=== PATIENT | male | born 1955 | race Caucasian/White ===

== ENCOUNTER 2016-07-26 05:06 | Emergency (ER) | payer BC ==
[2016-07-26] MEDS ORDERED: NITROGLYCERIN SL TABS 0.4 MG TAB SUBLINGUAL STA (05:27)
[2016-07-26] MEDS ORDERED: MORPHINE SULFATE 4 MG/ML SYRINGE IV STA ×2 (05:27→07:15)
[2016-07-26] MEDS ORDERED: RX INFO: IV CONTRAST WAS GIVEN 1 EACH MISC MISCELLANE PRN (05:31)
--- NOTE | 2016-07-26 05:32 | ED ---
Chest Pain HPI - General Chief Complaint: Chest Pain Stated Complaint: chest pains Time Seen by Provider: 07/26/16 05:08 Source: patient, family Mode of arrival: wheelchair Limitations: no limitations - History of Present Illness Initial Comments: This patient is a 61-year-old man with history of diabetes who presents to be evaluate for chest pain. The patient states that symptoms started probably about 45 minutes ago. He states that he was getting ready for work when he noticed substernal chest pain. He then also noted that his right arm was feeling somewhat weak and somewhat tingly. Patient notified his after few minutes and they then came here. Patient denies history of similar type of pains. He describes the pain as constant, severe, he is not able to characterize the type of pain well. He has not noticed any worsening or relieving factors. The patient has had some diaphoresis and a little bit of nausea. MD Complaint: chest pain Onset/Timin -: minutes(s) Onset: other (While showering) Pain Location: substernal Pain Radiation: none Severity: severe Quality: aching Consistency: constant Improves With: nothing Worsens With: nothing Anginal Symptoms: nausea, diaphoresis, other (Weakness of the right arm) Treatments Prior to Arrival: none - Related Data Home Medications Medication Instructions Recorded Confirmed Lisinopril 40 mg PO DAILY 11/03/13 07/26/16 Tadalafil [Cialis] 20 mg PO ONCE PRN 11/03/13 07/26/16 Aspirin [Adult Low Dose Aspirin EC] 81 mg PO DAILY 06/07/16 07/26/16 Fenofibrate 120 mg PO DAILY 06/07/16 07/26/16 sitaGLIPtin PHOS/metFORMIN HCL 1 each PO BID 06/07/16 07/26/16 [Janumet 50-1,000 mg Tablet] predniSONE 10 mg PO DAILY 06/08/16 07/26/16 Allergies Allergy/AdvReac Type Severity Reaction Status Date / Time No Known Allergies Allergy Verified 07/26/16 05:21 Review of Systems ROS Statement: Those systems with pertinent positive or pertinent negative responses have been documented in the HPI. ROS Other: All systems not noted in ROS Statement are negative. Constitutional: Reports: weakness (Right arm). Denies: fever, chills Respiratory: Reports: dyspnea. Denies: cough, wheezes Cardiovascular: Reports: chest pain. Denies: palpitations, edema, syncope Gastrointestinal: Reports: nausea. Denies: abdominal pain, vomiting, diarrhea Genitourinary: Denies: dysuria, hematuria Musculoskeletal: Denies: back pain Skin: Denies: rash Neurological: Reports: weakness (Right arm), numbness. Denies: headache Hematological/Lymphatic: Denies: easy bleeding EKG Findings - EKG Results: EKG: interpreted by ERMD, sinus rhythm, normal axis, normal QRS, normal ST/T EKG shows: bradycardia (8 approximately 58 bpm) Past Medical History Past Medical History: Diabetes Mellitus, Hypertension Additional Past Medical History / Comment(s): non healing wound R big Toe History of Any Multi-Drug Resistant Organisms: None Reported Past Surgical History: Orthopedic Surgery Additional Past Surgical History / Comment(s): femur Past Anesthesia/Blood Transfusion Reactions: No Reported Reaction Past Psychological History: No Psychological Hx Reported Smoking Status: Former smoker Past Alcohol Use History: None Reported Past Drug Use History: None Reported - Past Family History Mother Family Medical History: No Reported History General Exam Limitations: no limitations General appearance: alert, in distress, other (There is mild diaphoresis) Head exam: Present: atraumatic, normocephalic Eye exam: Present: normal appearance. Absent: scleral icterus, conjunctival injection ENT exam: Present: normal oropharynx Neck exam: Present: normal inspection, full ROM Respiratory exam: Present: normal lung sounds bilaterally. Absent: respiratory distress, wheezes, rales, rhonchi, stridor Cardiovascular Exam: Present: regular rate, normal rhythm, normal heart sounds. Absent: systolic murmur, diastolic murmur, rubs, gallop GI/Abdominal exam: Present: soft. Absent: distended, tenderness, guarding, rebound, mass Extremities exam: Present: full ROM, other (The patient's right upper extremity does appear pale and comparison with the contralateral and the pulse is diminished at the right radial artery.). Absent: normal inspection, normal capillary refill, pedal edema, calf tenderness Back exam: Present: normal inspection. Absent: CVA tenderness (R), CVA tenderness (L), vertebral tenderness Neurological exam: Present: alert. Absent: motor sensory deficit Skin exam: Present: warm, dry, intact, diaphoretic, pallor (Right upper extremity). Absent: rash, cyanosis, erythema Course Vital Signs 07/26/16 07/26/16 07/26/16 05:17 05:36 06:11 Temperature 97.0 F L Pulse Rate 62 57 L 54 L Respiratory 18 16 16 Rate Blood Pressure 145/65 115/59 122/59 O2 Sat by Pulse 98 98 98 Oximetry 07/26/16 07/26/16 07/26/16 06:21 06:27 06:43 Temperature Pulse Rate 52 L 56 L 53 L Respiratory 16 16 18 Rate Blood Pressure 101/51 97/55 100/54 O2 Sat by Pulse 99 98 98 Oximetry 07/26/16 07/26/16 07/26/16 06:57 06:58 07:19 Temperature 97.3 F L Pulse Rate 52 L 54 L 54 L Respiratory 16 16 16 Rate Blood Pressure 114/60 116/59 118/63 O2 Sat by Pulse 98 95 Oximetry Chest Pain [facility] Patient is 61-year-old man with acute onset of chest pain this morning. On the physical exam his right upper extremity does appear pale and there also is a decreased pulse at the right radial artery. Patient was sent for stat CT to rule out an aortic dissection. On return of the patient from the computed tomography scan I reviewed the computed tomography scan and it does show a DeBakey type I aortic dissection. I discussed the findings with the patient and his who requested transfer to [facility]. I then spoke with the human resources coordinator and I was connected with the surgical AOD, Dr. Phillips, who accepted transfer. I did give the patient dose of beta blockade. Critical Care Time Critical Care Time: Yes (40 minutes) Critical Care Time: Total of 40 minutes critical care time spent on this patient performing history and physical exam, placing orders, interpreting the studies as well as a computed tomography scan, discussing the case with the radiologist, with the patient and his family, with the [facility] transfer team, with the [facility] surgical AOD, with the [facility] vascular surgery team, and documenting. Disposition Clinical Impression: Dissection of thoracic aorta Disposition: OTHER INSTITUTION NOT DEFINED Condition: Critical Referrals: Kwan Toney MD [Primary Care Provider] - 1-2 days - Out of Hospital Transfer - Req. Specs Out of Hospital Transfer - Requested Specifics: Other Emergency Center
[2016-07-26 05:52] LABS: Basophils # (A) 0.1 k/uL (0-0.2); Basophils % (A) 1 %; CH 28.1; CHCM 33.6; Eosinophils # (A) 0.2 k/uL (0-0.7); Eosinophils % (A) 2 %; HCT 39.6 % (39.0-53.0); HDW 2.86; HGB 13.1 gm/dL (13.0-17.5); Luc # (Auto) 0.29; Luc % (Auto) 2; Lymphocytes # (A) 3.6 k/uL (1.0-4.8); Lymphocytes % (A) 30 %; MCH 27.8 pg (25.0-35.0); MCHC 33.1 g/dL (31.0-37.0); MCV 84.1 fL (80.0-100.0); Mean Platelet Volume 8.2; Monocytes # (A) 0.6 k/uL (0-1.0); Monocytes % (A) 5 %; Neutrophils # (A) 7.1 k/uL (1.3-7.7); Neutrophils % (A) 60 %; RBC 4.71 m/uL (4.30-5.90); RDW 14.7 % (11.5-15.5); WBC 11.9 k/uL (3.8-10.6); WBC (Perox) 12.44
[2016-07-26 05:56] LABS: ALT 36 U/L (21-72); AST 23 U/L (17-59); Alkaline Phosphatase 33 U/L (38-126); Amylase 72 U/L (30-110); Anion Gap 12 mmol/L; Blood Urea Nitrogen 18 mg/dL (9-20); Calcium 9.8 mg/dL (8.4-10.2); Carbon Dioxide 25 mmol/L (22-30); Chloride 106 mmol/L (98-107); Glucose 122 mg/dL (74-99); Magnesium 1.5 mg/dL (1.6-2.3); Non-African American GFR(MDRD) >60 (>60 ml/min/1.73 sqM); Potassium 3.8 mmol/L (3.5-5.1); Sodium 143 mmol/L (137-145); Total Bilirubin 0.5 mg/dL (0.2-1.3); Total Protein 6.3 g/dL (6.3-8.2)
[2016-07-26 06:05] LABS: Creatine Kinase 203 U/L (55-170); Prothrombin Time 10.3 sec (9.0-12.0)
[2016-07-26 06:14] LABS: Partial Thromboplastin Time 20.8 sec (22.0-30.0)
[2016-07-26 06:18] LABS: Troponin I <0.012 ng/mL (0.000-0.034)
--- NOTE | 2016-07-26 06:24 | XR ---
EXAM: XR Chest, 1 View. CLINICAL HISTORY: Reason: chest pain TECHNIQUE: Frontal view of the chest. COMPARISON: Chest x-ray 02/18/16 FINDINGS: Lungs: Unremarkable. No consolidation. Pleural space: Unremarkable. No pneumothorax. Heart: Unremarkable. No cardiomegaly. Mediastinum: Unremarkable. Bones/joints: Unremarkable. IMPRESSION: Normal chest x-ray.
[2016-07-26 06:27] LABS: Creatine Kinase MB 2.7 ng/mL (0.0-2.4)
[2016-07-26] MEDS ORDERED: LABETALOL SYRINGE 5 MG/ML IVP STA (06:28)
[2016-07-26 06:58] VITALS: RESP 16
[2016-07-26 06:59] VITALS: PULSE 54
--- NOTE | 2016-07-26 07:05 | CT ---
ADDENDUM - Added by Binu Mayes M.D. on 08/30/2016 12:10 PM (-07:00) Note is made that the true lumen is mostly collapsed and the false lumen is larger than the true lumen. Dissection flap involves all the great branches of the aortic arch. The left common carotid artery involves mostly the false lumen. The right renal artery arises from the true lumen. The left renal artery arises from the false lumen. Dissection flap extends to involve the celiac access and SMA. The MELLISA arises from the false lumen. EXAM: CT Angiography Chest and abdomen Without and With Intravenous Contrast. CLINICAL HISTORY: Reason: Pain, r/o dissection TECHNIQUE: Axial computed tomographic angiography images of the chest and abdomen without and with intravenous contrast using aortic dissection protocol. MIP reconstructed images were created and reviewed. Coronal and sagittal reformatted images were created and reviewed. CTDI is 20.10 mGy and DLP is 1039.20 mGy-cm COMPARISON: No relevant prior studies available. FINDINGS: Aorta: Aortic dissection starting from the ascending aorta extending to bilateral common iliac arteries in the abdomen and pelvis. Type A dissection. There is contrast flow into the false lumen. No evidence of leak or rupture. 4.4 cm aneurysmal dilatation of ascending aorta. Great vessels of aortic arch: Dissection flap extends to the proximal right subclavian artery origin, left common carotid artery origin, and the left subclavian artery origin. Superior mesenteric artery: Dissection flap extends to the proximal celiac axis and SMA. The right renal artery arises from the false lumen. Left renal artery arises from the true lumen. MELLISA arises from the true lumen. Dissection flap extends into bilateral external iliac arteries with bilateral internal iliac arteries arising from the false lumen. Lungs: Mild bibasilar lung atelectasis. The lungs otherwise clear. Pleural space: No pleural effusion or pneumothorax. Heart: Coronary artery disease. Heart size normal. Small 9 mm pericardial effusion. Bones/joints: No acute fracture. No dislocation. Soft tissues: Unremarkable. Lymph nodes: Calcified right mediastinal lymph nodes consistent with old granulomatous disease. Liver: Fatty prominent liver. Distended gallbladder. Kidneys and ureters: There is slight decreased perfusion intensity to the right kidney compared to the left without focal infarct. Mild bilateral perinephric stranding. Stomach and bowel: The visualized portions of bowel are unremarkable. No evidence of bowel ischemia. Appendix: Normal appendix. IMPRESSION: 1. Type A aortic dissection starting from the proximal ascending aorta extending to the bilateral common iliac arteries and involving the external and internal iliac arteries. There is contrast flow into the false lumen. Dissection flap involves the great vessels arising from the aortic arch. 2. 4.4 cm aneurysmal dilatation of the ascending aorta. No evidence of leak or rupture. 3. Aortic dissection extends into the abdomen and pelvis and involves the celiac access and SMA. The right renal artery arises from the false lumen and has slight decreased overall perfusion compared to the left without focal infarct. [employer] 07/26/16 06:56 Call Doctor Regarding Aortic Dissection, called DR Ledezma on 07/26 06:56 (-04:00) 08/30/16 21:31 Verify Receipt Verified receipt with
[2016-07-26 07:19] VITALS: BP 118/63; TEMP 97.3
== END 2016-07-26 07:23 | disposition other institution (70) ==
LOC: EC 05:06
DX: I71.01 Dissection of thoracic aorta (principal); E11.9 Type 2 diabetes mellitus without complications; I10 Essential (primary) hypertension; Z79.84 Long term (current) use of oral hypoglycemic drugs; Z79.82 Long term (current) use of aspirin; Z79.899 Other long term (current) drug therapy; Z87.891 Personal history of nicotine dependence; Z79.52 Long term (current) use of systemic steroids
CPT/HCPCS: 96374; 96375 ×2; 99291 ×2; 36415; 93005; 85379; 80053; 82150; 82550; 82553; 83690; 83735; 84484; 85025; 85610; 85730; 71010; 75635; 71275; J2270; Q9967

== ENCOUNTER 2016-12-17 16:54 | Inpatient (IN) | payer BC ==
[2016-12-17 16:59] LABS: Glucose,Whole Blood 80 mg/dL (75-99)
[2016-12-17] MEDS ORDERED: SODIUM CHLORIDE 0.9% 1,000 ML IV STA (16:59)
[2016-12-17] MEDS ORDERED: LORazepam 2 MG/ML SYRINGE IV STA (17:06)
--- NOTE | 2016-12-17 17:06 | ED ---
Seizure HPI - General Stated Complaint: Seizure Time Seen by Provider: 12/17/16 16:54 Source: EMS, RN notes reviewed, old records reviewed Mode of arrival: EMS - History of Present Illness Initial Comments: This is a 61-year-old male with a history of CVA with left-sided deficits who had a seizure lasting about 2 minutes at senior living where he resides today. He was brought here for evaluation. Upon arrival he was also noted have a seizure lasting about 2 minutes the was a senior living episode about 2 minutes. Patient had tonic-clonic activity with left lateral gaze at this time. No reports of trauma fevers chills nausea vomiting sweats patient is on Coumadin. MD Complaint: seizure - Related Data Home Medications Medication Instructions Recorded Confirmed Acetaminophen Tab [Tylenol Tab] 650 mg PO Q6H PRN 12/17/16 12/17/16 Amino Acids/Protein Hydrolys 30 ml PO BID 12/17/16 12/17/16 [Pro-Stat Supplement] Amiodarone [Cordarone] 200 mg PO DAILY 12/17/16 12/17/16 Ammonium Lactate Cream [Lac-Hydrin 1 applic TOPICAL BID 12/17/16 12/17/16 12% Cream] Atorvastatin [Lipitor] 20 mg PO DAILY@2100 12/17/16 12/17/16 Bisacodyl [Dulcolax] 10 mg RECTAL DAILY PRN 12/17/16 12/17/16 DULoxetine HCL [Cymbalta] 30 mg PO DAILY 12/17/16 12/17/16 Famotidine [Pepcid] 20 mg PO BID 12/17/16 12/17/16 Ferrous Sulfate [Feosol] 325 mg PO BID 12/17/16 12/17/16 Folic Acid 1 mg PO DAILY@1700 12/17/16 12/17/16 Furosemide [Lasix] 40 mg PO DAILY 12/17/16 12/17/16 HYDROcodone/APAP 10-325MG [[place] 1 tab PO Q4HR PRN 12/17/16 12/17/16 10-325] INSULIN LISPRO (humaLOG) [HumaLOG] See Protocol SQ ACHS 12/17/16 12/17/16 Insulin Detemir [Levemir] 36 unit SQ DAILY 12/17/16 12/17/16 Insulin Lispro [humaLOG] 16 units SQ AC-TID 12/17/16 12/17/16 Lactulose 20 gm PO BID 12/17/16 12/17/16 Lidocaine [Lidoderm 5% Patch] 1 patch TRANSDERM DAILY 12/17/16 12/17/16 Lisinopril [Zestril] 10 mg PO BID 12/17/16 12/17/16 Loratadine [Claritin] 10 mg PO DAILY 12/17/16 12/17/16 Magnesium Hydroxide [Milk of 2,400 mg PO DAILY PRN 12/17/16 12/17/16 Magnesia] Metoclopramide [Reglan] 10 mg PO ACHS 12/17/16 12/17/16 Metoprolol Tartrate [Lopressor] 50 mg PO BID 12/17/16 12/17/16 Multivitamins, Thera [Multivitamin 1 tab PO DAILY@1700 12/17/16 12/17/16 (formulary)] Na Phos,M-B/Na Phos,Di-Ba [Fleet 133 ml RECTAL DAILY PRN 12/17/16 12/17/16 Adult] Momence Nasal [place] 1 spray EA NOSTRIL BID 12/17/16 12/17/16 Ondansetron [Zofran] 4 mg PO Q6H PRN 12/17/16 12/17/16 Polyethylene Glycol 3350 [Miralax] 17 gm PO DAILY 12/17/16 12/17/16 Potassium Chloride Oral Liquid 20 meq PO DAILY@1700 12/17/16 12/17/16 Warfarin [Coumadin] 2.5 mg PO FR@1700 12/17/16 12/17/16 Warfarin [Coumadin] 5 mg PO SUMOTUWETHSA@1700 12/17/16 12/17/16 buPROPion [Wellbutrin] 100 mg PO BID 12/17/16 12/17/16 predniSONE 5 mg PO DAILY 12/17/16 12/17/16 Allergies Allergy/AdvReac Type Severity Reaction Status Date / Time No Known Allergies Allergy Verified 12/17/16 17:13 Review of Systems ROS Statement: Those systems with pertinent positive or pertinent negative responses have been documented in the HPI. ROS Other: All systems not noted in ROS Statement are negative. Limitations: ROS unobtainable due to patients medical condition Past Medical History Past Medical History: Diabetes Mellitus, Hypertension Additional Past Medical History / Comment(s): non healing wound R big Toe History of Any Multi-Drug Resistant Organisms: None Reported Past Surgical History: Orthopedic Surgery Additional Past Surgical History / Comment(s): femur Past Anesthesia/Blood Transfusion Reactions: No Reported Reaction Past Psychological History: No Psychological Hx Reported Smoking Status: Former smoker Past Alcohol Use History: None Reported Past Drug Use History: None Reported - Past Family History Mother Family Medical History: No Reported History General Exam - General Exam Comments Initial Comments: Is a well-developed well-nourished male he was noted to be actively seizing lasting about 2 minutes upon arrival Limitations: altered mental status, physical limitation General appearance: other (Actively seizing) Head exam: Present: atraumatic, normocephalic, normal inspection Eye exam: Present: other (Left lateral gaze) ENT exam: Present: normal exam, TM's normal bilaterally Neck exam: Present: normal inspection. Absent: tenderness, meningismus, lymphadenopathy Respiratory exam: Present: normal lung sounds bilaterally. Absent: respiratory distress, wheezes, rales, rhonchi, stridor Cardiovascular Exam: Present: tachycardia GI/Abdominal exam: Present: soft, normal bowel sounds. Absent: distended, tenderness, guarding, rebound, rigid Extremities exam: Present: normal capillary refill Back exam: Present: normal inspection Neurological exam: Present: other (Patient was noted be actively seizing upon my initial evaluation) Psychiatric exam: Present: other (Unable to evaluate) Skin exam: Present: warm, dry, intact, normal color. Absent: rash Course Vital Signs 12/17/16 12/17/16 12/17/16 17:09 18:03 19:01 Pulse Rate 71 67 69 Respiratory 18 14 16 Rate Blood Pressure 175/83 133/81 117/69 O2 Sat by Pulse 98 95 95 Oximetry - Reevaluation(s) Reevaluation #1: 12/17/16 17:07 Patient seizure activity lasting approximately 2 minutes. Patient was given IV Ativan over prior to this he had awoken enough to follow some simple commands. Medical Decision Making - Medical Decision Making I did a long discussion with patient and family regarding the findings. Patient was reevaluated no further seizure activity was noted. Patient will be admitted with neurology consultation the patient has seen Dr. Vero Duron in the past. Patient will be started on Keppra EEG will be performed. - Lab Data Result diagrams: 12/17/16 17:15 12/17/16 17:15 Lab Results 12/17/16 12/17/16 12/17/16 Range/Units 16:58 17:15 17:15 WBC 10.7 H (3.8-10.6) k/uL RBC 4.77 (4.30-5.90) m/uL Hgb 12.7 L (13.0-17.5) gm/dL Hct 38.2 L (39.0-53.0) % MCV 80.0 (80.0-100.0) fL MCH 26.6 (25.0-35.0) pg MCHC 33.3 (31.0-37.0) g/dL RDW 17.2 H (11.5-15.5) % Plt Count 156 (150-450) k/uL Neutrophils % 75 % Lymphocytes % 13 % Monocytes % 8 % Eosinophils % 1 % Basophils % 1 % Neutrophils # 8.1 H (1.3-7.7) k/uL Lymphocytes # 1.4 (1.0-4.8) k/uL Monocytes # 0.8 (0-1.0) k/uL Eosinophils # 0.1 (0-0.7) k/uL Basophils # 0.1 (0-0.2) k/uL Anisocytosis Slight Microcytosis Slight PT 20.1 H (9.0-12.0) sec INR 2.1 H (<1.2) APTT 30.2 H (22.0-30.0) sec Sodium (137-145) mmol/L Potassium (3.5-5.1) mmol/L Chloride (98-107) mmol/L Carbon Dioxide (22-30) mmol/L Anion Gap mmol/L BUN (9-20) mg/dL Creatinine (0.66-1.25) mg/dL Est GFR (MDRD) Af Amer (>60 ml/min/1.73 sqM) Est GFR (MDRD) Non-Af (>60 ml/min/1.73 sqM) Glucose (74-99) mg/dL POC Glucose (mg/dL) 80 (75-99) mg/dL POC Glu [employer] Prasanna Lopez Calcium (8.4-10.2) mg/dL Magnesium (1.6-2.3) mg/dL Total Bilirubin (0.2-1.3) mg/dL AST (17-59) U/L ALT (21-72) U/L Alkaline Phosphatase (38-126) U/L Total Creatine Kinase (55-170) U/L CK-MB (CK-2) (0.0-2.4) ng/mL CK-MB (CK-2) Rel Index Troponin I (0.000-0.034) ng/mL Total Protein (6.3-8.2) g/dL Albumin (3.5-5.0) g/dL TSH (0.465-4.680) mIU/L 12/17/16 12/17/16 12/17/16 Range/Units 17:15 17:15 18:02 WBC (3.8-10.6) k/uL RBC (4.30-5.90) m/uL Hgb (13.0-17.5) gm/dL Hct (39.0-53.0) % MCV (80.0-100.0) fL MCH (25.0-35.0) pg MCHC (31.0-37.0) g/dL RDW (11.5-15.5) % Plt Count (150-450) k/uL Neutrophils % % Lymphocytes % % Monocytes % % Eosinophils % % Basophils % % Neutrophils # (1.3-7.7) k/uL Lymphocytes # (1.0-4.8) k/uL Monocytes # (0-1.0) k/uL Eosinophils # (0-0.7) k/uL Basophils # (0-0.2) k/uL Anisocytosis Microcytosis PT (9.0-12.0) sec INR (<1.2) APTT (22.0-30.0) sec Sodium 130 L (137-145) mmol/L Potassium 4.6 (3.5-5.1) mmol/L Chloride 97 L (98-107) mmol/L Carbon Dioxide 22 (22-30) mmol/L Anion Gap 11 mmol/L BUN 14 (9-20) mg/dL Creatinine 0.91 (0.66-1.25) mg/dL Est GFR (MDRD) Af Amer >60 (>60 ml/min/1.73 sqM) Est GFR (MDRD) Non-Af >60 (>60 ml/min/1.73 sqM) Glucose 74 (74-99) mg/dL POC Glucose (mg/dL) 98 (75-99) mg/dL POC Glu [employer] ID Boo Muller Calcium 8.9 (8.4-10.2) mg/dL Magnesium 1.3 L (1.6-2.3) mg/dL Total Bilirubin 0.4 (0.2-1.3) mg/dL AST 29 (17-59) U/L ALT 41 (21-72) U/L Alkaline Phosphatase 31 L (38-126) U/L Total Creatine Kinase 35 L (55-170) U/L CK-MB (CK-2) 2.2 (0.0-2.4) ng/mL CK-MB (CK-2) Rel Index 6.3 Troponin I <0.012 (0.000-0.034) ng/mL Total Protein 6.5 (6.3-8.2) g/dL Albumin 3.3 L (3.5-5.0) g/dL TSH 3.460 (0.465-4.680) mIU/L - EKG Data -: EKG Interpreted by Tn EKG shows normal: sinus rhythm (Sinus rhythm rate of 68. Interval 184 QRS 96 QT since QTC of 446/[address] configuration.) - Radiology Data Radiology results: report reviewed (Review the imaging shows no definite acute findings.), image reviewed Critical Care Time Critical Care Time: Yes Critical Care Time: 34 minutes of critical care time which includes initial monitoring the EMS run and discussed with paramedics history physical labs x-rays reevaluation patient several occasions. Review of old charting. Discussion with patient family. Discussion with the admitting physician and admission orders and documentation of the above Disposition Clinical Impression: New onset seizure, Hyponatremia, Hypomagnesemia syndrome, History of CVA in adulthood Disposition: ADMITTED IP TO THIS HOSP Condition: Stable Referrals: Kwan Toney MD [Primary Care Provider] - 1-2 days
[2016-12-17 17:37] LABS: INR 2.1 (<1.2); Partial Thromboplastin Time 30.2 sec (22.0-30.0); Prothrombin Time 20.1 sec (9.0-12.0)
--- NOTE | 2016-12-17 18:09 | CT ---
EXAMINATION TYPE: CT brain wo con DATE OF EXAM: 12/17/2016 COMPARISON: NONE HISTORY: 61-year-old male with new onset seizure today. History of stroke. TECHNIQUE: Examination was done in axial plane without intravenous contrast. Coronal and sagittal r econstructions performed. CT DLP: 1033.40 mGycm Automated exposure control for dose reduction was used. FINDINGS: There is no evidence of acute intracranial hemorrhage, acute ischemic changes, mass, mass-effect, or extra-axial fluid collection. There is no effacement of cerebral sulci or basal subarachnoid cister ns. There is no hydrocephalus. There is no midline shift. Tam-white matter distinction is preserv ed. There is extensive encephalomalacia relating to a large old right MCA territorial infarct. Paranasal sinuses and mastoid air cells are well pneumatized. Orbits and globes are intact. IMPRESSION: Large right MCA territory infarct is chronic with extensive encephalomalacia. No acute intracranial a bnormality seen.
[2016-12-17 18:10] LABS: Glucose,Whole Blood 98 mg/dL (75-99)
[2016-12-17 19:09] LABS: Anisocytosis Slight; Basophils # (A) 0.1 k/uL (0-0.2); Basophils % (A) 1 %; CH 27.5; CHCM 34.4; Eosinophils # (A) 0.1 k/uL (0-0.7); Eosinophils % (A) 1 %; HCT 38.2 % (39.0-53.0); HDW 3.08; HGB 12.7 gm/dL (13.0-17.5); Luc # (Auto) 0.27; Luc % (Auto) 3; Lymphocytes # (A) 1.4 k/uL (1.0-4.8); Lymphocytes % (A) 13 %; MCH 26.6 pg (25.0-35.0); MCHC 33.3 g/dL (31.0-37.0); Mean Platelet Volume 7.9; Microcytosis Slight; Monocytes # (A) 0.8 k/uL (0-1.0); Monocytes % (A) 8 %; Neutrophils # (A) 8.1 k/uL (1.3-7.7); Neutrophils % (A) 75 %; RBC 4.77 m/uL (4.30-5.90); RDW 17.2 % (11.5-15.5); WBC 10.7 k/uL (3.8-10.6); WBC (Perox) 10.61
[2016-12-17 19:15] LABS: ALT 41 U/L (21-72); AST 29 U/L (17-59); Alkaline Phosphatase 31 U/L (38-126); Anion Gap 11 mmol/L; Blood Urea Nitrogen 14 mg/dL (9-20); Calcium 8.9 mg/dL (8.4-10.2); Carbon Dioxide 22 mmol/L (22-30); Chloride 97 mmol/L (98-107); Creatine Kinase 35 U/L (55-170); Glucose 74 mg/dL (74-99); Magnesium 1.3 mg/dL (1.6-2.3); Non-African American GFR(MDRD) >60 (>60 ml/min/1.73 sqM); Potassium 4.6 mmol/L (3.5-5.1); Sodium 130 mmol/L (137-145); Total Bilirubin 0.4 mg/dL (0.2-1.3); Total Protein 6.5 g/dL (6.3-8.2)
[2016-12-17 19:26] LABS: Creatine Kinase MB 2.2 ng/mL (0.0-2.4); Troponin I <0.012 ng/mL (0.000-0.034)
[2016-12-17] MEDS ORDERED: levETIRAcetam IV 1,500 MG in SALINE 1 100ML.BAG IVPB STA (20:17)
[2016-12-17] MEDS ORDERED: MAGNESIUM HYDROXIDE 2,400 MG/10 ML CUP PO PRN (20:18)
[2016-12-17] MEDS ORDERED: ONDANSETRON 4 MG TAB PO PRN (20:18)
[2016-12-17] MEDS ORDERED: BISACODYL 10 MG SUPP RECTAL PRN (20:18)
[2016-12-17] MEDS ORDERED: NA PHOS,M-B/NA PHOS,DI-BA 133 ML ENEMA RECTAL PRN (20:18)
[2016-12-17] MEDS ORDERED: MAGNESIUM SULFATE-D5W PMX 1 GM in DEXTROSE/WATER 1 100ML.BAG IVPB ONE (20:23)
[2016-12-17] MEDS ORDERED: NON-FORMULARY DRUG (Amino Acids/Protein Hydrolys [Pro-Stat Supplement] 30 ML) PO SCH (21:00)
[2016-12-17 21:01] LABS: Appearance,Urine Clear (Clear); Bilirubin,Urine Negative (Negative); Glucose,Urine (UA) Negative (Negative); Ketones,Urine Negative (Negative); Leukocyte Esterase,Urine Negative (Negative); Nitrite,Urine Negative (Negative); PH, Urine 5.5 (5.0-8.0); Protein,Urine Negative (Negative); Specific Gravity,Urine 1.007 (1.001-1.035); UA Billing (MACRO vs. MICRO) CHEM; Urobilinogen,Urine <2.0 mg/dL (<2.0)
[2016-12-17] MEDS: AMMONIUM LACTATE 12% CREAM 140 GM TUBE TOPICAL SCH (22:25)
[2016-12-17] MEDS: FERROUS SULFATE 325 MG TAB PO SCH (22:26)
[2016-12-17] MEDS: ATORVASTATIN 20 MG TAB PO SCH (22:26)
[2016-12-17] MEDS: buPROPion 100 MG TAB PO SCH (22:26)
[2016-12-17] MEDS: FAMOTIDINE 20 MG TAB PO SCH (22:26)
[2016-12-17] MEDS: LACTULOSE 20 GM/30 ML CUP PO SCH (22:26)
[2016-12-17] MEDS: METOPROLOL TARTRATE 50 MG TAB PO SCH (22:27)
[2016-12-17] MEDS: LISINOPRIL 10 MG TAB PO SCH (22:27)
[2016-12-17] MEDS: INSULIN LISPRO (humaLOG) 300 UNIT/3 ML VIAL SQ SCH (22:27)
[2016-12-17] MEDS: METOCLOPRAMIDE 10 MG TAB PO SCH (22:27)
[2016-12-18] MEDS ORDERED: Magnesium Replacement Protocol 1 EACH MISC MISCELLANE PRN (00:18)
[2016-12-18] MEDS: SODIUM CHLORIDE 0.65% NASAL SPRAY 44 ML BTL INTRANASAL SCH ×2 (00:22→13:22)
[2016-12-18] MEDS: MAGNESIUM SULFATE-D5W PMX 1 GM in DEXTROSE/WATER 1 100ML.BAG IVPB SCH ×2 (01:08→02:19)
[2016-12-18 02:43] LABS: Cholesterol 116 mg/dL (<200); HDL Cholesterol 27 mg/dL (40-60)
[2016-12-18] MEDS: HYDROcodone/APAP 10-325MG 1 EACH TAB PO PRN (05:09)
[2016-12-18 06:06] LABS: Glucose,Whole Blood 84 mg/dL (75-99)
[2016-12-18] MEDS: INSULIN LISPRO (humaLOG) 300 UNIT/3 ML VIAL SQ SCH ×7 (06:35→21:48)
[2016-12-18 06:41] LABS: Anisocytosis Slight; Basophils # (A) 0.1 k/uL (0-0.2); Basophils % (A) 1 %; CHCM 34.4; Eosinophils # (A) 0.1 k/uL (0-0.7); Eosinophils % (A) 1 %; HCT 35.5 % (39.0-53.0); HDW 3.04; HGB 12.1 gm/dL (13.0-17.5); Luc # (Auto) 0.21; Luc % (Auto) 2; Lymphocytes # (A) 1.5 k/uL (1.0-4.8); Lymphocytes % (A) 16 %; MCH 26.9 pg (25.0-35.0); MCHC 34.1 g/dL (31.0-37.0); MCV 78.6 fL (80.0-100.0); Mean Platelet Volume 6.8; Microcytosis Slight; Monocytes # (A) 0.7 k/uL (0-1.0); Monocytes % (A) 8 %; Neutrophils # (A) 6.5 k/uL (1.3-7.7); Neutrophils % (A) 72 %; RBC 4.51 m/uL (4.30-5.90); RDW 16.6 % (11.5-15.5); WBC 8.9 k/uL (3.8-10.6); WBC (Perox) 9.17
[2016-12-18 06:56] LABS: INR 1.8 (<1.2); Prothrombin Time 17.4 sec (9.0-12.0)
[2016-12-18 07:04] LABS: ALT 33 U/L (21-72); AST 21 U/L (17-59); Alkaline Phosphatase 30 U/L (38-126); Anion Gap 8 mmol/L; Blood Urea Nitrogen 10 mg/dL (9-20); Calcium 8.7 mg/dL (8.4-10.2); Carbon Dioxide 24 mmol/L (22-30); Chloride 100 mmol/L (98-107); Glucose 80 mg/dL (74-99); Non-African American GFR(MDRD) >60 (>60 ml/min/1.73 sqM); Potassium 3.8 mmol/L (3.5-5.1); Sodium 132 mmol/L (137-145); Total Bilirubin 0.3 mg/dL (0.2-1.3); Total Protein 5.7 g/dL (6.3-8.2)
[2016-12-18] MEDS: LIDOCAINE 5% PATCH TOPICAL SCH ×2 (07:43→09:07)
[2016-12-18] MEDS: SODIUM CHLORIDE 0.9% 1,000 ML IV SCH ×3 (07:43→17:34)
--- NOTE | 2016-12-18 08:36 | US ---
EXAMINATION TYPE: US carotid duplex BILAT DATE OF EXAM: 12/18/2016 COMPARISON: NONE CLINICAL HISTORY: 61-year-old male Stenosis. TECHNIQUE: Carotid duplex ultrasound examination. Indirect Doppler criteria was utilized. FINDINGS: Minimal atherosclerotic changes are seen at the bifurcations. EXAM MEASUREMENTS: RIGHT: Peak Systolic Velocity (PSV) cm/sec ----- Right CCA: 51.7 ----- Right ICA: 73.8 ----- Right ECA: 48.8 ICA/CCA ratio: 1.4 RIGHT: End Diastole cm/sec ----- Right CCA: 0.0 ----- Right ICA: 18.8 ----- Right ECA: 4.3 LEFT: Peak Systolic Velocity (PSV) cm/sec ----- Left CCA: 60.3 ----- Left ICA: 62.7 ----- Left ECA: 48.3 ICA/CCA ratio: 1.0 LEFT: End Diastole cm/sec ----- Left CCA: 9.8 ----- Left ICA: 18.2 ----- Left ECA: 0.0 VERTEBRALS (direction of flow): Right Vertebral: antegrade Left Vertebral: antegrade IMPRESSION: No hemodynamically significant stenosis appreciated in either internal carotid artery. Criteria for Assigning % of Stenosis / Diameter reduction (Estimation based on the indirect measurements of the internal carotid artery velocities (ICA PSV). 1. Normal (no stenosis)=ICA PSV < 125 cm/s: ratio < 2.0: ICA EDV<40 cm/s. 2. Less than 50% stenosis=ICA PSV < 125 cm/s: ratio < 2.0: ICA EDV<40 cm/s. 3. 50 to 69% stenosis=ICA PSV of 125 to 230 cm/s: ration 2.0 ? 4.0: ICA EDV 40-100 cm/s. 4. Greater than 70% stenosis to near occlusion= ICA PSV > 230 cm/s: ratio > 4.0: ICA EDV > 100 cm/s. 5. Near occlusion= ICA PSV velocities may be low or undetectable: variable ratio and ICA EDV. 6. Total occlusion=unable to detect flow.
[2016-12-18] MEDS ORDERED: LIDOCAINE 5% PATCH TOPICAL SCH (09:00)
[2016-12-18] MEDS: POLYETHYLENE GLYCOL 3350 17 GM POWD.PACK PO SCH (09:05)
[2016-12-18] MEDS: levETIRAcetam IV 750 MG in SODIUM CHLORIDE 0.9% 100 ML IVPB SCH ×2 (09:06→21:51)
[2016-12-18] MEDS: METOPROLOL TARTRATE 50 MG TAB PO SCH ×2 (09:06→21:49)
[2016-12-18] MEDS: predniSONE 5 MG TAB PO SCH (09:06)
[2016-12-18] MEDS: LACTULOSE 20 GM/30 ML CUP PO SCH ×2 (09:06→21:49)
[2016-12-18] MEDS: buPROPion 100 MG TAB PO SCH (09:06)
[2016-12-18] MEDS: LISINOPRIL 10 MG TAB PO SCH ×2 (09:06→21:49)
[2016-12-18] MEDS: FUROSEMIDE 40 MG TAB PO SCH (09:07)
[2016-12-18] MEDS: AMMONIUM LACTATE 12% CREAM 140 GM TUBE TOPICAL SCH ×2 (09:07→21:47)
[2016-12-18] MEDS: AMIODARONE 200 MG TAB PO SCH (09:07)
[2016-12-18] MEDS: LORATADINE 10 MG TAB PO SCH (09:07)
[2016-12-18] MEDS: FAMOTIDINE 20 MG TAB PO SCH ×2 (09:07→21:48)
[2016-12-18] MEDS: FERROUS SULFATE 325 MG TAB PO SCH ×2 (09:07→21:48)
[2016-12-18] MEDS: METOCLOPRAMIDE 10 MG TAB PO SCH ×4 (09:07→21:49)
[2016-12-18 11:55] LABS: Glucose,Whole Blood 154 mg/dL (75-99)
[2016-12-18] MEDS: DULoxetine HCL 30 MG CAPSULE.DR PO SCH (12:24)
[2016-12-18] MEDS: INSULIN DETEMIR 100 UNIT/ML 10 ML VIAL SQ SCH (12:30)
--- NOTE | 2016-12-18 16:28 | P.HPIM ---
History of Present Illness H&P Date: 12/18/16 Chief Complaint: Seizures This is a 61-year-old gentleman with a left hemiplegia secondary to extensive right MCA thrombolytic bleed which was initially started in 07/26/2016. He is A complicated history that time, had a type a aortic root dissection, was subsequently transferred to [facility] and stayed there for 2-1 days including vent dependent respiratory failure, they performed a lengthy aortic sleeve graft down from the innominate to the mesenteric vessels, he was subsequently was transferred to [facility] specialty, for 32 days, still requiring event at that time. He was subsequently transferred to [facility] for additional 6 weeks inpatient rehabilitation then transferred to [facility] now for the fifth week SUBACUTE rehabilitation. He has underlying history of diabetes mellitus type 2, atrial fibrillation, hypertension, chronic anticoagulation sacral decubitus ulcer, PEG tube feedings , and recent removal of tracheostomy. He was at the [place] [facility] under service of Dr. Toney, and was noted to have new onset tonic-clonic contractions and was subsequently transferred to the hospital for further treatment. Another witnessed seizure happened in the emergency room, he was loaded with Keppra and consultation with Dr. Candelaria with EEG to be performed, he normally sees Dr. Ny the entire neurologic events from his initial neurologic insult from the extensive CVA patient has had improvement especially with the dysarthria and discharge, patient is independent with feedings, regular diet without any evidence off recent aspiration, PEG tube is in place on the with PEG flushes no medications on the PEG tube site, tracheostomy incision is healed In the emergency room CAT scan of the brain was performed showing a large right MCA territory infarct with chronic extensive encephalomalacia no midline shift ischemic changes no mass effect no hydrocephalus. He was seen in consultation by neurology, Wellbutrin and Cymbalta was discontinued, patient has been depressed for several weeks now. Patient currently is on Keppra 750 mg every 12 hours Review of Systems Constitutional: Denies as per HPI, Denies anorexia, Denies chills, Denies chronic headaches, Denies chronic pain, Denies daytime sleepiness, Denies fatigue, Denies fever, Denies lethargy, Denies malaise, Denies night sweats, Denies poor appetite, Denies sweats, Denies weakness, Denies weight gain, Denies weight loss Ears, nose, mouth and throat: Reports as per HPI, Denies ant. neck pain, Denies bleeding gums, Denies dental pain, Denies dysphagia, Denies epistaxis, Denies headache, Denies hoarseness, Denies mouth pain, Denies nasal congestion, Denies nasal discharge, Denies neck fullness/pressure, Denies neck lump, Denies nose pain, Denies odynophagia, Denies post-nasal drip, Denies sinus pain, Denies sinus pressure, Denies swelling in mouth, Denies swelling in throat, Denies sore throat, Denies vertigo, Denies voice changes Cardiovascular: Reports as per HPI, Denies chest pain, Denies claudication, Denies decreased exercise tolerance, Denies dyspnea on exertion, Denies edema, Denies high blood pressure, Denies irregular heart beat, Denies leg edema, Denies lightheadedness, Denies orthopnea, Denies palpitations, Denies paroxysmal nocturnal dyspnea, Denies phlebitis, Denies rapid heart beat, Denies shortness of breath, Denies syncope Respiratory: Reports as per HPI, Denies congestion, Denies cough, Denies cough with sputum, Denies dyspnea, Denies excessive sputum, Denies hemoptysis, Denies home oxygen, Denies pain, Denies pain on inspiration, Denies pleurisy, Denies respiratory infections, Denies sleep apnea, Denies snoring, Denies wheezing Gastrointestinal: Reports as per HPI, Denies abdominal pain, Denies belching, Denies bloating, Denies BRBPR, Denies change in bowel habits, Denies coffee ground emesis, Denies constipation, Denies diarrhea, Denies dyspepsia, Denies early satiety, Denies excessive gas, Denies heartburn, Denies hematemesis, Denies hematochezia, Denies indigestion, Denies jaundice, Denies lactose intolerance, Denies loss of appetite, Denies melena, Denies nausea, Denies vomiting Genitourinary: Reports as per HPI Musculoskeletal: Reports as per HPI Integumentary: Reports as per HPI, Denies acne, Denies boils, Denies brittle nails, Denies change in hair/nails, Denies color changes, Denies darkening of skin, Denies depigmentation, Denies dryness, Denies foot/leg ulcers, Denies growths, Denies hirsutism, Denies lesions, Denies onychomycosis, Denies pruritus , Denies rash, Denies sores, Denies striae, Denies unusual bruising, Denies wounds Neurological: Reports as per HPI Psychiatric: Reports as per HPI, Denies anhedonia, Denies anxiety, Denies anxiety attacks, Denies change in appetite, Denies change in libido, Denies change in sleep habits, Denies confusion, Denies depression, Denies difficulty concentrating, Denies disorientation, Denies hallucinations, Denies hopelessness , Denies hypersomnia, Denies insomnia, Denies irritability, Denies memory loss, Denies mood swings, Denies paranoia, Denies sadness/tearfulness, Denies sleep disturbances, Denies suicidal ideation Endocrine: Reports as per HPI Hematologic/Lymphatic: Reports as per HPI Allergic/Immunologic: Reports as per HPI Past Medical History Past Medical History: Atrial Fibrillation, Coronary Artery Disease (CAD) ( Aortic dissection requiring aortic graft), CVA/TIA, Diabetes Mellitus, Hypertension, Osteoarthritis (OA), Respiratory Disorder Additional Past Medical History / Comment(s): non healing wound R big Toe. 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 PEG tube in place. History of Any Multi-Drug Resistant Organisms: None Reported Past Surgical History: Orthopedic Surgery Additional Past Surgical History / Comment(s): femur Past Anesthesia/Blood Transfusion Reactions: No Reported Reaction Past Psychological History: Depression Smoking Status: Former smoker Past Alcohol Use History: None Reported Past Drug Use History: None Reported - Past Family History Mother Family Medical History: No Reported History Medications and Allergies Home Medications Medication Instructions Recorded Confirmed Type Acetaminophen Tab [Tylenol Tab] 650 mg PO Q6H PRN 12/17/16 12/17/16 History Amino Acids/Protein Hydrolys 30 ml PO BID 12/17/16 12/17/16 History [Pro-Stat Supplement] Amiodarone [Cordarone] 200 mg PO DAILY 12/17/16 12/17/16 History Ammonium Lactate Cream [Lac-Hydrin 1 applic TOPICAL BID 12/17/16 12/17/16 History 12% Cream] Atorvastatin [Lipitor] 20 mg PO DAILY@2100 12/17/16 12/17/16 History Bisacodyl [Dulcolax] 10 mg RECTAL DAILY PRN 12/17/16 12/17/16 History DULoxetine HCL [Cymbalta] 30 mg PO DAILY 12/17/16 12/17/16 History Famotidine [Pepcid] 20 mg PO BID 12/17/16 12/17/16 History Ferrous Sulfate [Feosol] 325 mg PO BID 12/17/16 12/17/16 History Folic Acid 1 mg PO DAILY@1700 12/17/16 12/17/16 History Furosemide [Lasix] 40 mg PO DAILY 12/17/16 12/17/16 History HYDROcodone/APAP 10-325MG [[place] 1 tab PO Q4HR PRN 12/17/16 12/17/16 History 10-325] INSULIN LISPRO (humaLOG) [HumaLOG] See Protocol SQ ACHS 12/17/16 12/17/16 History Insulin Detemir [Levemir] 36 unit SQ DAILY 12/17/16 12/17/16 History Insulin Lispro [humaLOG] 16 units SQ AC-TID 12/17/16 12/17/16 History Lactulose 20 gm PO BID 12/17/16 12/17/16 History Lidocaine [Lidoderm 5% Patch] 1 patch TRANSDERM DAILY 12/17/16 12/17/16 History Lisinopril [Zestril] 10 mg PO BID 12/17/16 12/17/16 History Loratadine [Claritin] 10 mg PO DAILY 12/17/16 12/17/16 History Magnesium Hydroxide [Milk of 2,400 mg PO DAILY PRN 12/17/16 12/17/16 History Magnesia] Metoclopramide [Reglan] 10 mg PO ACHS 12/17/16 12/17/16 History Metoprolol Tartrate [Lopressor] 50 mg PO BID 12/17/16 12/17/16 History Multivitamins, Thera [Multivitamin 1 tab PO DAILY@1700 12/17/16 12/17/16 History (formulary)] Na Phos,M-B/Na Phos,Di-Ba [Fleet 133 ml RECTAL DAILY PRN 12/17/16 12/17/16 History Adult] [place] Nasal [place]inckel 1 spray EA NOSTRIL BID 12/17/16 12/17/16 History Ondansetron [Zofran] 4 mg PO Q6H PRN 12/17/16 12/17/16 History Polyethylene Glycol 3350 [Miralax] 17 gm PO DAILY 12/17/16 12/17/16 History Potassium Chloride Oral Liquid 20 meq PO DAILY@1700 12/17/16 12/17/16 History Warfarin [Coumadin] 2.5 mg PO FR@1700 12/17/16 12/17/16 History Warfarin [Coumadin] 5 mg PO SUMOTUWETHSA@1700 12/17/16 12/17/16 History buPROPion [Wellbutrin] 100 mg PO BID 12/17/16 12/17/16 History predniSONE 5 mg PO DAILY 12/17/16 12/17/16 History Allergies Allergy/AdvReac Type Severity Reaction Status Date / Time No Known Allergies Allergy Verified 12/17/16 17:13 Physical Exam Vitals: Vital Signs Temp Pulse Pulse Resp BP BP Pulse Ox 12/18/16 12:00 97.6 F 59 L 18 116/72 96 12/18/16 08:00 97.8 F 58 L 18 100/58 97 12/18/16 04:00 98.2 F 61 18 118/71 94 L 12/18/16 00:16 66 18 95 12/17/16 23:16 98.0 F 64 18 114/71 95 12/17/16 23:15 64 18 12/17/16 22:16 68 18 118/75 96 12/17/16 21:16 98.8 F 65 18 129/69 95 12/17/16 21:14 98.8 F 68 16 129/70 95 12/17/16 20:48 98.8 F 68 16 129/70 95 12/17/16 19:01 69 16 117/69 95 12/17/16 18:03 67 14 133/81 95 12/17/16 17:09 71 18 175/83 98 Intake and Output 12/18/16 12/18/16 12/18/16 06:59 14:59 22:59 Intake Total 1100 1340 Output Total 750 Balance 1100 590 Intake: Intake, IV Titration 1100 700 Amount Magnesium Sulfate-D5w Pmx 600 1 gm In Dextrose/Water 1 100ml.bag @ 100 mls/hr IVPB ONCE ONE Rx#: [id number] Magnesium Sulfate-D5w Pmx 300 1 gm In Dextrose/Water 1 100ml.bag @ 100 mls/hr IVPB Q1H DIANA Rx#: [id number] Sodium Chloride 0.9% 1, 800 000 ml @ 100 mls/hr IV . Q10H STA Rx#:[id number] levETIRAcetam IV 750 mg 100 In Sodium Chloride 0.9% 100 ml @ 400 mls/hr IVPB Q12HR DIANA Rx#:[id number] Oral 640 Output: Urine 750 Other: Voiding Method Indwelling Catheter Indwelling Catheter # Bowel Movements 0 Weight 96.5 kg - Constitutional General appearance: average body habitus, cooperative, no acute distress - EENT Eyes: anicteric sclerae, EOMI, PERRLA, dentition normal ENT: hard of hearing, NA/AT, normal oropharynx - Neck Neck: no lymphadenopathy, normal ROM, no other, no rigidity, no stridor, no thyromegaly Thyroid: bilateral: normal size - Respiratory Respiratory: bilateral: CTA, diminished, negative: dullness, rales, rhonchi - Cardiovascular Rhythm: regular Heart sounds: normal: S1, S2 - Gastrointestinal General gastrointestinal: normal bowel sounds, soft - Integumentary Integumentary: decreased turgor, normal - Neurologic Neurologic: CNII-XII intact - Musculoskeletal Musculoskeletal: left sided weakness (Left hemiplegia) - Psychiatric Psychiatric: A&O x's 3, appropriate affect, intact judgment & insight Results CBC & Chem 7: 12/18/16 06:10 12/18/16 06:10 Labs: Abnormal Lab Results - Last 24 Hours (Table) 12/17/16 12/17/16 12/17/16 Range/Units 17:15 17:15 17:15 WBC 10.7 H (3.8-10.6) k/uL Hgb 12.7 L (13.0-17.5) gm/dL Hct 38.2 L (39.0-53.0) % MCV (80.0-100.0) fL RDW 17.2 H (11.5-15.5) % Neutrophils # 8.1 H (1.3-7.7) k/uL PT 20.1 H (9.0-12.0) sec INR 2.1 H (<1.2) APTT 30.2 H (22.0-30.0) sec Sodium 130 L (137-145) mmol/L Chloride 97 L (98-107) mmol/L POC Glucose (mg/dL) (75-99) mg/dL Magnesium 1.3 L (1.6-2.3) mg/dL Alkaline Phosphatase 31 L (38-126) U/L Total Creatine Kinase (55-170) U/L Total Protein (6.3-8.2) g/dL Albumin 3.3 L (3.5-5.0) g/dL Triglycerides (<150) mg/dL HDL Cholesterol (40-60) mg/dL 12/17/16 12/17/16 12/18/16 Range/Units 17:15 17:15 06:10 WBC (3.8-10.6) k/uL Hgb 12.1 L (13.0-17.5) gm/dL Hct 35.5 L (39.0-53.0) % MCV 78.6 L (80.0-100.0) fL RDW 16.6 H (11.5-15.5) % Neutrophils # (1.3-7.7) k/uL PT (9.0-12.0) sec INR (<1.2) APTT (22.0-30.0) sec Sodium (137-145) mmol/L Chloride (98-107) mmol/L POC Glucose (mg/dL) (75-99) mg/dL Magnesium (1.6-2.3) mg/dL Alkaline Phosphatase (38-126) U/L Total Creatine Kinase 35 L (55-170) U/L Total Protein (6.3-8.2) g/dL Albumin (3.5-5.0) g/dL Triglycerides 215 H (<150) mg/dL HDL Cholesterol 27 L (40-60) mg/dL 12/18/16 12/18/16 12/18/16 Range/Units 06:10 06:10 11:55 WBC (3.8-10.6) k/uL Hgb (13.0-17.5) gm/dL Hct (39.0-53.0) % MCV (80.0-100.0) fL RDW (11.5-15.5) % Neutrophils # (1.3-7.7) k/uL PT 17.4 H (9.0-12.0) sec INR 1.8 H (<1.2) APTT (22.0-30.0) sec Sodium 132 L (137-145) mmol/L Chloride (98-107) mmol/L POC Glucose (mg/dL) 154 H (75-99) mg/dL Magnesium (1.6-2.3) mg/dL Alkaline Phosphatase 30 L (38-126) U/L Total Creatine Kinase (55-170) U/L Total Protein 5.7 L (6.3-8.2) g/dL Albumin 2.9 L (3.5-5.0) g/dL Triglycerides (<150) mg/dL HDL Cholesterol (40-60) mg/dL Laboratory Results WBC 8.9 k/uL (3.8-10.6) 12/18/16 06:10 RBC 4.51 m/uL (4.30-5.90) 12/18/16 06:10 Hgb 12.1 gm/dL (13.0-17.5) L 12/18/16 06:10 Hct 35.5 % (39.0-53.0) L 12/18/16 06:10 MCV 78.6 fL (80.0-100.0) L 12/18/16 06:10 MCH 26.9 pg (25.0-35.0) 12/18/16 06:10 MCHC 34.1 g/dL (31.0-37.0) 12/18/16 06:10 RDW 16.6 % (11.5-15.5) H 12/18/16 06:10 Plt Count 151 k/uL (150-450) 12/18/16 06:10 Neutrophils % 72 % 12/18/16 06:10 Lymphocytes % 16 % 12/18/16 06:10 Monocytes % 8 % 12/18/16 06:10 Eosinophils % 1 % 12/18/16 06:10 Basophils % 1 % 12/18/16 06:10 Neutrophils # 6.5 k/uL (1.3-7.7) 12/18/16 06:10 Lymphocytes # 1.5 k/uL (1.0-4.8) 12/18/16 06:10 Monocytes # 0.7 k/uL (0-1.0) 12/18/16 06:10 Eosinophils # 0.1 k/uL (0-0.7) 12/18/16 06:10 Basophils # 0.1 k/uL (0-0.2) 12/18/16 06:10 Anisocytosis Slight 12/18/16 06:10 Microcytosis Slight 12/18/16 06:10 PT 17.4 sec (9.0-12.0) H 12/18/16 06:10 INR 1.8 (<1.2) H 12/18/16 06:10 APTT 30.2 sec (22.0-30.0) H 12/17/16 17:15 Sodium 132 mmol/L (137-145) L 12/18/16 06:10 Potassium 3.8 mmol/L (3.5-5.1) 12/18/16 06:10 Chloride 100 mmol/L (98-107) 12/18/16 06:10 Carbon Dioxide 24 mmol/L (22-30) 12/18/16 06:10 Anion Gap 8 mmol/L 12/18/16 06:10 BUN 10 mg/dL (9-20) 12/18/16 06:10 Creatinine 0.78 mg/dL (0.66-1.25) 12/18/16 06:10 Est GFR (MDRD) Af Amer >60 (>60 ml/min/1.73 sqM) 12/18/16 06:10 Est GFR (MDRD) Non-Af >60 (>60 ml/min/1.73 sqM) 12/18/16 06:10 Glucose 80 mg/dL (74-99) 12/18/16 06:10 POC Glucose (mg/dL) 154 mg/dL (75-99) H 12/18/16 11:55 POC Glu Medical Pathology Teacher ID Lisset Marie 12/18/16 11:55 Calcium 8.7 mg/dL (8.4-10.2) 12/18/16 06:10 Magnesium 2.1 mg/dL (1.6-2.3) 12/18/16 06:10 Total Bilirubin 0.3 mg/dL (0.2-1.3) 12/18/16 06:10 AST 21 U/L (17-59) 12/18/16 06:10 ALT 33 U/L (21-72) 12/18/16 06:10 Alkaline Phosphatase 30 U/L (38-126) L 12/18/16 06:10 Total Creatine Kinase 35 U/L (55-170) L 12/17/16 17:15 CK-MB (CK-2) 2.2 ng/mL (0.0-2.4) 12/17/16 17:15 CK-MB (CK-2) Rel Index 6.3 12/17/16 17:15 Troponin I <0.012 ng/mL (0.000-0.034) 12/17/16 17:15 Total Protein 5.7 g/dL (6.3-8.2) L 12/18/16 06:10 Albumin 2.9 g/dL (3.5-5.0) L 12/18/16 06:10 Triglycerides 215 mg/dL (<150) H 12/17/16 17:15 Cholesterol 116 mg/dL (<200) 12/17/16 17:15 LDL Cholesterol, Calc 46 mg/dL (0-99) 12/17/16 17:15 HDL Cholesterol 27 mg/dL (40-60) L 12/17/16 17:15 TSH 3.460 mIU/L (0.465-4.680) 12/17/16 17:15 Urine Color Light Yellow 12/17/16 20:34 Urine Appearance Clear (Clear) 12/17/16 20:34 Urine pH 5.5 (5.0-8.0) 12/17/16 20:34 Ur Specific [place] 1.007 (1.001-1.035) 12/17/16 20:34 Urine Protein Negative (Negative) 12/17/16 20:34 Urine Glucose (UA) Negative (Negative) 12/17/16 20:34 Urine Ketones Negative (Negative) 12/17/16 20:34 Urine Blood Negative (Negative) 12/17/16 20:34 Urine Nitrite Negative (Negative) 12/17/16 20:34 Urine Bilirubin Negative (Negative) 12/17/16 20:34 Urine Urobilinogen <2.0 mg/dL (<2.0) 12/17/16 20:34 Ur Leukocyte Esterase Negative (Negative) 12/17/16 20:34 Thrombosis Risk Factor Assmnt - DVT/VTE Prophylaxis DVT/VTE Prophylaxis: Pharmacologic Prophylaxis ordered, Mechanical Prophylaxis ordered - Choose All That Apply Any of the Below Risk Factors Present?: Yes Each Factor Represents 1 point: Age 41-60 years, Medical pt on bed rest Each Risk Factor Represents 2 Points: Patient confined to bed Thrombosis Risk Factor Assessment Total Risk Factor Score: 4 Thrombosis Risk Factor Assessment Level: Moderate Risk Assessment and Plan Plan: 1. New onset seizures with prior history off extensive right MCA CVA with residual left hemiplegia, patient currently is on Keppra 750 mg IV every 12 hours with consults made to Dr. Candelaria, covering for Dr. Ny. Patient's antidepressants well between and Cymbalta has been discontinued as this can affect seizure threshold, EEG of the brain was requested his currently pending. 2. Left-sided hemiplegia with extensive right MCA bleed from a thrombolytic event, July 2016 currently ongoing subacute rehabilitation at [facility] 3. Stage II sacral decubitus ulcer, wound care with decubitus pressure relief with either overlay and air mattress 4. Chronic atrial fibrillation on anticoagulation using Coumadin, INRs will be monitored currently on metoprolol 50 mg twice a day with Coumadin INR will be surveiled daily patient is also maintained on amiodarone 200 mg daily 5. Diabetes mellitus type 2 on NovoLog scale and Levemir 36 units daily and novolog 16 u tid 6. Hyperlipidemia on Lipitor no changes made 7. Chronic prednisone currently at 5 mg daily. Would investigate medical diagnosis to support the oral prednisone 8. Aortic dissection status post aortic sleeve from the norm in to the mesenteric vessel section 9. Hypertensive cardiovascular disease 10Chronic anticoagulation with Coumadin 10. Right foot ulcer chronic 11. dvt prophylaxis gi prophyxis on coumadin reglan pepcid maintenance
--- NOTE | 2016-12-18 16:37 | P.CNNES ---
History of Present Illness Consult date: 12/18/16 Requesting physician: Ashley Locke Reason for Consult: Seizures History of Present Illness: Patient is a pleasant 61-year-old male who is being evaluated by the neurology service on 12/18/2016 per the request of Dr. Locke for seizures. Patient has a history of abdominal aortic aneurysm surgery in July 2016. Patient shortly after surgery suffered a stroke involving the right middle cerebral artery distribution. Patient has been undergoing therapy for left- sided weakness since. Patient also has history of trach and PEG that was done at the time of the stroke. Patient is no longer using PEG but is being flushed weekly. Patient does take oral medication and oral food. Patient follows with Dr. Duron as an outpatient. Patient has recently been tried on different antidepressant medications. Recently he was placed on Cymbalta. Patient also is on Wellbutrin. Patient was noted to have a seizure in the [place] where he [place]. Seizure activity reportedly lasted about 2 minutes. Patient was brought to [facility] for further evaluation. During his ER visit patient was noted to have another seizure lasting about 2 minutes. Patient seizure activity is described as tonic-clonic activity. Patient was loaded with Keppra in the emergency room. On admission patient temp is 98.0, with blood pressure 118/75. Labs on admission include hemoglobin 12.7, WBCs 10.7, RBCs 4.7 with platelets 156. Sodium 1:30, potassium 4.6, chloride 97, carbon dioxide 22. Magnesium was also low at 1.3. Patient's lipid panel showed high triglycerides at 2:15 and low HDL of 27. Patient is on anticoagulation with Coumadin and had an INR of 2.1 on admission. At the time of my evaluation, patient is resting comfortably in bed and appears to be in no acute distress. Family is at the bedside. Review of Systems REVIEW OF SYSTEMS: Otherwise unremarkable and noncontributory. Past Medical History Past Medical History: Atrial Fibrillation, Coronary Artery Disease (CAD) ( Aortic dissection requiring aortic graft), CVA/TIA, Diabetes Mellitus, Hypertension, Osteoarthritis (OA), Respiratory Disorder Additional Past Medical History / Comment(s): non healing wound R big Toe. 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 PEG tube in place. History of Any Multi-Drug Resistant Organisms: None Reported Past Surgical History: Orthopedic Surgery Additional Past Surgical History / Comment(s): femur Past Anesthesia/Blood Transfusion Reactions: No Reported Reaction Past Psychological History: Depression Smoking Status: Former smoker Past Alcohol Use History: None Reported Past Drug Use History: None Reported - Past Family History Mother Family Medical History: No Reported History Medications and Allergies Home Medications Medication Instructions Recorded Confirmed Type Acetaminophen Tab [Tylenol Tab] 650 mg PO Q6H PRN 12/17/16 12/17/16 History Amino Acids/Protein Hydrolys 30 ml PO BID 12/17/16 12/17/16 History [Pro-Stat Supplement] Amiodarone [Cordarone] 200 mg PO DAILY 12/17/16 12/17/16 History Ammonium Lactate Cream [Lac-Hydrin 1 applic TOPICAL BID 12/17/16 12/17/16 History 12% Cream] Atorvastatin [Lipitor] 20 mg PO DAILY@2100 12/17/16 12/17/16 History Bisacodyl [Dulcolax] 10 mg RECTAL DAILY PRN 12/17/16 12/17/16 History DULoxetine HCL [Cymbalta] 30 mg PO DAILY 12/17/16 12/17/16 History Famotidine [Pepcid] 20 mg PO BID 12/17/16 12/17/16 History Ferrous Sulfate [Feosol] 325 mg PO BID 12/17/16 12/17/16 History Folic Acid 1 mg PO DAILY@1700 12/17/16 12/17/16 History Furosemide [Lasix] 40 mg PO DAILY 12/17/16 12/17/16 History HYDROcodone/APAP 10-325MG [Wells 1 tab PO Q4HR PRN 12/17/16 12/17/16 History 10-325] INSULIN LISPRO (humaLOG) [HumaLOG] See Protocol SQ ACHS 12/17/16 12/17/16 History Insulin Detemir [Levemir] 36 unit SQ DAILY 12/17/16 12/17/16 History Insulin Lispro [humaLOG] 16 units SQ AC-TID 12/17/16 12/17/16 History Lactulose 20 gm PO BID 12/17/16 12/17/16 History Lidocaine [Lidoderm 5% Patch] 1 patch TRANSDERM DAILY 12/17/16 12/17/16 History Lisinopril [Zestril] 10 mg PO BID 12/17/16 12/17/16 History Loratadine [Claritin] 10 mg PO DAILY 12/17/16 12/17/16 History Magnesium Hydroxide [Milk of 2,400 mg PO DAILY PRN 12/17/16 12/17/16 History Magnesia] Metoclopramide [Reglan] 10 mg PO ACHS 12/17/16 12/17/16 History Metoprolol Tartrate [Lopressor] 50 mg PO BID 12/17/16 12/17/16 History Multivitamins, Thera [Multivitamin 1 tab PO DAILY@1700 12/17/16 12/17/16 History (formulary)] Na Phos,M-B/Na Phos,Di-Ba [Fleet 133 ml RECTAL DAILY PRN 12/17/16 12/17/16 History Adult] [place] Nasal [place] 1 spray EA NOSTRIL BID 12/17/16 12/17/16 History Ondansetron [Zofran] 4 mg PO Q6H PRN 12/17/16 12/17/16 History Polyethylene Glycol 3350 [Miralax] 17 gm PO DAILY 12/17/16 12/17/16 History Potassium Chloride Oral Liquid 20 meq PO DAILY@1700 12/17/16 12/17/16 History Warfarin [Coumadin] 2.5 mg PO FR@1700 12/17/16 12/17/16 History Warfarin [Coumadin] 5 mg PO SUMOTUWETHSA@1700 12/17/16 12/17/16 History buPROPion [Wellbutrin] 100 mg PO BID 12/17/16 12/17/16 History predniSONE 5 mg PO DAILY 12/17/16 12/17/16 History Allergies Allergy/AdvReac Type Severity Reaction Status Date / Time No Known Allergies Allergy Verified 12/17/16 17:13 Physical Examination - Vital Signs Vital Signs: Vital Signs Temp Pulse Pulse Resp BP BP Pulse Ox 12/18/16 12:00 97.6 F 59 L 18 116/72 96 12/18/16 08:00 97.8 F 58 L 18 100/58 97 12/18/16 04:00 98.2 F 61 18 118/71 94 L 12/18/16 00:16 66 18 95 12/17/16 23:16 98.0 F 64 18 114/71 95 12/17/16 23:15 64 18 12/17/16 22:16 68 18 118/75 96 12/17/16 21:16 98.8 F 65 18 129/69 95 12/17/16 21:14 98.8 F 68 16 129/70 95 12/17/16 20:48 98.8 F 68 16 129/70 95 12/17/16 19:01 69 16 117/69 95 12/17/16 18:03 67 14 133/81 95 12/17/16 17:09 71 18 175/83 98 Intake and Output 12/18/16 12/18/16 12/18/16 06:59 14:59 22:59 Intake Total 1100 1340 Output Total 750 1020 Balance 1100 590 -1020 Intake: Intake, IV Titration 1100 700 Amount Magnesium Sulfate-D5w Pmx 600 1 gm In Dextrose/Water 1 100ml.bag @ 100 mls/hr IVPB ONCE ONE Rx#: [id number] Magnesium Sulfate-D5w Pmx 300 1 gm In Dextrose/Water 1 100ml.bag @ 100 mls/hr IVPB Q1H [facility] Rx#: [id number] Sodium Chloride 0.9% 1, 800 000 ml @ 100 mls/hr IV . Q10H [facility] Rx#:[id number] levETIRAcetam IV 750 mg 100 In Sodium Chloride 0.9% 100 ml @ 400 mls/hr IVPB Q12HR [facility] Rx#:[id number] Oral 640 Output: Urine 750 1020 Other: Voiding Method Indwelling Catheter Indwelling Catheter # Bowel Movements 0 0 Weight 96.5 kg PHYSICAL EXAM: GENERAL APPEARANCE: Patient is a well-developed, male who appears to be in no acute distress. HEENT: Normocephalic, atraumatic, no facial asymmetry is seen. Neck is supple with no masses felt. CARDIOVASCULAR: Regular rate and rhythm. ABDOMEN: Nontender, nondistended. EXTREMITIES: Show no edema or clubbing. NEUROLOGICAL EXAM: Patient is awake, alert, and oriented 3. Speech and language are normal. Strength in the left upper and lower extremity is 1/5. Strength in the right upper and lower extremity is 5-/5. Sensory exam is normal to light touch in all 4 extremities. No facial asymmetry seen on cranial nerve testing. No tremors or seizure-like activity is noted. Results - Laboratory Findings CBC and BMP: 12/18/16 06:10 12/18/16 06:10 Abnormal Lab Findings: Abnormal Labs 12/17/16 12/17/16 12/17/16 17:15 17:15 17:15 WBC 10.7 H Hgb 12.7 L Hct 38.2 L MCV RDW 17.2 H Neutrophils # 8.1 H PT 20.1 H INR 2.1 H APTT 30.2 H Sodium 130 L Chloride 97 L POC Glucose (mg/dL) Magnesium 1.3 L Alkaline Phosphatase 31 L Total Creatine Kinase Total Protein Albumin 3.3 L Triglycerides HDL Cholesterol 12/17/16 12/17/16 12/18/16 17:15 17:15 06:10 WBC Hgb 12.1 L Hct 35.5 L MCV 78.6 L RDW 16.6 H Neutrophils # PT INR APTT Sodium Chloride POC Glucose (mg/dL) Magnesium Alkaline Phosphatase Total Creatine Kinase 35 L Total Protein Albumin Triglycerides 215 H HDL Cholesterol 27 L 12/18/16 12/18/16 12/18/16 06:10 06:10 11:55 WBC Hgb Hct MCV RDW Neutrophils # PT 17.4 H INR 1.8 H APTT Sodium 132 L Chloride POC Glucose (mg/dL) 154 H Magnesium Alkaline Phosphatase 30 L Total Creatine Kinase Total Protein 5.7 L Albumin 2.9 L Triglycerides HDL Cholesterol Assessment and Plan Plan: Impression: 1. New-onset seizure 2. History of CVA, right MCA distribution 3. History of AAA repair 4. Hyponatremia 5. Hypomagnesemia 6. Left hemiparesis 7. Depression Recommendation: It does appear patient had witnessed seizure activity, tonic- clonic type. Patient was loaded with Keppra in the ER and continues to be on Keppra 750 mg twice a day. No further seizure activity since admission. Recently, patient been started on Cymbalta for depression. Patient also takes Wellbutrin. Both of these medications can reduce seizure threshold. I recommend holding Cymbalta and Wellbutrin. CT of the brain did show large right MCA territory infarct which is chronic with extensive encephalomalacia. No acute intracranial abnormality is seen. I will obtain an EEG. I will order a serum homocystine level. Continue seizure precautions. Continue neurological checks. I will continue to follow with you. Further recommendations to follow. Thank for allowing me to participate in the care of your patient. Feel free to call with any questions or concerns. I performed an examination of the patient and discussed the management with the FAMILY SERVICE WORKER. I have reviewed the FAMILY SERVICE WORKER notes and agree with the findings and plan of care.
[2016-12-18 16:47] LABS: Glucose,Whole Blood 113 mg/dL (75-99)
[2016-12-18] MEDS: POTASSIUM CHLORIDE ORAL LIQUID 40 MEQ/30 ML CUP PO SCH (17:33)
[2016-12-18] MEDS: WARFARIN 5 MG TAB PO SCH (17:34)
[2016-12-18] MEDS: MULTIVITAMINS, THERA 1 EACH TAB PO SCH (17:34)
[2016-12-18] MEDS: FOLIC ACID 1 MG TAB PO SCH (17:34)
[2016-12-18 20:44] LABS: Hemoglobin A1C 7.1 % (4.2-6.1)
[2016-12-18 21:18] LABS: Glucose,Whole Blood 171 mg/dL (75-99)
[2016-12-18] MEDS: ATORVASTATIN 20 MG TAB PO SCH (21:48)
[2016-12-19] MEDS: HYDROcodone/APAP 10-325MG 1 EACH TAB PO PRN ×5 (00:18→22:44)
[2016-12-19 01:56] LABS: Glucose,Whole Blood 80 mg/dL (75-99)
[2016-12-19] MEDS: buPROPion 100 MG TAB PO SCH (03:47)
[2016-12-19] MEDS: SODIUM CHLORIDE 0.65% NASAL SPRAY 44 ML BTL INTRANASAL SCH ×3 (03:47→21:04)
[2016-12-19 06:15] LABS: Glucose,Whole Blood 78 mg/dL (75-99)
[2016-12-19] MEDS: INSULIN LISPRO (humaLOG) 300 UNIT/3 ML VIAL SQ SCH ×7 (06:31→21:03)
[2016-12-19] MEDS: METOCLOPRAMIDE 10 MG TAB PO SCH ×4 (06:35→21:04)
[2016-12-19] MEDS: SODIUM CHLORIDE 0.9% 1,000 ML IV SCH ×3 (06:35→22:45)
[2016-12-19] MEDS: LIDOCAINE 5% PATCH TOPICAL SCH (09:04)
[2016-12-19] MEDS: AMMONIUM LACTATE 12% CREAM 140 GM TUBE TOPICAL SCH ×2 (09:05→22:44)
[2016-12-19] MEDS: FUROSEMIDE 40 MG TAB PO SCH (09:05)
[2016-12-19] MEDS: LORATADINE 10 MG TAB PO SCH (09:05)
[2016-12-19] MEDS: DULoxetine HCL 30 MG CAPSULE.DR PO SCH (09:05)
[2016-12-19] MEDS: METOPROLOL TARTRATE 50 MG TAB PO SCH ×2 (09:05→21:04)
[2016-12-19] MEDS: AMIODARONE 200 MG TAB PO SCH (09:05)
[2016-12-19] MEDS: FAMOTIDINE 20 MG TAB PO SCH ×2 (09:05→21:03)
[2016-12-19] MEDS: FERROUS SULFATE 325 MG TAB PO SCH ×2 (09:05→21:03)
[2016-12-19] MEDS: LISINOPRIL 10 MG TAB PO SCH ×2 (09:05→21:04)
[2016-12-19] MEDS: LACTULOSE 20 GM/30 ML CUP PO SCH ×2 (09:05→21:03)
[2016-12-19] MEDS: predniSONE 5 MG TAB PO SCH (09:05)
[2016-12-19] MEDS: levETIRAcetam IV 750 MG in SODIUM CHLORIDE 0.9% 100 ML IVPB SCH ×2 (09:26→21:11)
[2016-12-19] MEDS: INSULIN DETEMIR 100 UNIT/ML 10 ML VIAL SQ SCH (09:26)
[2016-12-19 11:07] LABS: INR 1.7 (<1.2); Prothrombin Time 16.3 sec (9.0-12.0)
--- NOTE | 2016-12-19 11:58 | P.PN ---
Subjective This is a 61-year-old gentleman with a left hemiplegia secondary to extensive right MCA thrombolytic bleed which was initially started in 07/26/2016. He is A complicated history that time, had a type a aortic root dissection, was subsequently transferred to [facility] and stayed there for 2-1 days including vent dependent respiratory failure, they performed a lengthy aortic sleeve graft down from the innominate to the mesenteric vessels, he was subsequently was [facility], for 32 days, still requiring event at that time. He was subsequently transferred to [facility] for additional 6 weeks inpatient rehabilitation then transferred to [facility] now for the fifth week SUBACUTE rehabilitation. He has underlying history of diabetes mellitus type 2, atrial fibrillation, hypertension, chronic anticoagulation sacral decubitus ulcer, PEG tube feedings , and recent removal of tracheostomy. He was at the [facility] under service of Dr. Toney, and was noted to have new onset tonic-clonic contractions and was subsequently transferred to the hospital for further treatment. Another witnessed seizure happened in the emergency room, he was loaded with Keppra and consultation with Dr. Candelaria with EEG to be performed, he normally sees Dr. Ny the entire neurologic events from his initial neurologic insult from the extensive CVA patient has had improvement especially with the dysarthria and discharge, patient is independent with feedings, regular diet without any evidence off recent aspiration, PEG tube is in place on the with PEG flushes no medications on the PEG tube site, tracheostomy incision is healed In the emergency room CAT scan of the brain was performed showing a large right MCA territory infarct with chronic extensive encephalomalacia no midline shift ischemic changes no mass effect no hydrocephalus. He was seen in consultation by neurology, Wellbutrin and Cymbalta was discontinued, patient has been depressed for several weeks now. Patient currently is on Keppra 750 mg every 12 hours 12/19: Carotid duplex showed no significant stenosis bilaterally. Patient has been seen by neurologist. EEG was done this morning and report is pending and homocysteine level pending. He is continued on Keppra 750 mg twice daily. INR is 1.7 and patient will be given 6 mg of Coumadin tonight. Psychiatric consult added to help with depression and medications to replace Cymbalta and Wellbutrin that lowering the seizure threshold. Objective - Vital Signs Vital signs: Vital Signs Temp 98.9 F 12/19/16 03:15 Pulse 64 12/19/16 03:15 Resp 18 12/19/16 03:15 BP 101/54 12/19/16 03:15 Pulse Ox 95 12/19/16 03:15 Intake & Output 12/18/16 12/19/16 12/19/16 18:59 06:59 18:59 Intake Total 1460 1000 Output Total 2270 1100 Balance -810 -100 Weight 99 kg Intake: Intake, IV Titration 700 1000 Amount Magnesium Sulfate-D5w Pmx 600 1 gm In Dextrose/Water 1 100ml.bag @ 100 mls/hr IVPB ONCE ONE Rx#: [id number] Sodium Chloride 0.9% 1, 900 000 ml @ 100 mls/hr IV . Q10H [facility]PLACED [facility] Rx#:[id number] levETIRAcetam IV 750 mg 100 100 In Sodium Chloride 0.9% 100 ml @ 400 mls/hr IVPB Q12HR [facility] Rx#:[id number] Oral 760 Output: Urine 2270 1100 Other: Voiding Method Indwelling Catheter Indwelling Catheter # Bowel Movements 1 - Exam General appearance: average body habitus, cooperative, no acute distress - EENT Eyes: anicteric sclerae, EOMI, PERRLA, dentition normal ENT: hard of hearing, NA/AT, normal oropharynx - Neck Neck: no lymphadenopathy, normal ROM, no other, no rigidity, no stridor, no thyromegaly Thyroid: bilateral: normal size - Respiratory Respiratory: bilateral: CTA, diminished, negative: dullness, rales, rhonchi - Cardiovascular Rhythm: regular Heart sounds: normal: S1, S2 - Gastrointestinal General gastrointestinal: normal bowel sounds, soft - Integumentary Integumentary: decreased turgor, normal - Neurologic Neurologic: CNII-XII intact - Musculoskeletal Musculoskeletal: left sided weakness (Left hemiplegia) - Psychiatric Psychiatric: A&O x's 3, appropriate affect, intact judgment & insight - Labs CBC & Chem 7: 12/18/16 06:10 12/18/16 06:10 Labs: Abnormal Lab Results - Last 24 Hours (Table) 12/17/16 12/18/16 12/18/16 Range/Units 17:15 11:55 16:45 POC Glucose (mg/dL) 154 H 113 H (75-99) mg/dL Hemoglobin A1c 7.1 H (4.2-6.1) % 12/18/16 Range/Units 21:17 POC Glucose (mg/dL) 171 H (75-99) mg/dL Hemoglobin A1c (4.2-6.1) % Assessment and Plan Plan: 1. New onset seizures with prior history off extensive right MCA CVA with residual left hemiplegia, patient currently is on Keppra 750 mg IV every 12 hours with consults made to Dr. Candelaria, covering for Dr. Ny. Patient's antidepressants Wellbutrin and Cymbalta has been discontinued as this can affect seizure threshold, EEG of the brain was requested his currently pending. 2. Left-sided hemiplegia with extensive right MCA bleed from a thrombolytic event, July 2016 currently ongoing subacute rehabilitation at [facility] 3. Stage II sacral decubitus ulcer, wound care with decubitus pressure relief with either overlay and air mattress 4. Chronic atrial fibrillation on anticoagulation using Coumadin, INRs will be monitored, currently on metoprolol 50 mg twice a day and amiodarone 200 mg daily 5. Diabetes mellitus type 2 on NovoLog scale and Levemir 36 units daily and novolog 16 u tid 6. Hyperlipidemia on Lipitor no changes made 7. Chronic prednisone currently at 5 mg daily. Would investigate medical diagnosis to support the oral prednisone 8. Aortic dissection status post aortic sleeve from the norm in to the mesenteric vessel section 9. Hypertensive cardiovascular disease 10Chronic anticoagulation with Coumadin 10. Right foot ulcer chronic 11. dvt prophylaxis gi prophyxis on coumadin reglan pepcid maintenance Discharge plan: Return to [facility] Impression and plan of care have been directed as dictated by the signing physician. Sissy Watts nurse practitioner acting as scribe for signing physician.
[2016-12-19 12:09] LABS: Glucose,Whole Blood 113 mg/dL (75-99)
[2016-12-19] MEDS: POLYETHYLENE GLYCOL 3350 17 GM POWD.PACK PO SCH (12:14)
[2016-12-19 13:56] VITALS: BMI 28.8
--- NOTE | 2016-12-19 16:04 | P.CN ---
Psychiatric Consult - . Consult date: 12/19/16 Consult:: 12/19/16 15:51 Identification and Reason for Consult: Patient is a 61-year-old male who was consulted due to depression, patient was admitted due to a new onset seizure while at a group home. Patient's chart was reviewed patient was seen in his room no family members were present. 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 Patient stated that he was not feeling depressed, stated he was asked this in the group home and told them no but was begun on medication. Patient was started on Cymbalta 30 mg and Wellbutrin 100 mg twice a day which have been discontinued. Patient reports he was never having any symptoms of depression, never felt hopeless or helpless and states he has never had any suicidal thoughts and has never made any suicide attempts.. Patient stated he was doing well at the group home and did not feel that the medications made any difference. Patient reports that he has never had any prior history of any psychiatric illness and and denies any manic symptoms, anxiety symptoms or depressive symptoms. Patient states he was using a wheelchair in the group home. Patient states he had never been treated for any psychiatric illnesses in the past. Patient currently states he is not feeling depressed and does not wish to be restarted on any antidepressant medication. He denied feeling hopeless or helpless and stated that he is not currently having any suicidal thoughts and does not wish to . Past Psychiatric History: Patient denies any prior inpatient or outpatient psychiatric treatment. Past Medical/Surgical History: Patient has a history of atrial fibrillation, coronary artery disease, diabetes mellitus, hypertension and is status post surgery for abdominal aortic aneurysm and is status post infarct of his middle cerebral artery on the right side. Current Medications Hydrocodone Bitart/Acetaminophen ([place] 10) 1 each PO Q4HR PRN PRN Reason: Pain Last Admin: 12/19/16 09:25 Dose: 1 each Amiodarone HCl (Cordarone) 200 mg PO DAILY [facility] Last Admin: 12/19/16 09:05 Dose: 200 mg Atorvastatin Calcium (Lipitor) 20 mg PO DAILY@2100 [facility] Last Admin: 12/18/16 21:48 Dose: 20 mg Bisacodyl (Dulcolax) 10 mg RECTAL DAILY PRN PRN Reason: Constipation Famotidine (Pepcid) 20 mg PO BID [facility] Last Admin: 12/19/16 09:05 Dose: 20 mg Ferrous Sulfate (Feosol) 325 mg PO BID [facility] Last Admin: 12/19/16 09:05 Dose: 325 mg Folic Acid (Folic Acid) 1 mg PO DAILY@1700 [facility] Last Admin: 12/18/16 17:34 Dose: 1 mg Furosemide (Lasix) 40 mg PO DAILY [facility] Last Admin: 12/19/16 09:05 Dose: 40 mg Levetiracetam 750 mg/ Sodium (Chloride) 107.5 mls @ 400 mls/hr IVPB Q12HR [facility] Last Admin: 12/19/16 09:26 Dose: 400 mls/hr Sodium Chloride (Saline 0.9%) 1,000 mls @ 100 mls/hr IV .Q10H [facility] Last Admin: 12/19/16 06:35 Dose: 100 mls/hr Insulin Detemir (Levemir) 36 unit SQ DAILY [facility] Last Admin: 12/19/16 09:26 Dose: 36 unit Insulin Human Lispro (Humalog) 16 unit SQ AC-TID [facility] Last Admin: 12/19/16 12:14 Dose: 16 unit Insulin Human Lispro (Humalog) 0 unit SQ [facility] PRN Reason: Protocol Last Admin: 12/19/16 12:57 Dose: Not Given Lactic Acid (Ammonium Lactate) 1 applic TOPICAL BID [facility] Last Admin: 12/19/16 09:05 Dose: 1 applic Lactulose (Cephulac) 20 gm PO BID [facility] Last Admin: 12/19/16 09:05 Dose: 20 gm Lidocaine (Lidoderm) 1 patch TOPICAL DAILY [facility] Last Admin: 12/19/16 09:04 Dose: 1 patch Lisinopril (Zestril) 10 mg PO BID [facility] Last Admin: 12/19/16 09:05 Dose: 10 mg Loratadine (Claritin) 10 mg PO DAILY [facility] Last Admin: 12/19/16 09:05 Dose: 10 mg Magnesium Hydroxide (Milk Of Magnesia) 2,400 mg PO DAILY PRN PRN Reason: Constipation Metoclopramide HCl (Reglan) 10 mg PO ACHS [facility] Last Admin: 12/19/16 12:14 Dose: 10 mg Metoprolol Tartrate (Lopressor) 50 mg PO BID [facility] Last Admin: 12/19/16 09:05 Dose: 50 mg Miscellaneous Information (Magnesium Per Protocol) 1 each MISCELLANE DAILY PRN ; Protocol PRN Reason: Per Protocol Multivitamins (Theragran) 1 each PO DAILY@1700 [facility] Last Admin: 12/18/16 17:34 Dose: 1 each Ondansetron HCl (Zofran) 4 mg PO Q6H PRN PRN Reason: Nausea Polyethylene Glycol (Miralax) 17 gm PO DAILY [facility] Last Admin: 12/19/16 12:14 Dose: 17 gm Potassium Chloride (Potassium Chloride Oral Liquid) 20 meq PO DAILY@1700 [facility] Last Admin: 12/18/16 17:33 Dose: 20 meq Prednisone () 5 mg PO DAILY [facility] [place] Last Admin: 12/19/16 09:05 Dose: 5 mg Sodium Biphosphate/Sodium Phosphate (Fleet Adult) 133 ml RECTAL DAILY PRN PRN Reason: Constipation Sodium Chloride (Deep Sea) 1 spray INTRANASAL BID [facility] Last Admin: 12/19/16 09:05 Dose: 1 spray Warfarin Sodium (Coumadin) 5 mg PO SUMOTUWETHSA@1700 [facility] Last Admin: 12/18/16 17:34 Dose: 5 mg Warfarin Sodium (Coumadin) 2.5 mg PO FR@1700 [facility] Warfarin Sodium (Coumadin) 6 mg PO ONCE@1800 ONE Stop: 12/19/16 18:01 Family History: Patient denies any family history of any psychiatric illnesses, substance or alcohol use disorders and no completed suicides. Social History: Patient is and has 4 children, ages 38, 3028 and 18 and the 18-year-old is living at home with his . 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 Substance Use History: Patient denies any alcohol or drug use currently or in the past and reports that he has never used tobacco. Legal History: Patient denies any legal history. Mental Status:Appearance/Attitude: Patient is lying in bed and is in no acute distress and made good eye contact, he was cooperative Behavior: Patient did not display any agitation and appeared slightly sleepy. Speech/Language: Patient's speech was spontaneous but he responded in brief sentences, speaking in a soft voice and he was coherent. Thought Process: Patient was goal-directed, no evidence of circumstantial or tangential thought and no flight of ideas or loose associations. Thought Content: Denied any auditory or visual hallucinations and no paranoid or delusional ideation was elicited. Patient denied feeling hopeless or helpless and states that he never felt that way in the group home and stated to them that he was not depressed. He stated to me that he does not wish to be placed on antidepressant medication as he is not feeling depressed. Suicidal/Homicidal Ideation: Denied any current suicidal or homicidal ideation. Sensorium/Cognition: Patient was alert and oriented to person, situation and location further cognitive testing was not performed. Mood/Affect: Patient's mood was subdued and his affect was slightly blunted. Assessment: Patient after abdominal aortic surgery had a large right middle cerebral artery infarct and now has left hemiplegia and was in a group home for rehabilitation and placed on Cymbalta and Wellbutrin. Patient was admitted to the hospital after having a seizure at the group home and again on his arrival in the emergency room. Patient stated to me that he has never felt depressed and has never had any suicidal ideation and did not think that he needed the medication for depression, stating to me that he told them he was not depressed. Patient stated to me that he does not wish to be restarted on any antidepressants. Laboratory Last Values WBC 8.9 k/uL (3.8-10.6) 12/18/16 06:10 RBC 4.51 m/uL (4.30-5.90) 12/18/16 06:10 Hgb 12.1 gm/dL (13.0-17.5) L 12/18/16 06:10 Hct 35.5 % (39.0-53.0) L 12/18/16 06:10 MCV 78.6 fL (80.0-100.0) L 12/18/16 06:10 MCH 26.9 pg (25.0-35.0) 12/18/16 06:10 MCHC 34.1 g/dL (31.0-37.0) 12/18/16 06:10 RDW 16.6 % (11.5-15.5) H 12/18/16 06:10 Plt Count 151 k/uL (150-450) 12/18/16 06:10 Neutrophils % 72 % 12/18/16 06:10 Lymphocytes % 16 % 12/18/16 06:10 Monocytes % 8 % 12/18/16 06:10 Eosinophils % 1 % 12/18/16 06:10 Basophils % 1 % 12/18/16 06:10 Neutrophils # 6.5 k/uL (1.3-7.7) 12/18/16 06:10 Lymphocytes # 1.5 k/uL (1.0-4.8) 12/18/16 06:10 Monocytes # 0.7 k/uL (0-1.0) 12/18/16 06:10 Eosinophils # 0.1 k/uL (0-0.7) 12/18/16 06:10 Basophils # 0.1 k/uL (0-0.2) 12/18/16 06:10 Anisocytosis Slight 12/18/16 06:10 Microcytosis Slight 12/18/16 06:10 PT 16.3 sec (9.0-12.0) H 12/19/16 05:22 INR 1.7 (<1.2) H 12/19/16 05:22 APTT 30.2 sec (22.0-30.0) H 12/17/16 17:15 Sodium 132 mmol/L (137-145) L 12/18/16 06:10 Potassium 3.8 mmol/L (3.5-5.1) 12/18/16 06:10 Chloride 100 mmol/L (98-107) 12/18/16 06:10 Carbon Dioxide 24 mmol/L (22-30) 12/18/16 06:10 Anion Gap 8 mmol/L 12/18/16 06:10 BUN 10 mg/dL (9-20) 12/18/16 06:10 Creatinine 0.78 mg/dL (0.66-1.25) 12/18/16 06:10 Est GFR (MDRD) Af Amer >60 (>60 ml/min/1.73 sqM) 12/18/16 06:10 Est GFR (MDRD) Non-Af >60 (>60 ml/min/1.73 sqM) 12/18/16 06:10 Glucose 80 mg/dL (74-99) 12/18/16 06:10 POC Glucose (mg/dL) 113 mg/dL (75-99) H 12/19/16 12:07 POC Glu [employer] KAYY Lula Woody 12/19/16 12:[address] Glu mg/dL 157 mg/dL 08/12/17 17:15 Hemoglobin A1c 7.1 % (4.2-6.1) H 12/17/16 17:15 Calcium 8.7 mg/dL (8.4-10.2) 12/18/16 06:10 Magnesium 2.1 mg/dL (1.6-2.3) 12/18/16 06:10 Total Bilirubin 0.3 mg/dL (0.2-1.3) 12/18/16 06:10 AST 21 U/L (17-59) 12/18/16 06:10 ALT 33 U/L (21-72) 12/18/16 06:10 Alkaline Phosphatase 30 U/L (38-126) L 12/18/16 06:10 Total Creatine Kinase 35 U/L (55-170) L 12/17/16 17:15 CK-MB (CK-2) 2.2 ng/mL (0.0-2.4) 12/17/16 17:15 CK-MB (CK-2) Rel Index 6.3 12/17/16 17:15 Troponin I <0.012 ng/mL (0.000-0.034) 12/17/16 17:15 Total Protein 5.7 g/dL (6.3-8.2) L 12/18/16 06:10 Albumin 2.9 g/dL (3.5-5.0) L 12/18/16 06:10 Triglycerides 215 mg/dL (<150) H 12/17/16 17:15 Cholesterol 116 mg/dL (<200) 12/17/16 17:15 LDL Cholesterol, Calc 46 mg/dL (0-99) 12/17/16 17:15 HDL Cholesterol 27 mg/dL (40-60) L 12/17/16 17:15 Homocysteine 11.65 umol/L (4.00-14.00) 12/19/16 05:22 TSH 3.460 mIU/L (0.465-4.680) 12/17/16 17:15 Urine Color Light Yellow 12/17/16 20:34 Urine Appearance Clear (Clear) 12/17/16 20:34 Urine pH 5.5 (5.0-8.0) 12/17/16 20:34 Ur Specific [place] 1.007 (1.001-1.035) 12/17/16 20:34 Urine Protein Negative (Negative) 12/17/16 20:34 Urine Glucose (UA) Negative (Negative) 12/17/16 20:34 Urine Ketones Negative (Negative) 12/17/16 20:34 Urine Blood Negative (Negative) 12/17/16 20:34 Urine Nitrite Negative (Negative) 12/17/16 20:34 Urine Bilirubin Negative (Negative) 12/17/16 20:34 Urine Urobilinogen <2.0 mg/dL (<2.0) 12/17/16 20:34 Ur Leukocyte Esterase Negative (Negative) 12/17/16 20:34 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 Patient states that he never felt suicidal and has no wish to and did not understand why he was placed on antidepressant medication at the group home. I have no family to provide history about whether the patient was depressed at the group home and certainly as he has been treated with antidepressants he must have been exhibiting symptoms of depression. Patient is not wishing to be restarted on medications and certainly the antidepressants can lower the seizure threshold, especially Wellbutrin. At this time I would not restart any antidepressants once the patient has been stabilized he can be reevaluated at the group home for the need for antidepressant medication. I will sign off the case and if there are any questions or concerns please and hesitate to contact me.
[2016-12-19] MEDS: MULTIVITAMINS, THERA 1 EACH TAB PO SCH (17:09)
[2016-12-19] MEDS: POTASSIUM CHLORIDE ORAL LIQUID 40 MEQ/30 ML CUP PO SCH (17:09)
[2016-12-19] MEDS: FOLIC ACID 1 MG TAB PO SCH (17:09)
[2016-12-19 17:14] LABS: Glucose,Whole Blood 63 mg/dL (75-99)
[2016-12-19 17:41] LABS: Glucose,Whole Blood 87 mg/dL (75-99)
[2016-12-19 17:57] LABS: Glucose,Whole Blood 112 mg/dL (75-99)
[2016-12-19] MEDS ORDERED: WARFARIN 3 MG TAB PO ONE (18:00)
--- NOTE | 2016-12-19 20:40 | P.CNNES ---
History of Present Illness Consult date: 12/19/16 Reason for Consult: Patient admitted with new onset seizures. History of Present Illness: This patient is a 61-year-old right-handed white male who has a rather complex past medical history dating back to July 2016. Patient had acute findings of dissecting aortic aneurysm and was transferred to [facility]. Patient unfortunately was taken to surgery and suffered a acute right MCA stroke. This was a large infarct and had left the patient paralyzed on his left side. He was seen by neurosurgery and did not require any further neurosurgical intervention. He was transferred to [facility] for subacute rehabilitation. He was therefore over 1 month undergoing aggressive therapy. He was then transferred to [facility] for ongoing treatment and management. During his stay at the rehab unit he was started on Wellbutrin for treatment of depression. He was taking 100 mg twice a day. He was then transferred to [facility] where he apparently continued to show worsening symptoms of depression. According to his who provided the medical history today he was started on Cymbalta 30 mg daily just a few days ago. Apparently he was carrying on his normal routine [facility] on Monday, 04/2017 when he had a witnessed seizure. This seizure lasted about 2 minutes in duration and was described by the nursing staff as a tonic-clonic seizure. According to his by the time she had arrived to the [facility]pc he was very much postictal. EMS was called to the [facility] and he was transferred to [facility] emergency room. While in the ER he had a second seizure that was described by the staff as a tonic-clonic seizure that lasted 1 minute in duration. He was given 2 mg of Ativan and then subsequently was loaded with IV Keppra for further management of seizure disorder. Patient was sent for computed tomography scan of the brain which showed a large right MCA stroke which appeared to be chronic in nature with extensive encephalomalacia. There was no evidence of any hemorrhage. The patient does have a history of atrial fibrillation and is on Coumadin therapy. His INR on admission was 2.1. His serum sodium on admission was 130. The patient has no previous history of seizures. He is now resting comfortably and has had no further seizures since admission to the hospital. Case was discussed today with the patient's who is an ICU nurse here at [facility]. She has requested neurology consultation today for this patient as he has been seen previously for his stroke at [facility] earlier this year. Neurology is now been consulted for further evaluation and recommendations. Review of Systems to take any Constitutional: Denies chills, Denies fever Eyes: denies blurred vision, denies pain Ears, nose, mouth and throat: Denies headache, Denies sore throat Cardiovascular: Denies chest pain, Denies shortness of breath Respiratory: Denies cough Gastrointestinal: Denies abdominal pain, Denies diarrhea, Denies nausea, Denies vomiting Musculoskeletal: Denies myalgias Integumentary: Denies pruritus, Denies rash Neurological: Reports aphasia, Reports change in mentation, Reports convulsions , Reports memory loss, Reports seizures, Denies numbness, Denies weakness Psychiatric: Denies anxiety, Denies depression Endocrine: Denies fatigue, Denies weight change Past Medical History Past Medical History: Atrial Fibrillation, Coronary Artery Disease (CAD) ( Aortic dissection requiring aortic graft), CVA/TIA, Diabetes Mellitus, Hypertension, Osteoarthritis (OA), Respiratory Disorder Additional Past Medical History / Comment(s): non healing wound R big Toe. 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 PEG tube in place. History of Any Multi-Drug Resistant Organisms: None Reported Past Surgical History: Orthopedic Surgery Additional Past Surgical History / Comment(s): femur Past Anesthesia/Blood Transfusion Reactions: No Reported Reaction Past Psychological History: Depression Smoking Status: Former smoker Past Alcohol Use History: None Reported Past Drug Use History: None Reported - Past Family History Mother Family Medical History: No Reported History Medications and Allergies Home Medications Medication Instructions Recorded Confirmed Type Acetaminophen Tab [Tylenol Tab] 650 mg PO Q6H PRN 12/17/16 12/17/16 History Amino Acids/Protein Hydrolys 30 ml PO BID 12/17/16 12/17/16 History [Pro-Stat Supplement] Amiodarone [Cordarone] 200 mg PO DAILY 12/17/16 12/17/16 History Ammonium Lactate Cream [Lac-Hydrin 1 applic TOPICAL BID 12/17/16 12/17/16 History 12% Cream] Atorvastatin [Lipitor] 20 mg PO DAILY@2100 12/17/16 12/17/16 History Bisacodyl [Dulcolax] 10 mg RECTAL DAILY PRN 12/17/16 12/17/16 History DULoxetine HCL [Cymbalta] 30 mg PO DAILY 12/17/16 12/17/16 History Famotidine [Pepcid] 20 mg PO BID 12/17/16 12/17/16 History Ferrous Sulfate [Feosol] 325 mg PO BID 12/17/16 12/17/16 History Folic Acid 1 mg PO DAILY@1700 12/17/16 12/17/16 History Furosemide [Lasix] 40 mg PO DAILY 12/17/16 12/17/16 History HYDROcodone/APAP 10-325MG [[place] 1 tab PO Q4HR PRN 12/17/16 12/17/16 History 10-325] INSULIN LISPRO (humaLOG) [HumaLOG] See Protocol SQ ACHS 12/17/16 12/17/16 History Insulin Detemir [Levemir] 36 unit SQ DAILY 12/17/16 12/17/16 History Insulin Lispro [humaLOG] 16 units SQ AC-TID 12/17/16 12/17/16 History Lactulose 20 gm PO BID 12/17/16 12/17/16 History Lidocaine [Lidoderm 5% Patch] 1 patch TRANSDERM DAILY 12/17/16 12/17/16 History Lisinopril [Zestril] 10 mg PO BID 12/17/16 12/17/16 History Loratadine [Claritin] 10 mg PO DAILY 12/17/16 12/17/16 History Magnesium Hydroxide [Milk of 2,400 mg PO DAILY PRN 12/17/16 12/17/16 History Magnesia] Metoclopramide [Reglan] 10 mg PO ACHS 12/17/16 12/17/16 History Metoprolol Tartrate [Lopressor] 50 mg PO BID 12/17/16 12/17/16 History Multivitamins, Thera [Multivitamin 1 tab PO DAILY@1700 12/17/16 12/17/16 History (formulary)] Na Phos,M-B/Na Phos,Di-Ba [Fleet 133 ml RECTAL DAILY PRN 12/17/16 12/17/16 History Adult] [place] Nasal [place] 1 spray EA NOSTRIL BID 12/17/16 12/17/16 History Ondansetron [Zofran] 4 mg PO Q6H PRN 12/17/16 12/17/16 History Polyethylene Glycol 3350 [Miralax] 17 gm PO DAILY 12/17/16 12/17/16 History Potassium Chloride Oral Liquid 20 meq PO DAILY@1700 12/17/16 12/17/16 History Warfarin [Coumadin] 2.5 mg PO FR@1700 12/17/16 12/17/16 History Warfarin [Coumadin] 5 mg PO SUMOTUWETHSA@1700 12/17/16 12/17/16 History buPROPion [Wellbutrin] 100 mg PO BID 12/17/16 12/17/16 History predniSONE 5 mg PO DAILY 12/17/16 12/17/16 History Allergies Allergy/AdvReac Type Severity Reaction Status Date / Time No Known Allergies Allergy Verified 12/17/16 17:13 Physical Examination - Vital Signs Vital Signs: Vital Signs Temp Pulse Resp BP Pulse Ox 12/19/16 15:35 98.2 F 59 L 20 94/50 98 12/19/16 12:00 97.8 F 56 L 20 106/60 96 12/19/16 08:00 98.5 F 64 20 103/58 95 12/19/16 03:15 98.9 F 64 18 101/54 95 12/19/16 00:00 98.3 F 68 18 123/71 95 12/18/16 20:00 98.8 F 71 18 109/67 97 Intake and Output 12/19/16 12/19/16 12/19/16 06:59 14:59 22:59 Intake Total 1000 300 Output Total 1100 1700 Balance -100 -1400 Intake: Intake, IV Titration 1000 Amount Sodium Chloride 0.9% 1, 900 000 ml @ 100 mls/hr IV . Q10H DIANA Rx#:[id number] levETIRAcetam IV 750 mg 100 In Sodium Chloride 0.9% 100 ml @ 400 mls/hr IVPB Q12HR DIANA Rx#:[id number] Oral 300 Output: Urine 1100 1700 Other: Voiding Method Indwelling Catheter Indwelling Catheter Indwelling Catheter # Voids 0 # Bowel Movements 0 Weight 99 kg 99 kg Patient Weight 12/20/16 06:59 Weight 99 kg - Constitutional General appearance: average body habitus, cooperative - EENT EENT: PERRL, mucous membranes moist - Respiratory Respiratory: lungs clear, normal breath sounds - Cardiovascular Cardiovascular: regular rate, normal S1, normal S2 Extremities: no peripheral edema bilaterally - Gastrointestinal Gastrointestinal: normoactive bowel sounds - Integumentary Integumentary: normal - Neurologic Cranial nerve examination: PERRL, EOMI, VFF, face symmetric, tongue midline, intact gag reflex, intact corneal reflex, normal palatal elevation Speech examination: intact Sensorimotor examination: intact Motor examination - right side: 4/5: biceps, triceps, wrist flexion, wrist extension, support merchandiser, hip flexors, knee extensors, dorsiflexion, toe extension (EHL) , plantarflexion Motor examination - left side: 2/5: biceps, triceps, wrist flexion, wrist extension, support merchandiser, hip flexors, knee extensors, dorsiflexion, toe extension (EHL) , plantarflexion Detailed sensory examination: intact Reflex and gait examination: intact Reflexes: 1+: ankle, bicep, knee, tricep - Musculoskeletal Musculoskeletal: no pain - Psychiatric Psychiatric: mood/affect appropriate, cooperative Results - Laboratory Findings CBC and BMP: 12/18/16 06:10 12/18/16 06:10 Abnormal Lab Findings: Abnormal Labs 12/17/16 12/17/16 12/17/16 17:15 17:15 17:15 WBC 10.7 H Hgb 12.7 L Hct 38.2 L MCV RDW 17.2 H Neutrophils # 8.1 H PT 20.1 H INR 2.1 H APTT 30.2 H Sodium 130 L Chloride 97 L POC Glucose (mg/dL) Hemoglobin A1c Magnesium 1.3 L Alkaline Phosphatase 31 L Total Creatine Kinase Total Protein Albumin 3.3 L Triglycerides HDL Cholesterol 12/17/16 12/17/16 12/17/16 17:15 17:15 17:15 WBC Hgb Hct MCV RDW Neutrophils # PT INR APTT Sodium Chloride POC Glucose (mg/dL) Hemoglobin A1c 7.1 H Magnesium Alkaline Phosphatase Total Creatine Kinase 35 L Total Protein Albumin Triglycerides 215 H HDL Cholesterol 27 L 12/18/16 12/18/16 12/18/16 06:10 06:10 06:10 WBC Hgb 12.1 L Hct 35.5 L MCV 78.6 L RDW 16.6 H Neutrophils # PT 17.4 H INR 1.8 H APTT Sodium 132 L Chloride POC Glucose (mg/dL) Hemoglobin A1c Magnesium Alkaline Phosphatase 30 L Total Creatine Kinase Total Protein 5.7 L Albumin 2.9 L Triglycerides HDL Cholesterol 12/18/16 12/18/16 12/18/16 11:55 16:45 21:17 WBC Hgb Hct MCV RDW Neutrophils # PT INR APTT Sodium Chloride POC Glucose (mg/dL) 154 H 113 H 171 H Hemoglobin A1c Magnesium Alkaline Phosphatase Total Creatine Kinase Total Protein Albumin Triglycerides HDL Cholesterol 12/19/16 12/19/16 12/19/16 05:22 12:07 16:54 WBC Hgb Hct MCV RDW Neutrophils # PT 16.3 H INR 1.7 H APTT Sodium Chloride POC Glucose (mg/dL) 113 H 63 L Hemoglobin A1c Magnesium Alkaline Phosphatase Total Creatine Kinase Total Protein Albumin Triglycerides HDL Cholesterol 12/19/16 17:50 WBC Hgb Hct MCV RDW Neutrophils # PT INR APTT Sodium Chloride POC Glucose (mg/dL) 112 H Hemoglobin A1c Magnesium Alkaline Phosphatase Total Creatine Kinase Total Protein Albumin Triglycerides HDL Cholesterol Assessment and Plan (1) New onset seizure Status: Acute Code(s): R56.9 - UNSPECIFIED CONVULSIONS (2) Chronic right arterial ischemic stroke, MCA (middle cerebral artery) Status: Acute Code(s): I69.30 - UNSPECIFIED SEQUELAE OF CEREBRAL INFARCTION (3) Depression Status: Acute Code(s): F32.9 - MAJOR DEPRESSIVE DISORDER, SINGLE EPISODE, UNSPECIFIED (4) Hyponatremia Status: Acute Code(s): E87.1 - HYPO-OSMOLALITY AND HYPONATREMIA Plan: This patient is a 61-year-old male who was admitted to Hospital with symptoms of new onset seizure. Patient is currently residing at [facility] and had a witnessed seizure at the [facility] on 12/17/2016. The seizure lasted 2 minutes in duration and the patient was postictal following the event. He was transferred to the emergency room at [facility] for further management. In the ER he had a second seizure that was witnessed by the ER physician lasting 1 minute in duration. He was given 2 mg of Ativan and subsequently loaded with IV Keppra. Patient was subsequent admitted to the hospital. He did undergo a computed tomography scan of the brain which revealed evidence of his old right MCA stroke. There is no evidence of new stroke or hemorrhage. He underwent a routine EEG today the report of which is still pending. A Keppra level was not ordered today. We have ordered a Keppra level tomorrow morning and will need to reassess his condition during this admission. 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 She states that he has been feeling very depressed recently. It is possible that his seizure may be related to his use of Wellbutrin. This has subsequently been discontinued. The other possibility would also include seizure secondary to large hemispheric stroke. He is to be maintained on Keppra for at least 6 months with close observation. Case was discussed at length with the patient's and all of her questions were answered. She is aware of his guarded condition. He was seen today by psychiatry on consultation. We have suggested the to talk with the psychiatrist in terms of further treatment options for his rather severe post stroke depression. His overall prognosis at this time remains very guarded. We 're waiting the report of his EEG which was done this morning. His overall prognosis remains guarded. Would recommend seizure precautions for this patient at all times during this admission. We will continue close neurological follow-up the patient during this admission. His overall prognosis at this time remains very guarded. Time with Patient: Greater than 30
[2016-12-19 20:56] LABS: Glucose,Whole Blood 199 mg/dL (75-99)
[2016-12-19] MEDS: ATORVASTATIN 20 MG TAB PO SCH (21:03)
[2016-12-20] MEDS: HYDROcodone/APAP 10-325MG 1 EACH TAB PO PRN ×3 (04:17→21:33)
[2016-12-20 06:11] LABS: Glucose,Whole Blood 78 mg/dL (75-99)
[2016-12-20 06:16] LABS: INR 1.7 (<1.2); Prothrombin Time 16.7 sec (9.0-12.0)
[2016-12-20] MEDS: INSULIN LISPRO (humaLOG) 300 UNIT/3 ML VIAL SQ SCH ×7 (06:46→21:17)
[2016-12-20] MEDS: METOCLOPRAMIDE 10 MG TAB PO SCH ×4 (06:47→21:23)
[2016-12-20] MEDS: AMIODARONE 200 MG TAB PO SCH (08:19)
[2016-12-20] MEDS: POLYETHYLENE GLYCOL 3350 17 GM POWD.PACK PO SCH (08:19)
[2016-12-20] MEDS: FUROSEMIDE 40 MG TAB PO SCH (08:19)
[2016-12-20] MEDS: FERROUS SULFATE 325 MG TAB PO SCH ×2 (08:19→21:23)
[2016-12-20] MEDS: FAMOTIDINE 20 MG TAB PO SCH ×2 (08:19→21:23)
[2016-12-20] MEDS: SODIUM CHLORIDE 0.65% NASAL SPRAY 44 ML BTL INTRANASAL SCH ×2 (08:19→21:25)
[2016-12-20] MEDS: predniSONE 5 MG TAB PO SCH (08:19)
[2016-12-20] MEDS: LORATADINE 10 MG TAB PO SCH (08:19)
[2016-12-20] MEDS: LISINOPRIL 10 MG TAB PO SCH ×2 (08:19→21:22)
[2016-12-20] MEDS: LACTULOSE 20 GM/30 ML CUP PO SCH ×2 (08:19→21:23)
[2016-12-20] MEDS: LIDOCAINE 5% PATCH TOPICAL SCH (08:20)
[2016-12-20] MEDS: INSULIN DETEMIR 100 UNIT/ML 10 ML VIAL SQ SCH (08:34)
[2016-12-20] MEDS: levETIRAcetam IV 750 MG in SODIUM CHLORIDE 0.9% 100 ML IVPB SCH ×2 (08:34→21:34)
[2016-12-20] MEDS: AMMONIUM LACTATE 12% CREAM 140 GM TUBE TOPICAL SCH (09:00)
[2016-12-20 11:41] LABS: Glucose,Whole Blood 205 mg/dL (75-99)
[2016-12-20] MEDS: METOPROLOL TARTRATE 50 MG TAB PO SCH ×2 (12:18→21:22)
--- NOTE | 2016-12-20 13:07 | P.PN ---
Subjective This is a 61-year-old gentleman with a left hemiplegia secondary to extensive right MCA thrombolytic bleed which was initially started in 07/26/2016. He is A complicated history that time, had a type a aortic root dissection, was subsequently transferred to [facility] and stayed there for 2-1 days including vent dependent respiratory failure, they performed a lengthy aortic sleeve graft down from the innominate to the mesenteric vessels, [facility], still requiring event at that time. He was subsequently transferred to [facility] for additional 6 weeks inpatient rehabilitation then transferred to [facility] now for the fifth week SUBACUTE rehabilitation. He has underlying history of diabetes mellitus type 2, atrial fibrillation, hypertension, chronic anticoagulation sacral decubitus ulcer, PEG tube feedings , and recent removal of tracheostomy. He was at the snf [facility] under service of Dr. Toney, and was noted to have new onset tonic-clonic contractions and was subsequently transferred to the hospital for further treatment. Another witnessed seizure happened in the emergency room, he was loaded with Kepp and consultation with Dr. Candelaria with EEG to be performed, he normally sees Dr. Ny the entire neurologic events from his initial neurologic insult from the extensive CVA patient has had improvement especially with the dysarthria and discharge, patient is independent with feedings, regular diet without any evidence off recent aspiration, PEG tube is in place on the with PEG flushes no medications on the PEG tube site, tracheostomy incision is healed In the emergency room CAT scan of the brain was performed showing a large right MCA territory infarct with chronic extensive encephalomalacia no midline shift ischemic changes no mass effect no hydrocephalus. He was seen in consultation by neurology, Wellbutrin and Cymbalta was discontinued, patient has been depressed for several weeks now. Patient currently is on Keppra 750 mg every 12 hours 12/19: Carotid duplex showed no significant stenosis bilaterally. Patient has been seen by neurologist. EEG was done this morning and report is pending and homocysteine level pending. He is continued on Keppra 750 mg twice daily. INR is 1.7 and patient will be given 6 mg of Coumadin tonight. Psychiatric consult added to help with depression and medications to replace Cymbalta and Wellbutrin that lowering the seizure threshold. 12/20: Patient has not been seen by Dr. Ny his own neurologist. He has recommended continuing Keppra for 6 months. Patient has been seen by psychiatry. Patient apparently was not wishing to be restarted on medications and Dr. Morales recommends not starting antidepressant medication. INR is 1.7. Keppra level is pending. No further seizure activity. Patient will be transferred to the [facility] floor. Plan for transfer back to [facility] tomorrow. Objective - Vital Signs Vital signs: Vital Signs Temp 97.9 F 12/20/16 11:57 Pulse 63 12/20/16 11:57 Resp 20 12/20/16 11:57 BP 102/53 12/20/16 11:57 Pulse Ox 97 12/20/16 11:57 Intake & Output 12/19/16 12/20/16 12/20/16 18:59 06:59 18:59 Intake Total 300 720 Output Total 1700 1300 Balance -1400 -1300 720 Weight 99 kg 98 kg Intake: Oral 300 720 Output: Urine 1700 1300 Other: Voiding Method Indwelling Catheter Indwelling Catheter Indwelling Catheter # Voids 0 # Bowel Movements 0 - Exam General appearance: average body habitus, cooperative, no acute distress - EENT Eyes: anicteric sclerae, EOMI, PERRLA, dentition normal ENT: hard of hearing, NA/AT, normal oropharynx - Neck Neck: no lymphadenopathy, normal ROM, no other, no rigidity, no stridor, no thyromegaly Thyroid: bilateral: normal size - Respiratory Respiratory: bilateral: CTA, diminished, negative: dullness, rales, rhonchi - Cardiovascular Rhythm: regular Heart sounds: normal: S1, S2 - Gastrointestinal General gastrointestinal: normal bowel sounds, soft - Integumentary Integumentary: decreased turgor, normal - Neurologic Neurologic: CNII-XII intact - Musculoskeletal Musculoskeletal: left sided weakness (Left hemiplegia) - Psychiatric Psychiatric: A&O x's 3, appropriate affect, intact judgment & insight - Labs CBC & Chem 7: 12/18/16 06:10 12/18/16 06:10 Labs: Abnormal Lab Results - Last 24 Hours (Table) 12/19/16 12/19/16 12/19/16 Range/Units 16:54 17:50 20:54 PT (9.0-12.0) sec INR (<1.2) POC Glucose (mg/dL) 63 L 112 H 199 H (75-99) mg/dL 12/20/16 12/20/16 Range/Units 05:34 11:39 PT 16.7 H (9.0-12.0) sec INR 1.7 H (<1.2) POC Glucose (mg/dL) 205 H (75-99) mg/dL Assessment and Plan Plan: 1. New onset seizures with prior history off extensive right MCA CVA with residual left hemiplegia, patient currently is on Keppra 750 mg IV every 12 hours with consults made to Dr. Candelaria, covering for Dr. Ny. Patient's antidepressants Wellbutrin and Cymbalta has been discontinued as this can affect seizure threshold, EEG of the brain was requested his currently pending. 2. Left-sided hemiplegia with extensive right MCA bleed from a thrombolytic event, July 2016 currently ongoing subacute rehabilitation at [facility] 3. Stage II sacral decubitus ulcer, wound care with decubitus pressure relief with either overlay and air mattress 4. Chronic atrial fibrillation on anticoagulation using Coumadin, INRs will be monitored, currently on metoprolol 50 mg twice a day and amiodarone 200 mg daily 5. Diabetes mellitus type 2 on NovoLog scale and Levemir 36 units daily and novolog 16 u tid 6. Hyperlipidemia on Lipitor no changes made 7. Chronic prednisone currently at 5 mg daily. Would investigate medical diagnosis to support the oral prednisone 8. Aortic dissection status post aortic sleeve from the norm in to the mesenteric vessel section 9. Hypertensive cardiovascular disease 10. Chronic anticoagulation with Coumadin 11. Right foot ulcer chronic 12. dvt prophylaxis gi prophyxis on coumadin reglan pepcid maintenance Discharge plan: Return to [facility] tomorrow Impression and plan of care have been directed as dictated by the signing physician. Sissy Watts nurse practitioner acting as scribe for signing physician.
[2016-12-20] MEDS: SODIUM CHLORIDE 0.9% 1,000 ML IV SCH (15:56)
[2016-12-20 16:54] LABS: Glucose,Whole Blood 152 mg/dL (75-99)
[2016-12-20] MEDS: FOLIC ACID 1 MG TAB PO SCH (17:15)
[2016-12-20] MEDS: POTASSIUM CHLORIDE ORAL LIQUID 40 MEQ/30 ML CUP PO SCH (17:15)
[2016-12-20] MEDS: MULTIVITAMINS, THERA 1 EACH TAB PO SCH (17:15)
[2016-12-20 20:06] LABS: Glucose,Whole Blood 129 mg/dL (75-99)
--- NOTE | 2016-12-20 20:12 | P.PN ---
Subjective This patient is a 61-year-old right-handed white male who was seen in neurology rotation yesterday for evaluation of new onset seizures. Patient has a history of having suffered a large right MCA stroke in July 2016. Patient initially presented with evidence of aortic dissection. He was transferred [facility] for surgical management. He underwent surgical procedure and following this event he suffered a large right MCA stroke. He has been left with a dense left-sided hemiplegia. He was treated at [facility] for 3 weeks and then transferred to the [facility] inpatient rehab unit. He underwent extensive subacute rehab with PT OT and speech therapy there. He was then transferred tomorrow [facility]. On the day of his admission he had a witness seizure and a second seizure in the ER. He has been started started on Keppra for seizure prophylaxis. He underwent a Keppra level this morning which is pending. He underwent a routine EEG and a rare awaiting the final report. Neurologically he remains relatively stable. There is been no significant change in his neurological status. He is on Coumadin for treatment of atrial fibrillation. His INR today is 1.7. He has been taken off of both Wellbutrin and Cymbalta as there is a risk of these medications lowering seizure threshold. He also is at risk of having seizures due to his large right MCA stroke. We are waiting his final EEG report and we'll review this when it is available. At this time he is to continue on his current dose of Keppra 750 mg twice a day. We will continue close neurological follow-up with this patient. He was seen by psychiatry and we're waiting there further recommendations for further management of his history of poststroke depression. 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 All of her questions were answered. We will continue close neurological follow-up this patient during this admission. Objective - Vital Signs Vital signs: Vital Signs Temp 98.5 F 12/20/16 15:47 Pulse 63 12/20/16 15:47 Resp 20 12/20/16 15:47 BP 139/68 12/20/16 15:47 Pulse Ox 97 12/20/16 15:47 Intake & Output 12/20/16 12/20/16 12/21/16 06:59 18:59 06:59 Intake Total 1960 Output Total 1300 1500 Balance -1300 460 Weight 98 kg Intake: Intake, IV Titration 800 Amount Sodium Chloride 0.9% 1, 800 000 ml @ 100 mls/hr IV . Q10H [facility] Rx#:[id number] Oral 1160 Output: Urine 1300 1500 Other: Voiding Method Indwelling Catheter Indwelling Catheter # Voids 1 # Bowel Movements 1 - Exam Physical examination: PHYSICAL EXAMINATION: Patient is resting comfortably in bed. VITAL SIGNS: Blood pressure is [139/68]. Heart rate is [63]. Respiration is [20] . Temperature is [98.5]. HEENT: Head is atraumatic, neck is supple, there were no carotid bruits. CHEST: Lungs are clear to auscultation and percussion. CARDIAC: S1, S2 normal rate and rhythm. There is no murmur. ABDOMEN: Soft and nontender. Bowel sounds are present. EXTREMITIES: There is no pedal edema. Peripheral pulses are present. Neurological examination: Patient's neurological examination is unchanged from yesterday. He has a dense left-sided hemiplegia. - Labs CBC & Chem 7: 12/18/16 06:10 12/18/16 06:10 Labs: Abnormal Lab Results - Last 24 Hours (Table) 12/19/16 12/20/16 12/20/16 Range/Units 20:54 05:34 11:39 PT 16.7 H (9.0-12.0) sec INR 1.7 H (<1.2) POC Glucose (mg/dL) 199 H 205 H (75-99) mg/dL 12/20/16 Range/Units 16:52 PT (9.0-12.0) sec INR (<1.2) POC Glucose (mg/dL) 152 H (75-99) mg/dL Assessment and Plan (1) New onset seizure Status: Acute Code(s): R56.9 - UNSPECIFIED CONVULSIONS (2) Chronic right arterial ischemic stroke, MCA (middle cerebral artery) Status: Acute Code(s): I69.30 - UNSPECIFIED SEQUELAE OF CEREBRAL INFARCTION (3) Depression Status: Acute Code(s): F32.9 - MAJOR DEPRESSIVE DISORDER, SINGLE EPISODE, UNSPECIFIED (4) Hyponatremia Status: Acute Code(s): E87.1 - HYPO-OSMOLALITY AND HYPONATREMIA Plan: This patient is a 61-year-old male who was admitted to Hospital with symptoms of new onset seizure. Patient is currently residing at [facility] and had a witnessed seizure [facility] the prison on 12[facility]17[facility]2016. The seizure lasted 2 minutes in duration and the patient was postictal following the event. He was transferred to the emergency room at [facility] for further management. In the ER he had a second seizure that was witnessed by the ER physician lasting 1 minute in duration. He was given 2 mg of Ativan and subsequently loaded with IV Keppra. Patient was subsequent admitted to the hospital. He did undergo a computed tomography scan of the brain which revealed evidence of his old right MCA stroke. There is no evidence of new stroke or hemorrhage. He underwent a routine EEG today the report of which is still pending. A Keppra level was not ordered today. We have ordered a Keppra level tomorrow morning and will need to reassess his condition during this admission. 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 She states that he has been feeling very depressed recently. It is possible that his seizure may be related to his use of Wellbutrin. This has subsequently been discontinued. The other possibility would also include seizure secondary to large hemispheric stroke. He is to be maintained on Keppra for at least 6 months with close observation. Case was discussed at length with the patient's and all of her questions were answered. She is aware of his guarded condition. He was seen today by psychiatry on consultation. We have suggested the to talk with the psychiatrist in terms of further treatment options for his rather severe post stroke depression. His Keppra level is still pending from this morning. Turnaround time is 3 days. His overall prognosis at this time remains very guarded. We are awaiting the report of his EEG which was done yesterday. Apparently Dr. Candelaria has not yet read this study. We are awaiting the final report. His overall prognosis remains guarded. Would recommend seizure precautions for this patient at all times during this admission. We will continue close neurological follow-up the patient during this admission. His overall prognosis at this time remains very guarded.
[2016-12-20] MEDS: ATORVASTATIN 20 MG TAB PO SCH (21:23)
[2016-12-21] MEDS: AMMONIUM LACTATE 12% CREAM 140 GM TUBE TOPICAL SCH ×3 (02:53→21:48)
--- NOTE | 2016-12-21 05:56 | EEG ---
DATE OF SERVICE: 12/19/2016 REASON FOR TESTING: Seizure. DESCRIPTION OF THE PROCEDURE: This EEG was performed using a 21-channel digital electroencephalograph, following international 10-20 system. CURRENT ANTIEPILEPTIC MEDICATIONS: Keppra. DESCRIPTION OF THE RECORDING: From the beginning of the tracing, and with the patient's eyes closed, the background rhythm was mostly consisting of 8 Hz alpha frequency in the posterior occipital leads. No obvious asymmetry is seen. Frequent muscle artifacts are noticed. Photic stimulation was performed with a minimal driving response seen. No pathological waves were elicited. Hyperventilation was not performed. Rare movement artifacts are seen. The patient remains awake throughout the tracing. No epileptiform discharges were seen. His EKG lead showed a regular rate and rhythm. INTERPRETATION: This awake EEG can be considered within normal limits. There was no asymmetry seen. No epileptiform discharges were noticed. The absence of epileptiform discharges does not rule out the diagnosis of epilepsy, therefore clinical correlation is recommended. MTDD
[2016-12-21 07:07] LABS: Glucose,Whole Blood 74 mg/dL (75-99)
[2016-12-21] MEDS: LISINOPRIL 10 MG TAB PO SCH ×2 (08:26→21:49)
[2016-12-21] MEDS: METOCLOPRAMIDE 10 MG TAB PO SCH ×4 (08:26→21:50)
[2016-12-21] MEDS: FAMOTIDINE 20 MG TAB PO SCH ×2 (08:26→21:48)
[2016-12-21] MEDS: FERROUS SULFATE 325 MG TAB PO SCH ×2 (08:26→21:48)
[2016-12-21] MEDS: LORATADINE 10 MG TAB PO SCH (08:26)
[2016-12-21] MEDS: FUROSEMIDE 40 MG TAB PO SCH (08:26)
[2016-12-21] MEDS: METOPROLOL TARTRATE 50 MG TAB PO SCH ×2 (08:26→21:50)
[2016-12-21] MEDS: AMIODARONE 200 MG TAB PO SCH (08:26)
[2016-12-21] MEDS: INSULIN LISPRO (humaLOG) 300 UNIT/3 ML VIAL SQ SCH ×7 (08:30→21:48)
[2016-12-21 08:31] LABS: INR 1.6 (<1.2); Prothrombin Time 15.3 sec (9.0-12.0)
[2016-12-21] MEDS: SODIUM CHLORIDE 0.65% NASAL SPRAY 44 ML BTL INTRANASAL SCH ×2 (08:32→21:50)
[2016-12-21] MEDS: HYDROcodone/APAP 10-325MG 1 EACH TAB PO PRN ×3 (09:21→23:41)
[2016-12-21] MEDS: INSULIN DETEMIR 100 UNIT/ML 10 ML VIAL SQ SCH (09:22)
[2016-12-21] MEDS: LIDOCAINE 5% PATCH TOPICAL SCH (09:24)
[2016-12-21] MEDS: POLYETHYLENE GLYCOL 3350 17 GM POWD.PACK PO SCH (09:26)
--- NOTE | 2016-12-21 10:12 | P.DS ---
Providers Date of admission: 12/17/16 20:15 Expected date of discharge: 12/21/16 Attending physician: Ashley Locke Consults: 12/18/16 09:26 Consult Physician Routine Consulting Provider: Ayo Candelaria Consult Reason/Comments: new onset siezure Do you want consulting provider notified?: Yes 12/19/16 08:58 Consult Physician Routine Consulting Provider: Yocasta Ny Consult Reason/Comments: none to patient Do you want consulting provider notified?: Yes 12/19/16 11:23 Consult Physician Routine Consulting Provider: Zenia Morales Consult Reason/Comments: depression seizures. off meds Do you want consulting provider notified?: Yes Primary care physician: [facility] Course: This is a 61-year-old gentleman with a left hemiplegia secondary to extensive right MCA thrombolytic bleed which was initially started in 07/26/2016. He is A complicated history that time, had a type a aortic root dissection, was subsequently transferred to [facility] and stayed there for 2-1 days including vent dependent respiratory failure, they performed a lengthy aortic sleeve graft down from the innominate to the mesenteric vessels, he was subsequently was [facility], for [facility] days, still requiring event at that time. He was subsequently transferred to [facility] for additional 6 weeks inpatient rehabilitation then transferred to [facility] for the fifth week SUBACUTE rehabilitation. He has underlying history of diabetes mellitus type 2, atrial fibrillation, hypertension, chronic anticoagulation sacral decubitus ulcer, PEG tube feedings , and recent removal of tracheostomy. He was at the snf [facility] under service of Dr. Toney, and was noted to have new onset tonic-clonic contractions and was subsequently transferred to the hospital for further treatment. Another witnessed seizure happened in the emergency room, he was loaded with Keppra and consultation with Dr. Candelaria with EEG to be performed, he normally sees Dr. Ny the entire neurologic events from his initial neurologic insult from the extensive CVA patient has had improvement especially with the dysarthria and discharge, patient is independent with feedings, regular diet without any evidence off recent aspiration, PEG tube is in place on the with PEG flushes no medications on the PEG tube site, tracheostomy incision is healed In the emergency room CAT scan of the brain was performed showing a large right MCA territory infarct with chronic extensive encephalomalacia no midline shift ischemic changes no mass effect no hydrocephalus. He was seen in consultation by neurology, Wellbutrin and Cymbalta was discontinued, patient has been depressed for several weeks now. Patient currently is on Keppra 750 mg every 12 hours 12/19: Carotid duplex showed no significant stenosis bilaterally. Patient has been seen by neurologist. EEG was done this morning and report is pending and homocysteine level pending. He is continued on Keppra 750 mg twice daily. INR is 1.7 and patient will be given 6 mg of Coumadin tonight. Psychiatric consult added to help with depression and medications to replace Cymbalta and Wellbutrin that lowering the seizure threshold. 12/20: Patient has been seen by Dr. Ny his own neurologist. He has recommended continuing Keppra for 6 months. Patient has been seen by psychiatry. Patient apparently was not wishing to be restarted on medications and Dr. Morales recommends not starting antidepressant medication. INR is 1.7. Keppra level is pending. No further seizure activity. Patient will be transferred to the [facility] floor. Plan for transfer back to [facility] tomorrow. 12/21: EEG is considered within normal limits. INR today is 1.6. He did not receive Coumadin last night for unknown reason. He will be given Coumadin 2 mg prior to discharge and resume his normal home dosing. He will be continued on Keppra 750 mg twice daily. The Cymbalta and Wellbutrin will remain off. Patient will be discharged back to [facility] today in stable condition. Discharge diagnoses: 1. New onset seizures with prior history of extensive right MCA CVA with residual left hemiplegia 2. Left-sided hemiplegia with extensive right MCA bleed from a thrombolytic event, July 2016 currently ongoing subacute rehabilitation at [facility] 3. Stage II sacral decubitus ulcer, wound care with decubitus pressure relief with either overlay and air mattress 4. Chronic atrial fibrillation 5. Diabetes mellitus type 2 6. Hyperlipidemia 7. Chronic prednisone currently at 5 mg daily. 8. Aortic dissection status post aortic sleeve from the norm in to the mesenteric vessel section 9. Hypertensive cardiovascular disease 10.Chronic anticoagulation with Coumadin 11. Right foot ulcer chronic Discharge plan: Return to [facility] Impression and plan of care have been directed as dictated by the signing physician. Sissy Watts nurse practitioner acting as scribe for signing physician. Patient Condition at Discharge: Good Plan - Discharge Summary New Discharge Prescriptions: New levETIRAcetam [Keppra] 750 mg PO Q12HR #60 tab Continue Ondansetron [Zofran] 4 mg PO Q6H PRN PRN Reason: Nausea Magnesium Hydroxide [Milk of Magnesia] 2,400 mg PO DAILY PRN PRN Reason: Constipation HYDROcodone/APAP 10-325MG [[place] 10-325] 1 tab PO Q4HR PRN PRN Reason: Pain Na Phos,M-B/Na Phos,Di-Ba [Fleet Adult] 133 ml RECTAL DAILY PRN PRN Reason: Constipation Bisacodyl [Dulcolax] 10 mg RECTAL DAILY PRN PRN Reason: Constipation Acetaminophen Tab [Tylenol] 650 mg PO Q6H PRN PRN Reason: Pain Or Fever > 100.5 Metoclopramide [Reglan] 10 mg PO ACHS INSULIN LISPRO (humaLOG) [humaLOG (formulary)] See Protocol SQ ACHS Insulin Lispro [humaLOG] 16 units SQ AC-TID Metoprolol Tartrate [Lopressor] 50 mg PO BID Lisinopril [Zestril] 10 mg PO BID Lactulose 20 gm PO BID Ferrous Sulfate [Iron (65 MG Elemental)] 325 mg PO BID Amino Acids/Protein Hydrolys [Pro-Stat Supplement] 30 ml PO BID Famotidine [Pepcid] 20 mg PO BID Ammonium Lactate Cream [Lac-Hydrin 12% Cream] 1 applic TOPICAL BID predniSONE 5 mg PO DAILY Potassium Chloride Oral Liquid 20 meq PO DAILY@1700 Polyethylene Glycol 3350 [Miralax] 17 gm PO DAILY Multivitamins, Thera [Multivitamin (formulary)] 1 tab PO DAILY@1700 Loratadine [Claritin] 10 mg PO DAILY Lidocaine [Lidoderm 5% Patch] 1 patch TRANSDERM DAILY Atorvastatin [Lipitor] 20 mg PO DAILY@2100 Insulin Detemir [Levemir] 36 unit SQ DAILY Furosemide [Lasix] 40 mg PO DAILY Folic Acid 1 mg PO DAILY@1700 Warfarin [Coumadin] 5 mg PO SUMOTUWETHSA@1700 Warfarin [Coumadin] 2.5 mg PO FR@1700 Amiodarone [Cordarone] 200 mg PO DAILY [place] Nasal [place] 1 spray EA NOSTRIL BID Discontinued buPROPion [Wellbutrin] 100 mg PO BID DULoxetine HCL [Cymbalta] 30 mg PO DAILY Discharge Medication List Acetaminophen Tab [Tylenol] 650 mg PO Q6H PRN 12/17/16 [History] Amino Acids/Protein Hydrolys [Pro-Stat Supplement] 30 ml PO BID 12/17/16 [ History] Amiodarone [Cordarone] 200 mg PO DAILY 12/17/16 [History] Ammonium Lactate Cream [Lac-Hydrin 12% Cream] 1 applic TOPICAL BID 12/17/16 [ History] Atorvastatin [Lipitor] 20 mg PO DAILY@2100 12/17/16 [History] Bisacodyl [Dulcolax] 10 mg RECTAL DAILY PRN 12/17/16 [History] Famotidine [Pepcid] 20 mg PO BID 12/17/16 [History] Ferrous Sulfate [Iron (65 MG Elemental)] 325 mg PO BID 12/17/16 [History] Folic Acid 1 mg PO DAILY@1700 12/17/16 [History] Furosemide [Lasix] 40 mg PO DAILY 12/17/16 [History] HYDROcodone/APAP 10-325MG [[place] 10-325] 1 tab PO Q4HR PRN 12/17/16 [History] INSULIN LISPRO (humaLOG) [humaLOG (formulary)] See Protocol SQ ACHS 12/17/16 [ History] Insulin Detemir [Levemir] 36 unit SQ DAILY 12/17/16 [History] Insulin Lispro [humaLOG] 16 units SQ AC-TID 12/17/16 [History] Lactulose 20 gm PO BID 12/17/16 [History] Lidocaine [Lidoderm 5% Patch] 1 patch TRANSDERM DAILY 12/17/16 [History] Lisinopril [Zestril] 10 mg PO BID 12/17/16 [History] Loratadine [Claritin] 10 mg PO DAILY 12/17/16 [History] Magnesium Hydroxide [Milk of Magnesia] 2,400 mg PO DAILY PRN 12/17/16 [History] Metoclopramide [Reglan] 10 mg PO ACHS 12/17/16 [History] Metoprolol Tartrate [Lopressor] 50 mg PO BID 12/17/16 [History] Multivitamins, Thera [Multivitamin (formulary)] 1 tab PO DAILY@169912/17/16 [ History] Na Phos,M-B/Na Phos,Di-Ba [Fleet Adult] 133 ml RECTAL DAILY PRN 12/17/16 [ History] [place] Nasal [place] 1 spray EA NOSTRIL BID 12/17/16 [History] Ondansetron [Zofran] 4 mg PO Q6H PRN 12/17/16 [History] Polyethylene Glycol 3350 [Miralax] 17 gm PO DAILY 12/17/16 [History] Potassium Chloride Oral Liquid 20 meq PO DAILY@169912/17/16 [History] Warfarin [Coumadin] 2.5 mg PO FR@169912/17/16 [History] Warfarin [Coumadin] 5 mg PO SUMOTUWETHSA@169912/17/16 [History] predniSONE 5 mg PO DAILY 12/17/16 [History] levETIRAcetam [Keppra] 750 mg PO Q12HR #60 tab 12/21/16 [Rx] Follow up Appointment(s)/Referral(s): Yocasta Ny MD [STAFF PHYSICIAN] - 2 Weeks Kwan Toney MD [Primary Care Provider] - 1 Week Discharge Disposition: TRANSFER TO SNF/ECF
[2016-12-21] MEDS: levETIRAcetam IV 750 MG in SODIUM CHLORIDE 0.9% 100 ML IVPB SCH ×2 (11:21→21:49)
[2016-12-21] MEDS: LACTULOSE 20 GM/30 ML CUP PO SCH ×2 (11:25→21:49)
[2016-12-21 12:08] LABS: Glucose,Whole Blood 170 mg/dL (75-99)
[2016-12-21] MEDS ORDERED: WARFARIN 2 MG TAB PO ONE (12:30)
[2016-12-21] MEDS: predniSONE 5 MG TAB PO SCH (13:33)
[2016-12-21 17:34] LABS: Glucose,Whole Blood 54 mg/dL (75-99)
[2016-12-21] MEDS: FOLIC ACID 1 MG TAB PO SCH (17:38)
[2016-12-21] MEDS: MULTIVITAMINS, THERA 1 EACH TAB PO SCH (17:38)
[2016-12-21] MEDS: POTASSIUM CHLORIDE ORAL LIQUID 40 MEQ/30 ML CUP PO SCH (17:38)
--- NOTE | 2016-12-21 17:38 | P.PN ---
Subjective This patient is a 61-year-old right-handed white male who was seen in neurology rotation yesterday for evaluation of new onset seizures. Patient has a history of having suffered a large right MCA stroke in July 2016. Patient initially presented with evidence of aortic dissection. He was transferred [facility] for surgical management. He underwent surgical procedure and following this event he suffered a large right MCA stroke. He has been left with a dense left-sided hemiplegia. He was treated at [facility] for 3 weeks and then transferred to the [facility] inpatient rehab unit. He underwent extensive subacute rehab with PT OT and speech therapy there. He was then transferred tomorrow [facility]. On the day of his admission he had a witness seizure and a second seizure in the ER. He has been started started on Keppra for seizure prophylaxis. He underwent a Keppra level this morning which is pending. He underwent a routine EEG and are awaiting the final report. His EEG report was available today for review. His EEG was reported as normal for his age with no epileptiform discharges. Neurologically he remains relatively stable. There is been no significant change in his neurological status. He is on Coumadin for treatment of atrial fibrillation. His INR today is 1.7. He has been taken off of both Wellbutrin and Cymbalta as there is a risk of these medications lowering seizure threshold. He also is at risk of having seizures due to his large right MCA stroke. At this time he is to continue on his current dose of Keppra 750 mg twice a day. We will continue close neurological follow-up with this patient. He was seen by psychiatry and we're waiting there further recommendations for further management of his history of poststroke depression. 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 All of her questions were answered. His Keppra blood level did come back today and is therapeutic at 22.6. He may continue on his current dose of Keppra for further seizure prophylaxis. He is being considered for discharge and transfer to [facility] later today. He is to be transferred back to [facility] for ongoing care and treatment. We will continue close neurological follow-up this patient during this admission. His overall prognosis at this time remains guarded. He may follow-up in the outpatient neurology clinic in 3-4 weeks. Objective - Vital Signs Vital signs: Vital Signs Temp 97.4 F L 12/21/16 15:00 Pulse 60 12/21/16 15:00 Resp 16 12/21/16 15:00 BP 101/56 12/21/16 15:00 Pulse Ox 97 12/21/16 15:00 Intake & Output 12/20/16 12/21/16 12/21/16 18:59 06:59 18:59 Intake Total 1960 100 Output Total 1500 300 Balance 460 -300 100 Weight 98 kg Intake: IV 100 levETIRAcetam IV 750 mg 100 In Sodium Chloride 0.9% 100 ml @ 400 mls/hr IVPB Q12HR [facility] Rx#:[id number] Intake, IV Titration 800 Amount Sodium Chloride 0.9% 1, 800 000 ml @ 100 mls/hr IV . Q10H [facility] Rx#:[id number] Oral 1160 Output: Urine 1500 300 Other: Voiding Method Indwelling Catheter Urinal Diaper # Voids 1 1 # Bowel Movements 1 - Exam Physical examination: PHYSICAL EXAMINATION: Patient is resting comfortably in bed. VITAL SIGNS: Blood pressure is [102/56]. Heart rate is [60]. Respiration is [16] . Temperature is [97.4]. HEENT: Head is atraumatic, neck is supple, there were no carotid bruits. CHEST: Lungs are clear to auscultation and percussion. CARDIAC: S1, S2 normal rate and rhythm. There is no murmur. ABDOMEN: Soft and nontender. Bowel sounds are present. EXTREMITIES: There is no pedal edema. Peripheral pulses are present. Neurological examination: Patient's neurological examination is unchanged from yesterday. He has a dense left-sided hemiplegia. - Labs CBC & Chem 7: 12/18/16 06:10 12/18/16 06:10 Labs: Abnormal Lab Results - Last 24 Hours (Table) 12/20/16 12/21/16 12/21/16 Range/Units 20:03 07:06 07:34 PT 15.3 H (9.0-12.0) sec INR 1.6 H (<1.2) POC Glucose (mg/dL) 129 H 74 L (75-99) mg/dL 12/21/16 Range/Units 12:06 PT (9.0-12.0) sec INR (<1.2) POC Glucose (mg/dL) 170 H (75-99) mg/dL Assessment and Plan (1) New onset seizure Status: Acute Code(s): R56.9 - UNSPECIFIED CONVULSIONS (2) Chronic right arterial ischemic stroke, MCA (middle cerebral artery) Status: Acute Code(s): I69.30 - UNSPECIFIED SEQUELAE OF CEREBRAL INFARCTION (3) Depression Status: Acute Code(s): F32.9 - MAJOR DEPRESSIVE DISORDER, SINGLE EPISODE, UNSPECIFIED (4) Hyponatremia Status: Acute Code(s): E87.1 - HYPO-OSMOLALITY AND HYPONATREMIA Plan: This patient is a 61-year-old male who was admitted to Hospital with symptoms of new onset seizure. Patient is currently residing at [facility] and [facility]. The seizure lasted 2 minutes in duration and the patient was postictal following the event. He was transferred to the emergency room at [facility] for further management. In the ER he had a second seizure that was witnessed by the ER physician lasting 1 minute in duration. He was given 2 mg of Ativan and subsequently loaded with IV Keppra. Patient was subsequent admitted to the hospital. He did undergo a computed tomography scan of the brain which revealed evidence of his old right MCA stroke. There is no evidence of new stroke or hemorrhage. He underwent a routine EEG today the report of which is still pending. A Keppra level was not ordered today. We have ordered a Keppra level tomorrow morning and will need to reassess his condition during this admission. 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 She states that he has been feeling very depressed recently. It is possible that his seizure may be related to his use of Wellbutrin. This has subsequently been discontinued. The other possibility would also include seizure secondary to large hemispheric stroke. He is to be maintained on Keppra for at least 6 months with close observation. Case was discussed at length with the patient's and all of her questions were answered. She is aware of his guarded condition. He was seen today by psychiatry on consultation. We have suggested the to talk with the psychiatrist in terms of further treatment options for his rather severe post stroke depression. His Keppra level did come back today and is therapeutic at 22.6. He is to continue and be maintained on his current dose of Keppra 750 mg twice a day. His overall prognosis at this time remains very guarded. His EEG report was available today and was reviewed. It is reported as being normal for his age with no epileptiform changes noted. Patient is being considered for discharge to [facility] later today for ongoing care and treatment. His overall prognosis remains guarded. We will continue close neurological follow-up the patient during this admission. Patient may follow- up in the outpatient neurology clinic in 3-4 weeks. His overall prognosis at this time remains very guarded.
[2016-12-21 17:59] LABS: Glucose,Whole Blood 95 mg/dL (75-99)
[2016-12-21 17:59] LABS: Glucose,Whole Blood 65 mg/dL (75-99)
[2016-12-21] MEDS: WARFARIN 5 MG TAB PO SCH (18:16)
[2016-12-21 20:11] LABS: Glucose,Whole Blood 156 mg/dL (75-99)
[2016-12-21] MEDS: ATORVASTATIN 20 MG TAB PO SCH (21:48)
[2016-12-21] MEDS ORDERED: buPROPion 100 MG TAB PO SCH (23:59)
[2016-12-22] MEDS: HYDROcodone/APAP 10-325MG 1 EACH TAB PO PRN (04:51)
[2016-12-22 07:19] LABS: Glucose,Whole Blood 88 mg/dL (75-99)
[2016-12-22 07:25] VITALS: BP 98/54; PULSE 59; RESP 18; TEMP 98.2
[2016-12-22] MEDS: INSULIN LISPRO (humaLOG) 300 UNIT/3 ML VIAL SQ SCH ×4 (07:30→13:22)
[2016-12-22] MEDS: levETIRAcetam IV 750 MG in SODIUM CHLORIDE 0.9% 100 ML IVPB SCH (07:56)
[2016-12-22] MEDS: LIDOCAINE 5% PATCH TOPICAL SCH (07:56)
[2016-12-22] MEDS: FUROSEMIDE 40 MG TAB PO SCH (07:58)
[2016-12-22] MEDS: METOCLOPRAMIDE 10 MG TAB PO SCH ×2 (07:58→13:22)
[2016-12-22] MEDS: FERROUS SULFATE 325 MG TAB PO SCH (07:58)
[2016-12-22] MEDS: AMIODARONE 200 MG TAB PO SCH (07:58)
[2016-12-22] MEDS: LORATADINE 10 MG TAB PO SCH (07:58)
[2016-12-22] MEDS: predniSONE 5 MG TAB PO SCH (07:58)
[2016-12-22] MEDS: LACTULOSE 20 GM/30 ML CUP PO SCH (07:59)
[2016-12-22] MEDS: METOPROLOL TARTRATE 50 MG TAB PO SCH (07:59)
[2016-12-22] MEDS: LISINOPRIL 10 MG TAB PO SCH (07:59)
[2016-12-22] MEDS: POLYETHYLENE GLYCOL 3350 17 GM POWD.PACK PO SCH (07:59)
[2016-12-22] MEDS: FAMOTIDINE 20 MG TAB PO SCH (07:59)
[2016-12-22] MEDS: SODIUM CHLORIDE 0.65% NASAL SPRAY 44 ML BTL INTRANASAL SCH (07:59)
[2016-12-22] MEDS: AMMONIUM LACTATE 12% CREAM 140 GM TUBE TOPICAL SCH (08:00)
[2016-12-22 11:33] LABS: Glucose,Whole Blood 173 mg/dL (75-99)
[2016-12-22] MEDS: INSULIN DETEMIR 100 UNIT/ML 10 ML VIAL SQ SCH (13:22)
[2016-12-23] MEDS ORDERED: WARFARIN 2.5 MG TAB PO SCH (17:00)
== END 2016-12-22 16:40 | DRG 101 ==
LOC: EC 16:54 → 6SEL 20:15 → 5MS5E 12-20 17:51
PROVIDERS: ADMIT Family Medicine; ATTEND Family Medicine
DX: G40.409 Other generalized epilepsy and epileptic syndromes, not intractable, without status epilepticus (principal); L89.152 Pressure ulcer of sacral region, stage 2; E11.621 Type 2 diabetes mellitus with foot ulcer; G93.89 Other specified disorders of brain; E87.1 Hypo-osmolality and hyponatremia; I11.9 Hypertensive heart disease without heart failure; I69.354 Hemiplegia and hemiparesis following cerebral infarction affecting left non-dominant side; I48.2 Chronic atrial fibrillation; L97.519 Non-pressure chronic ulcer of other part of right foot with unspecified severity; E83.42 Hypomagnesemia; Z93.1 Gastrostomy status; F32.9 Major depressive disorder, single episode, unspecified; E78.5 Hyperlipidemia, unspecified; E78.1 Pure hyperglyceridemia; M19.91 Primary osteoarthritis, unspecified site; I69.322 Dysarthria following cerebral infarction; I25.10 Atherosclerotic heart disease of native coronary artery without angina pectoris; Z79.01 Long term (current) use of anticoagulants; Z79.4 Long term (current) use of insulin; Z79.52 Long term (current) use of systemic steroids; Z79.899 Other long term (current) drug therapy; Z87.891 Personal history of nicotine dependence; Z86.79 Personal history of other diseases of the circulatory system
CPT/HCPCS: 36415; 70450; 80053; 80061; 80177; 81003; 82550; 82553; 83036; 83090; 83735; 84443; 84484; 85025; 85610; 85730; 93005; 93880; 94760; 95819; 96361; 96365; 96375; 99291

== ENCOUNTER → 2017-12-20 | Outpatient (CLI) | payer MEDICAID ==
--- NOTE | 2017-12-21 11:32 | ECHOF ---
Referral Reason:R01.0 MEASUREMENTS -------- HEIGHT: 185.4 cm WEIGHT: 113.4 kg BP: 120/0 RVIDd: 3.6 cm (< 3.3) IVSd: 1.2 cm (0.6 - 1.1) LVIDd: 4.8 cm (3.9 - 5.3) LVPWd: 1.3 cm (0.6 - 1.1) IVSs: 1.6 cm LVIDs: 3.5 cm LVPWs: 1.4 cm LA Diam: 4.1 cm (2.7 - 3.8) LAESV Index (A-L): 26.41 ml/m Ao Diam: 4.1 cm (2.0 - 3.7) MV EXCURSION: 15.119 mm (> 18.000) MV EF SLOPE: 63 mm/s (70 - 150) EPSS: 0.4 cm MV E Santhosh: 0.86 m/s MV DecT: 226 ms MV A Santhosh: 0.75 m/s MV E/A Ratio: 1.14 AV maxP.51 mmHg AV meanP.76 mmHg RAP: 5.00 mmHg RVSP: 33.35 mmHg FINDINGS -------- Resting bradycardia (HR<60bpm). This was a technically adequate study. The left ventricular size is normal. There is mild concentric left ventricular hypertrophy. Overa ll left ventricular systolic function is normal with, an EF between 60 - 65 %. The right ventricle is mildly enlarged. Normal LA size by volume 22+/-6 ml/m2. The right atrium is normal in size. Peak/mean gradient across the Aortic Valve is 29.51mmHg / 13.76mmHg. Normally functioning bioprosth etic valve. The mitral valve is normal. Mild tricuspid regurgitation present. There is borderline pulmonary hypertension. The right ventr icular systolic pressure, as measured by Doppler, is 33.35mmHg. Trace/mild (physiologic) pulmonic regurgitation. The aortic root is dilated measuring 4.1cm. IVC Not well visulized. There is no pericardial effusion. CONCLUSIONS -------- 1. Resting bradycardia (HR<60bpm). 2. This was a technically adequate study. 3. The left ventricular size is normal. 4. There is mild concentric left ventricular hypertrophy. 5. Overall left ventricular systolic function is normal with, an EF between 60 - 65 %. 6. The right ventricle is mildly enlarged. 7. Normal LA size by volume 22+/-6 ml/m2. 8. The right atrium is normal in size. 9. Peak/mean gradient across the Aortic Valve is 29.51mmHg / 13.76mmHg. 10. Normally functioning bioprosthetic valve. 11. The mitral valve is normal. 12. Mild tricuspid regurgitation present. 13. There is borderline pulmonary hypertension. 14. The right ventricular systolic pressure, as measured by Doppler, is 33.35mmHg. 15. Trace/mild (physiologic) pulmonic regurgitation. 16. The aortic root is dilated measuring 4.1cm. 17. IVC Not well visulized. 18. There is no pericardial effusion. CLERICAL ASSIGNER: Marisol Gamez RDCS
== END | disposition home or self-care (01) ==
LOC: RADECHMAIN 14:37
PROVIDERS: ATTEND Internal Medicine Geriatric Medicine
DX: I07.1 Rheumatic tricuspid insufficiency (principal); R00.1 Bradycardia, unspecified; I27.20 Pulmonary hypertension, unspecified
CPT/HCPCS: 93306

== ENCOUNTER → 2018-02-02 | Outpatient (CLI) | payer MEDICAID, OTHER ==
--- NOTE | 2018-02-04 16:51 | CT ---
CT CHEST FOR PULMONARY EMBOLISM. EXAMINATION TYPE: CT angio chest DATE OF EXAM: 02/02/2018 INDICATION: f/u dissection CT DLP: 1239 mGycm, Automated exposure control for dose reduction was used. CONTRAST: Patient injected with 100 mL of Isovue 370. COMPARISON: None TECHNIQUE: CT of the chest is performed on a spiral scan at 2 mm thick sections. Study is performed with intravenous contrast timed for evaluation for arterial dissection. This will limit additional po rtions of the evaluation. 3-D MIP images reconstructed by the technologist on a separate computer ar e reviewed on the computer in the coronal and sagittal planes. FINDINGS: There is an aortic dissection which begins at the proximal aortic arch and extends into the left subc lavian vein. Dissection extends through the descending thoracic aorta. Flow is evident within both osmani mens. The abdominal aorta likewise continues the dissection out of the [id number]. There is symmet rical flow to the bilateral kidneys. There is flow in the superior mesenteric artery. Celiac axis is patent. Three-D reconstructed images are reviewed again demonstrating the dissection. There is increased density within the aorta at the level of the main pulmonary artery which may be th e dissection repair. The dissection has changed in configuration prior without visualization of ascen ding thoracic aortic aneurysm. The anterior aortic arch dissection appears new. However, the dissecti on through the descending thoracic aorta and abdominal aorta is somewhat similar to the prior exam. Portion of the thyroid visualized is normal. Enlarged mediastinal adenopathy is not evident. Main pul monary artery appears normal measures 3.0 cm in the ascending thoracic aorta. Lung windows are clear. CT sections within the upper abdomen at this phase of contrast appear normal. IMPRESSIONS: 1. Previous ascending thoracic aortic dissection is not identified. 2. There may be a new dissection beginning in the anterior aortic arch dividing the aorta with flow w ithin both lumens. This extends to the lower abdomen out of the [id number]. 3. Dissection extends into the left subclavian vein. A Red level critical message alert has been initiated for Lynsey Stanton MD~[id number] via the [employer] Critical Results System on 02/04/2018 4:49 PM. This message alert has been sent to Lynsey cruz MD~[id number] via the preferences provided by the clinician for the receipt of Radiology Critical Find ings. Message ID [id number].
== END | disposition home or self-care (01) ==
LOC: RADCTMAIN 16:13
PROVIDERS: ATTEND Internal Medicine Interventional Cardiology
DX: Z09 Encounter for follow-up examination after completed treatment for conditions other than malignant neoplasm (principal); Z98.890 Other specified postprocedural states
CPT/HCPCS: 71275; Q9967

== ENCOUNTER 2019-10-18 11:07 | Emergency (ER) | payer MEDICAID, OTHER ==
[2019-10-18 11:11] VITALS: TEMP 98.8
[2019-10-18 11:58] LABS: Basophils # (A) 0.1 k/uL (0-0.2); Basophils % (A) 1 %; Eosinophils # (A) 0.2 k/uL (0-0.7); Eosinophils % (A) 2 %; HCT 33.5 % (39.0-53.0); Lymphocytes # (A) 1.6 k/uL (1.0-4.8); Lymphocytes % (A) 13 %; MCH 28.7 pg (25.0-35.0); MCHC 32.9 g/dL (31.0-37.0); MCV 87.4 fL (80.0-100.0); Mean Platelet Volume 7.7; Monocytes # (A) 0.7 k/uL (0-1.0); Monocytes % (A) 6 %; Neutrophils # (A) 9.2 k/uL (1.3-7.7); Neutrophils % (A) 77 %; Platelet Count 157 k/uL (150-450); RBC 3.84 m/uL (4.30-5.90); RDW 13.9 % (11.5-15.5)
[2019-10-18 12:04] LABS: INR 2.4 (<1.2); Partial Thromboplastin Time 39.5 sec (22.0-30.0); Prothrombin Time 23.6 sec (9.0-12.0)
--- NOTE | 2019-10-18 12:06 | ED ---
General Adult HPI - General Source: patient, EMS Mode of arrival: EMS Limitations: physical limitation <Nico Willis - Last Filed: 10/18/19 14:12> <James Pennington - Last Filed: 10/18/19 14:42> - General Chief complaint: Abdominal Pain Stated complaint: abdominal mass Time Seen by Provider: 10/18/19 11:12 - History of Present Illness Initial comments: 64-year-old male with a past medical history of atrial fibrillation, CAD, CVA, diabetes mellitus, hypertension, aortic dissection presents to the emergency room for a chief complaint of abdominal bruising. Caregiver at bedside stating patient has had a bruise on his left side for about a week and has slight bruising of the abdomen as well. No falls. States that she was unaware of this bruising as he is in [facility]. Apparently the NURSING UNIT COORDINATOR was told today and wanted him seen in the ER. Caregiver states it could have been from a nurse aide using a gait belt and set of the left belt with his left machine. He also has subcu injections of insulin. Patient takes Coumadin.Patient has no other complaints at this time including shortness of breath, chest pain, abdominal pain, nausea or vomiting, headache, or visual changes. (Nico Willis) - Related Data Home Medications Medication Instructions Recorded Confirmed Acetaminophen Tab [Tylenol] 650 mg PO Q6H PRN 12/17/16 10/18/19 Atorvastatin [Lipitor] 20 mg PO DAILY@2100 12/17/16 10/18/19 Bisacodyl [Dulcolax] 10 mg RECTAL DAILY PRN 12/17/16 10/18/19 Famotidine [Pepcid] 20 mg PO BID@0800,1700 12/17/16 10/18/19 Ferrous Sulfate [Iron (65 MG 325 mg PO DAILY@0812/17/16 10/18/19 Elemental)] Folic Acid 1 mg PO DAILY@0800 12/17/16 10/18/19 Furosemide [Lasix] 40 mg PO DAILY@0800 12/17/16 10/18/19 Insulin Detemir (Levemir) [Levemir] 45 unit SQ DAILY@0700 12/17/16 10/18/19 Lisinopril [Zestril] 10 mg PO BID@0800,1700 12/17/16 10/18/19 Loratadine [Claritin] 10 mg PO DAILY@0812/17/16 10/18/19 Magnesium Hydroxide [Milk of 2,400 mg PO DAILY PRN 12/17/16 10/18/19 Magnesia] Metoclopramide [Reglan] 10 mg PO ACHS 12/17/16 10/18/19 Metoprolol Tartrate [Lopressor] 50 mg PO BID@0800,1700 12/17/16 10/18/19 Multivitamins, Thera [Multivitamin 1 tab PO DAILY@0812/17/16 10/18/19 (formulary)] Na Phos,M-B/Na Phos,Di-Ba [Fleet 133 ml RECTAL DAILY PRN 12/17/16 10/18/19 Adult] [place] Nasal [place] 1 spray EA NOSTRIL BID PRN 12/17/16 10/18/19 Polyethylene Glycol 3350 [Miralax] 17 gm PO DAILY 12/17/16 10/18/19 Potassium Chloride Oral Liquid 20 meq PO DAILY@17012/17/16 10/18/19 Warfarin [Coumadin] 2.5 mg PO WEFR@169912/17/16 10/18/19 Warfarin [Coumadin] 5 mg PO SUMOTUTHSA@169912/17/16 10/18/19 predniSONE 5 mg PO DAILY@0812/17/16 10/18/19 HYDROcodone/APAP 10-325MG [[place] 1 tab PO HS@2100 10/18/19 10/18/19 10-325] HYDROcodone/APAP 10-325MG [[place] 1 tab PO Q24H PRN 10/18/19 10/18/19 10-325] HYDROcodone/APAP 7.5-325MG [[place] 1 tab PO BID@0600,1400 10/18/19 10/18/19 7.5-325] INSULIN ASPART (NovoLOG) [NovoLOG 14 unit SQ DAILY@1100 PRN 10/18/19 10/18/19 (formulary)] INSULIN ASPART (NovoLOG) [NovoLOG 32 unit SQ DAILY@0700 PRN 10/18/19 10/18/19 (formulary)] INSULIN ASPART (NovoLOG) [NovoLOG 44 unit SQ DAILY@1630 PRN 10/18/19 10/18/19 (formulary)] Ipratropium-Albuterol Nebulize 3 ml INHALATION RT-Q6H PRN 10/18/19 10/18/19 [Duoneb 0.5 mg-3 mg/3 ml Soln] Lactulose 20 Gm Packet 20 gram PO BID@0800,1700 10/18/19 10/18/19 Loperamide HCl [Imodium A-D] 2 - 4 mg PO TID PRN 10/18/19 10/18/19 Menthol [Biofreeze] 1 applic TOPICAL TID PRN 10/18/19 10/18/19 Mirtazapine 7.5 mg PO HS@2100 10/18/19 10/18/19 levETIRAcetam [Keppra] 750 mg PO BID@0800,1700 10/18/19 10/18/19 Allergies Allergy/AdvReac Type Severity Reaction Status Date / Time No Known Allergies Allergy Verified 10/18/19 12:54 Review of Systems ROS Other: All systems not noted in ROS Statement are negative. <Nico Willis P - Last Filed: 10/18/19 14:12> ROS Other: All systems not noted in ROS Statement are negative. <James Pennington - Last Filed: 10/18/19 14:42> ROS Statement: Those systems with pertinent positive or pertinent negative responses have been documented in the HPI. Past Medical History Past Medical History: Atrial Fibrillation, Coronary Artery Disease (CAD), CVA/TIA, Diabetes Mellitus, Hypertension, Osteoarthritis (OA), Respiratory Disorder Additional Past Medical History / Comment(s): non healing wound R big Toe. 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 PEG tube in place. History of Any Multi-Drug Resistant Organisms: None Reported Past Surgical History: Orthopedic Surgery Additional Past Surgical History / Comment(s): femur Past Anesthesia/Blood Transfusion Reactions: No Reported Reaction Past Psychological History: Depression Smoking Status: Former smoker Past Alcohol Use History: None Reported Past Drug Use History: None Reported - Past Family History Mother Family Medical History: No Reported History <Nico Willis P - Last Filed: 10/18/19 14:12> General Exam Limitations: physical limitation General appearance: alert, in no apparent distress Head exam: Present: atraumatic, normocephalic, normal inspection Eye exam: Present: normal appearance, PERRL, EOMI. Absent: scleral icterus, conjunctival injection, periorbital swelling ENT exam: Present: normal exam, mucous membranes moist Neck exam: Present: normal inspection, full ROM. Absent: tenderness, meningismus, lymphadenopathy Respiratory exam: Present: normal lung sounds bilaterally. Absent: respiratory distress, wheezes, rales, rhonchi, stridor Cardiovascular Exam: Present: regular rate, normal rhythm, normal heart sounds. Absent: systolic murmur, diastolic murmur, rubs, gallop, clicks GI/Abdominal exam: Present: soft, normal bowel sounds, other (Mass noted right upper quadrant. Nontender. Nonpulsatile. Patient has minor ecchymosis to the abdomen. He does have ecchymosis to the right side as well). Absent: distended, tenderness, guarding, rebound, rigid <Nico Willis P - Last Filed: 10/18/19 14:12> Course Vital Signs 10/18/19 10/18/19 10/18/19 11:08 11:15 11:30 Temperature 98.8 F Pulse Rate 64 58 L Respiratory 18 16 Rate Blood Pressure 136/79 133/79 O2 Sat by Pulse 97 97 98 Oximetry 10/18/19 10/18/19 10/18/19 12:00 12:30 13:00 Temperature Pulse Rate 54 L 60 Respiratory 15 15 Rate Blood Pressure 117/69 116/59 123/73 O2 Sat by Pulse 94 L 96 Oximetry 10/18/19 14:02 Temperature Pulse Rate 61 Respiratory 18 Rate Blood Pressure 116/87 O2 Sat by Pulse 96 Oximetry EKG Findings - EKG Comments: EKG Findings:: Sinus bradycardia, ventricular rate 57, OK 176, QRS ratio 98, QTC 443, evidence of right bundle. No chest pain. This was also reviewed by Dr. Pennington <Nico Willis P - Last Filed: 10/18/19 14:12> Medical Decision Making - Lab Data Result diagrams: 10/18/19 11:40 10/18/19 11:40 <Nico Willis - Last Filed: 10/18/19 14:12> - Lab Data Result diagrams: 10/18/19 11:40 10/18/19 11:40 <James Pennington - Last Filed: 10/18/19 14:42> - Medical Decision Making HPI physical exam is documented. Patient does have a bruise noted over his right side as well as a palpable mass is nonpulsatile of the right upper abdomen. There is light bruising of the anterior abdomen which could be related to insulin injections. CBC CMP unremarkable. Patient does have hyperglycemia and is insulin-dependent, will continue with his sliding scale at home. CT chest abdomen pelvis aorta was obtained given patient's history of aortic dissection which showed a 10 x 4 x 10 cm rectus sheath thickening most typical of a hematoma which is consistent with clinical exam. There is extensive aortic dissection with involvement of branch vessels however this appears similar to prior to exam. I also discussed this with Dr. Sears. At this time Dr. Pennington had a lengthy discussion with patient's at bedside. states patient is not a surgical candidate. At this time he preferred discharge home tomorrow would and follow up outpatient. Discussed that hematoma with likely resorb. They will return here for any worsening symptoms. (Nico Willis) 64-year-old male contacted past medical history presenting with abdominal swelling and bruising. History of aortic dissection. Patient at bedside who is his primary caregiver and very accurate historian. He has tension and swelling of the right side of the abdomen with surrounding bruising in the flank. CT performed showing anterior abdominal wall hematoma. Additionally there is dissection flap throughout the aorta and this appears unchanged from previous. We did discuss the possibility of urgent surgical evaluation for this finding, patient's is agreeable with leaving well enough alone, patient would not be a surgical candidate and patient's is okay with not urgently evaluating this finding. Does appear chronic on CT. (James Pennington) - Lab Data Lab Results 10/18/19 10/18/19 10/18/19 Range/Units 11:40 11:40 11:40 WBC 12.0 H (3.8-10.6) k/uL RBC 3.84 L (4.30-5.90) m/uL Hgb 11.0 L (13.0-17.5) gm/dL Hct 33.5 L (39.0-53.0) % MCV 87.4 (80.0-100.0) fL MCH 28.7 (25.0-35.0) pg MCHC 32.9 (31.0-37.0) g/dL RDW 13.9 (11.5-15.5) % Plt Count 157 (150-450) k/uL Neutrophils % 77 % Lymphocytes % 13 % Monocytes % 6 % Eosinophils % 2 % Basophils % 1 % Neutrophils # 9.2 H (1.3-7.7) k/uL Lymphocytes # 1.6 (1.0-4.8) k/uL Monocytes # 0.7 (0-1.0) k/uL Eosinophils # 0.2 (0-0.7) k/uL Basophils # 0.1 (0-0.2) k/uL PT 23.6 H (9.0-12.0) sec INR 2.4 H (<1.2) APTT 39.5 H (22.0-30.0) sec Sodium 138 (137-145) mmol/L Potassium 4.2 (3.5-5.1) mmol/L Chloride 106 (98-107) mmol/L Carbon Dioxide 23 (22-30) mmol/L Anion Gap 9 mmol/L BUN 13 (9-20) mg/dL Creatinine 0.77 (0.66-1.25) mg/dL Est GFR (CKD-EPI)AfAm >90 (>60 ml/min/1.73 sqM) Est GFR (CKD-EPI)NonAf >90 (>60 ml/min/1.73 sqM) Glucose 239 H (74-99) mg/dL Calcium 9.0 (8.4-10.2) mg/dL Total Bilirubin 0.5 (0.2-1.3) mg/dL AST 24 (17-59) U/L ALT 20 (4-49) U/L Alkaline Phosphatase 33 L (38-126) U/L Troponin I (0.000-0.034) ng/mL Total Protein 6.4 (6.3-8.2) g/dL Albumin 3.3 L (3.5-5.0) g/dL Amylase 47 (30-110) U/L Lipase 86 (23-300) U/L Urine Color Urine Appearance (Clear) Urine pH (5.0-8.0) Ur Specific [place] (1.001-1.035) Urine Protein (Negative) Urine Glucose (UA) (Negative) Urine Ketones (Negative) Urine Blood (Negative) Urine Nitrite (Negative) Urine Bilirubin (Negative) Urine Urobilinogen (<2.0) mg/dL Ur Leukocyte Esterase (Negative) 10/18/19 10/18/19 Range/Units 11:40 12:00 WBC (3.8-10.6) k/uL RBC (4.30-5.90) m/uL Hgb (13.0-17.5) gm/dL Hct (39.0-53.0) % MCV (80.0-100.0) fL MCH (25.0-35.0) pg MCHC (31.0-37.0) g/dL RDW (11.5-15.5) % Plt Count (150-450) k/uL Neutrophils % % Lymphocytes % % Monocytes % % Eosinophils % % Basophils % % Neutrophils # (1.3-7.7) k/uL Lymphocytes # (1.0-4.8) k/uL Monocytes # (0-1.0) k/uL Eosinophils # (0-0.7) k/uL Basophils # (0-0.2) k/uL PT (9.0-12.0) sec INR (<1.2) APTT (22.0-30.0) sec Sodium (137-145) mmol/L Potassium (3.5-5.1) mmol/L Chloride (98-107) mmol/L Carbon Dioxide (22-30) mmol/L Anion Gap mmol/L BUN (9-20) mg/dL Creatinine (0.66-1.25) mg/dL Est GFR (CKD-EPI)AfAm (>60 ml/min/1.73 sqM) Est GFR (CKD-EPI)NonAf (>60 ml/min/1.73 sqM) Glucose (74-99) mg/dL Calcium (8.4-10.2) mg/dL Total Bilirubin (0.2-1.3) mg/dL AST (17-59) U/L ALT (4-49) U/L Alkaline Phosphatase (38-126) U/L Troponin I <0.012 (0.000-0.034) ng/mL Total Protein (6.3-8.2) g/dL Albumin (3.5-5.0) g/dL Amylase (30-110) U/L Lipase (23-300) U/L Urine Color Light Yellow Urine Appearance Clear (Clear) Urine pH 6.0 (5.0-8.0) Ur Specific [place] 1.019 (1.001-1.035) Urine Protein Negative (Negative) Urine Glucose (UA) Negative (Negative) Urine Ketones Negative (Negative) Urine Blood Negative (Negative) Urine Nitrite Negative (Negative) Urine Bilirubin Negative (Negative) Urine Urobilinogen <2.0 (<2.0) mg/dL Ur Leukocyte Esterase Negative (Negative) Disposition Is patient prescribed a controlled substance at d/c from ED?: No Time of Disposition: 14:15 <Nico Willis P - Last Filed: 10/18/19 14:12> <James Pennington N - Last Filed: 10/18/19 14:42> Clinical Impression: Rectus sheath hematoma Disposition: HOME SELF-CARE Condition: Good Instructions (If sedation given, give patient instructions): Hematoma (ED) Additional Instructions: Please follow up with primary care to review CT results. Please return here to the emergency room for any worsening symptoms. As discussed, hematoma of the right upper quadrant should resorb. Referrals: Kwan Toney MD [Primary Care Provider] - 1-2 days
[2019-10-18 12:14] LABS: ALT 20 U/L (4-49); AST 24 U/L (17-59); African American GFR (CKD) >90 (>60 ml/min/1.73 sqM); Albumin 3.3 g/dL (3.5-5.0); Alkaline Phosphatase 33 U/L (38-126); Amylase 47 U/L (30-110); Anion Gap 9 mmol/L; Blood Urea Nitrogen 13 mg/dL (9-20); Carbon Dioxide 23 mmol/L (22-30); Chloride 106 mmol/L (98-107); Glucose 239 mg/dL (74-99); Non-African American GFR(CKD) >90 (>60 ml/min/1.73 sqM); Potassium 4.2 mmol/L (3.5-5.1); Sodium 138 mmol/L (137-145); Total Bilirubin 0.5 mg/dL (0.2-1.3); Total Protein 6.4 g/dL (6.3-8.2)
--- NOTE | 2019-10-18 12:59 | CT ---
EXAMINATION TYPE: CT angio thor/abd pel aorta DATE OF EXAM: 10/18/2019 COMPARISON: 01/25/2018, 07/26/2016 HISTORY: RUQ pain, abd bruising, history of aortic dissection with repair CT DLP: 5401.4 mGycm. Automated Exposure Control for Dose Reduction was Utilized. CONTRAST: CT scan of the thorax, abdomen and pelvis is performed without and with IV Contrast, patient injected with 100 mL of Isovue 370. FINDINGS: LUNGS: Nonspecific bilateral groundglass changes are noted. Subsegmental basilar consolidation noted. . MEDIASTINUM: There are no greater than 1 cm hilar or mediastinal lymph nodes. Sternotomy wires and cl ips are seen. There is evidence of previous aortic surgery however there appears to be a aortic disse ction involving the apex of the aortic arch. Mild irregularity along the medial margin of the aortic root is similar to the prior exam. This could be postsurgical residual dissection flap not excluded. There is extension into the left subclavian artery. Dissection extends through the thoracic aorta int o the abdominal aorta. There is involvement of the left superior mesenteric artery which was also not ed on the prior exam. An dissection extends into both iliac arteries. Calcification of the aortic guillaume ve noted.. OTHER: No additional significant abnormality is seen. LIVER/GB: No significant abnormality is appreciated. PANCREAS: No significant abnormality is seen. SPLEEN: No significant abnormality is seen. ADRENALS: No significant abnormality is seen. KIDNEYS: No significant abnormality is seen. BOWEL: No significant abnormality is seen. LYMPH NODES: No greater than 1cm abdominal or pelvic lymph nodes are appreciated. OSSEOUS STRUCTURES: Hypertrophic and degenerative changes of the spine. Sternotomy wires noted. Posts urgical change right hip which results in significant artifact.. OTHER: There is a 10 x 4 x 10 cm the rectus sheath thickening which could been the basis of the rectu s sheath hematoma. Mass not excluded correlate clinically. Intramuscular lipoma along the right flank noted measuring 1.2 cm. Fat-containing periumbilical hernia. IMPRESSION: 1. There is a 10 x 4 x 10 cm rectus sheath thickening most typical of a hematoma. Mass not excluded c orrelate clinically. 2. Extensive aortic dissection with involvement of branch vessels appear similar to the prior exam. P ostsurgical change also noted. 3. Nonspecific groundglass changes involving the lungs correlate for pneumonitis versus atelectasis.
[2019-10-18 13:17] LABS: Appearance,Urine Clear (Clear); Bilirubin,Urine Negative (Negative); Blood,Urine Negative (Negative); Color,Urine Light Yellow; Glucose,Urine (UA) Negative (Negative); Ketones,Urine Negative (Negative); Leukocyte Esterase,Urine Negative (Negative); Nitrite,Urine Negative (Negative); Protein,Urine Negative (Negative); Specific Gravity,Urine 1.019 (1.001-1.035); Urobilinogen,Urine <2.0 mg/dL (<2.0)
[2019-10-18 14:02] VITALS: BP 116/87; PULSE 61; RESP 18
== END 2019-10-18 15:05 | disposition home or self-care (01) ==
LOC: EC 11:07
DX: S30.1XXA Contusion of abdominal wall, initial encounter (principal); I48.91 Unspecified atrial fibrillation; I25.10 Atherosclerotic heart disease of native coronary artery without angina pectoris; E11.9 Type 2 diabetes mellitus without complications; I10 Essential (primary) hypertension; F32.9 Major depressive disorder, single episode, unspecified; Z79.4 Long term (current) use of insulin; Z79.899 Other long term (current) drug therapy; Z79.51 Long term (current) use of inhaled steroids; Z79.01 Long term (current) use of anticoagulants; Z87.891 Personal history of nicotine dependence; Z86.73 Personal history of transient ischemic attack (TIA), and cerebral infarction without residual deficits
CPT/HCPCS: 36415; 93005; 80053; 82150; 83690; 84484; 85025; 85610; 85730; 81003; 71275; 74174; 99284; Q9967

== ENCOUNTER 2020-04-17 01:58 | Inpatient (IN) | payer MEDICAID, OTHER ==
[2020-04-17] MEDS ORDERED: IPRATROPIUM-ALBUTEROL 3 ML NEB INHALATION STA (02:06)
[2020-04-17] MEDS ORDERED: ONDANSETRON 4 MG/2 ML VIAL IVP STA (02:07)
[2020-04-17] MEDS ORDERED: DEXAMETHASONE SOD PHOSPHATE 10 MG/ML 1 ML VIAL IV STA (02:07)
[2020-04-17] MEDS ORDERED: DILTIAZEM DRIP BOLUS FROM BAG 1 MG SOLN IV ONE (02:10)
[2020-04-17 02:12] LABS: ABG Base Excess -0.3 mmol/L; ABG HCO3 24 mmol/L (21-25); ABG Oxygen Saturation 97.8 % (94-97); ABG PCO2 37 mmHg (35-45); ABG PH 7.42 (7.35-7.45); ABG PO2 106 mmHg (83-108); ABG TCO2 25 mmol/L (19-24); Allen Test Performed? Yes
--- NOTE | 2020-04-17 02:13 | ED ---
SOB HPI - General Chief Complaint: Shortness of Breath Stated Complaint: SARABJIT Time Seen by Provider: 04/17/20 02:05 Source: EMS, RN notes reviewed, old records reviewed Mode of arrival: EMS Limitations: no limitations - History of Present Illness Initial Comments: This is a [id number] male DF for evaluation patient has known influenza with fever and severe shortness of breath increased cough and congestion congestion. Not feeling well. Medical history significant for A. fib diabetes high blood pressure. MD Complaint: shortness of breath, cough, anxiety -: days(s) Severity: moderate Severity scale (1-10): 7 Quality: aching Consistency: constant Improves With: nothing Worsens With: nothing Context: recent URI (flu) Associated Symptoms: chest pain, pain with inspiration, cough, sputum production Treatments Prior to Arrival: none - Related Data Home Medications Medication Instructions Recorded Confirmed Acetaminophen Tab [Tylenol] 650 mg PO Q6H PRN 12/17/16 04/17/20 Atorvastatin [Lipitor] 20 mg PO HS@2100 12/17/16 04/17/20 Famotidine [Pepcid] 20 mg PO BID@0800,1700 12/17/16 04/17/20 Ferrous Sulfate [Iron (65 MG 325 mg PO DAILY@0800 12/17/16 04/17/20 Elemental)] Folic Acid 1 mg PO DAILY@0800 12/17/16 04/17/20 Insulin Detemir (Levemir) [Levemir] 45 unit SQ DAILY@0700 12/17/16 04/17/20 Loratadine [Claritin] 10 mg PO DAILY@0800 12/17/16 04/17/20 Magnesium Hydroxide [Milk of 2,400 mg PO DAILY PRN 12/17/16 04/17/20 Magnesia] Metoclopramide [Reglan] 10 mg PO ACHS 12/17/16 04/17/20 Metoprolol Tartrate [Lopressor] 50 mg PO BID@0800,1700 12/17/16 04/17/20 Multivitamins, Thera [Multivitamin 1 tab PO DAILY@0800 12/17/16 04/17/20 (formulary)] Na Phos,M-B/Na Phos,Di-Ba [Fleet 133 ml RECTAL DAILY PRN 12/17/16 04/17/20 Adult] [place] Nasal [place] 1 spray EA NOSTRIL BID PRN 12/17/16 04/17/20 Polyethylene Glycol 3350 [Miralax] 17 gm PO DAILY PRN 12/17/16 04/17/20 Warfarin [Coumadin] 2.5 mg PO MOWEFR@1700 12/17/16 04/17/20 Warfarin [Coumadin] 5 mg PO SUTUTHSA@1700 12/17/16 04/17/20 bisacodyL [Dulcolax] 10 mg RECTAL DAILY PRN 12/17/16 04/17/20 lisinopriL [Zestril] 10 mg PO BID@0800,1700 12/17/16 04/17/20 predniSONE 5 mg PO DAILY@0800 12/17/16 04/17/20 INSULIN ASPART (NovoLOG) [NovoLOG 14 unit SQ DAILY@1100 10/18/19 04/17/20 (formulary)] INSULIN ASPART (NovoLOG) [NovoLOG 32 unit SQ DAILY@0700 10/18/19 04/17/20 (formulary)] INSULIN ASPART (NovoLOG) [NovoLOG 44 unit SQ DAILY@1630 10/18/19 04/17/20 (formulary)] Ipratropium-Albuterol Nebulize 3 ml INHALATION RT-Q6H PRN 10/18/19 04/17/20 [Duoneb 0.5 mg-3 mg/3 ml Soln] Lactulose 20 Gm Packet 20 gram PO BID@0800,1700 10/18/19 04/17/20 Loperamide HCl [Imodium A-D] 2 - 4 mg PO TID PRN 10/18/19 04/17/20 Menthol [Biofreeze] 1 applic TOPICAL TID PRN 10/18/19 04/17/20 Mirtazapine 7.5 mg PO HS@2100 10/18/19 04/17/20 Ammonium Lactate Cream [Lac-Hydrin 1 applic TOPICAL BID 04/17/20 04/17/20 12% Cream] Previous Rx's Medication Instructions Recorded Azithromycin [Zithromax] 500 mg PO DAILY #3 tab 04/21/20 Furosemide [Lasix] 40 mg PO BID #0 04/21/20 Potassium Chloride Oral Liquid 20 meq PO BID #0 04/21/20 levETIRAcetam [Keppra] 1,000 mg PO Q12HR tab 04/21/20 Allergies Allergy/AdvReac Type Severity Reaction Status Date / Time No Known Allergies Allergy Verified 04/17/20 07:51 Review of Systems ROS Statement: Those systems with pertinent positive or pertinent negative responses have been documented in the HPI. ROS Other: All systems not noted in ROS Statement are negative. Past Medical History Past Medical History: Atrial Fibrillation, Coronary Artery Disease (CAD), CVA/TIA, Diabetes Mellitus, Hypertension, Osteoarthritis (OA), Respiratory Disorder Additional Past Medical History / Comment(s): non healing wound R big Toe. 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 PEG tube in place. History of Any Multi-Drug Resistant Organisms: None Reported Past Surgical History: Orthopedic Surgery Additional Past Surgical History / Comment(s): femur Past Anesthesia/Blood Transfusion Reactions: No Reported Reaction Past Psychological History: Depression Smoking Status: Former smoker, Never smoker Past Alcohol Use History: None Reported Past Drug Use History: None Reported - Past Family History Mother Family Medical History: No Reported History General Exam General appearance: alert, in no apparent distress, anxious, in distress Head exam: Present: atraumatic, normocephalic, normal inspection Eye exam: Present: normal appearance, PERRL, EOMI. Absent: scleral icterus, conjunctival injection, periorbital swelling ENT exam: Present: normal exam, mucous membranes moist Neck exam: Present: normal inspection. Absent: tenderness, meningismus, lymphadenopathy Respiratory exam: Present: normal lung sounds bilaterally. Absent: respiratory distress, wheezes, rales, rhonchi, stridor Cardiovascular Exam: Present: regular rate, normal rhythm, normal heart sounds. Absent: systolic murmur, diastolic murmur, rubs, gallop, clicks GI/Abdominal exam: Present: soft, normal bowel sounds. Absent: distended, tenderness, guarding, rebound, rigid Extremities exam: Present: normal inspection, full ROM, normal capillary refill. Absent: tenderness, pedal edema, joint swelling, calf tenderness Back exam: Present: normal inspection Neurological exam: Present: alert, oriented X3, CN II-XII intact Psychiatric exam: Present: normal affect, normal mood Skin exam: Present: warm, dry, intact, normal color. Absent: rash Course Vital Signs 04/17/20 04/17/20 04/17/20 02:00 03:04 03:06 Temperature 100.4 F H 101.1 F H Pulse Rate 127 H 98 101 H Respiratory 18 20 Rate Blood Pressure 171/94 148/97 O2 Sat by Pulse 97 96 Oximetry 04/17/20 04/17/20 04/17/20 03:25 04:15 05:15 Temperature 100.4 F H 100.1 F H Pulse Rate 94 105 H 100 Respiratory 19 19 Rate Blood Pressure 142/77 129/88 O2 Sat by Pulse 96 97 Oximetry - Reevaluation(s) Reevaluation #1: Medical records reviewed Patient symptoms are not improved Patient informed of results results, questions are answered Patient still significantly short of breath chest pain Medical Decision Making - Medical Decision Making 65 male DF and significant acute distress, patient has influenza with hypoxia rule out coronavirus. - Lab Data Result diagrams: 04/20/20 06:35 04/20/20 06:35 Lab Results 04/17/20 04/17/20 04/17/20 Range/Units 02:06 02:15 02:15 Sample Site Right Radial ABG pH 7.42 (7.35-7.45) ABG pCO2 37 (35-45) mmHg ABG pO2 106 (83-108) mmHg ABG HCO3 24 (21-25) mmol/L ABG Total CO2 25 H (19-24) mmol/L ABG O2 Saturation 97.8 H (94-97) % ABG Base Excess -0.3 mmol/L Dangelo Test Yes FiO2 44 % Plasma Lactic Acid Eduard 2.8 H* (0.7-2.0) mmol/L Procalcitonin 0.18 H (0.02-0.09) ng/mL - EKG Data -: EKG Interpreted by Me (EKG sinus tachycardia 105 DE 184 QRS 92 QTC 486) - Radiology Data Radiology results: report reviewed (Chest x-ray shows bilateral pulmonary opacities), image reviewed Critical Care Time Critical Care Time: Yes Total Critical Care Time: 31 Disposition Clinical Impression: Hyponatremia, Asthma with acute exacerbation, Congestive heart failure, Acute pulmonary edema, Influenza A, Pneumonia, Hypoxia, Aspiration pneumonia Disposition: ADMITTED IP TO THIS HOSP Condition: Good Is patient prescribed a controlled substance at d/c from ED?: No
[2020-04-17] MEDS ORDERED: MORPHINE SULFATE 2 MG/ML SYRINGE IV PRN (02:19)
--- NOTE | 2020-04-17 02:29 | XR ---
EXAM: XR Chest, 1 View CLINICAL HISTORY: ITS.REASON XR Reason: Suspected COVID-19 pneumonia TECHNIQUE: Frontal view of the chest. COMPARISON: 07/26/16. FINDINGS: Lungs: Low lung volumes with patchy bilateral lung opacities. Pleural space: No significant pleural effusion or pneumothorax. Heart: Prominent cardiomediastinal silhouette, may be related to technique or other etiology. Mediastinum: See above. Bones/joints: No acute fracture. IMPRESSION: Low lung volumes with patchy bilateral lung opacities. Correlate clinically regarding infection or edema.
[2020-04-17] MEDS ORDERED: ACETAMINOPHEN IV (For NPO) 1,000 MG in EMPTY BAG 1 BAG IVPB ONE (02:30)
[2020-04-17] MEDS ORDERED: IBUPROFEN IV 800 MG in SODIUM CHLORIDE 0.9% 250 ML IV ONE (02:30)
[2020-04-17 02:56] LABS: ALT 27 U/L (4-49); AST 30 U/L (17-59); African American GFR (CKD) >90 (>60 ml/min/1.73 sqM); Albumin 3.7 g/dL (3.5-5.0); Alkaline Phosphatase 33 U/L (38-126); Anion Gap 8 mmol/L; Blood Urea Nitrogen 10 mg/dL (9-20); C Reactive Protein 89.4 mg/L (<10.0); Calcium 8.9 mg/dL (8.4-10.2); Carbon Dioxide 25 mmol/L (22-30); Chloride 94 mmol/L (98-107); Creatine Kinase 323 U/L (55-170); Glucose 307 mg/dL (74-99); LDH 472 U/L (313-618); Magnesium 1.4 mg/dL (1.6-2.3); Non-African American GFR(CKD) >90 (>60 ml/min/1.73 sqM); Sodium 127 mmol/L (137-145); Total Bilirubin 1.6 mg/dL (0.2-1.3); Total Protein 7.2 g/dL (6.3-8.2)
[2020-04-17 03:11] LABS: Basophils # (A) 0.1 k/uL (0-0.2); Basophils % (A) 0 %; Eosinophils # (A) 0.2 k/uL (0-0.7); Eosinophils % (A) 1 %; HCT 35.4 % (39.0-53.0); HGB 12.2 gm/dL (13.0-17.5); Lymphocytes # (A) 0.9 k/uL (1.0-4.8); Lymphocytes % (A) 5 %; MCHC 34.4 g/dL (31.0-37.0); MCV 84.4 fL (80.0-100.0); Mean Platelet Volume 7.5; Monocytes % (A) 6 %; Neutrophils # (A) 14.8 k/uL (1.3-7.7); Neutrophils % (A) 87 %; Platelet Count 159 k/uL (150-450); RBC 4.19 m/uL (4.30-5.90); RDW 14.9 % (11.5-15.5); WBC 17.1 k/uL (3.8-10.6)
[2020-04-17] MEDS ORDERED: AZITHROMYCIN 500 MG in SODIUM CHLORIDE 0.9% 250 ML IVPB STA (03:25)
[2020-04-17] MEDS ORDERED: ALBUTEROL NEBULIZED 2.5 MG/3 ML INHALATION PRN (03:25)
[2020-04-17] MEDS ORDERED: PNEUMONIA PROTOCOL UTILIZED 1 EACH MISC PO PRN (03:25)
[2020-04-17] MEDS ORDERED: PIPERACILLIN-TAZOBACTAM 3.375 GM in SODIUM CHLORIDE 0.9% 100 ML IVPB ONE (03:30)
[2020-04-17] MEDS ORDERED: PANTOPRAZOLE 40 MG/10 ML VIAL IVP STA (03:38)
[2020-04-17] MEDS ORDERED: ONDANSETRON 4 MG/2 ML VIAL IVP PRN (03:38)
[2020-04-17] MEDS ORDERED: OSELTAMIVIR 75 MG CAP PO STA (03:38)
[2020-04-17 03:58] LABS: INR 1.5 (<1.2); Partial Thromboplastin Time 33.3 sec (22.0-30.0); Prothrombin Time 15.1 sec (9.0-12.0)
[2020-04-17] MEDS: DILTIAZEM 125 MG in SODIUM CHLORIDE 0.9% 100 ML IV SCH (04:48)
[2020-04-17 06:11] LABS: Glucose,Whole Blood 438 mg/dL (75-99)
[2020-04-17] MEDS ORDERED: NALOXONE 0.4 MG/ML 1 ML VIAL IV PRN (06:35)
[2020-04-17 07:00] LABS: Glucose,Whole Blood 491 mg/dL (75-99)
[2020-04-17] MEDS ORDERED: INSULIN REGULAR BOLUS (FROM DRIP BAG) IV PRN ×2 (07:20→07:30)
[2020-04-17 07:25] LABS: ABG HCO3 19 mmol/L (21-25); ABG Oxygen Saturation 97.8 % (94-97); ABG PCO2 33 mmHg (35-45); ABG PH 7.37 (7.35-7.45); ABG PO2 87 mmHg (83-108); ABG TCO2 20 mmol/L (19-24); Allen Test Performed? Yes
[2020-04-17] MEDS ORDERED: INSULIN ASPART (NovoLOG) 100 UNIT/ML VIAL SQ SCH (07:30)
--- NOTE | 2020-04-17 07:41 | P.CNPUL ---
History of Present Illness Consult date: 04/17/20 Reason for consult: dyspnea History of present illness: This is a 55-year-old male patient got transferred from with as the patient was getting short of breath. The patient was also [facility] He progressively became more short of breath and hypoxic and he end up coming in to the emergency department and ultimately got moved to the intensive care unit. I came to see this patient in the ICU. I was told that around 10 minutes ago, his mental status began also ulcers. He was given a Narcan dose which did not affect his mental status. Immediately, it blood gases was done and it showed a pH of 7.37 with a pCO2 of 33 and a pO2 of 80 infections with oxygen at 3 L per minute nasal cannula. His chest x-ray showing some limited infiltration of the lung bases. The patient has checked positive for influenza A. She coronavirus/Covid 19 infection was checked twice and was negative. Last check was done during this current admission. The patient's sodium is at 127. He was hyperglycemic the time of admission. He is known to have diabetes. 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 The dissection was corrected surgically. The patient had an aortic root construction addition to an bioprosthetic aortic valve replacement. He has had also proximal atrial fibrillation at a time of the surgery. Since then, his surgical product sales consultant opted to keep him on warfarin. His PT/INR was subtherapeutic. The patient is known also to have multiple medical problems. Most significant of wh ich is the acute cerebral hemispheric infarct that occurred for the time of his dissection. This is a lungs MCA distribution. The patient has left-sided hemiplegia. The patient has also history of insertion of a removal of tracheostomy tube for prolonged respiratory failure, insertion and removal of a PEG tube, paralyzed vocal cord, diabetes mellitus type 2, hypertension and hyperlipidemia and is a former smoker. He suffers from chronic pain. 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 PEG tube in place. History of Any Multi-Drug Resistant Organisms: None Reported Past Surgical History: Orthopedic Surgery Additional Past Surgical History / Comment(s): the patient had a Bentall procedure which involvesreconstruction of the ascending aorta, gregg-arch replacement, aortic valve replacement, he has also undergone tonsillectomy and adenectomy and insertion and removal of a PEG tube. Past Anesthesia/Blood Transfusion Reactions: No Reported Reaction Past Psychological History: Depression Smoking Status: Former smoker, Never smoker Past Alcohol Use History: None Reported Past Drug Use History: None Reported - Past Family History Mother Family Medical History: No Reported History Medications and Allergies Home Medications Medication Instructions Recorded Confirmed Type Acetaminophen Tab [Tylenol] 650 mg PO Q6H PRN 12/17/16 10/18/19 History Atorvastatin [Lipitor] 20 mg PO DAILY@2100 12/17/16 10/18/19 History Famotidine [Pepcid] 20 mg PO BID@0800,1700 12/17/16 10/18/19 History Ferrous Sulfate [Iron (65 MG 325 mg PO DAILY@0800 12/17/16 10/18/19 History Elemental)] Folic Acid 1 mg PO DAILY@0800 12/17/16 10/18/19 History Furosemide [Lasix] 40 mg PO DAILY@0812/17/16 10/18/19 History Insulin Detemir (Levemir) [Levemir] 45 unit SQ DAILY@0700 12/17/16 10/18/19 History Loratadine [Claritin] 10 mg PO DAILY@0800 12/17/16 10/18/19 History Magnesium Hydroxide [Milk of 2,400 mg PO DAILY PRN 12/17/16 10/18/19 History Magnesia] Metoclopramide [Reglan] 10 mg PO ACHS 12/17/16 10/18/19 History Metoprolol Tartrate [Lopressor] 50 mg PO BID@0800,1700 12/17/16 10/18/19 History Multivitamins, Thera [Multivitamin 1 tab PO DAILY@0800 12/17/16 10/18/19 History (formulary)] Na Phos,M-B/Na Phos,Di-Ba [Fleet 133 ml RECTAL DAILY PRN 12/17/16 10/18/19 History Adult] [place] Nasal [place] 1 spray EA NOSTRIL BID PRN 12/17/16 10/18/19 History Polyethylene Glycol 3350 [Miralax] 17 gm PO DAILY 12/17/16 10/18/19 History Potassium Chloride Oral Liquid 20 meq PO DAILY@1700 12/17/16 10/18/19 History Warfarin [Coumadin] 2.5 mg PO WEFR@169912/17/16 10/18/19 History Warfarin [Coumadin] 5 mg PO SUMOTUTHSA@169912/17/16 10/18/19 History bisacodyL [Dulcolax] 10 mg RECTAL DAILY PRN 12/17/16 10/18/19 History lisinopriL [Zestril] 10 mg PO BID@0800,1700 12/17/16 10/18/19 History predniSONE 5 mg PO DAILY@0800 12/17/16 10/18/19 History HYDROcodone/APAP 10-325MG [[place] 1 tab PO HS@2100 10/18/19 10/18/19 History 10-325] HYDROcodone/APAP 10-325MG [[place] 1 tab PO Q24H PRN 10/18/19 10/18/19 History 10-325] HYDROcodone/APAP 7.5-325MG [[place] 1 tab PO BID@0600,1400 10/18/19 10/18/19 History 7.5-325] INSULIN ASPART (NovoLOG) [NovoLOG 14 unit SQ DAILY@1100 PRN 10/18/19 10/18/19 History (formulary)] INSULIN ASPART (NovoLOG) [NovoLOG 32 unit SQ DAILY@0700 PRN 10/18/19 10/18/19 History (formulary)] INSULIN ASPART (NovoLOG) [NovoLOG 44 unit SQ DAILY@1630 PRN 10/18/19 10/18/19 History (formulary)] Ipratropium-Albuterol Nebulize 3 ml INHALATION RT-Q6H PRN 10/18/19 10/18/19 History [Duoneb 0.5 mg-3 mg/3 ml Soln] Lactulose 20 Gm Packet 20 gram PO BID@0800,1700 10/18/19 10/18/19 History Loperamide HCl [Imodium A-D] 2 - 4 mg PO TID PRN 10/18/19 10/18/19 History Menthol [Biofreeze] 1 applic TOPICAL TID PRN 10/18/19 10/18/19 History Mirtazapine 7.5 mg PO HS@2100 10/18/19 10/18/19 History levETIRAcetam [Keppra] 750 mg PO BID@0800,1700 10/18/19 10/18/19 History Allergies Allergy/AdvReac Type Severity Reaction Status Date / Time No Known Allergies Allergy Verified 10/18/19 12:54 Physical Exam Vitals: Vital Signs Temp Pulse Resp BP Pulse Ox 04/17/20 07:00 98.8 F 85 19 110/58 95 04/17/20 06:00 93 19 124/61 96 04/17/20 05:57 94 23 96 04/17/20 05:15 100.1 F H 100 19 129/88 97 04/17/20 04:15 100.4 F H 105 H 19 142/77 96 04/17/20 03:25 94 04/17/20 03:06 101.1 F H 101 H 20 148/97 96 04/17/20 03:04 98 04/17/20 02:00 100.4 F H 127 H 18 171/94 97 Intake and Output 04/16/20 04/17/20 04/17/20 22:59 06:59 14:59 Intake Total 100 Output Total 225 Balance -125 Intake: Intake, IV Titration 100 Amount Piperacillin-Tazobactam 3 100 .375 gm In Sodium Chloride 0.9% 100 ml @ 25 mls/hr IVPB Q8H [facility] Rx#: [id number] Output: Urine 225 Other: Weight 124.738 kg at this point in time, the patient is somnolent and lethargic. The patient is encephalopathic. He opens his eyes upon repeated stimulation. Nevertheless, we will go back to sleep. He is not having any major respiratory difficulties at rest. He is currently on 3 L of oxygen by nasal cannula Head exam was generally normal. There was no scleral icterus or corneal arcus. Mucous membranes were moist. Neck was supple and without jugular venous distension, thyromegaly, or carotid bruits. Carotids were easily palpable bilaterally. There was no adenopathy. Lungs sounds are diminished bilaterally. Nose and is no wheezes or rhonchi. Cardiac exam revealed the PMI to be normally situated and sized. The rhythm was regular and no extrasystoles were noted during several minutes of auscultation. The first and second heart sounds were normal and physiologic splitting of the second heart sound was noted. There were no murmurs, rubs, clicks, or gallops.system of activity and intact. The patient undergone previous thoracotomy scar is dry. Abdominal exam revealed normal bowel sounds. The abdomen was soft, non-tender, and without masses, organomegaly, or appreciable enlargement of the abdominal aorta. Extremities reveal chronic edema in the left lower extremity compared to the right. No open wounds or sores. No cyanosis or clubbing. Adequate pulses in all 4 extremities. Examination of the skin revealed no evidence of significant rashes, suspicious appearing nevi or other concerning lesions. Neurologically, the patient has history of left-sided hemiplegia. There is some mild facial asymmetry which is chronic. Pupils are about 3 mm in size and they are slightly reactive. No nystagmus. No jerky body movements to suggest any seizure activity. He is nonverbal at this point in time. Upon stimulated, he would wake up and he would go back to sleep if left.. Results - Laboratory Findings CBC and BMP: 04/17/20 02:57 04/17/20 02:30 ABG ABG pH 7.37 (7.35-7.45) 04/17/20 07:24 ABG pCO2 33 mmHg (35-45) L 04/17/20 07:24 ABG pO2 87 mmHg (83-108) 04/17/20 07:24 ABG O2 Saturation 97.8 % (94-97) H 04/17/20 07:24 PT/INR, D-dimer PT 15.1 sec (9.0-12.0) H 04/17/20 03:16 INR 1.5 (<1.2) H 04/17/20 03:16 Abnormal lab findings: Abnormal Labs 04/17/20 04/17/20 04/17/20 02:06 02:15 02:30 WBC RBC Hgb Hct Neutrophils # Lymphocytes # PT INR APTT ABG pCO2 ABG HCO3 ABG Total CO2 25 H ABG O2 Saturation 97.8 H Sodium 127 L Chloride 94 L Glucose 307 H POC Glucose (mg/dL) Plasma Lactic Acid Eduard 2.8 H* Magnesium 1.4 L Total Bilirubin 1.6 H Alkaline Phosphatase 33 L Creatine Kinase 323 H C-Reactive Protein 89.4 H 04/17/20 04/17/20 04/17/20 02:57 03:16 05:40 WBC 17.1 H RBC 4.19 L Hgb 12.2 L Hct 35.4 L Neutrophils # 14.8 H Lymphocytes # 0.9 L PT 15.1 H INR 1.5 H APTT 33.3 H ABG pCO2 ABG HCO3 ABG Total CO2 ABG O2 Saturation Sodium Chloride Glucose POC Glucose (mg/dL) Plasma Lactic Acid Eduard 2.8 H* Magnesium Total Bilirubin Alkaline Phosphatase Creatine Kinase C-Reactive Protein 04/17/20 04/17/20 04/17/20 06:09 06:59 07:24 WBC RBC Hgb Hct Neutrophils # Lymphocytes # PT INR APTT ABG pCO2 33 L ABG HCO3 19 L ABG Total CO2 ABG O2 Saturation 97.8 H Sodium Chloride Glucose POC Glucose (mg/dL) 438 H 491 H Plasma Lactic Acid Eduard Magnesium Total Bilirubin Alkaline Phosphatase Creatine Kinase C-Reactive Protein - Diagnostic Findings Chest x-ray: image reviewed Assessment and Plan Plan: 1 acute mental status on that investigation. The exact cause is not clear. Consider metabolic encephalopathy. Consider underlying subclinical seizure activity. Acute CVA on top of his old right MCA distribution stroke cannot be ruled out. The patient will need further investigation. He was given Narcan without any significant response 2 acute influenza A infection 3 acute dyspnea with mild hypoxic respiratory failure currently on 2 L of oxygen by nasal cannula. The coronavirus/Covid 19 evaluation by PCR was negative on 2 separate occasions 4 acute febrile illness currently under investigation 5 mild lactic acidosis 6 diabetes mellitus insulin dependence with for blood sugar control. The patient has a component of pseudohyponatremia with a sodium level of 127.the anion gap is at 8. 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 10 history of major depression 11 history of insertion and removal of tracheostomy and a PEG tube 12 stage II decubitus ulceration 13 history of vocal cord paralysis 14 diabetes mellitus type 2 15 hypertension 16 hyperlipidemia 17 jail resident Plan we'll obtain a CAT scan of the brain without contrast, stat Obtain neurology consult Obtain an EEG Put the patient on stress dose hydrocortisone as the patient has been taken 5 mg of prednisone on a chronic basis Blood cultures and urine cultures and cover the patient with IV Zosyn as an emp iric antibiotic coverage Insulin drip for blood sugar control Check pro calcitonin level IV fluids with normal saline at the rate of 100 mL an hour Hold the Cardizem drip for now as the patient was having some sinus tachycardia and this is improved Tamiflu if the patient is able to swallow medication. Regarding her first dose yesterday. Cardiology consultation We'll wait for anticoagulation until the brain is clear by a CAT scan of the brain repeat a set of electrolytes and a CBC Condition is critical. We'll continue to follow in the ICU and keep a close eye on the patient. Time with Patient: Greater than 30
[2020-04-17] MEDS ORDERED: SODIUM CHLORIDE 0.9% 1,000 ML IV SCH (07:45)
[2020-04-17] MEDS: INSULIN REGULAR 100 UNIT in SODIUM CHLORIDE 0.9% 100 ML IV SCH ×4 (08:08→19:06)
[2020-04-17 08:10] LABS: Glucose,Whole Blood 507 mg/dL (75-99)
[2020-04-17 08:25] LABS: Glucose,Whole Blood 497 mg/dL (75-99)
[2020-04-17] MEDS: SODIUM CHLORIDE 0.9% 1,000 ML IV SCH ×2 (08:29→16:52)
[2020-04-17] MEDS: HYDROCORTISONE SUCCINATE 100 MG/2 ML VIAL IV SCH ×2 (08:32→16:52)
[2020-04-17] MEDS ORDERED: AZITHROMYCIN 500 MG in SODIUM CHLORIDE 0.9% 250 ML IVPB ONE (09:00)
[2020-04-17] MEDS: IPRATROPIUM-ALBUTEROL 3 ML NEB INHALATION SCH ×4 (09:00→21:02)
[2020-04-17 09:20] LABS: Basophils % (A) 0 %; Eosinophils % (A) 0 %; HCT 33.4 % (39.0-53.0); Lymphocytes # (A) 0.4 k/uL (1.0-4.8); Lymphocytes % (A) 3 %; MCH 29.2 pg (25.0-35.0); MCV 88.5 fL (80.0-100.0); Mean Platelet Volume 7.2; Monocytes # (A) 0.2 k/uL (0-1.0); Monocytes % (A) 1 %; Neutrophils # (A) 12.3 k/uL (1.3-7.7); Neutrophils % (A) 95 %; Platelet Count 133 k/uL (150-450); RBC 3.78 m/uL (4.30-5.90); WBC 12.9 k/uL (3.8-10.6)
[2020-04-17] MEDS: OSELTAMIVIR 75 MG CAP PO SCH ×2 (09:26→20:43)
[2020-04-17 09:31] LABS: African American GFR (CKD) >90 (>60 ml/min/1.73 sqM); Anion Gap 12 mmol/L; Blood Urea Nitrogen 13 mg/dL (9-20); Calcium 8.1 mg/dL (8.4-10.2); Carbon Dioxide 17 mmol/L (22-30); Chloride 98 mmol/L (98-107); Glucose 487 mg/dL (74-99); Non-African American GFR(CKD) 78 (>60 ml/min/1.73 sqM); Potassium 4.9 mmol/L (3.5-5.1); Sodium 127 mmol/L (137-145)
[2020-04-17] MEDS: PANTOPRAZOLE 40 MG/10 ML VIAL IVP SCH (09:32)
[2020-04-17] MEDS: MAGNESIUM SULFATE-D5W PMX 1 GM in DEXTROSE/WATER 1 100ML.BAG IVPB SCH ×2 (09:33→12:06)
[2020-04-17 09:38] LABS: Glucose,Whole Blood 480 mg/dL (75-99)
[2020-04-17 10:11] LABS: Glucose,Whole Blood 462 mg/dL (75-99)
--- NOTE | 2020-04-17 10:38 | CONS ---
CONSULTATION Heriberto Lane is a 65-year-old unfortunate gentleman who in 2017 had an ascending aortic dissection followed by repair complicated by a stroke with left-sided hemiplegia and is a resident of [facility]. He apparently had an atrial fibrillation postprocedure, which was paroxysmal and has been on Coumadin. He has also underlying hypertension and has had some depression issues as well. He was in the [place] [facility], but was transferred mainly because of worsening shortness of breath, nausea and emesis. Progressively became short of breath, hypoxic, ended up coming to the emergency room and was then admitted to the intensive care unit and has been hypoxic. Patient seems to be kind of obtunded. He was given Narcan as well but did not show any improvement. PH is 7.37 with a PO2 of 80 on 3 L of nasal cannula, but the patient is not responding very well. He is a COVID Antigen negative, checked twice and was negative Again, but apparently he is positive for Influenza A. He has multiple comorbid conditions. He is in sinus rhythm and his PT, INR is in the therapeutic range. Patient has history of a removal of tracheostomy and also a removal of PEG tube in the past. No further history can be obtained. On reviewing the chart, he had significant hypomagnesemia at 1.4. He was febrile when he came in. There is a strong suspicion that the dealing with sepsis with the elevated lactic acid levels. His mental status changes also could be related to sepsis or from the metabolic standpoint. However, he should have a CAT scan as well. From a cardiac standpoint, he is fairly free of any arrhythmia at this time. He is maintaining sinus rhythm. He has multiple other comorbid conditions in the form of surgery for aortic valve replacement and ascending aortic repair, diabetes and diabetes insulin-requiring, acute influenza A infection, history of CVA with left-sided hemiplegia and major depression. [facility], he was on Tamiflu, lisinopril 10 mg b.i.d., prednisone 5 mg daily, metoprolol 50 mg b.i.d. insulin, iron supplements, atorvastatin 20 mg daily. No known allergies. PHYSICAL EXAMINATION: On examination, blood pressure is 110/70, pulse rate is 80 per minute, appears to be sinus. HEENT: Limited exam is unremarkable. He does not seem to respond very well. HEART: Exam reveals S1, S2 with a short systolic murmur at the base. LUNGS: Bilateral fair air entry. ABDOMEN: Soft lower ext exam revealed diminished pulses, edema of 1+ bilaterally. Neurological assessment was not performed. IMPRESSION: 1. Altered mental status is unresponsiveness. 2. Acute Influenza A infection. 3. History of aortic dissection repair and left-sided hemiplegia. 4. Hypomagnesemia. 5. History of depression. 6. History of type 2 diabetes, insulin-requiring. RECOMMENDATIONS: I am recommending that we supplement magnesium aggressively 2 g. I would also recommend that we continue a full septic workup, a CAT scan and further management will be by manager academic, Dr. Morrison. I will continue to see the patient. Thank you very much for the consult. JENNY / CIRA: [id number] /
--- NOTE | 2020-04-17 10:44 | P.HPIM ---
History of Present Illness H&P Date: 04/17/20 HISTORY OF PRESENT ILLNESS This is a 65-year-old male patient of Dr. Toney with past medical history significant for left hemiplegia secondary to extensive right MCA thrombolytic bleed from July 2016, complicated by aortic root dissection, bioprosthetic aortic valve replacement and extensive aortic sleeve graft down to the mesenteric vessels, seizure disorder, paroxysmal atrial fibrillation, diabetes mellitus type 2, hyperlipidemia. History of trach and PEG tube placement and removal secondary to prolonged respiratory failure, paralyzed vocal cord, remote history of tobacco use, chronic pain syndrome, stage II coccyx decubitus ulcer. Patient currently resides at [facility] as a long-term resident. Patient developed shortness of breath that progressively worsened and hypoxia. He tested positive for influenza A at the half-way. Patient was transferred to [facility] emergency center for evaluation and treatment. Temperature 101.1, heart rate 127, blood pressure 171/94, pulse ox 97% on 4 L nasal cannula. WBC 17.1, hemoglobin 12.2. INR 1.5. Sodium 127, creatinine 0.77. Blood sugar initially 307 but ran in the greater than 500s and 400s during the night. Lactic acid 2.8 currently at 4.9. Magnesium 1.4. Total bilirubin 1.6. CK 323. C-reactive protein 89.4. COVID-19 not detected. Chest x-ray reveals low lung volumes with patchy bilateral lung opacities. Correlate clinically regarding infection or edema. EKG is sinus tachycardia. Patient had received 2 doses of Tamiflu at the half-way but currently unresponsive and unable to take oral medications. Patient received morphine 2 mg in the emergency center and was subsequently Narcan without improvement of his mental status REVIEW OF SYSTEMS Unable to obtain due to mental status change. PHYSICAL EXAMINATION Gen: This is a 65-year-old obese male, . He is resting in the ICU bed. No acute respiratory distress is noted. Patient is somnolent and minimal eye opening to verbal stimuli. HEENT: Head is atraumatic, normocephalic. Pupils equal, round. Sclerae is anicteric. NECK: Supple. No JVD. No lymphadenopathy. No thyromegaly. LUNGS: Diminished bilaterally. No wheezes or rhonchi. No intercostal retractions. No accessory muscle usage. HEART: Regular rate and rhythm. No murmur. ABDOMEN: Soft. Bowel sounds are present. No masses. No tenderness. EXTREMITIES: No pedal edema. No calf tenderness. NEUROLOGICAL: Patient is somnolent, no response to verbal stimuli, known history of left-sided hemiplegia. ASSESSMENT AND PLAN 1. Sepsis and lactic acidosis secondary to influenza a, rule out bacterial pneumonia. Blood culture, urine culture area patient is currently on Zosyn, azithromycin. Patient is on stress dose of Solu-Cortef 50 g IV every 8 hours. Tamiflu once patient is able to swallow. Patient has received 2 doses of Tamiflu at the half-way. Consults with pulmonary medicine and infectious disease. 2. Acute hypoxic respiratory failure. Consult with pulmonary medicine. Continue oxygen therapy, DuoNeb treatments 4 times daily and Ventolin as needed. 3. Metabolic encephalopathy secondary to sepsis, rule out CVA. CAT scan of the brain, EEG, neurology consult. Patient is status post Narcan without improvement of mental status. 4. History of right MCA CVA with left hemiplegia, July 2016. Coumadin and Lipitor currently on hold. 5. Hyponatremia. Hold Lasix. Patient is status post fluids. 6. Bioprosthetic aortic valve replacement and extensive aortic sleeve graft. Continue Coumadin. 7. Sinus tachycardia secondary to sepsis. Patient was started on Cardizem drip in the emergency center. 8. Paroxysmal atrial fibrillation. Coumadin currently on hold. Patient normally on Lopressor 50 mg twice daily. Cardiology consult. 9. Diabetes mellitus type 2 insulin requiring, uncontrolled with hyperglycemia. Continue insulin drip. 10. Stage II decubitus ulcer, present on admission. Local wound care. 11. Seizure disorder. Keppra 750 mg twice daily. 12. Chronic pain syndrome. Pampa is on hold. Patient received 1 dose of morphine and subsequently Narcan. 13. GI prophylaxis. Protonix 40 mg IV daily 14. DVT prophylaxis. Patient is normally on Coumadin currently on hold due to mental status and waiting for CAT scan of the brain. Patient will be admitted to the hospital for a minimum of 2 night stay. CODE STATUS: Full code DISCHARGE PLAN Return to [facility]. Impression and plan of care have been directed as dictated by the signing physician. Sissy Watts nurse practitioner acting as scribe for signing physician. Past Medical History Past Medical History: Atrial Fibrillation, Coronary Artery Disease (CAD), CVA/TIA, Diabetes Mellitus, Hypertension, Osteoarthritis (OA), Respiratory Disorder Additional Past Medical History / Comment(s): ttype a dissection post construction and aortic valve and construction of the ascending aorta with a gregg-arch replacement and placement of a bioprosthetic aortic valve, history of CVA along the right MCA distribution with left-sided hemiplegia and gregg- neglect, depression, paralyzed vocal cord, diabetes mellitus type 2, hypertension, hyperlipidemia, and the patient is bedridden and is a half-way resident,non healing wound R big Toe. 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 PEG tube in place. History of Any Multi-Drug Resistant Organisms: None Reported Past Surgical History: Orthopedic Surgery Additional Past Surgical History / Comment(s): the patient had a Bentall procedure which involvesreconstruction of the ascending aorta, gregg-arch replacement, aortic valve replacement, he has also undergone tonsillectomy and adenectomy and insertion and removal of a PEG tube. Past Anesthesia/Blood Transfusion Reactions: No Reported Reaction Past Psychological History: Depression Smoking Status: Former smoker, Never smoker Past Alcohol Use History: None Reported Past Drug Use History: None Reported - Past Family History Mother Family Medical History: No Reported History Medications and Allergies Home Medications Medication Instructions Recorded Confirmed Type Acetaminophen Tab [Tylenol] 650 mg PO Q6H PRN 12/17/16 04/17/20 History Atorvastatin [Lipitor] 20 mg PO HS@2100 12/17/16 04/17/20 History Famotidine [Pepcid] 20 mg PO BID@0800,1700 12/17/16 04/17/20 History Ferrous Sulfate [Iron (65 MG 325 mg PO DAILY@79912/17/16 04/17/20 History Elemental)] Folic Acid 1 mg PO DAILY@0800 12/17/16 04/17/20 History Furosemide [Lasix] 40 mg PO DAILY@0812/17/16 04/17/20 History Insulin Detemir (Levemir) [Levemir] 45 unit SQ DAILY@0700 12/17/16 04/17/20 History Loratadine [Claritin] 10 mg PO DAILY@0800 12/17/16 04/17/20 History Magnesium Hydroxide [Milk of 2,400 mg PO DAILY PRN 12/17/16 04/17/20 History Magnesia] Metoclopramide [Reglan] 10 mg PO ACHS 12/17/16 04/17/20 History Metoprolol Tartrate [Lopressor] 50 mg PO BID@0800,1700 12/17/16 04/17/20 History Multivitamins, Thera [Multivitamin 1 tab PO DAILY@0800 12/17/16 04/17/20 History (formulary)] Na Phos,M-B/Na Phos,Di-Ba [Fleet 133 ml RECTAL DAILY PRN 12/17/16 04/17/20 History Adult] [place] Nasal [place] 1 spray EA NOSTRIL BID PRN 12/17/16 04/17/20 History Polyethylene Glycol 3350 [Miralax] 17 gm PO DAILY PRN 12/17/16 04/17/20 History Potassium Chloride Oral Liquid 20 meq PO DAILY@1700 12/17/16 04/17/20 History Warfarin [Coumadin] 2.5 mg PO MOWEFR@1700 12/17/16 04/17/20 History Warfarin [Coumadin] 5 mg PO SUTUTHSA@1700 12/17/16 04/17/20 History bisacodyL [Dulcolax] 10 mg RECTAL DAILY PRN 12/17/16 04/17/20 History lisinopriL [Zestril] 10 mg PO BID@0800,1700 12/17/16 04/17/20 History predniSONE 5 mg PO DAILY@0800 12/17/16 04/17/20 History HYDROcodone/APAP 10-325MG [[place] 1 tab PO HS@2100 10/18/19 04/17/20 History 10-325] HYDROcodone/APAP 10-325MG [[place] 1 tab PO Q24H PRN 10/18/19 04/17/20 History 10-325] HYDROcodone/APAP 7.5-325MG [[place] 1 tab PO BID@0600,1400 10/18/19 04/17/20 History 7.5-325] INSULIN ASPART (NovoLOG) [NovoLOG 14 unit SQ DAILY@1100 10/18/19 04/17/20 History (formulary)] INSULIN ASPART (NovoLOG) [NovoLOG 32 unit SQ DAILY@0700 10/18/19 04/17/20 History (formulary)] INSULIN ASPART (NovoLOG) [NovoLOG 44 unit SQ DAILY@1630 10/18/19 04/17/20 History (formulary)] Ipratropium-Albuterol Nebulize 3 ml INHALATION RT-Q6H PRN 10/18/19 04/17/20 History [Duoneb 0.5 mg-3 mg/3 ml Soln] Lactulose 20 Gm Packet 20 gram PO BID@0800,1700 10/18/19 04/17/20 History Loperamide HCl [Imodium A-D] 2 - 4 mg PO TID PRN 10/18/19 04/17/20 History Menthol [Biofreeze] 1 applic TOPICAL TID PRN 10/18/19 04/17/20 History Mirtazapine 7.5 mg PO HS@2100 10/18/19 04/17/20 History levETIRAcetam [Keppra] 750 mg PO BID@0800,1700 10/18/19 04/17/20 History Ammonium Lactate Cream [Lac-Hydrin 1 applic TOPICAL BID 04/17/20 04/17/20 History 12% Cream] INSULIN ASPART (NovoLOG) [NovoLOG 10 unit SQ ONCE 04/17/20 04/17/20 History (formulary)] Oseltamivir [Tamiflu] 75 mg PO BID@0800,1700 04/17/20 04/17/20 History Allergies Allergy/AdvReac Type Severity Reaction Status Date / Time No Known Allergies Allergy Verified 04/17/20 07:51 Physical Exam Vitals: Vital Signs Temp Pulse Resp BP Pulse Ox 04/17/20 09:00 92 20 106/59 95 04/17/20 08:30 87 15 104/54 95 04/17/20 08:00 98.7 F 84 16 108/56 95 04/17/20 07:00 98.8 F 85 19 110/58 95 04/17/20 06:00 93 19 124/61 96 04/17/20 05:57 94 23 96 04/17/20 05:15 100.1 F H 100 19 129/88 97 04/17/20 04:15 100.4 F H 105 H 19 142/77 96 04/17/20 03:25 94 04/17/20 03:06 101.1 F H 101 H 20 148/97 96 12/11/20 03:04 98 04/17/20 02:00 100.4 F H 127 H 18 171/94 97 Intake and Output 04/16/20 04/17/20 04/17/20 22:59 06:59 14:59 Intake Total 414.417 Output Total 385 Balance 29.417 Intake: IV 300 Piperacillin-Tazobactam 3 100 .375 gm In Sodium Chloride 0.9% 100 ml @ 200 mls/hr IVPB ONCE ONE Rx#:[id number] Sodium Chloride 0.9% 1, 200 000 ml @ 100 mls/hr IV . Q10H [facility] Rx#:[id number] Intake, IV Titration 114.417 Amount Diltiazem 125 mg In 14.417 Sodium Chloride 0.9% 100 ml @ 5 MG/HR 5 mls/hr IV .Q24H [facility] Rx#:[id number] Piperacillin-Tazobactam 3 100 .375 gm In Sodium Chloride 0.9% 100 ml @ 25 mls/hr IVPB Q8H [facility] Rx#: [id number] Output: Urine 385 Other: Weight 124.738 kg Results CBC & Chem 7: 04/17/20 09:04 04/17/20 09:04 Labs: Abnormal Lab Results - Last 24 Hours (Table) 04/17/20 04/17/20 04/17/20 Range/Units 02:06 02:15 02:30 WBC (3.8-10.6) k/uL RBC (4.30-5.90) m/uL Hgb (13.0-17.5) gm/dL Hct (39.0-53.0) % Plt Count (150-450) k/uL Neutrophils # (1.3-7.7) k/uL Lymphocytes # (1.0-4.8) k/uL PT (9.0-12.0) sec INR (<1.2) APTT (22.0-30.0) sec ABG pCO2 (35-45) mmHg ABG HCO3 (21-25) mmol/L ABG Total CO2 25 H (19-24) mmol/L ABG O2 Saturation 97.8 H (94-97) % Sodium 127 L (137-145) mmol/L Chloride 94 L (98-107) mmol/L Glucose 307 H (74-99) mg/dL POC Glucose (mg/dL) (75-99) mg/dL Plasma Lactic Acid Eduard 2.8 H* (0.7-2.0) mmol/L Magnesium 1.4 L (1.6-2.3) mg/dL Total Bilirubin 1.6 H (0.2-1.3) mg/dL Alkaline Phosphatase 33 L (38-126) U/L Creatine Kinase 323 H (55-170) U/L C-Reactive Protein 89.4 H (<10.0) mg/L 04/17/20 04/17/20 04/17/20 Range/Units 02:57 03:16 05:40 WBC 17.1 H (3.8-10.6) k/uL RBC 4.19 L (4.30-5.90) m/uL Hgb 12.2 L (13.0-17.5) gm/dL Hct 35.4 L (39.0-53.0) % Plt Count (150-450) k/uL Neutrophils # 14.8 H (1.3-7.7) k/uL Lymphocytes # 0.9 L (1.0-4.8) k/uL PT 15.1 H (9.0-12.0) sec INR 1.5 H (<1.2) APTT 33.3 H (22.0-30.0) sec ABG pCO2 (35-45) mmHg ABG HCO3 (21-25) mmol/L ABG Total CO2 (19-24) mmol/L ABG O2 Saturation (94-97) % Sodium (137-145) mmol/L Chloride (98-107) mmol/L Glucose (74-99) mg/dL POC Glucose (mg/dL) (75-99) mg/dL Plasma Lactic Acid Eduard 2.8 H* (0.7-2.0) mmol/L Magnesium (1.6-2.3) mg/dL Total Bilirubin (0.2-1.3) mg/dL Alkaline Phosphatase (38-126) U/L Creatine Kinase (55-170) U/L C-Reactive Protein (<10.0) mg/L 04/17/20 04/17/20 04/17/20 Range/Units 06:09 06:59 07:24 WBC (3.8-10.6) k/uL RBC (4.30-5.90) m/uL Hgb (13.0-17.5) gm/dL Hct (39.0-53.0) % Plt Count (150-450) k/uL Neutrophils # (1.3-7.7) k/uL Lymphocytes # (1.0-4.8) k/uL PT (9.0-12.0) sec INR (<1.2) APTT (22.0-30.0) sec ABG pCO2 33 L (35-45) mmHg ABG HCO3 19 L (21-25) mmol/L ABG Total CO2 (19-24) mmol/L ABG O2 Saturation 97.8 H (94-97) % Sodium (137-145) mmol/L Chloride (98-107) mmol/L Glucose (74-99) mg/dL POC Glucose (mg/dL) 438 H 491 H (75-99) mg/dL Plasma Lactic Acid Eduard (0.7-2.0) mmol/L Magnesium (1.6-2.3) mg/dL Total Bilirubin (0.2-1.3) mg/dL Alkaline Phosphatase (38-126) U/L Creatine Kinase (55-170) U/L C-Reactive Protein (<10.0) mg/L 04/17/20 04/17/20 04/17/20 Range/Units 08:07 08:24 09:04 WBC 12.9 H (3.8-10.6) k/uL RBC 3.78 L (4.30-5.90) m/uL Hgb 11.0 L (13.0-17.5) gm/dL Hct 33.4 L (39.0-53.0) % Plt Count 133 L (150-450) k/uL Neutrophils # 12.3 H (1.3-7.7) k/uL Lymphocytes # 0.4 L (1.0-4.8) k/uL PT (9.0-12.0) sec INR (<1.2) APTT (22.0-30.0) sec ABG pCO2 (35-45) mmHg ABG HCO3 (21-25) mmol/L ABG Total CO2 (19-24) mmol/L ABG O2 Saturation (94-97) % Sodium (137-145) mmol/L Chloride (98-107) mmol/L Glucose (74-99) mg/dL POC Glucose (mg/dL) 507 H 497 H (75-99) mg/dL Plasma Lactic Acid Eduard (0.7-2.0) mmol/L Magnesium (1.6-2.3) mg/dL Total Bilirubin (0.2-1.3) mg/dL Alkaline Phosphatase (38-126) U/L Creatine Kinase (55-170) U/L C-Reactive Protein (<10.0) mg/L
[2020-04-17] MEDS ORDERED: levETIRAcetam IV 750 MG in SODIUM CHLORIDE 0.9% 100 ML IVPB SCH (11:00)
--- NOTE | 2020-04-17 11:14 | P.CNNES ---
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 History is obtained from medical records and patient's . The patient the was having nausea and emesis at the [facility] ([facility]). Then the patient then became short of breath and hypoxic. I was notified by nurse that patient received Morphine. Then several hours later at around 6:40am he became unresponsive. He received Narcan but no improvement in mental status. Baseline is alert oriented X4, memory intact. Only deficit is hemiplegia over the left side from old stroke. He is wheel chair bound. He is also on Coumadin for atrial fibrillation and has not missed his medicaiton but has been having vomiting in last one day. Per patient's had one generalized tonic- clonic seizure about 3 1/2 years ago and per and was told it was medication induced and has not had any further seizures. He is on Keppra 750mg 1 tab bid. He followed up with Dr. Ny 3 years ago last seen and has not followed-up with neurologist since. Patient had Right MCA stroke during intraoperative diss ection aortic aneurysm surgery. In the hospital consisted of: EKG is reported as sinus tachycardia. Possible left atrial enlargement. Incomplete right bundle branch block. Nonspecific ST abnormality. Abnormal EKG. Initial vital sign in our facility: Blood pressure is 171/94, heart rates of 12 7, respiratory of 18, temperature of 100.4 Fahrenheit axillary and the repeat is 101.1 Fahrenheit axillary, pulse ox is 97% at room air. Initial white blood cell was 17.1 and a repeat is 12.9 it's mostly neutrophilic. The sodium is 127 and the serum glucose is 307. The plasma lactic acid vein is 2.8. The magnesium is 1.4 which is low. The creatinine kinase is 323. And the CRP is 89.4 which is elevated. Coagulation study: PT is 15.1, INR is 1.5, PTT is 33.3. [place] virus PCR was not detected. Patient was seen by Dr. Candelaria and Dr. Ny at that time he was the neuro- hospitalist in December 2016. Patient had an EEG 12/20/19 and was reported as normal. CT of the head on the 12/17/2016 is reported as large right MCA territory infarct is chronic with extensive encephalomalacia. No acute intracranial abnormality seen. Review of Systems Review of system is limited but the per positive and negative as per HPI. Past Medical History Past Medical History: Atrial Fibrillation, Coronary Artery Disease (CAD), CVA/TIA, Diabetes Mellitus, Hypertension, Osteoarthritis (OA), Respiratory Disorder Additional Past Medical History / Comment(s): ttype a dissection post construction and aortic valve and construction of the ascending aorta with a gregg-arch replacement and placement of a bioprosthetic aortic valve, history of CVA along the right MCA distribution with left-sided hemiplegia and gregg-neglec t, depression, paralyzed vocal cord, diabetes mellitus type 2, hypertension, hyperlipidemia, and the patient is bedridden and is a [facility] resident,non healing wound R big Toe. 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 PEG tube in place. History of Any Multi-Drug Resistant Organisms: None Reported Past Surgical History: Orthopedic Surgery Additional Past Surgical History / Comment(s): the patient had a Bentall procedure which involvesreconstruction of the ascending aorta, gregg-arch replacement, aortic valve replacement, he has also undergone tonsillectomy and adenectomy and insertion and removal of a PEG tube. Past Anesthesia/Blood Transfusion Reactions: No Reported Reaction Past Psychological History: Depression Smoking Status: Former smoker, Never smoker Past Alcohol Use History: None Reported Past Drug Use History: None Reported - Past Family History Mother Family Medical History: No Reported History Medications and Allergies Home Medications Medication Instructions Recorded Confirmed Type Acetaminophen Tab [Tylenol] 650 mg PO Q6H PRN 12/17/16 04/17/20 History Atorvastatin [Lipitor] 20 mg PO HS@2100 12/17/16 04/17/20 History Famotidine [Pepcid] 20 mg PO BID@0800,1700 12/17/16 04/17/20 History Ferrous Sulfate [Iron (65 MG 325 mg PO DAILY@0800 12/17/16 04/17/20 History Elemental)] Folic Acid 1 mg PO DAILY@0800 12/17/16 04/17/20 History Furosemide [Lasix] 40 mg PO DAILY@0800 12/17/16 04/17/20 History Insulin Detemir (Levemir) [Levemir] 45 unit SQ DAILY@0700 12/17/16 04/17/20 History Loratadine [Claritin] 10 mg PO DAILY@0800 12/17/16 04/17/20 History Magnesium Hydroxide [Milk of 2,400 mg PO DAILY PRN 12/17/16 04/17/20 History Magnesia] Metoclopramide [Reglan] 10 mg PO ACHS 12/17/16 04/17/20 History Metoprolol Tartrate [Lopressor] 50 mg PO BID@0800,1700 12/17/16 04/17/20 History Multivitamins, Thera [Multivitamin 1 tab PO DAILY@0800 12/17/16 04/17/20 History (formulary)] Na Phos,M-B/Na Phos,Di-Ba [Fleet 133 ml RECTAL DAILY PRN 12/17/16 04/17/20 History Adult] Bath Nasal [place] 1 spray EA NOSTRIL BID PRN 12/17/16 04/17/20 History Polyethylene Glycol 3350 [Miralax] 17 gm PO DAILY PRN 12/17/16 04/17/20 History Potassium Chloride Oral Liquid 20 meq PO DAILY@1700 12/17/16 04/17/20 History Warfarin [Coumadin] 2.5 mg PO MOWEFR@1700 12/17/16 04/17/20 History Warfarin [Coumadin] 5 mg PO SUTUTHSA@1700 12/17/16 04/17/20 History bisacodyL [Dulcolax] 10 mg RECTAL DAILY PRN 12/17/16 04/17/20 History lisinopriL [Zestril] 10 mg PO BID@0800,1700 12/17/16 04/17/20 History predniSONE 5 mg PO DAILY@0800 12/17/16 04/17/20 History HYDROcodone/APAP 10-325MG [[place] 1 tab PO HS@2100 10/18/19 04/17/20 History 10-325] HYDROcodone/APAP 10-325MG [[place] 1 tab PO Q24H PRN 10/18/19 04/17/20 History 10-325] HYDROcodone/APAP 7.5-325MG [[place] 1 tab PO BID@0600,1400 10/18/19 04/17/20 History 7.5-325] INSULIN ASPART (NovoLOG) [NovoLOG 14 unit SQ DAILY@1100 10/18/19 04/17/20 History (formulary)] INSULIN ASPART (NovoLOG) [NovoLOG 32 unit SQ DAILY@0700 10/18/19 04/17/20 History (formulary)] INSULIN ASPART (NovoLOG) [NovoLOG 44 unit SQ DAILY@1630 10/18/19 04/17/20 History (formulary)] Ipratropium-Albuterol Nebulize 3 ml INHALATION RT-Q6H PRN 10/18/19 04/17/20 History [Duoneb 0.5 mg-3 mg/3 ml Soln] Lactulose 20 Gm Packet 20 gram PO BID@0800,1700 10/18/19 04/17/20 History Loperamide HCl [Imodium A-D] 2 - 4 mg PO TID PRN 10/18/19 04/17/20 History Menthol [Biofreeze] 1 applic TOPICAL TID PRN 10/18/19 04/17/20 History Mirtazapine 7.5 mg PO HS@2100 10/18/19 04/17/20 History levETIRAcetam [Keppra] 750 mg PO BID@0800,1700 10/18/19 04/17/20 History Ammonium Lactate Cream [Lac-Hydrin 1 applic TOPICAL BID 04/17/20 04/17/20 History 12% Cream] INSULIN ASPART (NovoLOG) [NovoLOG 10 unit SQ ONCE 04/17/20 04/17/20 History (formulary)] Oseltamivir [Tamiflu] 75 mg PO BID@0800,1700 04/17/20 04/17/20 History Allergies Allergy/AdvReac Type Severity Reaction Status Date / Time No Known Allergies Allergy Verified 04/17/20 07:51 Physical Examination - Vital Signs Vital Signs: Vital Signs Temp Pulse Resp BP Pulse Ox 04/17/20 09:00 92 20 106/59 95 04/17/20 08:30 87 15 104/54 95 04/17/20 08:00 98.7 F 84 16 108/56 95 04/17/20 07:00 98.8 F 85 19 110/58 95 04/17/20 06:00 93 19 124/61 96 04/17/20 05:57 94 23 96 04/17/20 05:15 100.1 F H 100 19 129/88 97 04/17/20 04:15 100.4 F H 105 H 19 142/77 96 04/17/20 03:25 94 04/17/20 03:06 101.1 F H 101 H 20 148/97 96 04/17/20 03:04 98 04/17/20 02:00 100.4 F H 127 H 18 171/94 97 Intake and Output 04/16/20 04/17/20 04/17/20 22:59 06:59 14:59 Intake Total 414.417 Output Total 385 Balance 29.417 Intake: IV 300 Piperacillin-Tazobactam 3 100 .375 gm In Sodium Chloride 0.9% 100 ml @ 200 mls/hr IVPB ONCE ONE Rx#:[id number] Sodium Chloride 0.9% 1, 200 000 ml @ 100 mls/hr IV . Q10H [facility] Rx#:[id number] Intake, IV Titration 114.417 Amount Diltiazem 125 mg In 14.417 Sodium Chloride 0.9% 100 ml @ 5 MG/HR 5 mls/hr IV .Q24H [facility] Rx#:[id number] Piperacillin-Tazobactam 3 100 .375 gm In Sodium Chloride 0.9% 100 ml @ 25 mls/hr IVPB Q8H [facility] Rx#: [id number] Output: Urine 385 Other: Weight 124.738 kg GENERAL: The patient is lying in bed and does not seem in acute distress. CHEST: The heart rate is regular rate rhythm. No murmurs to auscultation. LUNG: Clear to auscultation bilaterally no wheezing noted throughout. Not labored breathing. ABDOMEN/GI: Bowel sounds present in all 4 quadrants. No tenderness to palpation throughout. NEUROLOGICAL: Higher mental function: The patient is drowsy but briefly awakle to painful stimuli. He was able to state his name correctly. Not following commands. Cranial nerves: The pupils are round, equal (4mm bilaterally) and reactive to light. Primary gaze is center bilaterally. Cannot assess the patient visual rain or facial sensation because of condition. Seems that the patient had mild the left lower facial weakness. Cannot assess the rest of the cranial nerves because of his condition. Motor: Gait is deferred because of his condition as well as that he is hemiplegic. The strength had good strength over the right upper and lower extremity to painful stimuli. I felt the right upper extremity was a 5/5. The right lower extremity I felt he had good strength but could not assess individual muscle because of his cooperation but he had at least 4/5. Left upper and lower extremity there is no movement to painful stimuli (old). No spontaneous movement noted. Cerebellum: Could not assess. Sensation: To painful stimuli over on the right or left the patient was grimacing his face. Cannot assess the light sensation Reflexes (right/left): 2 positive over right upper and lower extremity. Y the left upper and lower extremity seemed slightly brisk. Plantars are mute bilaterally. Results - Laboratory Findings CBC and BMP: 04/17/20 09:04 04/17/20 09:04 Abnormal Lab Findings: Abnormal Labs 04/17/20 04/17/20 04/17/20 02:06 02:15 02:30 WBC RBC Hgb Hct Plt Count Neutrophils # Lymphocytes # PT INR APTT ABG pCO2 ABG HCO3 ABG Total CO2 25 H ABG O2 Saturation 97.8 H Sodium 127 L Chloride 94 L Carbon Dioxide Glucose 307 H POC Glucose (mg/dL) Plasma Lactic Acid Eduard 2.8 H* Calcium Magnesium 1.4 L Total Bilirubin 1.6 H Alkaline Phosphatase 33 L Creatine Kinase 323 H C-Reactive Protein 89.4 H 04/17/20 04/17/20 04/17/20 02:57 03:16 05:40 WBC 17.1 H RBC 4.19 L Hgb 12.2 L Hct 35.4 L Plt Count Neutrophils # 14.8 H Lymphocytes # 0.9 L PT 15.1 H INR 1.5 H APTT 33.3 H ABG pCO2 ABG HCO3 ABG Total CO2 ABG O2 Saturation Sodium Chloride Carbon Dioxide Glucose POC Glucose (mg/dL) Plasma Lactic Acid Eduard 2.8 H* Calcium Magnesium Total Bilirubin Alkaline Phosphatase Creatine Kinase C-Reactive Protein 04/17/20 04/17/20 04/17/20 06:09 06:59 07:24 WBC RBC Hgb Hct Plt Count Neutrophils # Lymphocytes # PT INR APTT ABG pCO2 33 L ABG HCO3 19 L ABG Total CO2 ABG O2 Saturation 97.8 H Sodium Chloride Carbon Dioxide Glucose POC Glucose (mg/dL) 438 H 491 H Plasma Lactic Acid Eduard Calcium Magnesium Total Bilirubin Alkaline Phosphatase Creatine Kinase C-Reactive Protein 04/17/20 04/17/20 04/17/20 08:07 08:24 09:04 WBC 12.9 H RBC 3.78 L Hgb 11.0 L Hct 33.4 L Plt Count 133 L Neutrophils # 12.3 H Lymphocytes # 0.4 L PT INR APTT ABG pCO2 ABG HCO3 ABG Total CO2 ABG O2 Saturation Sodium Chloride Carbon Dioxide Glucose POC Glucose (mg/dL) 507 H 497 H Plasma Lactic Acid Eduard Calcium Magnesium Total Bilirubin Alkaline Phosphatase Creatine Kinase C-Reactive Protein 04/17/20 09:04 WBC RBC Hgb Hct Plt Count Neutrophils # Lymphocytes # PT INR APTT ABG pCO2 ABG HCO3 ABG Total CO2 ABG O2 Saturation Sodium 127 L Chloride Carbon Dioxide 17 L Glucose 487 H POC Glucose (mg/dL) Plasma Lactic Acid Eduard Calcium 8.1 L Magnesium Total Bilirubin Alkaline Phosphatase Creatine Kinase C-Reactive Protein Assessment and Plan Assessment: This is a 65-year-old gentleman with multiple medical problems that presented to the emergency department because of altered mental status. Altered mental status likely multifactorial: Likely patient has underlying infection especially with leukocytosis and a fever, influeza positive, as well as a component of possible metabolic encephalopathy (uncontrolled sugar, electrolyte imbalance (hyponatremia, hypomagnesemia) and morphine medication---improving. History of right MCA stroke with left hemiplegia in 2017 due to aortic aneurysm dissection History of seizure (one episode of generalized tonic-clonic seizure about 3 1/2 years ago) Influenza positive Type I dissecting aortic aneurysm in July 2016 s/p corrected surgically History Atrial fibrillation with subtherapeutic INR Carotid artery disease Diabetes Hypertension History of paralyzed vocal cords History of PEG tube History of respiratory distress acute distress status post tracheostomy that was removed X tobacco use Plan: CT of the head is ordered by the ICU team as well as EEG is ordered by the ICU team and it's pending. I ordered ammonia level, TSH, vitamin B12 and folate level. Blood cultures is ordered as well as the urine analysis and it's pending. Started the patient on Keppra 750 mg 1 tablet twice a day. Going the patient history of right MCA stroke I will start the patient on Lipitor [address] of the head is negative for any intraparenchymal bleed or no acute or subacute stroke that I recommend the patient to be started on anticoagulation. One of the consideration of epidural cognition to be Eliquis since as there is a decreased risk of the intraparenchymal bleed or GI bleed and that does not need to be modified the with the diet. Regarding the patient leukocytosis and a fever on within the patient has meningeal encephalitis. He has an positive influenza. Rule out any other u nderlying infection. I recommend that infection disease consult. From my standpoint the patient does not need lumbar puncture but will defer that decision to I.D. team. Regarding the elevated imbalance I recommend the management to be deferred to the primary team. The plan was discussed with the patient ICU nurse. Thank you for the consultation. UPDATE: EEG pre-rojas: Background slowing suggestive of moderate to severe encephalopathy. Rare right frontal epileptiform discharges can increase risk of seizure. Right hemispheric slowing is consistent with patient history of Right MCA str jaycob. No seizure seen. Because of epileptiform discharges over the right frontal, I will increase Ke ppra from 750mg bid to 1000mg bid. I will give an additional 1000mg one time bolus. The Plan was discussed with the patient's and nurse. Dr. Youngblood will cover neurology service over this weekend. Willy Royal M.D. Neuro-hospitalist Time with Patient: Greater than 30
[2020-04-17 11:17] LABS: Ferritin 557.7 ng/mL (22.0-322.0)
[2020-04-17 11:46] LABS: Glucose,Whole Blood 455 mg/dL (75-99)
[2020-04-17] MEDS: PIPERACILLIN-TAZOBACTAM 3.375 GM in SODIUM CHLORIDE 0.9% 100 ML IVPB SCH ×2 (12:08→21:32)
[2020-04-17 12:33] LABS: Glucose,Whole Blood 404 mg/dL (75-99)
[2020-04-17] MEDS ORDERED: VANCOMYCIN 0 MG in SODIUM CHLORIDE 0.9% 250 ML IVPB ONE (12:49)
[2020-04-17] MEDS ORDERED: VANCOMYCIN IV PER PHARMACY 1 EACH MISC MISCELLANE PRN (12:49)
[2020-04-17] MEDS ORDERED: SODIUM CHLORIDE 0.9% 1,000 ML IV ONE ×2 (12:51→13:02)
[2020-04-17 13:24] LABS: Glucose,Whole Blood 407 mg/dL (75-99)
[2020-04-17 13:31] VITALS: BMI 37.3
[2020-04-17] MEDS ORDERED: VANCOMYCIN 2,000 MG in SODIUM CHLORIDE 0.9% 500 ML 500 ML IVPB SCH (14:00)
[2020-04-17] MEDS ORDERED: VANCOMYCIN 1,750 MG in SODIUM CHLORIDE 0.9% 500 ML 500 ML IVPB SCH (14:00)
[2020-04-17 14:14] LABS: Glucose,Whole Blood 385 mg/dL (75-99)
--- NOTE | 2020-04-17 14:32 | CT ---
EXAMINATION TYPE: CT brain wo/w con DATE OF EXAM: 04/17/2020 COMPARISON: 12/17/2016 HISTORY: 65-year-old male altered mental status, confusion, lethargic. TECHNIQUE: Examination was done in axial plane before and after administration of 100 mL Isovue 300 IV contrast. Coronal and sagittal reconstructions performed. CT DLP: 2350.4 mGycm Automated exposure control for dose reduction was used. FINDINGS: Redemonstrated is extensive encephalomalacia along the right cerebral hemisphere corresponding to an old right MCA territory infarct. Corresponding volume loss with slight asymmetric enlargement of the right lateral ventricle. As compared to 12/17/2016, some developing areas of dystrophic calcification are present in the region of encephalomalacia. No evidence for acute intracranial hemorrhage, acute ischemic change, mass, mass effect, midline shif t, or extra-axial fluid collection. No hydrocephalus. No effacement of cerebral sulci or basal subara chnoid cisterns. Tam-white matter differentiation is maintained. Following IV contrast administration. Dural venous sinuses appear patent. No enhancing intracranial l esions seen. Trace mucosal thickening left maxillary sinus. Mastoid air cells well pneumatized. Orbits and globes are intact. Slight rightward nasal septal deviation. IMPRESSION: 1. Redemonstrated old right MCA territory infarct with extensive encephalomalacia. Developing dystrop hic calcifications within the area of encephalomalacia, new from 2016. 2. Corresponding volume loss and slight asymmetric enlargement right lateral ventricle. 3. No acute intracranial abnormality seen. No enhancing lesions. If concern for subtle acute ischemia , consider MRI.
[2020-04-17 15:38] LABS: Glucose,Whole Blood 363 mg/dL (75-99)
--- NOTE | 2020-04-17 15:57 | EEG ---
ELECTROENCEPHALOGRAM REPORT DATE OF SERVICE: 04/17/2020 CLINICAL HISTORY: This is a 65-year-old gentleman with history of right middle cerebral artery stroke who presented to the Emergency Department on 04/17/2020 and has altered mental. This video EEG was obtained to evaluate for seizures and epileptiform activity. RELEVANT MEDICATION: The patient is on Keppra 750 mg 1 tablet b.i.d. EEG TYPE: A routine 21 channel EEG was performed with video using the 10-20 electrode placement system. DESCRIPTION: Wakefulness is only obtained. There is no posterior dominant rhythm over bilateral hemispheres. During the awake state, the background is [id number] voltage of 5.5- 6.5 hertz, theta activity intermixed with delta activity and at times the background consists of 0.5-1.5 hertz delta slowing over bilateral hemisphere. There was no physiological stage 2 sleep. There are 1-1.5 hertz delta slowing over the right hemisphere, predominantly over the ijlikv-pnlfikjz-xcaohbyb-occipital derivatives. INTERICTAL AND ICTAL: There are rare sharp and slow waves over the right frontal without any evolutions to a seizure. No seizure activity was seen during the study. ACTIVATION PROCEDURE: Photic stimulation and hyperventilation are not performed. CLINICAL INTERPRETATION: This is an abnormal routine EEG. The background slowing is suggestive of moderate to severe encephalopathy. The rare epileptiform discharges over the right frontal increases the risk of seizure. The slowing over the right hemisphere is consistent with the patient's history of right middle cerebral artery stroke. There are no seizure seen during the study. Clinical correlation is recommended. MMJASMIN / TIERNEYN: [id number] / [id number]
[2020-04-17] MEDS ORDERED: levETIRAcetam IV 1,000 MG in SALINE 1 100ML.BAG IVPB STA (16:02)
[2020-04-17 17:00] LABS: Glucose,Whole Blood 313 mg/dL (75-99)
[2020-04-17 17:59] LABS: Glucose,Whole Blood 284 mg/dL (75-99)
[2020-04-17 18:21] LABS: Glucose,Whole Blood 285 mg/dL (75-99)
[2020-04-17 20:30] LABS: Glucose,Whole Blood 224 mg/dL (75-99)
[2020-04-17] MEDS: ATORVASTATIN 20 MG TAB PO SCH (20:43)
[2020-04-17] MEDS: levETIRAcetam 500 MG TAB PO SCH (20:43)
[2020-04-17 21:52] LABS: Glucose,Whole Blood 201 mg/dL (75-99)
[2020-04-17 22:52] LABS: Glucose,Whole Blood 223 mg/dL (75-99)
--- NOTE | 2020-04-17 23:11 | P.CONS ---
History of Present Illness - Reason for Consult Consult date: 04/17/20 sepsis Requesting physician: Kwan Toney - Chief Complaint shortness of breath x 1 day - History of Present Illness Patient is a 65-year-old male in this patient who did have left-sided hemiplegia after aortic root reconstruction for dissection bioprosthetic or dered for placement in currently a resident of a local residential, patient has been sent to the ER for evaluation of increasing shortness of breath pending he did have nausea vomiting at the residential patient coming more short of breath and hypoxic subsequently patient was brought into the ER at [facility] on arrival to the ER patient did have a fever of 101.1 F patient did have mild tachycardia did have a new daughter 17.1 patient did have a chest x-ray done shows no findings low with patchy bilateral lung opacities patient has been started on vancomycin Zosyn and Zithromax infectious was consulted for further management of antibiotic therapy patient evaluation slightly more awake alert he is complaining of a cough but not bringing up any sputum no chest pain no further nausea no vomiting or diarrhea reported. 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 PEG tube in place. History of Any Multi-Drug Resistant Organisms: None Reported Past Surgical History: Orthopedic Surgery Additional Past Surgical History / Comment(s): the patient had a Bentall procedure which involvesreconstruction of the ascending aorta, gregg-arch replacement, aortic valve replacement, he has also undergone tonsillectomy and adenectomy and insertion and removal of a PEG tube. Past Anesthesia/Blood Transfusion Reactions: No Reported Reaction Past Psychological History: Depression Smoking Status: Former smoker, Never smoker Past Alcohol Use History: None Reported Past Drug Use History: None Reported - Past Family History Mother Family Medical History: No Reported History Medications and Allergies Home Medications Medication Instructions Recorded Confirmed Type Acetaminophen Tab [Tylenol] 650 mg PO Q6H PRN 12/17/16 04/17/20 History Atorvastatin [Lipitor] 20 mg PO HS@2100 12/17/16 04/17/20 History Famotidine [Pepcid] 20 mg PO BID@0800,1700 12/17/16 04/17/20 History Ferrous Sulfate [Iron (65 MG 325 mg PO DAILY@0800 12/17/16 04/17/20 History Elemental)] Folic Acid 1 mg PO DAILY@0800 12/17/16 04/17/20 History Furosemide [Lasix] 40 mg PO DAILY@0800 12/17/16 04/17/20 History Insulin Detemir (Levemir) [Levemir] 45 unit SQ DAILY@0700 12/17/16 04/17/20 History Loratadine [Claritin] 10 mg PO DAILY@0800 12/17/16 04/17/20 History Magnesium Hydroxide [Milk of 2,400 mg PO DAILY PRN 12/17/16 04/17/20 History Magnesia] Metoclopramide [Reglan] 10 mg PO ACHS 12/17/16 04/17/20 History Metoprolol Tartrate [Lopressor] 50 mg PO BID@0800,1700 12/17/16 04/17/20 History Multivitamins, Thera [Multivitamin 1 tab PO DAILY@0800 12/17/16 04/17/20 History (formulary)] Na Phos,M-B/Na Phos,Di-Ba [Fleet 133 ml RECTAL DAILY PRN 12/17/16 04/17/20 History Adult] [place] Nasal [place] 1 spray EA NOSTRIL BID PRN 12/17/16 04/17/20 History Polyethylene Glycol 3350 [Miralax] 17 gm PO DAILY PRN 12/17/16 04/17/20 History Potassium Chloride Oral Liquid 20 meq PO DAILY@1700 12/17/16 04/17/20 History Warfarin [Coumadin] 2.5 mg PO MOWEFR@1700 12/17/16 04/17/20 History Warfarin [Coumadin] 5 mg PO SUTUTHSA@1700 12/17/16 04/17/20 History bisacodyL [Dulcolax] 10 mg RECTAL DAILY PRN 12/17/16 04/17/20 History lisinopriL [Zestril] 10 mg PO BID@0800,1700 12/17/16 04/17/20 History predniSONE 5 mg PO DAILY@0800 12/17/16 04/17/20 History HYDROcodone/APAP 10-325MG [[place] 1 tab PO HS@209910/18/19 04/17/20 History 10-325] HYDROcodone/APAP 10-325MG [[place] 1 tab PO Q24H PRN 10/18/19 04/17/20 History 10-325] HYDROcodone/APAP 7.5-325MG [[place] 1 tab PO BID@0600,1400 10/18/19 04/17/20 History 7.5-325] INSULIN ASPART (NovoLOG) [NovoLOG 14 unit SQ DAILY@1100 10/18/19 04/17/20 History (formulary)] INSULIN ASPART (NovoLOG) [NovoLOG 32 unit SQ DAILY@0700 10/18/19 04/17/20 History (formulary)] INSULIN ASPART (NovoLOG) [NovoLOG 44 unit SQ DAILY@1630 10/18/19 04/17/20 History (formulary)] Ipratropium-Albuterol Nebulize 3 ml INHALATION RT-Q6H PRN 10/18/19 04/17/20 History [Duoneb 0.5 mg-3 mg/3 ml Soln] Lactulose 20 Gm Packet 20 gram PO BID@0800,1700 10/18/19 04/17/20 History Loperamide HCl [Imodium A-D] 2 - 4 mg PO TID PRN 10/18/19 04/17/20 History Menthol [Biofreeze] 1 applic TOPICAL TID PRN 10/18/19 04/17/20 History Mirtazapine 7.5 mg PO HS@209910/18/19 04/17/20 History levETIRAcetam [Keppra] 750 mg PO BID@0800,1700 10/18/19 04/17/20 History Ammonium Lactate Cream [Lac-Hydrin 1 applic TOPICAL BID 04/17/20 04/17/20 History 12% Cream] INSULIN ASPART (NovoLOG) [NovoLOG 10 unit SQ ONCE 04/17/20 04/17/20 History (formulary)] Oseltamivir [Tamiflu] 75 mg PO BID@0800,1700 04/17/20 04/17/20 History Allergies Allergy/AdvReac Type Severity Reaction Status Date / Time No Known Allergies Allergy Verified 04/17/20 07:51 Physical Exam Vitals: Vital Signs Temp Pulse Resp BP Pulse Ox 04/17/20 23:00 99 11 L 120/62 94 L 04/17/20 22:30 101 H 16 122/76 94 L 04/17/20 22:00 98.4 F 111 H 19 98/50 94 L 04/17/20 21:30 88 11 L 100/56 94 L 04/17/20 21:20 79 04/17/20 21:02 78 04/17/20 21:00 80 9 L 107/56 95 04/17/20 20:30 79 12 104/57 96 04/17/20 20:00 98 F 84 13 97/57 94 L 04/17/20 19:30 85 13 103/76 94 L 04/17/20 19:00 85 14 107/62 96 04/17/20 18:30 86 14 106/63 96 04/17/20 18:00 90 13 120/61 96 04/17/20 17:30 90 15 87/61 95 04/17/20 17:00 92 14 90/59 94 L 04/17/20 16:55 90 04/17/20 16:42 88 97 04/17/20 16:30 87 15 118/63 94 L 04/17/20 16:00 93 16 142/75 94 L 04/17/20 15:30 98 16 102/61 94 L 04/17/20 15:00 86 14 95/68 95 04/17/20 14:30 87 15 111/58 94 L 04/17/20 14:00 86 14 100/56 94 L 04/17/20 13:30 85 14 88/52 94 L 04/17/20 13:00 89 14 95/55 94 L 04/17/20 12:30 93 16 101/61 94 L 04/17/20 12:00 98.4 F 97 15 118/71 94 L 04/17/20 11:54 97 12/11/20 11:49 95 04/17/20 11:30 99 23 123/97 95 04/17/20 11:00 94 22 101/55 94 L 04/17/20 10:30 85 14 90/53 95 04/17/20 10:00 89 13 106/60 94 L 04/17/20 09:30 89 16 112/62 95 04/17/20 09:00 92 20 106/59 95 04/17/20 08:30 87 15 104/54 95 04/17/20 08:00 98.7 F 84 16 108/56 95 04/17/20 07:00 98.8 F 85 19 110/58 95 04/17/20 06:00 93 19 124/61 96 04/17/20 05:57 94 23 96 04/17/20 05:15 100.1 F H 100 19 129/88 97 04/17/20 04:15 100.4 F H 105 H 19 142/77 96 04/17/20 03:25 94 04/17/20 03:06 101.1 F H 101 H 20 148/97 96 04/17/20 03:04 98 04/17/20 02:00 100.4 F H 127 H 18 171/94 97 Intake and Output 04/17/20 04/17/20 04/18/20 14:59 22:59 06:59 Intake Total 2365.417 2268.873 9.696 Output Total 885 550 Balance 6047.513 8630.873 9.696 Intake: IV 2150 2100 Azithromycin 500 mg In 250 Sodium Chloride 0.9% 250 ml @ 250 mls/hr IVPB Q24H [facility] Rx#:[id number] Piperacillin-Tazobactam 3 200 200 .375 gm In Sodium Chloride 0.9% 100 ml @ 200 mls/hr IVPB ONCE ONE Rx#:[id number] Sodium Chloride 0.9% 1, 700 800 000 ml @ 100 mls/hr IV . Q10H [facility] Rx#:[id number] Sodium Chloride 0.9% 1, 1000 000 ml @ 999 mls/hr IV . Q1H1M ONE Rx#:[id number] Sodium Chloride 0.9% 1, 1000 000 ml @ 999 mls/hr IV . Q1H1M [facility] Rx#:[id number] levETIRAcetam IV 750 mg 100 In Sodium Chloride 0.9% 100 ml @ 400 mls/hr IVPB Q12HR [facility] Rx#:[id number] Intake, IV Titration 215.417 168.873 9.696 Amount Diltiazem 125 mg In 14.417 Sodium Chloride 0.9% 100 ml @ 5 MG/HR 5 mls/hr IV .Q24H [facility] Rx#:[id number] Insulin Regular 100 unit 101 168.873 9.696 In Sodium Chloride 0.9% 100 ml @ Per Protocol IV .Q0M [facility] Rx#:[id number] Piperacillin-Tazobactam 3 100 .375 gm In Sodium Chloride 0.9% 100 ml @ 25 mls/hr IVPB Q8H [facility] Rx#: [id number] Output: Urine 885 550 Other: Voiding Method Indwelling Catheter Indwelling Catheter Weight 124.738 kg GENERAL DESCRIPTION: Middle-aged male lying in bed, no distress. No tachypnea or accessory muscle of respiration use. HEENT: Shows Pallor , no scleral icterus. Oral mucous membrane is dry. NECK: Trachea central, no thyromegaly. LUNGS: Unlabored breathing. Decreased breath sound at base. No wheeze or crackl e. HEART: S1, S2, regular rate and rhythm. ABDOMEN: Soft, no tenderness , guarding or rigidity EXTREMITIES: No edema of feet. SKIN: No rash, no masses palpable. NEUROLOGICAL: The patient is awake, alert, oriented x2, mood and affect normal. Results CBC & Chem 7: 04/17/20 09:04 04/17/20 09:04 Labs: Abnormal Lab Results - Last 24 Hours (Table) 04/17/20 04/17/20 04/17/20 Range/Units 02:06 02:15 02:15 WBC (3.8-10.6) k/uL RBC (4.30-5.90) m/uL Hgb (13.0-17.5) gm/dL Hct (39.0-53.0) % Plt Count (150-450) k/uL Neutrophils # (1.3-7.7) k/uL Lymphocytes # (1.0-4.8) k/uL PT (9.0-12.0) sec INR (<1.2) APTT (22.0-30.0) sec ABG pCO2 (35-45) mmHg ABG HCO3 (21-25) mmol/L ABG Total CO2 25 H (19-24) mmol/L ABG O2 Saturation 97.8 H (94-97) % Sodium (137-145) mmol/L Chloride (98-107) mmol/L Carbon Dioxide (22-30) mmol/L Glucose (74-99) mg/dL POC Glucose (mg/dL) (75-99) mg/dL Plasma Lactic Acid Eduard 2.8 H* (0.7-2.0) mmol/L Calcium (8.4-10.2) mg/dL Magnesium (1.6-2.3) mg/dL Ferritin (22.0-322.0) ng/mL Total Bilirubin (0.2-1.3) mg/dL Alkaline Phosphatase (38-126) U/L Creatine Kinase (55-170) U/L C-Reactive Protein (<10.0) mg/L Procalcitonin 0.18 H (0.02-0.09) ng/mL 04/17/20 04/17/20 04/17/20 Range/Units 02:30 02:57 03:16 WBC 17.1 H (3.8-10.6) k/uL RBC 4.19 L (4.30-5.90) m/uL Hgb 12.2 L (13.0-17.5) gm/dL Hct 35.4 L (39.0-53.0) % Plt Count (150-450) k/uL Neutrophils # 14.8 H (1.3-7.7) k/uL Lymphocytes # 0.9 L (1.0-4.8) k/uL PT 15.1 H (9.0-12.0) sec INR 1.5 H (<1.2) APTT 33.3 H (22.0-30.0) sec ABG pCO2 (35-45) mmHg ABG HCO3 (21-25) mmol/L ABG Total CO2 (19-24) mmol/L ABG O2 Saturation (94-97) % Sodium 127 L (137-145) mmol/L Chloride 94 L (98-107) mmol/L Carbon Dioxide (22-30) mmol/L Glucose 307 H (74-99) mg/dL POC Glucose (mg/dL) (75-99) mg/dL Plasma Lactic Acid Eduard (0.7-2.0) mmol/L Calcium (8.4-10.2) mg/dL Magnesium 1.4 L (1.6-2.3) mg/dL Ferritin 557.7 H (22.0-322.0) ng/mL Total Bilirubin 1.6 H (0.2-1.3) mg/dL Alkaline Phosphatase 33 L (38-126) U/L Creatine Kinase 323 H (55-170) U/L C-Reactive Protein 89.4 H (<10.0) mg/L Procalcitonin (0.02-0.09) ng/mL 04/17/20 04/17/20 04/17/20 Range/Units 05:40 06:09 06:59 WBC (3.8-10.6) k/uL RBC (4.30-5.90) m/uL Hgb (13.0-17.5) gm/dL Hct (39.0-53.0) % Plt Count (150-450) k/uL Neutrophils # (1.3-7.7) k/uL Lymphocytes # (1.0-4.8) k/uL PT (9.0-12.0) sec INR (<1.2) APTT (22.0-30.0) sec ABG pCO2 (35-45) mmHg ABG HCO3 (21-25) mmol/L ABG Total CO2 (19-24) mmol/L ABG O2 Saturation (94-97) % Sodium (137-145) mmol/L Chloride (98-107) mmol/L Carbon Dioxide (22-30) mmol/L Glucose (74-99) mg/dL POC Glucose (mg/dL) 438 H 491 H (75-99) mg/dL Plasma Lactic Acid Eduard 2.8 H* (0.7-2.0) mmol/L Calcium (8.4-10.2) mg/dL Magnesium (1.6-2.3) mg/dL Ferritin (22.0-322.0) ng/mL Total Bilirubin (0.2-1.3) mg/dL Alkaline Phosphatase (38-126) U/L Creatine Kinase (55-170) U/L C-Reactive Protein (<10.0) mg/L Procalcitonin (0.02-0.09) ng/mL 04/17/20 04/17/20 04/17/20 Range/Units 07:24 08:07 08:24 WBC (3.8-10.6) k/uL RBC (4.30-5.90) m/uL Hgb (13.0-17.5) gm/dL Hct (39.0-53.0) % Plt Count (150-450) k/uL Neutrophils # (1.3-7.7) k/uL Lymphocytes # (1.0-4.8) k/uL PT (9.0-12.0) sec INR (<1.2) APTT (22.0-30.0) sec ABG pCO2 33 L (35-45) mmHg ABG HCO3 19 L (21-25) mmol/L ABG Total CO2 (19-24) mmol/L ABG O2 Saturation 97.8 H (94-97) % Sodium (137-145) mmol/L Chloride (98-107) mmol/L Carbon Dioxide (22-30) mmol/L Glucose (74-99) mg/dL POC Glucose (mg/dL) 507 H 497 H (75-99) mg/dL Plasma Lactic Acid Eduard (0.7-2.0) mmol/L Calcium (8.4-10.2) mg/dL Magnesium (1.6-2.3) mg/dL Ferritin (22.0-322.0) ng/mL Total Bilirubin (0.2-1.3) mg/dL Alkaline Phosphatase (38-126) U/L Creatine Kinase (55-170) U/L C-Reactive Protein (<10.0) mg/L Procalcitonin (0.02-0.09) ng/mL 04/17/20 04/17/20 04/17/20 Range/Units 09:04 09:04 09:04 WBC 12.9 H (3.8-10.6) k/uL RBC 3.78 L (4.30-5.90) m/uL Hgb 11.0 L (13.0-17.5) gm/dL Hct 33.4 L (39.0-53.0) % Plt Count 133 L (150-450) k/uL Neutrophils # 12.3 H (1.3-7.7) k/uL Lymphocytes # 0.4 L (1.0-4.8) k/uL PT (9.0-12.0) sec INR (<1.2) APTT (22.0-30.0) sec ABG pCO2 (35-45) mmHg ABG HCO3 (21-25) mmol/L ABG Total CO2 (19-24) mmol/L ABG O2 Saturation (94-97) % Sodium 127 L (137-145) mmol/L Chloride (98-107) mmol/L Carbon Dioxide 17 L (22-30) mmol/L Glucose 487 H (74-99) mg/dL POC Glucose (mg/dL) (75-99) mg/dL Plasma Lactic Acid Eduard 4.9 H* (0.7-2.0) mmol/L Calcium 8.1 L (8.4-10.2) mg/dL Magnesium (1.6-2.3) mg/dL Ferritin (22.0-322.0) ng/mL Total Bilirubin (0.2-1.3) mg/dL Alkaline Phosphatase (38-126) U/L Creatine Kinase (55-170) U/L C-Reactive Protein (<10.0) mg/L Procalcitonin (0.02-0.09) ng/mL 04/17/20 04/17/20 04/17/20 Range/Units 09:17 10:09 10:50 WBC (3.8-10.6) k/uL RBC (4.30-5.90) m/uL Hgb (13.0-17.5) gm/dL Hct (39.0-53.0) % Plt Count (150-450) k/uL Neutrophils # (1.3-7.7) k/uL Lymphocytes # (1.0-4.8) k/uL PT (9.0-12.0) sec INR (<1.2) APTT (22.0-30.0) sec ABG pCO2 (35-45) mmHg ABG HCO3 (21-25) mmol/L ABG Total CO2 (19-24) mmol/L ABG O2 Saturation (94-97) % Sodium (137-145) mmol/L Chloride (98-107) mmol/L Carbon Dioxide (22-30) mmol/L Glucose (74-99) mg/dL POC Glucose (mg/dL) 480 H 462 H (75-99) mg/dL Plasma Lactic Acid Eduard 5.5 H* (0.7-2.0) mmol/L Calcium (8.4-10.2) mg/dL Magnesium (1.6-2.3) mg/dL Ferritin (22.0-322.0) ng/mL Total Bilirubin (0.2-1.3) mg/dL Alkaline Phosphatase (38-126) U/L Creatine Kinase (55-170) U/L C-Reactive Protein (<10.0) mg/L Procalcitonin (0.02-0.09) ng/mL 04/17/20 04/17/20 04/17/20 Range/Units 11:25 12:13 13:04 WBC (3.8-10.6) k/uL RBC (4.30-5.90) m/uL Hgb (13.0-17.5) gm/dL Hct (39.0-53.0) % Plt Count (150-450) k/uL Neutrophils # (1.3-7.7) k/uL Lymphocytes # (1.0-4.8) k/uL PT (9.0-12.0) sec INR (<1.2) APTT (22.0-30.0) sec ABG pCO2 (35-45) mmHg ABG HCO3 (21-25) mmol/L ABG Total CO2 (19-24) mmol/L ABG O2 Saturation (94-97) % Sodium (137-145) mmol/L Chloride (98-107) mmol/L Carbon Dioxide (22-30) mmol/L Glucose (74-99) mg/dL POC Glucose (mg/dL) 455 H 404 H 407 H (75-99) mg/dL Plasma Lactic Acid Eduard (0.7-2.0) mmol/L Calcium (8.4-10.2) mg/dL Magnesium (1.6-2.3) mg/dL Ferritin (22.0-322.0) ng/mL Total Bilirubin (0.2-1.3) mg/dL Alkaline Phosphatase (38-126) U/L Creatine Kinase (55-170) U/L C-Reactive Protein (<10.0) mg/L Procalcitonin (0.02-0.09) ng/mL 04/17/20 04/17/20 04/17/20 Range/Units 14:13 15:03 15:16 WBC (3.8-10.6) k/uL RBC (4.30-5.90) m/uL Hgb (13.0-17.5) gm/dL Hct (39.0-53.0) % Plt Count (150-450) k/uL Neutrophils # (1.3-7.7) k/uL Lymphocytes # (1.0-4.8) k/uL PT (9.0-12.0) sec INR (<1.2) APTT (22.0-30.0) sec ABG pCO2 (35-45) mmHg ABG HCO3 (21-25) mmol/L ABG Total CO2 (19-24) mmol/L ABG O2 Saturation (94-97) % Sodium (137-145) mmol/L Chloride (98-107) mmol/L Carbon Dioxide (22-30) mmol/L Glucose (74-99) mg/dL POC Glucose (mg/dL) 385 H 363 H (75-99) mg/dL Plasma Lactic Acid Eduard 4.5 H* (0.7-2.0) mmol/L Calcium (8.4-10.2) mg/dL Magnesium (1.6-2.3) mg/dL Ferritin (22.0-322.0) ng/mL Total Bilirubin (0.2-1.3) mg/dL Alkaline Phosphatase (38-126) U/L Creatine Kinase (55-170) U/L C-Reactive Protein (<10.0) mg/L Procalcitonin (0.02-0.09) ng/mL 04/17/20 04/17/20 04/17/20 Range/Units 16:56 17:57 18:19 WBC (3.8-10.6) k/uL RBC (4.30-5.90) m/uL Hgb (13.0-17.5) gm/dL Hct (39.0-53.0) % Plt Count (150-450) k/uL Neutrophils # (1.3-7.7) k/uL Lymphocytes # (1.0-4.8) k/uL PT (9.0-12.0) sec INR (<1.2) APTT (22.0-30.0) sec ABG pCO2 (35-45) mmHg ABG HCO3 (21-25) mmol/L ABG Total CO2 (19-24) mmol/L ABG O2 Saturation (94-97) % Sodium (137-145) mmol/L Chloride (98-107) mmol/L Carbon Dioxide (22-30) mmol/L Glucose (74-99) mg/dL POC Glucose (mg/dL) 313 H 284 H 285 H (75-99) mg/dL Plasma Lactic Acid Eduard (0.7-2.0) mmol/L Calcium (8.4-10.2) mg/dL Magnesium (1.6-2.3) mg/dL Ferritin (22.0-322.0) ng/mL Total Bilirubin (0.2-1.3) mg/dL Alkaline Phosphatase (38-126) U/L Creatine Kinase (55-170) U/L C-Reactive Protein (<10.0) mg/L Procalcitonin (0.02-0.09) ng/mL 04/17/20 04/17/20 04/17/20 Range/Units 18:21 20:27 21:07 WBC (3.8-10.6) k/uL RBC (4.30-5.90) m/uL Hgb (13.0-17.5) gm/dL Hct (39.0-53.0) % Plt Count (150-450) k/uL Neutrophils # (1.3-7.7) k/uL Lymphocytes # (1.0-4.8) k/uL PT (9.0-12.0) sec INR (<1.2) APTT (22.0-30.0) sec ABG pCO2 (35-45) mmHg ABG HCO3 (21-25) mmol/L ABG Total CO2 (19-24) mmol/L ABG O2 Saturation (94-97) % Sodium (137-145) mmol/L Chloride (98-107) mmol/L Carbon Dioxide (22-30) mmol/L Glucose (74-99) mg/dL POC Glucose (mg/dL) 224 H (75-99) mg/dL Plasma Lactic Acid Eduard 4.3 H* 3.5 H* (0.7-2.0) mmol/L Calcium (8.4-10.2) mg/dL Magnesium (1.6-2.3) mg/dL Ferritin (22.0-322.0) ng/mL Total Bilirubin (0.2-1.3) mg/dL Alkaline Phosphatase (38-126) U/L Creatine Kinase (55-170) U/L C-Reactive Protein (<10.0) mg/L Procalcitonin (0.02-0.09) ng/mL 04/17/20 04/17/20 Range/Units 21:50 22:51 WBC (3.8-10.6) k/uL RBC (4.30-5.90) m/uL Hgb (13.0-17.5) gm/dL Hct (39.0-53.0) % Plt Count (150-450) k/uL Neutrophils # (1.3-7.7) k/uL Lymphocytes # (1.0-4.8) k/uL PT (9.0-12.0) sec INR (<1.2) APTT (22.0-30.0) sec ABG pCO2 (35-45) mmHg ABG HCO3 (21-25) mmol/L ABG Total CO2 (19-24) mmol/L ABG O2 Saturation (94-97) % Sodium (137-145) mmol/L Chloride (98-107) mmol/L Carbon Dioxide (22-30) mmol/L Glucose (74-99) mg/dL POC Glucose (mg/dL) 201 H 223 H (75-99) mg/dL Plasma Lactic Acid Eduard (0.7-2.0) mmol/L Calcium (8.4-10.2) mg/dL Magnesium (1.6-2.3) mg/dL Ferritin (22.0-322.0) ng/mL Total Bilirubin (0.2-1.3) mg/dL Alkaline Phosphatase (38-126) U/L Creatine Kinase (55-170) U/L C-Reactive Protein (<10.0) mg/L Procalcitonin (0.02-0.09) ng/mL Assessment and Plan Assessment: 1-patient presented to hospital with sepsis in this patient did have a fever tachycardia elevated white count and this patient started having hypoxemia after episode of vomiting with concern likely for aspiration pneumonia and will need to cover for the enteric gram-negative both aerobes and anaerobes and less likely MRSA or gram-positive infection (1) Sepsis Current Visit: Yes Status: Acute Code(s): A41.9 - SEPSIS, UNSPECIFIED ORGANISM SNOMED Code(s): 29139791 (2) Aspiration pneumonia Current Visit: Yes Status: Acute Code(s): J69.0 - PNEUMONITIS DUE TO INHALATION OF FOOD AND VOMIT SNOMED Code(s): 171263914 Plan: 1-we will try to obtain a sputum for Gram stain culture 2-continue with Zosyn 3.375 g every 8 hours 3-discontinue vancomycin decrease risk of nephrotoxicity We will follow on clinical condition and cultures to further adjust medication if needed Thank you for this consultation we will follow the patient along with you Time with Patient: Greater than 30
[2020-04-17 23:56] LABS: Glucose,Whole Blood 251 mg/dL (75-99)
[2020-04-18 00:57] LABS: Glucose,Whole Blood 284 mg/dL (75-99)
[2020-04-18] MEDS: INSULIN REGULAR 100 UNIT in SODIUM CHLORIDE 0.9% 100 ML IV SCH ×2 (01:35→06:59)
[2020-04-18] MEDS: DILTIAZEM 125 MG in SODIUM CHLORIDE 0.9% 100 ML IV SCH (02:23)
[2020-04-18 02:57] LABS: Glucose,Whole Blood 305 mg/dL (75-99)
[2020-04-18] MEDS: SODIUM CHLORIDE 0.9% 1,000 ML IV SCH ×2 (03:09→13:38)
[2020-04-18 03:55] LABS: Glucose,Whole Blood 284 mg/dL (75-99)
[2020-04-18 04:07] LABS: Basophils % (A) 0 %; Eosinophils % (A) 0 %; HCT 28.9 % (39.0-53.0); HGB 10.2 gm/dL (13.0-17.5); Lymphocytes # (A) 0.7 k/uL (1.0-4.8); Lymphocytes % (A) 4 %; MCH 30.5 pg (25.0-35.0); MCHC 35.2 g/dL (31.0-37.0); MCV 86.6 fL (80.0-100.0); Monocytes # (A) 0.3 k/uL (0-1.0); Monocytes % (A) 2 %; Neutrophils # (A) 14.6 k/uL (1.3-7.7); Neutrophils % (A) 94 %; Platelet Count 123 k/uL (150-450); RBC 3.33 m/uL (4.30-5.90); RDW 14.6 % (11.5-15.5); WBC 15.7 k/uL (3.8-10.6)
[2020-04-18 04:11] LABS: INR 2.1 (<1.2); Prothrombin Time 20.9 sec (9.0-12.0)
[2020-04-18 04:21] LABS: African American GFR (CKD) >90 (>60 ml/min/1.73 sqM); Anion Gap 4 mmol/L; Blood Urea Nitrogen 14 mg/dL (9-20); Carbon Dioxide 22 mmol/L (22-30); Chloride 105 mmol/L (98-107); Glucose 281 mg/dL (74-99); Non-African American GFR(CKD) 79 (>60 ml/min/1.73 sqM); Potassium 4.6 mmol/L (3.5-5.1); Sodium 131 mmol/L (137-145)
[2020-04-18 05:12] LABS: Glucose,Whole Blood 244 mg/dL (75-99)
[2020-04-18] MEDS: AZITHROMYCIN 500 MG in SODIUM CHLORIDE 0.9% 250 ML IVPB SCH (05:24)
[2020-04-18] MEDS: PIPERACILLIN-TAZOBACTAM 3.375 GM in SODIUM CHLORIDE 0.9% 100 ML IVPB SCH ×3 (05:24→21:47)
[2020-04-18 05:55] LABS: Glucose,Whole Blood 232 mg/dL (75-99)
[2020-04-18] MEDS ORDERED: ACETAMINOPHEN IV (For NPO) 1,000 MG in EMPTY BAG 1 BAG IVPB PRN (06:01)
[2020-04-18 07:07] LABS: Glucose,Whole Blood 172 mg/dL (75-99)
--- NOTE | 2020-04-18 08:00 | P.PN ---
Subjective Progress Note Date: 04/18/20 04/18/2020, the patient has regained his consciousness back. His back to his baseline. He doesn't have any black and this is obvious on examination. He also has left-sided hemiplegia. Nevertheless, he is able to answer questions and is quite comfortable in bed. Hemodynamically stable. He is afebrile. He is receiving normal saline at rate of 100 mL an hour. He is on insulin drip at 10 units an hour and the patient's blood sugars under much better control for now. Cultures of been all negative. The patient is being covered with a combination of Zosyn and vancomycin and Zithromax. Meanwhile, she is afebrile. CCP chest x-ray shows no evidence of pneumonia. His posture for influenza and he is currently on Tamiflu. He is INR is up to 2.0 which is therapeutic at this point in time. His EEG of the brain showed some rare sharp and slow waves over the frontal area and neurology restarted the patient on Keppra after being loaded... CAT scan of the brain evidence of old stroke. Objective - Vital Signs Vital signs: Vital Signs Temp 97.3 F L 04/18/20 04:00 Pulse 96 04/18/20 07:00 Resp 15 04/18/20 07:00 BP 133/69 04/18/20 07:00 Pulse Ox 95 04/18/20 07:00 Intake & Output 04/17/20 04/18/20 04/18/20 18:59 06:59 18:59 Intake Total 4095.034 1487.422 102.475 Output Total 1185 580 45 Balance 2910.034 907.422 57.475 Weight 124.738 kg 137 kg Intake: IV 3750 1300 100 Azithromycin 500 mg In 250 Sodium Chloride 0.9% 250 ml @ 250 mls/hr IVPB Q24H [facility] Rx#:[id number] Piperacillin-Tazobactam 3 300 100 .375 gm In Sodium Chloride 0.9% 100 ml @ 200 mls/hr IVPB ONCE ONE Rx#:[id number] Sodium Chloride 0.9% 1, 1100 1200 100 000 ml @ 100 mls/hr IV . Q10H [facility] Rx#:[id number] Sodium Chloride 0.9% 1, 1000 000 ml @ 999 mls/hr IV . Q1H1M ONE Rx#:[id number] Sodium Chloride 0.9% 1, 1000 000 ml @ 999 mls/hr IV . Q1H1M ONE Rx#:[id number] levETIRAcetam IV 750 mg 100 In Sodium Chloride 0.9% 100 ml @ 400 mls/hr IVPB Q12HR [facility] Rx#:[id number] Intake, IV Titration 345.034 187.422 2.475 Amount Diltiazem 125 mg In 14.417 Sodium Chloride 0.9% 100 ml @ 5 MG/HR 5 mls/hr IV .Q24H [facility] Rx#:[id number] Insulin Regular 100 unit 230.617 187.422 2.475 In Sodium Chloride 0.9% 100 ml @ Per Protocol IV .Q0M [facility] Rx#:[id number] Piperacillin-Tazobactam 3 100 .375 gm In Sodium Chloride 0.9% 100 ml @ 25 mls/hr IVPB Q8H [facility] Rx#: [id number] Output: Urine 1185 580 45 Other: Voiding Method Indwelling Catheter Indwelling Catheter - Exam Awake, alert, responsive He is currently on 4 L of oxygen by nasal cannula Head exam was generally normal. There was no scleral icterus or corneal arcus. Mucous membranes were moist. Neck was supple and without jugular venous distension, thyromegaly, or carotid bruits. Carotids were easily palpable bilaterally. There was no adenopathy. Lungs sounds are diminished bilaterally. Nose and is no wheezes or rhonchi. Cardiac exam revealed the PMI to be normally situated and sized. The rhythm was regular and no extrasystoles were noted during several minutes of auscultation. The first and second heart sounds were normal and physiologic splitting of the second heart sound was noted. There were no murmurs, rubs, clicks, or gallops.system of activity and intact. The patient undergone previous thoracotomy scar is dry. Abdominal exam revealed normal bowel sounds. The abdomen was soft, non-tender, and without masses, organomegaly, or appreciable enlargement of the abdominal aorta. Extremities reveal chronic edema in the left lower extremity compared to the right. No open wounds or sores. No cyanosis or clubbing. Adequate pulses in all 4 extremities. Examination of the skin revealed no evidence of significant rashes, suspicious appearing nevi or other concerning lesions. Neurologically, the patient has history of left-sided hemiplegia. There is some mild facial asymmetry which is chronic. Pupils are about 3 mm in size and they are slightly reactive. No nystagmus. No jerky body movements to suggest any seizure activity. He is nonverbal at this point in time. He is awake and he is watching television for now. - Labs CBC & Chem 7: 04/18/20 03:23 04/18/20 03:23 Labs: Abnormal Lab Results - Last 24 Hours (Table) 04/17/20 04/17/20 04/17/20 Range/Units 02:15 02:30 08:07 WBC (3.8-10.6) k/uL RBC (4.30-5.90) m/uL Hgb (13.0-17.5) gm/dL Hct (39.0-53.0) % Plt Count (150-450) k/uL Neutrophils # (1.3-7.7) k/uL Lymphocytes # (1.0-4.8) k/uL PT (9.0-12.0) sec INR (<1.2) Sodium (137-145) mmol/L Carbon Dioxide (22-30) mmol/L Glucose (74-99) mg/dL POC Glucose (mg/dL) 507 H (75-99) mg/dL Plasma Lactic Acid Eduard (0.7-2.0) mmol/L Calcium (8.4-10.2) mg/dL Ferritin 557.7 H (22.0-322.0) ng/mL Procalcitonin 0.18 H (0.02-0.09) ng/mL 04/17/20 04/17/20 04/17/20 Range/Units 08:24 09:04 09:04 WBC 12.9 H (3.8-10.6) k/uL RBC 3.78 L (4.30-5.90) m/uL Hgb 11.0 L (13.0-17.5) gm/dL Hct 33.4 L (39.0-53.0) % Plt Count 133 L (150-450) k/uL Neutrophils # 12.3 H (1.3-7.7) k/uL Lymphocytes # 0.4 L (1.0-4.8) k/uL PT (9.0-12.0) sec INR (<1.2) Sodium 127 L (137-145) mmol/L Carbon Dioxide 17 L (22-30) mmol/L Glucose 487 H (74-99) mg/dL POC Glucose (mg/dL) 497 H (75-99) mg/dL Plasma Lactic Acid Eduard (0.7-2.0) mmol/L Calcium 8.1 L (8.4-10.2) mg/dL Ferritin (22.0-322.0) ng/mL Procalcitonin (0.02-0.09) ng/mL 04/17/20 04/17/20 04/17/20 Range/Units 09:04 09:17 10:09 WBC (3.8-10.6) k/uL RBC (4.30-5.90) m/uL Hgb (13.0-17.5) gm/dL Hct (39.0-53.0) % Plt Count (150-450) k/uL Neutrophils # (1.3-7.7) k/uL Lymphocytes # (1.0-4.8) k/uL PT (9.0-12.0) sec INR (<1.2) Sodium (137-145) mmol/L Carbon Dioxide (22-30) mmol/L Glucose (74-99) mg/dL POC Glucose (mg/dL) 480 H 462 H (75-99) mg/dL Plasma Lactic Acid Eduard 4.9 H* (0.7-2.0) mmol/L Calcium (8.4-10.2) mg/dL Ferritin (22.0-322.0) ng/mL Procalcitonin (0.02-0.09) ng/mL 04/17/20 04/17/20 04/17/20 Range/Units 10:50 11:25 12:13 WBC (3.8-10.6) k/uL RBC (4.30-5.90) m/uL Hgb (13.0-17.5) gm/dL Hct (39.0-53.0) % Plt Count (150-450) k/uL Neutrophils # (1.3-7.7) k/uL Lymphocytes # (1.0-4.8) k/uL PT (9.0-12.0) sec INR (<1.2) Sodium (137-145) mmol/L Carbon Dioxide (22-30) mmol/L Glucose (74-99) mg/dL POC Glucose (mg/dL) 455 H 404 H (75-99) mg/dL Plasma Lactic Acid Eduard 5.5 H* (0.7-2.0) mmol/L Calcium (8.4-10.2) mg/dL Ferritin (22.0-322.0) ng/mL Procalcitonin (0.02-0.09) ng/mL 04/17/20 04/17/20 04/17/20 Range/Units 13:04 14:13 15:03 WBC (3.8-10.6) k/uL RBC (4.30-5.90) m/uL Hgb (13.0-17.5) gm/dL Hct (39.0-53.0) % Plt Count (150-450) k/uL Neutrophils # (1.3-7.7) k/uL Lymphocytes # (1.0-4.8) k/uL PT (9.0-12.0) sec INR (<1.2) Sodium (137-145) mmol/L Carbon Dioxide (22-30) mmol/L Glucose (74-99) mg/dL POC Glucose (mg/dL) 407 H 385 H 363 H (75-99) mg/dL Plasma Lactic Acid Eduard (0.7-2.0) mmol/L Calcium (8.4-10.2) mg/dL Ferritin (22.0-322.0) ng/mL Procalcitonin (0.02-0.09) ng/mL 04/17/20 04/17/20 04/17/20 Range/Units 15:16 16:56 17:57 WBC (3.8-10.6) k/uL RBC (4.30-5.90) m/uL Hgb (13.0-17.5) gm/dL Hct (39.0-53.0) % Plt Count (150-450) k/uL Neutrophils # (1.3-7.7) k/uL Lymphocytes # (1.0-4.8) k/uL PT (9.0-12.0) sec INR (<1.2) Sodium (137-145) mmol/L Carbon Dioxide (22-30) mmol/L Glucose (74-99) mg/dL POC Glucose (mg/dL) 313 H 284 H (75-99) mg/dL Plasma Lactic Acid Eduard 4.5 H* (0.7-2.0) mmol/L Calcium (8.4-10.2) mg/dL Ferritin (22.0-322.0) ng/mL Procalcitonin (0.02-0.09) ng/mL 04/17/20 04/17/20 04/17/20 Range/Units 18:19 18:21 20:27 WBC (3.8-10.6) k/uL RBC (4.30-5.90) m/uL Hgb (13.0-17.5) gm/dL Hct (39.0-53.0) % Plt Count (150-450) k/uL Neutrophils # (1.3-7.7) k/uL Lymphocytes # (1.0-4.8) k/uL PT (9.0-12.0) sec INR (<1.2) Sodium (137-145) mmol/L Carbon Dioxide (22-30) mmol/L Glucose (74-99) mg/dL POC Glucose (mg/dL) 285 H 224 H (75-99) mg/dL Plasma Lactic Acid Eduard 4.3 H* (0.7-2.0) mmol/L Calcium (8.4-10.2) mg/dL Ferritin (22.0-322.0) ng/mL Procalcitonin (0.02-0.09) ng/mL 04/17/20 04/17/20 04/17/20 Range/Units 21:07 21:50 22:51 WBC (3.8-10.6) k/uL RBC (4.30-5.90) m/uL Hgb (13.0-17.5) gm/dL Hct (39.0-53.0) % Plt Count (150-450) k/uL Neutrophils # (1.3-7.7) k/uL Lymphocytes # (1.0-4.8) k/uL PT (9.0-12.0) sec INR (<1.2) Sodium (137-145) mmol/L Carbon Dioxide (22-30) mmol/L Glucose (74-99) mg/dL POC Glucose (mg/dL) 201 H 223 H (75-99) mg/dL Plasma Lactic Acid Eduard 3.5 H* (0.7-2.0) mmol/L Calcium (8.4-10.2) mg/dL Ferritin (22.0-322.0) ng/mL Procalcitonin (0.02-0.09) ng/mL 04/17/20 04/18/20 04/18/20 Range/Units 23:54 00:02 00:55 WBC (3.8-10.6) k/uL RBC (4.30-5.90) m/uL Hgb (13.0-17.5) gm/dL Hct (39.0-53.0) % Plt Count (150-450) k/uL Neutrophils # (1.3-7.7) k/uL Lymphocytes # (1.0-4.8) k/uL PT (9.0-12.0) sec INR (<1.2) Sodium (137-145) mmol/L Carbon Dioxide (22-30) mmol/L Glucose (74-99) mg/dL POC Glucose (mg/dL) 251 H 284 H (75-99) mg/dL Plasma Lactic Acid Eduard 3.3 H* (0.7-2.0) mmol/L Calcium (8.4-10.2) mg/dL Ferritin (22.0-322.0) ng/mL Procalcitonin (0.02-0.09) ng/mL 04/18/20 04/18/20 04/18/20 Range/Units 02:55 03:23 03:23 WBC 15.7 H (3.8-10.6) k/uL RBC 3.33 L (4.30-5.90) m/uL Hgb 10.2 L (13.0-17.5) gm/dL Hct 28.9 L (39.0-53.0) % Plt Count 123 L (150-450) k/uL Neutrophils # 14.6 H (1.3-7.7) k/uL Lymphocytes # 0.7 L (1.0-4.8) k/uL PT (9.0-12.0) sec INR (<1.2) Sodium 131 L (137-145) mmol/L Carbon Dioxide (22-30) mmol/L Glucose 281 H (74-99) mg/dL POC Glucose (mg/dL) 305 H (75-99) mg/dL Plasma Lactic Acid Eduard (0.7-2.0) mmol/L Calcium 8.0 L (8.4-10.2) mg/dL Ferritin (22.0-322.0) ng/mL Procalcitonin (0.02-0.09) ng/mL 04/18/20 04/18/20 04/18/20 Range/Units 03:23 03:23 03:52 WBC (3.8-10.6) k/uL RBC (4.30-5.90) m/uL Hgb (13.0-17.5) gm/dL Hct (39.0-53.0) % Plt Count (150-450) k/uL Neutrophils # (1.3-7.7) k/uL Lymphocytes # (1.0-4.8) k/uL PT 20.9 H (9.0-12.0) sec INR 2.1 H (<1.2) Sodium (137-145) mmol/L Carbon Dioxide (22-30) mmol/L Glucose (74-99) mg/dL POC Glucose (mg/dL) 284 H (75-99) mg/dL Plasma Lactic Acid Eduard 2.4 H* (0.7-2.0) mmol/L Calcium (8.4-10.2) mg/dL Ferritin (22.0-322.0) ng/mL Procalcitonin (0.02-0.09) ng/mL 04/18/20 04/18/20 04/18/20 Range/Units 05:10 05:54 07:05 WBC (3.8-10.6) k/uL RBC (4.30-5.90) m/uL Hgb (13.0-17.5) gm/dL Hct (39.0-53.0) % Plt Count (150-450) k/uL Neutrophils # (1.3-7.7) k/uL Lymphocytes # (1.0-4.8) k/uL PT (9.0-12.0) sec INR (<1.2) Sodium (137-145) mmol/L Carbon Dioxide (22-30) mmol/L Glucose (74-99) mg/dL POC Glucose (mg/dL) 244 H 232 H 172 H (75-99) mg/dL Plasma Lactic Acid Eduard (0.7-2.0) mmol/L Calcium (8.4-10.2) mg/dL Ferritin (22.0-322.0) ng/mL Procalcitonin (0.02-0.09) ng/mL Microbiology - Last 24 Hours (Table) 04/17/20 02:30 Blood Culture - Preliminary Blood No Growth after 24 hours Assessment and Plan Plan: 1 acute mental status on that investigation. The exact cause is not clear. Consider metabolic encephalopathy. Consider underlying subclinical seizure activity. The patient is back on Keppra. Mental status improved. CAT scan of the brain showed old infarct. No acute changes in his mental status improved and the patient is back to his baseline. 2 acute influenza A infection currently on Tamiflu 3 acute dyspnea with mild hypoxic respiratory failure currently on 4 L of oxygen by nasal cannula. The coronavirus/Covid 19 evaluation by PCR was negative on 2 separate occasions 4 acute febrile illness currently under investigation at the afebrile. The pro calcitonin level was at 0.18. Cultures of been all negative. 5 mild lactic acidosis and lactic acid level is at 13 is down to 2.4. 6 diabetes mellitus insulin dependence with for blood sugar control. Insulin drip is at 10 units an hour and the 7 leukocytosis secondary to above, otherwise cell count is up 15 pounds from 17. 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 Possible discharge later stage
[2020-04-18] MEDS: IPRATROPIUM-ALBUTEROL 3 ML NEB INHALATION SCH ×3 (08:40→16:37)
[2020-04-18 09:15] LABS: Glucose,Whole Blood 123 mg/dL (75-99)
[2020-04-18] MEDS: HYDROCORTISONE SUCCINATE 100 MG/2 ML VIAL IV SCH ×3 (09:28→16:06)
[2020-04-18] MEDS: levETIRAcetam 500 MG TAB PO SCH ×2 (09:28→21:48)
[2020-04-18] MEDS: PANTOPRAZOLE 40 MG/10 ML VIAL IVP SCH (09:28)
[2020-04-18] MEDS: OSELTAMIVIR 75 MG CAP PO SCH ×2 (09:33→21:48)
[2020-04-18 09:59] LABS: Glucose,Whole Blood 131 mg/dL (75-99)
[2020-04-18] MEDS ORDERED: FUROSEMIDE 10 MG/ML 4 ML VIAL IV STA (11:04)
--- NOTE | 2020-04-18 11:41 | P.PN ---
Subjective Progress Note Date: 04/18/20 HISTORY OF PRESENT ILLNESS This is a 65-year-old male patient of Dr. Toney with past medical history significant for left hemiplegia secondary to extensive right MCA throm bolytic bleed from July 2016, complicated by aortic root dissection, bioprosthetic aortic valve replacement and extensive aortic sleeve graft down to the mesenteric vessels, seizure disorder, paroxysmal atrial fibrillation, diabetes mellitus type 2, hyperlipidemia. History of trach and PEG tube pl acement and removal secondary to prolonged respiratory failure, paralyzed vocal cord, remote history of tobacco use, chronic pain syndrome, stage II coccyx decubitus ulcer. Patient currently resides at [facility] as a long-term resident. Patient developed shortness of breath that progressively worsened and hypoxia. He tested positive for influenza A at the half-way. Patient was transferred to [facility] emergency center for evaluation and treatment. Temperature 101.1, heart rate 127, blood pressure 171/94, pulse ox 97% on 4 L nasal cannula. WBC 17.1, hemoglobin 12.2. INR 1.5. Sodium 127, creatinine 0.77. Blood sugar initially 307 but ran in the greater than 500s and 400s during the night. Lactic acid 2.8 currently at 4.9. Magnesium 1.4. Total bilirubin 1.6. CK 323. C-reactive protein 89.4. COVID-19 not detected. Chest x-ray reveals low lung volumes with patchy bilateral lung opacities. Correlate clinically regarding infection or edema. EKG is sinus tachycardia. Patient had received 2 doses of Tamiflu at the half-way but currently unresponsive and unable to take oral medications. Patient received morphine 2 mg in the emergency center and was subsequently Narcan without improvement of his mental status 04/18: Patient is regained consciousness. He is back to his baseline. He has left-sided hemiplegia. He is able to answer questions and is quite comfortable in bed. At this time is hemodynamically stable and afebrile. She was positive for influenza and currently on Tamiflu which we will continue. EEG of the brain showed some rare sharp and slow waves over the frontal area neurology restarted the patient on Keppra. CAT scan of the brain shows evidence of a previous stroke. REVIEW OF SYSTEMS Constitutional: No fever, no chills, no night sweats. No weight change. No weakness, fatigue or lethargy. No daytime sleepiness. EENT: No headache. No blurred vision or double vision, no loss of vision. No loss of Hearing, no ringing in the ears, no dizziness. No nasal drainage or congestion. No epistaxis. No sore throat. Lungs: No shortness of breath, cough, no sputum production. No wheezing. Cardiovascular: No chest pain, no lower extremity edema. No palpitations. No paroxysmal nocturnal dyspnea. No orthopnea. No lightheadedness or dizziness. No syncopal episodes. Abdominal: no abdominal discomfort. No nausea, vomiting. no diarrhea. No constipation. No bloody or tarry stools. no loss of appetite. Genitourinary: No dysuria, increased frequency, urgency. No urinary retention. Musculoskeletal: No myalgias. No muscle weakness, no gait dysfunction, no frequent falls. No back pain. No neck pain. Integumentary: Reports wounds, no lesions. No rash or pruritus. No unusual bruising. No change in hair or nails. Neurologic: No aphasia. No facial droop. No change in mentation. No head injury. No headache. No paralysis. No paresthesia. Reports left sided hemiplegia Psychiatric: No depression. No anxiety. No mood swings. Endocrine: No abnormal blood sugars. No weight change. No excessive sweating or thirst. PHYSICAL EXAMINATION Gen: This is a 65-year-old obese male, . He is resting in the ICU bed. No acute respiratory distress is noted. Alert and responsive HEENT: Head is atraumatic, normocephalic. Pupils equal, round. Sclerae is anicteric. NECK: Supple. No JVD. No lymphadenopathy. No thyromegaly. LUNGS: Diminished bilaterally. No wheezes or rhonchi. No intercostal retractions. No accessory muscle usage. HEART: Regular rate and rhythm. No murmur. ABDOMEN: Soft. Bowel sounds are present. No masses. No tenderness. EXTREMITIES: Bilateral lower and upper extremity edema. No calf tenderness. NEUROLOGICAL: known history of left-sided hemiplegia, alert and oriented 3, able to answer questions appropriately. Able to follow commands. Facial asymmetry which is chronic. Pupils are reactive unable to follow to the right. ASSESSMENT AND PLAN 1. Sepsis and lactic acidosis secondary to influenza a, rule out bacterial pneumonia. Blood culture, urine culture area patient is currently on Zosyn, azithromycin. Patient is on stress dose of Solu-Cortef 50 g IV every 8 hours. Tamiflu to be restarted for total of 10 doses. Patient has received 2 doses of Tamiflu at the half-way. Consults with pulmonary medicine and infectious disease appreciated. 2. Acute hypoxic respiratory failure. Consult with pulmonary medicine appreciated. Continue oxygen therapy, DuoNeb treatments 4 times daily and Ventolin as needed. One dose of IV Lasix 40 mg. Decrease with saline to 50 units per hour. 3. Metabolic encephalopathy secondary to sepsis, rule out CVA. CAT scan of the brain noted above, EEG noted above, neurology consult appreciated. Patient is status post Narcan without improvement of mental status. 4. History of right MCA CVA with left hemiplegia, July 2016. Coumadin and Lipitor currently on hold. 5. Hyponatremia. Hold Lasix. Patient is status post fluids. 6. Bioprosthetic aortic valve replacement and extensive aortic sleeve graft. Continue Coumadin. 7. Sinus tachycardia secondary to sepsis. Patient was started on Cardizem drip in the emergency center. 8. Paroxysmal atrial fibrillation. Coumadin currently on hold. Patient normally on Lopressor 50 mg twice daily. Cardiology consult. 9. Diabetes mellitus type 2 insulin requiring, uncontrolled with hyperglycemia. Insulin drip DC'd we will continue with sliding scale and Levemir 5 units at bedtime. 10. Stage II decubitus ulcer, present on admission. Local wound care. 11. Seizure disorder. Keppra 750 mg twice daily. 12. Chronic pain syndrome. [place] is on hold. Patient received 1 dose of morphine and subsequently Narcan. 13. GI prophylaxis. Protonix 40 mg IV daily 14. DVT prophylaxis. CT results noted above. Restart Coumadin to home dose. Patient will be admitted to the hospital for a minimum of 2 night stay. CODE STATUS: Full code DISCHARGE PLAN Return to [facility]. Impression and plan of care have been directed as dictated by the signing physician. Aparna Brenner nurse practitioner acting as scribe for signing physician. Objective - Vital Signs Vital signs: Vital Signs Temp 98.8 F 04/18/20 08:00 Pulse 98 04/18/20 10:00 Resp 13 04/18/20 10:00 BP 110/55 04/18/20 10:00 Pulse Ox 96 04/18/20 10:00 Intake & Output 04/17/20 04/18/2004/18/20 18:59 06:59 18:59 Intake Total 4095.034 1487.422 274.022 Output Total 1185 580 255 Balance 2910.034 907.422 19.022 Weight 124.738 kg 137 kg Intake: IV 3750 1300 250 Azithromycin 500 mg In 250 Sodium Chloride 0.9% 250 ml @ 250 mls/hr IVPB Q24H [facility] Rx#:[id number] Piperacillin-Tazobactam 3 300 100 .375 gm In Sodium Chloride 0.9% 100 ml @ 200 mls/hr IVPB ONCE ONE Rx#:[id number] Sodium Chloride 0.9% 1, 1100 1200 250 000 ml @ 50 mls/hr IV . Q20H [facility] Rx#:[id number] Sodium Chloride 0.9% 1, 1000 000 ml @ 999 mls/hr IV . Q1H1M ONE Rx#:[id number] Sodium Chloride 0.9% 1, 1000 000 ml @ 999 mls/hr IV . Q1H1M [facility] Rx#:[id number] levETIRAcetam IV 750 mg 100 In Sodium Chloride 0.9% 100 ml @ 400 mls/hr IVPB Q12HR [facility] Rx#:[id number] Intake, IV Titration 345.034 187.422 24.022 Amount Diltiazem 125 mg In 14.417 Sodium Chloride 0.9% 100 ml @ 5 MG/HR 5 mls/hr IV .Q24H [facility] Rx#:[id number] Insulin Regular 100 unit 230.617 187.422 24.022 In Sodium Chloride 0.9% 100 ml @ Per Protocol IV .Q0M [facility] Rx#:[id number] Piperacillin-Tazobactam 3 100 .375 gm In Sodium Chloride 0.9% 100 ml @ 25 mls/hr IVPB Q8H [facility] Rx#: [id number] Output: Urine 1185 580 255 Other: Voiding Method Indwelling Catheter Indwelling Catheter - Labs CBC & Chem 7: 04/18/20 03:23 04/18/20 03:23 Labs: Abnormal Lab Results - Last 24 Hours (Table) 04/17/20 04/17/20 04/17/20 Range/Units 10:50 11:25 12:13 WBC (3.8-10.6) k/uL RBC (4.30-5.90) m/uL Hgb (13.0-17.5) gm/dL Hct (39.0-53.0) % Plt Count (150-450) k/uL Neutrophils # (1.3-7.7) k/uL Lymphocytes # (1.0-4.8) k/uL PT (9.0-12.0) sec INR (<1.2) Sodium (137-145) mmol/L Glucose (74-99) mg/dL POC Glucose (mg/dL) 455 H 404 H (75-99) mg/dL Plasma Lactic Acid Eduard 5.5 H* (0.7-2.0) mmol/L Calcium (8.4-10.2) mg/dL 04/17/20 04/17/20 04/17/20 Range/Units 13:04 14:13 15:03 WBC (3.8-10.6) k/uL RBC (4.30-5.90) m/uL Hgb (13.0-17.5) gm/dL Hct (39.0-53.0) % Plt Count (150-450) k/uL Neutrophils # (1.3-7.7) k/uL Lymphocytes # (1.0-4.8) k/uL PT (9.0-12.0) sec INR (<1.2) Sodium (137-145) mmol/L Glucose (74-99) mg/dL POC Glucose (mg/dL) 407 H 385 H 363 H (75-99) mg/dL Plasma Lactic Acid Eduard (0.7-2.0) mmol/L Calcium (8.4-10.2) mg/dL 04/17/20 04/17/20 04/17/20 Range/Units 15:16 16:56 17:57 WBC (3.8-10.6) k/uL RBC (4.30-5.90) m/uL Hgb (13.0-17.5) gm/dL Hct (39.0-53.0) % Plt Count (150-450) k/uL Neutrophils # (1.3-7.7) k/uL Lymphocytes # (1.0-4.8) k/uL PT (9.0-12.0) sec INR (<1.2) Sodium (137-145) mmol/L Glucose (74-99) mg/dL POC Glucose (mg/dL) 313 H 284 H (75-99) mg/dL Plasma Lactic Acid Eduard 4.5 H* (0.7-2.0) mmol/L Calcium (8.4-10.2) mg/dL 04/17/20 04/17/20 04/17/20 Range/Units 18:19 18:21 20:27 WBC (3.8-10.6) k/uL RBC (4.30-5.90) m/uL Hgb (13.0-17.5) gm/dL Hct (39.0-53.0) % Plt Count (150-450) k/uL Neutrophils # (1.3-7.7) k/uL Lymphocytes # (1.0-4.8) k/uL PT (9.0-12.0) sec INR (<1.2) Sodium (137-145) mmol/L Glucose (74-99) mg/dL POC Glucose (mg/dL) 285 H 224 H (75-99) mg/dL Plasma Lactic Acid Eduard 4.3 H* (0.7-2.0) mmol/L Calcium (8.4-10.2) mg/dL 04/17/20 04/17/20 04/17/20 Range/Units 21:07 21:50 22:51 WBC (3.8-10.6) k/uL RBC (4.30-5.90) m/uL Hgb (13.0-17.5) gm/dL Hct (39.0-53.0) % Plt Count (150-450) k/uL Neutrophils # (1.3-7.7) k/uL Lymphocytes # (1.0-4.8) k/uL PT (9.0-12.0) sec INR (<1.2) Sodium (137-145) mmol/L Glucose (74-99) mg/dL POC Glucose (mg/dL) 201 H 223 H (75-99) mg/dL Plasma Lactic Acid Eduard 3.5 H* (0.7-2.0) mmol/L Calcium (8.4-10.2) mg/dL 04/17/20 04/18/20 04/18/20 Range/Units 23:54 00:02 00:55 WBC (3.8-10.6) k/uL RBC (4.30-5.90) m/uL Hgb (13.0-17.5) gm/dL Hct (39.0-53.0) % Plt Count (150-450) k/uL Neutrophils # (1.3-7.7) k/uL Lymphocytes # (1.0-4.8) k/uL PT (9.0-12.0) sec INR (<1.2) Sodium (137-145) mmol/L Glucose (74-99) mg/dL POC Glucose (mg/dL) 251 H 284 H (75-99) mg/dL Plasma Lactic Acid Eduard 3.3 H* (0.7-2.0) mmol/L Calcium (8.4-10.2) mg/dL 04/18/20 04/18/20 04/18/20 Range/Units 02:55 03:23 03:23 WBC 15.7 H (3.8-10.6) k/uL RBC 3.33 L (4.30-5.90) m/uL Hgb 10.2 L (13.0-17.5) gm/dL Hct 28.9 L (39.0-53.0) % Plt Count 123 L (150-450) k/uL Neutrophils # 14.6 H (1.3-7.7) k/uL Lymphocytes # 0.7 L (1.0-4.8) k/uL PT (9.0-12.0) sec INR (<1.2) Sodium 131 L (137-145) mmol/L Glucose 281 H (74-99) mg/dL POC Glucose (mg/dL) 305 H (75-99) mg/dL Plasma Lactic Acid Eduard (0.7-2.0) mmol/L Calcium 8.0 L (8.4-10.2) mg/dL 04/18/20 04/18/20 04/18/20 Range/Units 03:23 03:23 03:52 WBC (3.8-10.6) k/uL RBC (4.30-5.90) m/uL Hgb (13.0-17.5) gm/dL Hct (39.0-53.0) % Plt Count (150-450) k/uL Neutrophils # (1.3-7.7) k/uL Lymphocytes # (1.0-4.8) k/uL PT 20.9 H (9.0-12.0) sec INR 2.1 H (<1.2) Sodium (137-145) mmol/L Glucose (74-99) mg/dL POC Glucose (mg/dL) 284 H (75-99) mg/dL Plasma Lactic Acid Eduard 2.4 H* (0.7-2.0) mmol/L Calcium (8.4-10.2) mg/dL 04/18/20 04/18/20 04/18/20 Range/Units 05:10 05:54 07:03 WBC (3.8-10.6) k/uL RBC (4.30-5.90) m/uL Hgb (13.0-17.5) gm/dL Hct (39.0-53.0) % Plt Count (150-450) k/uL Neutrophils # (1.3-7.7) k/uL Lymphocytes # (1.0-4.8) k/uL PT (9.0-12.0) sec INR (<1.2) Sodium (137-145) mmol/L Glucose (74-99) mg/dL POC Glucose (mg/dL) 244 H 232 H (75-99) mg/dL Plasma Lactic Acid Eduard 3.5 H* (0.7-2.0) mmol/L Calcium (8.4-10.2) mg/dL 04/18/20 04/18/20 04/18/20 Range/Units 07:05 09:13 09:57 WBC (3.8-10.6) k/uL RBC (4.30-5.90) m/uL Hgb (13.0-17.5) gm/dL Hct (39.0-53.0) % Plt Count (150-450) k/uL Neutrophils # (1.3-7.7) k/uL Lymphocytes # (1.0-4.8) k/uL PT (9.0-12.0) sec INR (<1.2) Sodium (137-145) mmol/L Glucose (74-99) mg/dL POC Glucose (mg/dL) 172 H 123 H 131 H (75-99) mg/dL Plasma Lactic Acid Eduard (0.7-2.0) mmol/L Calcium (8.4-10.2) mg/dL 04/18/20 Range/Units 10:47 WBC (3.8-10.6) k/uL RBC (4.30-5.90) m/uL Hgb (13.0-17.5) gm/dL Hct (39.0-53.0) % Plt Count (150-450) k/uL Neutrophils # (1.3-7.7) k/uL Lymphocytes # (1.0-4.8) k/uL PT (9.0-12.0) sec INR (<1.2) Sodium (137-145) mmol/L Glucose (74-99) mg/dL POC Glucose (mg/dL) (75-99) mg/dL Plasma Lactic Acid Eduard 3.8 H* (0.7-2.0) mmol/L Calcium (8.4-10.2) mg/dL Microbiology - Last 24 Hours (Table) 04/17/20 02:30 Blood Culture - Preliminary Blood No Growth after 24 hours
[2020-04-18 11:48] LABS: Glucose,Whole Blood 233 mg/dL (75-99)
[2020-04-18] MEDS: INSULIN ASPART (NovoLOG) 100 UNIT/ML VIAL SQ SCH ×4 (11:51→22:23)
--- NOTE | 2020-04-18 12:42 | XR ---
EXAMINATION TYPE: XR chest 1V DATE OF EXAM: 04/18/2020 COMPARISON: 04/17/2020 INDICATION: Shortness of breath TECHNIQUE: Single frontal view of the chest is obtained. FINDINGS: The heart size is normal. Sternotomy wires are in the midline The pulmonary vasculature is normal. The lungs are clear. IMPRESSION: 1. No acute pulmonary process.
[2020-04-18 14:05] LABS: Hemoglobin A1C 7.5 % (4.0-6.0)
--- NOTE | 2020-04-18 15:58 | ECHOF ---
Referral Reason:possible heart failure, EF MEASUREMENTS -------- HEIGHT: 182.9 cm WEIGHT: 137.0 kg BP: RVIDd: 3.1 cm (< 3.3) IVSd: 1.0 cm (0.6 - 1.1) LVIDd: 5.2 cm (3.9 - 5.3) LVPWd: 1.2 cm (0.6 - 1.1) IVSs: 1.6 cm LVIDs: 3.9 cm LVPWs: 1.4 cm Ao Diam: 3.0 cm (2.0 - 3.7) LA Diam: 4.4 cm (2.7 - 3.8) MV EXCURSION: 20.155 mm (> 18.000) MV EF SLOPE: 110 mm/s (70 - 150) EPSS: 0.3 cm AV maxP.48 mmHg AV meanP.64 mmHg RAP: 5.00 mmHg RVSP: 44.14 mmHg FINDINGS -------- Sinus rhythm. Morbid Obesity This was a techncally difficult study with suboptimal views, , Lumason utilized for enhancement of im ages. LV size, wall thickness and systolic function are normal, with an EF greater than 55%. The right ventricle is normal in size. The left atrium is markedly dilated. The right atrial size is normal. The aortic valve was not well visualized. The maximum velocity across the aortic valve is 2.98m/s. Peak/mean gradient across the Aortic Valve is 35.48mmHg / 20.64mmHg. Bioprosthetic valve. Mild mitral regurgitation is present. Mild tricuspid regurgitation present. There is mild pulmonary hypertension. The pulmonic valve was not well visualized. The aortic root size is normal. Echo free space represents a pericardial fat pad. CONCLUSIONS -------- 1. Morbid Obesity 2. This was a techncally difficult study with suboptimal views, , Lumason utilized for enhancement of images. 3. LV size, wall thickness and systolic function are normal, with an EF greater than 55%. 4. The right ventricle is normal in size. 5. The left atrium is markedly dilated. 6. The right atrial size is normal. 7. The aortic valve was not well visualized. 8. The maximum velocity across the aortic valve is 2.98m/s. 9. Peak/mean gradient across the Aortic Valve is 35.48mmHg / 20.64mmHg. 10. Bioprosthetic valve. 11. Mild mitral regurgitation is present. 12. Mild tricuspid regurgitation present. 13. There is mild pulmonary hypertension. 14. The pulmonic valve was not well visualized. 15. The aortic root size is normal. 16. Echo free space represents a pericardial fat pad. MEDIA ANALYST: Marry Roy RDCS
[2020-04-18] MEDS: WARFARIN 5 MG TAB PO SCH (16:06)
--- NOTE | 2020-04-18 16:34 | P.PN ---
Subjective HISTORY OF PRESENTING ILLNESS Patient is a pleasant 65-year-old male with a history of ascending aortic dissection status post Bentyl repair, complicated by stroke in 2017 with left- sided hemiplegia who resides at [facility]. Additionally has a history of paroxysmal atrial fibrillation, hypertension, diabetes mellitus type 2, hyperlipidemia. He presented yesterday secondary to episodes of nausea and vomiting and shortness breath. After presenting to the hospital he did have altered mental status and apparent loss of consciousness however no notes of any arrhythmias or loss of pulse. He apparently continued to be somewhat altered until this morning. He denies any chest pain or pressure. Currently his breathing is close to back to normal. He was reported to be positive for influenza A. He has noted lactic acidosis and initially on presentation he had hyponatremia. He has been given copious amounts of IV fluids. His at bedside admits that he is somewhat more edematous than normal. He has been taking Coumadin for his atrial fibrillation with a fear of taking a NOAC secondary to patient having a bioprosthetic valve. Lactic acid remains mildly elevated at 2.4. PHYSICAL EXAMINATION Blood pressure 106/59 heart rate 103 afebrile and maintaining oxygen saturation on 2 L nasal cannula. CONSTITUTIONAL: No apparent distress. Left hemiparesis HEENT: Head is normocephalic. Pupils are equal, round. Sclerae anicteric. Mucous membranes of the mouth are moist. No JVD. No carotid bruit. CHEST EXAMINATION: Lungs are clear to auscultation. No chest wall tenderness is noted on palpation or with deep breathing. HEART EXAMINATION: Regular rate and rhythm. S1, S2 heard. No murmurs, gallops or rub. ABDOMEN: Soft, nontender. Positive bowel sounds. EXTREMITIES: 2+ peripheral pulses, no lower extremity edema and no calf tenderne ss. NEUROLOGIC EXAMINATION: Patient is awake, alert. Left hemiparesis ASSESSMENT 1. Sepsis related to influenza A 2. Paroxysmal atrial fibrillation, currently sinus tachycardia likely related to sepsis 3. Acute hypoxic respiratory failure, likely mainly related to influenza A however patient has been receiving a large amount of IV fluids. May be additional component of volume overload 4. History of Type A aortic dissection status post repair with right MCA stroke resultant from the procedure 5. Lactic acidosis 6. History of bioprosthetic aortic valve replacement during his aortic diss ection repair 7. Essential hypertension on home Lasix 40 mg daily, lisinopril 10 mg twice a day and metoprolol 50 mg twice a day 8. Hyperlipidemia PLAN We did repeat a 2-D echo which showed ejection fraction greater than 55%, bioprosthetic valve without significant stenosis or insufficiency with a mean gradient of 20 mmHg. Patient sinus tachycardia likely reactive from sepsis. We will stop his Cardizem drip and place him back on his home metoprolol. Continue to hold his home lisinopril while he has his lactic acidosis. Agree with limiting fluids and dose of IV Lasix. Continue with supportive care. We discussed possible NOAC as however this may be initiated as an outpt. Objective - Vital Signs Vital signs: Vital Signs Temp 98.6 F 04/18/20 16:00 Pulse 103 H 04/18/20 16:00 Resp 16 04/18/20 16:00 BP 106/59 04/18/20 16:00 Pulse Ox 95 04/18/20 16:00 Intake & Output 04/17/20 04/18/20 04/18/20 18:59 06:59 18:59 Intake Total 4095.034 1487.422 674.022 Output Total 2118 547 8291 Balance 2910.034 907.422 -380.978 Weight 124.738 kg 137 kg Intake: IV 3750 1300 650 Azithromycin 500 mg In 250 Sodium Chloride 0.9% 250 ml @ 250 mls/hr IVPB Q24H [facility] Rx#:[id number] Piperacillin-Tazobactam 3 300 100 .375 gm In Sodium Chloride 0.9% 100 ml @ 200 mls/hr IVPB ONCE [facility] Rx#:[id number] Piperacillin-Tazobactam 3 100 .375 gm In Sodium Chloride 0.9% 100 ml @ 25 mls/hr IVPB Q8H [facility] Rx#: [id number] Sodium Chloride 0.9% 1, 1100 1200 550 000 ml @ 50 mls/hr IV . Q20H [facility] Rx#:[id number] Sodium Chloride 0.9% 1, 1000 000 ml @ 999 mls/hr IV . Q1H1M [facility] Rx#:[id number] Sodium Chloride 0.9% 1, 1000 000 ml @ 999 mls/hr IV . Q1H1M [facility] Rx#:[id number] levETIRAcetam IV 750 mg 100 In Sodium Chloride 0.9% 100 ml @ 400 mls/hr IVPB Q12HR [facility] Rx#:[id number] Intake, IV Titration 345.034 187.422 24.022 Amount Diltiazem 125 mg In 14.417 Sodium Chloride 0.9% 100 ml @ 5 MG/HR 5 mls/hr IV .Q24H [facility] Rx#:[id number] Insulin Regular 100 unit 230.617 187.422 24.022 In Sodium Chloride 0.9% 100 ml @ Per Protocol IV .Q0M [facility] Rx#:[id number] Piperacillin-Tazobactam 3 100 .375 gm In Sodium Chloride 0.9% 100 ml @ 25 mls/hr IVPB Q8H [facility] Rx#: [id number] Output: Urine 0826 307 5573 Other: Voiding Method Indwelling Catheter Indwelling Catheter Indwelling Catheter # Bowel Movements 2 - Labs CBC & Chem 7: 04/18/20 03:23 04/18/20 03:23 Labs: Abnormal Lab Results - Last 24 Hours (Table) 04/17/20 04/17/20 04/17/20 Range/Units 16:56 17:57 18:19 WBC (3.8-10.6) k/uL RBC (4.30-5.90) m/uL Hgb (13.0-17.5) gm/dL Hct (39.0-53.0) % Plt Count (150-450) k/uL Neutrophils # (1.3-7.7) k/uL Lymphocytes # (1.0-4.8) k/uL PT (9.0-12.0) sec INR (<1.2) Sodium (137-145) mmol/L Glucose (74-99) mg/dL POC Glucose (mg/dL) 313 H 284 H 285 H (75-99) mg/dL Hemoglobin A1c (4.0-6.0) % Plasma Lactic Acid Eduard (0.7-2.0) mmol/L Calcium (8.4-10.2) mg/dL 04/17/20 04/17/20 04/17/20 Range/Units 18:21 20:27 21:07 WBC (3.8-10.6) k/uL RBC (4.30-5.90) m/uL Hgb (13.0-17.5) gm/dL Hct (39.0-53.0) % Plt Count (150-450) k/uL Neutrophils # (1.3-7.7) k/uL Lymphocytes # (1.0-4.8) k/uL PT (9.0-12.0) sec INR (<1.2) Sodium (137-145) mmol/L Glucose (74-99) mg/dL POC Glucose (mg/dL) 224 H (75-99) mg/dL Hemoglobin A1c (4.0-6.0) % Plasma Lactic Acid Eduard 4.3 H* 3.5 H* (0.7-2.0) mmol/L Calcium (8.4-10.2) mg/dL 04/17/20 04/17/20 04/17/20 Range/Units 21:50 22:51 23:54 WBC (3.8-10.6) k/uL RBC (4.30-5.90) m/uL Hgb (13.0-17.5) gm/dL Hct (39.0-53.0) % Plt Count (150-450) k/uL Neutrophils # (1.3-7.7) k/uL Lymphocytes # (1.0-4.8) k/uL PT (9.0-12.0) sec INR (<1.2) Sodium (137-145) mmol/L Glucose (74-99) mg/dL POC Glucose (mg/dL) 201 H 223 H 251 H (75-99) mg/dL Hemoglobin A1c (4.0-6.0) % Plasma Lactic Acid Eduard (0.7-2.0) mmol/L Calcium (8.4-10.2) mg/dL 04/18/20 04/18/20 04/18/20 Range/Units 00:02 00:55 02:55 WBC (3.8-10.6) k/uL RBC (4.30-5.90) m/uL Hgb (13.0-17.5) gm/dL Hct (39.0-53.0) % Plt Count (150-450) k/uL Neutrophils # (1.3-7.7) k/uL Lymphocytes # (1.0-4.8) k/uL PT (9.0-12.0) sec INR (<1.2) Sodium (137-145) mmol/L Glucose (74-99) mg/dL POC Glucose (mg/dL) 284 H 305 H (75-99) mg/dL Hemoglobin A1c (4.0-6.0) % Plasma Lactic Acid Eduard 3.3 H* (0.7-2.0) mmol/L Calcium (8.4-10.2) mg/dL 04/18/20 04/18/20 04/18/20 Range/Units 03:23 03:23 03:23 WBC 15.7 H (3.8-10.6) k/uL RBC 3.33 L (4.30-5.90) m/uL Hgb 10.2 L (13.0-17.5) gm/dL Hct 28.9 L (39.0-53.0) % Plt Count 123 L (150-450) k/uL Neutrophils # 14.6 H (1.3-7.7) k/uL Lymphocytes # 0.7 L (1.0-4.8) k/uL PT (9.0-12.0) sec INR (<1.2) Sodium 131 L (137-145) mmol/L Glucose 281 H (74-99) mg/dL POC Glucose (mg/dL) (75-99) mg/dL Hemoglobin A1c 7.5 H (4.0-6.0) % Plasma Lactic Acid Eduard (0.7-2.0) mmol/L Calcium 8.0 L (8.4-10.2) mg/dL 04/18/20 04/18/20 04/18/20 Range/Units 03:23 03:23 03:52 WBC (3.8-10.6) k/uL RBC (4.30-5.90) m/uL Hgb (13.0-17.5) gm/dL Hct (39.0-53.0) % Plt Count (150-450) k/uL Neutrophils # (1.3-7.7) k/uL Lymphocytes # (1.0-4.8) k/uL PT 20.9 H (9.0-12.0) sec INR 2.1 H (<1.2) Sodium (137-145) mmol/L Glucose (74-99) mg/dL POC Glucose (mg/dL) 284 H (75-99) mg/dL Hemoglobin A1c (4.0-6.0) % Plasma Lactic Acid Eduard 2.4 H* (0.7-2.0) mmol/L Calcium (8.4-10.2) mg/dL 04/18/20 04/18/20 04/18/20 Range/Units 05:10 05:54 07:03 WBC (3.8-10.6) k/uL RBC (4.30-5.90) m/uL Hgb (13.0-17.5) gm/dL Hct (39.0-53.0) % Plt Count (150-450) k/uL Neutrophils # (1.3-7.7) k/uL Lymphocytes # (1.0-4.8) k/uL PT (9.0-12.0) sec INR (<1.2) Sodium (137-145) mmol/L Glucose (74-99) mg/dL POC Glucose (mg/dL) 244 H 232 H (75-99) mg/dL Hemoglobin A1c (4.0-6.0) % Plasma Lactic Acid Eduard 3.5 H* (0.7-2.0) mmol/L Calcium (8.4-10.2) mg/dL 04/18/20 04/18/20 04/18/20 Range/Units 07:05 09:13 09:57 WBC (3.8-10.6) k/uL RBC (4.30-5.90) m/uL Hgb (13.0-17.5) gm/dL Hct (39.0-53.0) % Plt Count (150-450) k/uL Neutrophils # (1.3-7.7) k/uL Lymphocytes # (1.0-4.8) k/uL PT (9.0-12.0) sec INR (<1.2) Sodium (137-145) mmol/L Glucose (74-99) mg/dL POC Glucose (mg/dL) 172 H 123 H 131 H (75-99) mg/dL Hemoglobin A1c (4.0-6.0) % Plasma Lactic Acid Eduard (0.7-2.0) mmol/L Calcium (8.4-10.2) mg/dL 04/18/20 04/18/20 04/18/20 Range/Units 10:47 11:47 14:16 WBC (3.8-10.6) k/uL RBC (4.30-5.90) m/uL Hgb (13.0-17.5) gm/dL Hct (39.0-53.0) % Plt Count (150-450) k/uL Neutrophils # (1.3-7.7) k/uL Lymphocytes # (1.0-4.8) k/uL PT (9.0-12.0) sec INR (<1.2) Sodium (137-145) mmol/L Glucose (74-99) mg/dL POC Glucose (mg/dL) 233 H (75-99) mg/dL Hemoglobin A1c (4.0-6.0) % Plasma Lactic Acid Eduard 3.8 H* 3.3 H* (0.7-2.0) mmol/L Calcium (8.4-10.2) mg/dL Microbiology - Last 24 Hours (Table) 04/17/20 02:30 Blood Culture - Preliminary Blood No Growth after 24 hours
[2020-04-18 17:09] LABS: Glucose,Whole Blood 323 mg/dL (75-99)
[2020-04-18 20:42] LABS: Glucose,Whole Blood 382 mg/dL (75-99)
[2020-04-18] MEDS ORDERED: INSULIN DETEMIR (LEVEMIR) 100 UNIT/ML SYR SQ SCH (21:00)
[2020-04-18] MEDS: METOPROLOL TARTRATE 50 MG TAB PO SCH (21:48)
[2020-04-18] MEDS: ATORVASTATIN 20 MG TAB PO SCH (21:48)
[2020-04-18] MEDS: INSULIN DETEMIR (LEVEMIR) 100 UNIT/ML SYR SQ SCH (21:48)
[2020-04-18] MEDS ORDERED: INSULIN ASPART (NovoLOG) 100 UNIT/ML VIAL SQ ONE (22:11)
--- NOTE | 2020-04-18 22:44 | PN ---
PROGRESS NOTE DATE OF SERVICE: 04/18/2020 REASON FOR FOLLOWUP: Pneumonia and influenza. INTERVAL HISTORY: The patient is currently afebrile. The patient is more awake and alert. The patient is breathing comfortably the patient denies having any chest pain. Minimal cough. No nausea, no vomiting. No abdominal pain or diarrhea. PHYSICAL EXAMINATION: Blood pressure 166/59 with pulse of 95, temperature 98.3. He is 95% on 2 L nasal cannula. General description is a middle-aged male lying in bed in no distress. Respiratory system: Unlabored breathing, decreased breath sounds at the base. No wheeze or crackle. Heart S1, S2. Regular rate and rhythm. Abdomen soft, no tenderness. Extremities: No edema of the feet. LABS: Hemoglobin is 10.1, white count 15.7, BUN of 14, creatinine 1.0. DIAGNOSTIC IMPRESSION AND PLAN: Patient admitted to the hospital with weakness, unresponsiveness in this patient with concern for possible aspiration pneumonia and was treated with Zosyn. Also have influenza. However, the chest x-ray done this morning was negative for any acute infiltrate. The patient is currently covered with Tamiflu and Zithromax to continue. We will discontinue Zosyn and monitor the patient close and continue supportive care. MMODL / IJN: [id number] /
[2020-04-19] MEDS: HYDROCORTISONE SUCCINATE 100 MG/2 ML VIAL IV SCH ×2 (00:15→07:49)
[2020-04-19] MEDS: IPRATROPIUM-ALBUTEROL 3 ML NEB INHALATION SCH ×5 (00:20→19:35)
[2020-04-19] MEDS: AZITHROMYCIN 500 MG in SODIUM CHLORIDE 0.9% 250 ML IVPB SCH (05:19)
[2020-04-19 07:05] LABS: Glucose,Whole Blood 297 mg/dL (75-99)
[2020-04-19] MEDS: INSULIN ASPART (NovoLOG) 100 UNIT/ML VIAL SQ SCH ×7 (07:08→22:36)
[2020-04-19 07:46] LABS: Basophils % (A) 0 %; Eosinophils # (A) 0.1 k/uL (0-0.7); Eosinophils % (A) 1 %; HCT 31.3 % (39.0-53.0); HGB 10.4 gm/dL (13.0-17.5); Lymphocytes % (A) 5 %; MCH 29.5 pg (25.0-35.0); MCHC 33.4 g/dL (31.0-37.0); MCV 88.3 fL (80.0-100.0); Mean Platelet Volume 7.4; Monocytes # (A) 0.6 k/uL (0-1.0); Monocytes % (A) 3 %; Neutrophils # (A) 16.5 k/uL (1.3-7.7); Neutrophils % (A) 90 %; Platelet Count 178 k/uL (150-450); RBC 3.54 m/uL (4.30-5.90); WBC 18.3 k/uL (3.8-10.6)
[2020-04-19] MEDS: OSELTAMIVIR 75 MG CAP PO SCH ×2 (07:49→22:36)
[2020-04-19] MEDS: METOPROLOL TARTRATE 50 MG TAB PO SCH ×2 (07:49→22:35)
[2020-04-19] MEDS: PANTOPRAZOLE 40 MG/10 ML VIAL IVP SCH (07:49)
[2020-04-19] MEDS: levETIRAcetam 500 MG TAB PO SCH ×2 (07:49→22:36)
[2020-04-19 07:57] LABS: Calcium 8.4 mg/dL (8.4-10.2); Potassium 4.7 mmol/L (3.5-5.1)
--- NOTE | 2020-04-19 08:00 | XR ---
EXAMINATION TYPE: XR chest 1V DATE OF EXAM: 04/19/2020 COMPARISON: 04/18/2020 INDICATION: Short of breath, cough TECHNIQUE: Single frontal view of the chest is obtained. FINDINGS: The heart size is normal. The pulmonary vasculature is normal. Small infiltrate is in the left lower lung field. Milder scattered nonspecific infiltrate is present bilaterally. IMPRESSION: 1. Scattered nonspecific infiltrates greatest at the left base. Correlate for subsegmental atelectasi s and atypical pneumonia.
[2020-04-19 08:11] LABS: INR 2.7 (<1.2); Prothrombin Time 26.1 sec (9.0-12.0)
--- NOTE | 2020-04-19 10:01 | P.PN ---
Subjective Progress Note Date: 04/19/20 HISTORY OF PRESENT ILLNESS This is a 65-year-old male patient of Dr. Toney with past medical history significant for left hemiplegia secondary to extensive right MCA throm bolytic bleed from July 2016, complicated by aortic root dissection, bioprosthetic aortic valve replacement and extensive aortic sleeve graft down to the mesenteric vessels, seizure disorder, paroxysmal atrial fibrillation, diabetes mellitus type 2, hyperlipidemia. History of trach and PEG tube pl acement and removal secondary to prolonged respiratory failure, paralyzed vocal cord, remote history of tobacco use, chronic pain syndrome, stage II coccyx decubitus ulcer. Patient currently resides at [facility] as a long-term resident. Patient developed shortness of breath that progressively worsened and hypoxia. He tested positive for influenza A at the skilled nursing. Patient was transferred to [facility] emergency center for evaluation and treatment. Temperature 101.1, heart rate 127, blood pressure 171/94, pulse ox 97% on 4 L nasal cannula. WBC 17.1, hemoglobin 12.2. INR 1.5. Sodium 127, creatinine 0.77. Blood sugar initially 307 but ran in the greater than 500s and 400s during the night. Lactic acid 2.8 currently at 4.9. Magnesium 1.4. Total bilirubin 1.6. CK 323. C-reactive protein 89.4. COVID-19 not detected. Chest x-ray reveals low lung volumes with patchy bilateral lung opacities. Correlate clinically regarding infection or edema. EKG is sinus tachycardia. Patient had received 2 doses of Tamiflu at the skilled nursing but currently unresponsive and unable to take oral medications. Patient received morphine 2 mg in the emergency center and was subsequently Narcan without improvement of his mental status 04/18: Patient is regained consciousness. He is back to his baseline. He has left-sided hemiplegia. He is able to answer questions and is quite comfortable in bed. At this time is hemodynamically stable and afebrile. She was positive for influenza and currently on Tamiflu which we will continue. EEG of the brain showed some rare sharp and slow waves over the frontal area neurology restarted the patient on Keppra. CAT scan of the brain shows evidence of a previous stroke. 04/19: Patient found resting comfortable in bed and to assess. He has been transferred out of the intensive care unit. Patient is alert and able to answer questions appropriately. He is on prednisone 5 mg at home and unsure of what the reasoning is. We will start prednisone 40 mg by mouth daily burst taper. Patient remains afebrile. Pulse ox 99% on 2 L via nasal cannula, blood pressure 144/70, heart rate is 81, respirations 18. Blood cultures remain negative. Patient has resumed his warfarin. REVIEW OF SYSTEMS Constitutional: No fever, no chills, no night sweats. No weight change. No weakness, fatigue or lethargy. No daytime sleepiness. EENT: No headache. No blurred vision or double vision, no loss of vision. No loss of Hearing, no ringing in the ears, no dizziness. No nasal drainage or congestion. No epistaxis. No sore throat. Lungs: No shortness of breath, cough, no sputum production. No wheezing. Cardiovascular: No chest pain, no lower extremity edema. No palpitations. No paroxysmal nocturnal dyspnea. No orthopnea. No lightheadedness or dizziness. No syncopal episodes. Abdominal: no abdominal discomfort. No nausea, vomiting. no diarrhea. No constipation. No bloody or tarry stools. no loss of appetite. Genitourinary: No dysuria, increased frequency, urgency. No urinary retention. Musculoskeletal: No myalgias. No muscle weakness, no gait dysfunction, no frequent falls. No back pain. No neck pain. Integumentary: Reports wounds, no lesions. No rash or pruritus. No unusual bruising. No change in hair or nails. Neurologic: No aphasia. No facial droop. No change in mentation. No head injury. No headache. No paralysis. No paresthesia. Reports left sided hemiplegia Psychiatric: No depression. No anxiety. No mood swings. Endocrine: No abnormal blood sugars. No weight change. No excessive sweating or thirst. PHYSICAL EXAMINATION Gen: This is a 65-year-old obese male, . He is resting in the ICU bed. No acute respiratory distress is noted. Alert and responsive HEENT: Head is atraumatic, normocephalic. Pupils equal, round. Sclerae is anicteric. NECK: Supple. No JVD. No lymphadenopathy. No thyromegaly. LUNGS: Diminished bilaterally. No wheezes or rhonchi. No intercostal retractions. No accessory muscle usage. HEART: Regular rate and rhythm. No murmur. ABDOMEN: Soft. Bowel sounds are present. No masses. No tenderness. EXTREMITIES: Bilateral lower and upper extremity edema. No calf tenderness. NEUROLOGICAL: known history of left-sided hemiplegia, alert and oriented 3, able to answer questions appropriately. Able to follow commands. Facial asymmetry which is chronic. Pupils are reactive unable to follow to the right. ASSESSMENT AND PLAN 1. Sepsis and lactic acidosis secondary to influenza a, rule out bacterial pneumonia. Blood culture, urine culture area patient is currently on Zosyn, azithromycin. Patient is on stress dose of Solu-Cortef 50 g IV every 8 hours. Tamiflu to be restarted for total of 10 doses. Patient has received 2 doses of Tamiflu at the skilled nursing. Consults with pulmonary medicine and infectious disease appreciated. 2. Acute hypoxic respiratory failure. Consult with pulmonary medicine appreciated. Continue oxygen therapy, DuoNeb treatments 4 times daily and Ventolin as needed. One dose of IV Lasix 40 mg. discontinue IV fluids. 3. Metabolic encephalopathy secondary to sepsis, rule out CVA. CAT scan of the brain noted above, EEG noted above, neurology consult appreciated. Patient is status post Narcan without improvement of mental status. 4. History of right MCA CVA with left hemiplegia, July 2016. Coumadin resumed. Lipitor currently on hold. 5. Hyponatremia. Hold Lasix. Patient is status post fluids. 6. Bioprosthetic aortic valve replacement and extensive aortic sleeve graft. Continue Coumadin. 7. Sinus tachycardia secondary to sepsis. Patient was started on Cardizem drip in the emergency center. 8. Paroxysmal atrial fibrillation. Coumadin currently on hold. Patient no rmally on Lopressor 50 mg twice daily. Cardiology consult. 9. Diabetes mellitus type 2 insulin requiring, uncontrolled with hyperglycemia. Insulin drip DC'd we will continue with sliding scale and Levemir 5 units at bedtime. 10. Stage II decubitus ulcer, present on admission. Local wound care. 11. Seizure disorder. Keppra 750 mg twice daily. 12. Chronic pain syndrome. [place] is on hold. Patient received 1 dose of morphine and subsequently Narcan. 13. Questionable adrenal insufficiency. We will start patient on 40 mg of prednisone. 14. GI prophylaxis. Protonix 40 mg IV daily 15. DVT prophylaxis. CT results noted above. Restart Coumadin to home dose. Patient will be admitted to the hospital for a minimum of 2 night stay. CODE STATUS: Full code DISCHARGE PLAN Return to [facility]. Impression and plan of care have been directed as dictated by the signing physician. Aparna Brenner nurse practitioner acting as scribe for signing physician. Objective - Vital Signs Vital signs: Vital Signs Temp 99.3 F 04/19/20 08:00 Pulse 100 04/19/20 09:39 Resp 18 04/19/20 08:00 BP 144/70 04/19/20 08:00 Pulse Ox 96 04/19/20 08:00 Intake & Output 04/18/20 04/19/20 04/19/20 18:59 06:59 18:59 Intake Total 674.022 540 236 Output Total 1055 505 Balance -380.978 35 236 Weight 137 kg Intake: IV 650 Piperacillin-Tazobactam 3 100 .375 gm In Sodium Chloride 0.9% 100 ml @ 25 mls/hr IVPB Q8H [facility] Rx#: [id number] Sodium Chloride 0.9% 1, 550 000 ml @ 50 mls/hr IV . Q20H [facility] Rx#:[id number] Intake, IV Titration 24.022 Amount Insulin Regular 100 unit 24.022 In Sodium Chloride 0.9% 100 ml @ Per Protocol IV .Q0M [facility] Rx#:[id number] Oral 540 236 Output: Urine 1055 505 Other: Voiding Method Indwelling Catheter Indwelling Catheter Indwelling Catheter # Bowel Movements 1 - Labs CBC & Chem 7: 04/19/20 07:42 04/19/20 07:21 Labs: Abnormal Lab Results - Last 24 Hours (Table) 04/18/20 04/18/20 04/18/20 Range/Units 03:23 10:47 11:47 WBC (3.8-10.6) k/uL RBC (4.30-5.90) m/uL Hgb (13.0-17.5) gm/dL Hct (39.0-53.0) % Neutrophils # (1.3-7.7) k/uL PT (9.0-12.0) sec INR (<1.2) Sodium (137-145) mmol/L Chloride (98-107) mmol/L Carbon Dioxide (22-30) mmol/L BUN (9-20) mg/dL Glucose (74-99) mg/dL POC Glucose (mg/dL) 233 H (75-99) mg/dL Hemoglobin A1c 7.5 H (4.0-6.0) % Plasma Lactic Acid Eduard 3.8 H* (0.7-2.0) mmol/L 04/18/20 04/18/20 04/18/20 Range/Units 14:16 17:08 20:18 WBC (3.8-10.6) k/uL RBC (4.30-5.90) m/uL Hgb (13.0-17.5) gm/dL Hct (39.0-53.0) % Neutrophils # (1.3-7.7) k/uL PT (9.0-12.0) sec INR (<1.2) Sodium (137-145) mmol/L Chloride (98-107) mmol/L Carbon Dioxide (22-30) mmol/L BUN (9-20) mg/dL Glucose (74-99) mg/dL POC Glucose (mg/dL) 323 H 382 H (75-99) mg/dL Hemoglobin A1c (4.0-6.0) % Plasma Lactic Acid Eduard 3.3 H* (0.7-2.0) mmol/L 04/19/20 04/19/20 04/19/20 Range/Units 07:04 07:21 07:21 WBC (3.8-10.6) k/uL RBC (4.30-5.90) m/uL Hgb (13.0-17.5) gm/dL Hct (39.0-53.0) % Neutrophils # (1.3-7.7) k/uL PT 26.1 H (9.0-12.0) sec INR 2.7 H (<1.2) Sodium 134 L (137-145) mmol/L Chloride 108 H (98-107) mmol/L Carbon Dioxide 20 L (22-30) mmol/L BUN 21 H (9-20) mg/dL Glucose 305 H (74-99) mg/dL POC Glucose (mg/dL) 297 H (75-99) mg/dL Hemoglobin A1c (4.0-6.0) % Plasma Lactic Acid Eduard (0.7-2.0) mmol/L 04/19/20 Range/Units 07:42 WBC 18.3 H (3.8-10.6) k/uL RBC 3.54 L (4.30-5.90) m/uL Hgb 10.4 L (13.0-17.5) gm/dL Hct 31.3 L (39.0-53.0) % Neutrophils # 16.5 H (1.3-7.7) k/uL PT (9.0-12.0) sec INR (<1.2) Sodium (137-145) mmol/L Chloride (98-107) mmol/L Carbon Dioxide (22-30) mmol/L BUN (9-20) mg/dL Glucose (74-99) mg/dL POC Glucose (mg/dL) (75-99) mg/dL Hemoglobin A1c (4.0-6.0) % Plasma Lactic Acid Eduard (0.7-2.0) mmol/L Microbiology - Last 24 Hours (Table) 04/17/20 02:30 Blood Culture - Preliminary Blood No Growth after 48 hours
--- NOTE | 2020-04-19 10:06 | P.PN ---
Subjective Progress Note Date: 04/19/20 04/18/2020, the patient has regained his consciousness back. His back to his baseline. He doesn't have any black and this is obvious on examination. He also has left-sided hemiplegia. Nevertheless, he is able to answer questions and is quite comfortable in bed. Hemodynamically stable. He is afebrile. He is receiving normal saline at rate of 100 mL an hour. He is on insulin drip at 10 units an hour and the patient's blood sugars under much better control for now. Cultures of been all negative. The patient is being covered with a combination of Zosyn and vancomycin and Zithromax. Meanwhile, she is afebrile. CCP chest x-ray shows no evidence of pneumonia. His posture for influenza and he is currently on Tamiflu. He is INR is up to 2.0 which is therapeutic at this point in time. His EEG of the brain showed some rare sharp and slow waves over the frontal area and neurology restarted the patient on Keppra after being loaded... CAT scan of the brain evidence of old stroke. ] 04/19/2020, the patient is transferred out of the intensive care unit. The patient is a case of influenza infection. His coronavirus flesh-colored 19 evaluation came back negative. He was altered. He was septic looking. He was treated in the intensive care unit. He was given broad-spectrum antibiotics. He improved. His communicating and is answering questions appropriately for now. On today's evaluation, the patient is afebrile and his pulse ox is 99% on 2 L of oxygen by nasal cannula. His blood cultures came back negative. His white cell count of 18.3 and compared to yesterday. His slightly elevated from 15.7. The patient's hemoglobin is at 10.4. Renal function stable. INR is at 2.7 which is therapeutic at 1 as the patient is on long-term and to coagulation with warfarin. He is back to normal baseline. His antibiotic coverage includes a combination of Tamiflu and Zithromax. He is taking 5 mg of prednisone outpatient basis. He was started on his prednisone burst taper. He is back on his warfarin. Objective - Vital Signs Vital signs: Vital Signs Temp 99.3 F 04/19/20 08:00 Pulse 100 04/19/20 09:39 Resp 18 04/19/20 08:00 BP 144/70 04/19/20 08:00 Pulse Ox 96 04/19/20 08:00 Intake & Output 04/18/20 04/19/20 04/19/20 18:59 06:59 18:59 Intake Total 674.022 540 236 Output Total 1055 505 Balance -380.978 35 236 Weight 137 kg Intake: IV 650 Piperacillin-Tazobactam 3 100 .375 gm In Sodium Chloride 0.9% 100 ml @ 25 mls/hr IVPB Q8H [facility] Rx#: [id number] Sodium Chloride 0.9% 1, 550 000 ml @ 50 mls/hr IV . Q20H [facility] Rx#:[id number] Intake, IV Titration 24.022 Amount Insulin Regular 100 unit 24.022 In Sodium Chloride 0.9% 100 ml @ Per Protocol IV .Q0M [facility] Rx#:[id number] Oral 540 236 Output: Urine 1055 505 Other: Voiding Method Indwelling Catheter Indwelling Catheter Indwelling Catheter # Bowel Movements 1 - Exam Awake, alert, responsive He is currently on 2 L of oxygen by nasal cannula Head exam was generally normal. There was no scleral icterus or corneal arcus. Mucous membranes were moist. Neck was supple and without jugular venous distension, thyromegaly, or carotid bruits. Carotids were easily palpable bilaterally. There was no adenopathy. Lungs sounds are diminished bilaterally. Nose and is no wheezes or rhonchi. Cardiac exam revealed the PMI to be normally situated and sized. The rhythm was regular and no extrasystoles were noted during several minutes of auscultation. The first and second heart sounds were normal and physiologic splitting of the second heart sound was noted. There were no murmurs, rubs, clicks, or gallops.system of activity and intact. The patient undergone previous thoracotomy scar is dry. Abdominal exam revealed normal bowel sounds. The abdomen was soft, non-tender, and without masses, organomegaly, or appreciable enlargement of the abdominal aorta. Extremities reveal chronic edema in the left lower extremity compared to the right. No open wounds or sores. No cyanosis or clubbing. Adequate pulses in all 4 extremities. Examination of the skin revealed no evidence of significant rashes, suspicious appearing nevi or other concerning lesions. Neurologically, the patient has history of left-sided hemiplegia. There is some mild facial asymmetry which is chronic. Pupils are about 3 mm in size and they are slightly reactive. No nystagmus. No jerky body movements to suggest any seizure activity. He is nonverbal at this point in time. He is awake and he is watching television for now. He is back to his normal baseline. - Labs CBC & Chem 7: 04/19/20 07:42 04/19/20 07:21 Labs: Abnormal Lab Results - Last 24 Hours (Table) 04/18/20 04/18/20 04/18/20 Range/Units 03:23 09:57 10:47 WBC (3.8-10.6) k/uL RBC (4.30-5.90) m/uL Hgb (13.0-17.5) gm/dL Hct (39.0-53.0) % Neutrophils # (1.3-7.7) k/uL PT (9.0-12.0) sec INR (<1.2) Sodium (137-145) mmol/L Chloride (98-107) mmol/L Carbon Dioxide (22-30) mmol/L BUN (9-20) mg/dL Glucose (74-99) mg/dL POC Glucose (mg/dL) 131 H (75-99) mg/dL Hemoglobin A1c 7.5 H (4.0-6.0) % Plasma Lactic Acid Eduard 3.8 H* (0.7-2.0) mmol/L 04/18/20 04/18/20 04/18/20 Range/Units 11:47 14:16 17:08 WBC (3.8-10.6) k/uL RBC (4.30-5.90) m/uL Hgb (13.0-17.5) gm/dL Hct (39.0-53.0) % Neutrophils # (1.3-7.7) k/uL PT (9.0-12.0) sec INR (<1.2) Sodium (137-145) mmol/L Chloride (98-107) mmol/L Carbon Dioxide (22-30) mmol/L BUN (9-20) mg/dL Glucose (74-99) mg/dL POC Glucose (mg/dL) 233 H 323 H (75-99) mg/dL Hemoglobin A1c (4.0-6.0) % Plasma Lactic Acid Eduard 3.3 H* (0.7-2.0) mmol/L 04/18/20 04/19/20 04/19/20 Range/Units 20:18 07:04 07:21 WBC (3.8-10.6) k/uL RBC (4.30-5.90) m/uL Hgb (13.0-17.5) gm/dL Hct (39.0-53.0) % Neutrophils # (1.3-7.7) k/uL PT (9.0-12.0) sec INR (<1.2) Sodium 134 L (137-145) mmol/L Chloride 108 H (98-107) mmol/L Carbon Dioxide 20 L (22-30) mmol/L BUN 21 H (9-20) mg/dL Glucose 305 H (74-99) mg/dL POC Glucose (mg/dL) 382 H 297 H (75-99) mg/dL Hemoglobin A1c (4.0-6.0) % Plasma Lactic Acid Eduard (0.7-2.0) mmol/L 04/19/20 04/19/20 Range/Units 07:21 07:42 WBC 18.3 H (3.8-10.6) k/uL RBC 3.54 L (4.30-5.90) m/uL Hgb 10.4 L (13.0-17.5) gm/dL Hct 31.3 L (39.0-53.0) % Neutrophils # 16.5 H (1.3-7.7) k/uL PT 26.1 H (9.0-12.0) sec INR 2.7 H (<1.2) Sodium (137-145) mmol/L Chloride (98-107) mmol/L Carbon Dioxide (22-30) mmol/L BUN (9-20) mg/dL Glucose (74-99) mg/dL POC Glucose (mg/dL) (75-99) mg/dL Hemoglobin A1c (4.0-6.0) % Plasma Lactic Acid Eduard (0.7-2.0) mmol/L Microbiology - Last 24 Hours (Table) 04/17/20 02:30 Blood Culture - Preliminary Blood No Growth after 48 hours Assessment and Plan Plan: 1 acute mental status, recovered.. The exact cause is not clear. Consider metabolic encephalopathy. Consider underlying subclinical seizure activity. The patient is back on Keppra. Mental status improved. CAT scan of the brain showed old infarct. The EEG was consistent with encephalopathy. The presentation was most consistent with metabolic encephalopathy. No acute changes in his mental status improved and the patient is back to his baseline. 2 acute influenza A infection currently on Tamiflu 3 acute dyspnea with mild hypoxic respiratory failure currently on 2 L of oxygen by nasal cannula. The coronavirus/Covid 19 evaluation by PCR was negative on 2 separate occasions 4 acute febrile illness currently under investigation at the afebrile. The pro calcitonin level was at 0.18. Cultures of been all negative. 5 mild lactic acidosis and lactic acid level is at 13 is down to 2.4. 6 diabetes mellitus insulin dependence with for blood sugar control. The patient is currently on Levemir and NovoLog combination 7 irish.[email or web address] secondary to above, otherwise cell count is up 15 pounds from 17. 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 10 history of major depression 11 history of insertion and removal of tracheostomy and a PEG tube 12 stage II decubitus ulceration 13 history of vocal cord paralysis 14 diabetes mellitus type 2 15 hypertension 16 hyperlipidemia 17 care home resident Plan Monitor mental status, currently back to his baseline hydrocortisone was discontinued and the patient is currently on a prednisone burst taper insulin drip has been discontinued and the patient is currently on Levemir and NovoLog combination Insulin drip for blood sugar control currently running at 10 units an hour Kept on IV fluids to 50 hour Continue Tamiflu Improved, out of the intensive care unit for now.
[2020-04-19 12:01] LABS: Glucose,Whole Blood 293 mg/dL (75-99)
--- NOTE | 2020-04-19 12:10 | P.PN ---
Subjective HISTORY OF PRESENTING ILLNESS Patient is a pleasant 65-year-old male with a history of ascending aortic dissection status post Bentyl repair, complicated by stroke in 2017 with left- sided hemiplegia who resides at [facility]. Additionally has a history of paroxysmal atrial fibrillation, hypertension, diabetes mellitus type 2, hyperlipidemia. He presented yesterday secondary to episodes of nausea and vomiting and shortness breath. After presenting to the hospital he did have altered mental status and apparent loss of consciousness however no notes of any arrhythmias or loss of pulse. He apparently continued to be somewhat altered until this morning. He denies any chest pain or pressure. Currently his breathing is close to back to normal. He was reported to be positive for influenza A. He has noted lactic acidosis and initially on presentation he had hyponatremia. He has been given copious amounts of IV fluids. His at bedside admits that he is somewhat more edematous than normal. He has been taking Coumadin for his atrial fibrillation with a fear of taking a NOAC secondary to patient having a bioprosthetic valve. Lactic acid remains mildly elevated at 2.4. 04/19/2020 Pt seen and examined sitting up in bed in no acute distress. He states his breathing is slowly improving. He denies chest pain, dizziness or palpitations. Blood pressure 144/70 heart rate 100 afebrile maintaining oxygen saturation on nasal cannula. Laboratory data reviewed, WBC 18.3, hemoglobin 10.4, platelets 178, INR 2.7, sodium 134, potassium 4.7, creatinine 1.19. Currently maintained on atorvastatin 20 mg at that time, metoprolol 50 mg twice a day and Coumadin. PHYSICAL EXAMINATION CONSTITUTIONAL: No apparent distress. Left hemiparesis HEENT: Head is normocephalic. Pupils are equal, round. Sclerae anicteric. Mucous membranes of the mouth are moist. No JVD. No carotid bruit. CHEST EXAMINATION: Lungs are clear to auscultation. No chest wall tenderness is noted on palpation or with deep breathing. HEART EXAMINATION: Regular rate and rhythm. S1, S2 heard. No murmurs, gallops or rub. EXTREMITIES: 2+ peripheral pulses, no lower extremity edema and no calf tenderness. ASSESSMENT Sepsis related to influenza A Paroxysmal atrial fibrillation, currently sinus tachycardia likely related to sepsis Acute hypoxic respiratory failure, likely mainly related to influenza A however patient has been receiving a large amount of IV fluids. May be additional component of volume overload Leuckocytosis History of Type A aortic dissection status post repair with right MCA stroke resultant from the procedure Lactic acidosis History of bioprosthetic aortic valve replacement during his aortic dissection repair Essential hypertension on home Lasix 40 mg daily, lisinopril 10 mg twice a day and metoprolol 50 mg twice a day Hyperlipidemia PLAN Continue current medical management. We will follow along as needed, please call with further questions of concerns. Nurse Practitioner note has been reviewed, I agree with a documented findings and plan of care. Patient was seen and examined. Objective - Vital Signs Vital signs: Vital Signs Temp 99.3 F 04/19/20 08:00 Pulse 100 04/19/20 09:39 Resp 18 04/19/20 08:00 BP 144/70 04/19/20 08:00 Pulse Ox 96 04/19/20 08:00 Intake & Output 04/18/20 04/19/20 04/19/20 18:59 06:59 18:59 Intake Total 674.022 540 236 Output Total 1055 505 Balance -380.978 35 236 Weight 137 kg Intake: IV 650 Piperacillin-Tazobactam 3 100 .375 gm In Sodium Chloride 0.9% 100 ml @ 25 mls/hr IVPB Q8H [facility] Rx#: [id number] Sodium Chloride 0.9% 1, 550 000 ml @ 50 mls/hr IV . Q20H [facility] Rx#:[id number] Intake, IV Titration 24.022 Amount Insulin Regular 100 unit 24.022 In Sodium Chloride 0.9% 100 ml @ Per Protocol IV .Q0M DIANA Rx#:[id number] Oral 540 236 Output: Urine 1055 505 Other: Voiding Method Indwelling Catheter Indwelling Catheter Indwelling Catheter # Bowel Movements 1 - Labs CBC & Chem 7: 04/19/20 07:42 04/19/20 07:21 Labs: Abnormal Lab Results - Last 24 Hours (Table) 04/18/20 04/18/20 04/18/20 Range/Units 03:23 14:16 17:08 WBC (3.8-10.6) k/uL RBC (4.30-5.90) m/uL Hgb (13.0-17.5) gm/dL Hct (39.0-53.0) % Neutrophils # (1.3-7.7) k/uL PT (9.0-12.0) sec INR (<1.2) Sodium (137-145) mmol/L Chloride (98-107) mmol/L Carbon Dioxide (22-30) mmol/L BUN (9-20) mg/dL Glucose (74-99) mg/dL POC Glucose (mg/dL) 323 H (75-99) mg/dL Hemoglobin A1c 7.5 H (4.0-6.0) % Plasma Lactic Acid Eduard 3.3 H* (0.7-2.0) mmol/L 04/18/20 04/19/20 04/19/20 Range/Units 20:18 07:04 07:21 WBC (3.8-10.6) k/uL RBC (4.30-5.90) m/uL Hgb (13.0-17.5) gm/dL Hct (39.0-53.0) % Neutrophils # (1.3-7.7) k/uL PT (9.0-12.0) sec INR (<1.2) Sodium 134 L (137-145) mmol/L Chloride 108 H (98-107) mmol/L Carbon Dioxide 20 L (22-30) mmol/L BUN 21 H (9-20) mg/dL Glucose 305 H (74-99) mg/dL POC Glucose (mg/dL) 382 H 297 H (75-99) mg/dL Hemoglobin A1c (4.0-6.0) % Plasma Lactic Acid Eduard (0.7-2.0) mmol/L 04/19/20 04/19/20 04/19/20 Range/Units 07:21 07:42 12:00 WBC 18.3 H (3.8-10.6) k/uL RBC 3.54 L (4.30-5.90) m/uL Hgb 10.4 L (13.0-17.5) gm/dL Hct 31.3 L (39.0-53.0) % Neutrophils # 16.5 H (1.3-7.7) k/uL PT 26.1 H (9.0-12.0) sec INR 2.7 H (<1.2) Sodium (137-145) mmol/L Chloride (98-107) mmol/L Carbon Dioxide (22-30) mmol/L BUN (9-20) mg/dL Glucose (74-99) mg/dL POC Glucose (mg/dL) 293 H (75-99) mg/dL Hemoglobin A1c (4.0-6.0) % Plasma Lactic Acid Eduard (0.7-2.0) mmol/L Microbiology - Last 24 Hours (Table) 04/17/20 02:30 Blood Culture - Preliminary Blood No Growth after 48 hours
[2020-04-19] MEDS: SODIUM CHLORIDE 0.9% 1,000 ML IV SCH (13:19)
[2020-04-19 17:01] LABS: Glucose,Whole Blood 316 mg/dL (75-99)
--- NOTE | 2020-04-19 17:21 | P.PN ---
Subjective Progress Note Date: 04/19/20 The patient is seen in neurologic follow-up on April 19, 2020, via teleneurology. He reports feeling back to normal. He no longer feels confused. Objective - Vital Signs Vital signs: Vital Signs Temp 99.3 F 04/19/20 12:00 Pulse 98 04/19/20 13:35 Resp 18 04/19/20 12:00 BP 135/64 04/19/20 12:00 Pulse Ox 95 04/19/20 12:00 Intake & Output 04/18/20 04/19/20 04/19/20 18:59 06:59 18:59 Intake Total 674.022 540 236 Output Total 1055 505 Balance -380.978 35 236 Weight 137 kg Intake: IV 650 Piperacillin-Tazobactam 3 100 .375 gm In Sodium Chloride 0.9% 100 ml @ 25 mls/hr IVPB Q8H [facility]IA[facility] Rx#: [id number] Sodium Chloride 0.9% 1, 550 000 ml @ 50 mls/hr IV . Q20H DIANA Rx#:[id number] Intake, IV Titration 24.022 Amount Insulin Regular 100 unit 24.022 In Sodium Chloride 0.9% 100 ml @ Per Protocol IV .Q0M DIANA Rx#:[id number] Oral 540 236 Output: Urine 1055 505 Other: Voiding Method Indwelling Catheter Indwelling Catheter Indwelling Catheter # Bowel Movements 1 - Exam Gen.: Patient is seated in the bed. He is in no acute distress. HEENT: Head is atraumatic, normocephalic. Fundus not visualized. There is no scleral icterus. Mucous membranes are moist. Neurological examination Mental status: The patient is awake, alert and oriented 3. His speech is clear. There is no dysarthria or aphagia. He is aware of his reason for hospitalization. - Labs CBC & Chem 7: 04/19/20 07:42 04/19/20 07:21 Labs: Abnormal Lab Results - Last 24 Hours (Table) 04/18/20 04/18/20 04/18/20 Range/Units 14:16 17:08 20:18 WBC (3.8-10.6) k/uL RBC (4.30-5.90) m/uL Hgb (13.0-17.5) gm/dL Hct (39.0-53.0) % Neutrophils # (1.3-7.7) k/uL PT (9.0-12.0) sec INR (<1.2) Sodium (137-145) mmol/L Chloride (98-107) mmol/L Carbon Dioxide (22-30) mmol/L BUN (9-20) mg/dL Glucose (74-99) mg/dL POC Glucose (mg/dL) 323 H 382 H (75-99) mg/dL Plasma Lactic Acid Eduard 3.3 H* (0.7-2.0) mmol/L 04/19/20 04/19/20 04/19/20 Range/Units 07:04 07:21 07:21 WBC (3.8-10.6) k/uL RBC (4.30-5.90) m/uL Hgb (13.0-17.5) gm/dL Hct (39.0-53.0) % Neutrophils # (1.3-7.7) k/uL PT 26.1 H (9.0-12.0) sec INR 2.7 H (<1.2) Sodium 134 L (137-145) mmol/L Chloride 108 H (98-107) mmol/L Carbon Dioxide 20 L (22-30) mmol/L BUN 21 H (9-20) mg/dL Glucose 305 H (74-99) mg/dL POC Glucose (mg/dL) 297 H (75-99) mg/dL Plasma Lactic Acid Eduard (0.7-2.0) mmol/L 04/19/20 04/19/20 Range/Units 07:42 12:00 WBC 18.3 H (3.8-10.6) k/uL RBC 3.54 L (4.30-5.90) m/uL Hgb 10.4 L (13.0-17.5) gm/dL Hct 31.3 L (39.0-53.0) % Neutrophils # 16.5 H (1.3-7.7) k/uL PT (9.0-12.0) sec INR (<1.2) Sodium (137-145) mmol/L Chloride (98-107) mmol/L Carbon Dioxide (22-30) mmol/L BUN (9-20) mg/dL Glucose (74-99) mg/dL POC Glucose (mg/dL) 293 H (75-99) mg/dL Plasma Lactic Acid Eduard (0.7-2.0) mmol/L Microbiology - Last 24 Hours (Table) 04/17/20 02:30 Blood Culture - Preliminary Blood No Growth after 48 hours Assessment and Plan Assessment: 1. Toxic metabolic encephalopathy secondary to infection-resolved Plan: 1. Your care of medical issues 2. No further neurologic intervention is indicated at this time Thank you for allowing me to participate in the care of this patient Time with Patient: Less than 30 (spent 20 minutes with patient via teleneurology)
[2020-04-19] MEDS: WARFARIN 5 MG TAB PO SCH (17:37)
[2020-04-19 20:38] LABS: Glucose,Whole Blood 334 mg/dL (75-99)
[2020-04-19] MEDS: ATORVASTATIN 20 MG TAB PO SCH (22:35)
[2020-04-19] MEDS: INSULIN DETEMIR (LEVEMIR) 100 UNIT/ML SYR SQ SCH (22:36)
--- NOTE | 2020-04-20 02:18 | PN ---
PROGRESS NOTE DATE OF SERVICE: 04/19/2020 REASON FOR FOLLOWUP: Acute influenza. INTERVAL HISTORY: The patient is currently afebrile. The patient mentioned he is breathing comfortably. The patient denies having any chest pain, shortness of breath. Minimal cough. No sputum. No abdominal pain or diarrhea. PHYSICAL EXAMINATION: Blood pressure 144/77, pulse of 72, temperature 99.3. He is 93% on 2 L nasal cannula. General description is middle-aged male lying in bed in no distress. RESPIRATORY SYSTEM: Unlabored breathing with diminished breath sounds bilaterally. No wheeze. HEART: S1, S2. Regular rate and rhythm. ABDOMEN: Soft, no tenderness. LABS: Hemoglobin 10.4, white count 18.3. INR 2.7. Creatinine 1.19. DIAGNOSTIC IMPRESSION AND PLAN: Patient admitted to the hospital with weakness, shortness of breath in a patient diagnosed with acute influenza. There was initial concern for pneumonia. However, the chest x-ray done yesterday did not show clear, repeat x-ray showing some atypical features. The patient is currently covered with Tamiflu and Zithromax to continue along with respiratory support and monitor his clinical course closely. MMODL / IJN: [id number] /
[2020-04-20] MEDS: AZITHROMYCIN 500 MG in SODIUM CHLORIDE 0.9% 250 ML IVPB SCH (05:00)
[2020-04-20 07:03] LABS: Glucose,Whole Blood 173 mg/dL (75-99)
[2020-04-20] MEDS: INSULIN ASPART (NovoLOG) 100 UNIT/ML VIAL SQ SCH ×7 (07:05→20:32)
[2020-04-20 07:18] LABS: Basophils % (A) 0 %; Eosinophils # (A) 0.1 k/uL (0-0.7); Eosinophils % (A) 1 %; HCT 30.2 % (39.0-53.0); HGB 10.1 gm/dL (13.0-17.5); Lymphocytes # (A) 1.8 k/uL (1.0-4.8); Lymphocytes % (A) 15 %; MCH 29.5 pg (25.0-35.0); MCHC 33.5 g/dL (31.0-37.0); Mean Platelet Volume 7.2; Monocytes # (A) 0.7 k/uL (0-1.0); Monocytes % (A) 6 %; Neutrophils # (A) 9.3 k/uL (1.3-7.7); Neutrophils % (A) 77 %; Platelet Count 155 k/uL (150-450); RBC 3.43 m/uL (4.30-5.90); RDW 14.5 % (11.5-15.5)
[2020-04-20 07:28] LABS: INR 2.5 (<1.2)
[2020-04-20 07:29] LABS: African American GFR (CKD) >90 (>60 ml/min/1.73 sqM); Anion Gap 3 mmol/L; Blood Urea Nitrogen 19 mg/dL (9-20); Calcium 8.5 mg/dL (8.4-10.2); Carbon Dioxide 26 mmol/L (22-30); Chloride 108 mmol/L (98-107); Glucose 167 mg/dL (74-99); Non-African American GFR(CKD) 87 (>60 ml/min/1.73 sqM); Potassium 4.1 mmol/L (3.5-5.1); Sodium 137 mmol/L (137-145)
[2020-04-20] MEDS ORDERED: FUROSEMIDE 10 MG/ML 4 ML VIAL IV STA (08:16)
[2020-04-20] MEDS: IPRATROPIUM-ALBUTEROL 3 ML NEB INHALATION SCH ×4 (08:19→20:50)
[2020-04-20] MEDS: predniSONE 20 MG TAB PO SCH (08:51)
[2020-04-20] MEDS: OSELTAMIVIR 75 MG CAP PO SCH ×2 (08:51→20:32)
[2020-04-20] MEDS: METOPROLOL TARTRATE 50 MG TAB PO SCH ×2 (08:51→20:31)
[2020-04-20] MEDS: levETIRAcetam 500 MG TAB PO SCH ×2 (08:51→20:31)
[2020-04-20] MEDS: PANTOPRAZOLE 40 MG/10 ML VIAL IVP SCH (08:52)
--- NOTE | 2020-04-20 10:48 | P.PN ---
Subjective Progress Note Date: 04/20/20 HISTORY OF PRESENT ILLNESS This is a 65-year-old male patient of Dr. Toney with past medical history significant for left hemiplegia secondary to extensive right MCA throm bolytic bleed from July 2016, complicated by aortic root dissection, bioprosthetic aortic valve replacement and extensive aortic sleeve graft down to the mesenteric vessels, seizure disorder, paroxysmal atrial fibrillation, diabetes mellitus type 2, hyperlipidemia. History of trach and PEG tube pl acement and removal secondary to prolonged respiratory failure, paralyzed vocal cord, remote history of tobacco use, chronic pain syndrome, stage II coccyx decubitus ulcer. Patient currently resides at [facility] as a long-term resident. Patient developed shortness of breath that progressively worsened and hypoxia. He tested positive for influenza A at the [facility]. Patient was transferred to [facility] emergency center for evaluation and treatment. Temperature 101.1, heart rate 127, blood pressure 171/94, pulse ox 97% on 4 L nasal cannula. WBC 17.1, hemoglobin 12.2. INR 1.5. Sodium 127, creatinine 0.77. Blood sugar initially 307 but ran in the greater than 500s and 400s during the night. Lactic acid 2.8 currently at 4.9. Magnesium 1.4. Total bilirubin 1.6. CK 323. C-reactive protein 89.4. COVID-19 not detected. Chest x-ray reveals low lung volumes with patchy bilateral lung opacities. Correlate clinically regarding infection or edema. EKG is sinus tachycardia. Patient had received 2 doses of Tamiflu at the [facility] but currently unresponsive and unable to take oral medications. Patient received morphine 2 mg in the emergency center and was subsequently Narcan without improvement of his mental status 04/18: Patient is regained consciousness. He is back to his baseline. He has left-sided hemiplegia. He is able to answer questions and is quite comfortable in bed. At this time is hemodynamically stable and afebrile. She was positive for influenza and currently on Tamiflu which we will continue. EEG of the brain showed some rare sharp and slow waves over the frontal area neurology restarted the patient on Keppra. CAT scan of the brain shows evidence of a previous stroke. 04/19: Patient found resting comfortable in bed and to assess. He has been transferred out of the intensive care unit. Patient is alert and able to answer questions appropriately. He is on prednisone 5 mg at home and unsure of what the reasoning is. We will start prednisone 40 mg by mouth daily burst taper. Patient remains afebrile. Pulse ox 99% on 2 L via nasal cannula, blood pressure 144/70, heart rate is 81, respirations 18. Blood cultures remain negative. Patient has resumed his warfarin. 04/20: Patient is awake and alert, sitting up in bed. He states his breathing is good. Does have some increased edema for which IV Lasix ordered. Patient's been afebrile, heart rate 60, blood pressure 157/73, pulse ox 94% on 2 L nasal cannula. Patient has completed course of Tamiflu. INR is 2.5. The CBC 12, hemoglobin 10.1. Blood sugars running between 167 and 334. Neurology has recommended transitioning Coumadin to eliquis and patient family will discuss this may make a change at the [facility] after discharge. Blood cultures no growth after 72 hours. REVIEW OF SYSTEMS Constitutional: No fever, no chills, no night sweats. No weight change. No weakness, fatigue or lethargy. No daytime sleepiness. EENT: No headache. No blurred vision or double vision, no loss of vision. No loss of Hearing, no ringing in the ears, no dizziness. No nasal drainage or congestion. No epistaxis. No sore throat. Lungs: No shortness of breath, cough, no sputum production. No wheezing. Cardiovascular: No chest pain, no lower extremity edema. No palpitations. No paroxysmal nocturnal dyspnea. No orthopnea. No lightheadedness or dizziness. No syncopal episodes. Abdominal: no abdominal discomfort. No nausea, vomiting. no diarrhea. No constipation. No bloody or tarry stools. no loss of appetite. Genitourinary: No dysuria, increased frequency, urgency. No urinary retention. Musculoskeletal: No myalgias. No muscle weakness, no gait dysfunction, no frequent falls. No back pain. No neck pain. Integumentary: Reports wounds, no lesions. No rash or pruritus. No unusual bruising. No change in hair or nails. Neurologic: No aphasia. No facial droop. No change in mentation. No head injury. No headache. No paralysis. No paresthesia. Reports left sided hemiplegia Psychiatric: No depression. No anxiety. No mood swings. Endocrine: No abnormal blood sugars. No weight change. No excessive sweating or thirst. PHYSICAL EXAMINATION Gen: This is a 65-year-old obese male, . He is resting in the ICU bed. No acute respiratory distress is noted. Alert and responsive HEENT: Head is atraumatic, normocephalic. Pupils equal, round. Sclerae is anicteric. NECK: Supple. No JVD. No lymphadenopathy. No thyromegaly. LUNGS: Diminished bilaterally. No wheezes or rhonchi. No intercostal retractions. No accessory muscle usage. HEART: Regular rate and rhythm. No murmur. ABDOMEN: Soft. Bowel sounds are present. No masses. No tenderness. EXTREMITIES: Bilateral lower and upper extremity edema. No calf tenderness. NEUROLOGICAL: known history of left-sided hemiplegia, alert and oriented 3, able to answer questions appropriately. Able to follow commands. Facial asymmetry which is chronic. Pupils are reactive unable to follow to the right. ASSESSMENT AND PLAN 1. Sepsis and lactic acidosis secondary to influenza a, rule out bacterial pneumonia. Blood culture. Patient is currently on a azithromycin. Vancomycin will be discontinued. Solu-Cortef transitioned to oral prednisone. Patient completed course of Tamiflu. Note that patient was on Tamiflu prior to admission. Consults with pulmonary medicine and infectious disease appreciated. 2. Acute hypoxic respiratory failure. Consult with pulmonary medicine appreciated. Continue oxygen therapy, DuoNeb treatments 4 times daily and Ventolin as needed. One dose of IV Lasix 40 mg. 3. Metabolic encephalopathy secondary to sepsis, rule out CVA. CAT scan of the brain noted above, EEG noted above, neurology consult appreciated. Mental status is back to baseline. 4. History of right MCA CVA with left hemiplegia, July 2016. Coumadin resumed. Lipitor currently on hold. 5. Hyponatremia. Hold Lasix. Patient is status post fluids. 6. Bioprosthetic aortic valve replacement and extensive aortic sleeve graft. Continue Coumadin. 7. Sinus tachycardia secondary to sepsis. Patient was started on Cardizem drip in the emergency center. 8. Paroxysmal atrial fibrillation. Coumadin continued. Patient normally on Lopressor 50 mg twice daily. Cardiology consult appreciated. 9. Diabetes mellitus type 2 insulin requiring, uncontrolled with hyperglycemia. Insulin drip DC'd we will continue with sliding scale, NovoLog 5 units with meals, and Levemir 10 units at bedtime. 10. Stage II decubitus ulcer, present on admission. Local wound care. 11. Seizure disorder. Keppra 750 mg twice daily. 12. Chronic pain syndrome. [place] is on hold. Patient received 1 dose of morphine and subsequently Narcan. 13. Questionable adrenal insufficiency. We will start patient on 40 mg of prednisone. 14. GI prophylaxis. Protonix 40 mg IV daily 15. DVT prophylaxis. Continue Coumadin. CODE STATUS: Full code DISCHARGE PLAN Return to [facility]. Impression and plan of care have been directed as dictated by the signing physician. Sissy Watts nurse practitioner acting as scribe for signing physi fabian. Objective - Vital Signs Vital signs: Vital Signs Temp 97.9 F 04/20/20 04:00 Pulse 60 04/20/20 04:00 Resp 18 04/20/20 04:00 BP 157/73 04/20/20 04:00 Pulse Ox 94 L 04/20/20 04:00 Intake & Output 04/19/20 04/20/20 04/20/20 18:59 06:59 18:59 Intake Total 876 540 Output Total 1400 Balance 876 -860 Weight 134 kg Intake: IV 400 Sodium Chloride 0.9% 1, 400 000 ml @ 50 mls/hr IV . Q20H DIANA Rx#:[id number] Oral 476 540 Output: Urine 1400 Other: Voiding Method Indwelling Catheter Indwelling Catheter - Labs CBC & Chem 7: 04/20/20 06:35 04/20/20 06:35 Labs: Abnormal Lab Results - Last 24 Hours (Table) 04/19/20 04/19/20 04/19/20 Range/Units 12:00 16:59 20:36 WBC (3.8-10.6) k/uL RBC (4.30-5.90) m/uL Hgb (13.0-17.5) gm/dL Hct (39.0-53.0) % Neutrophils # (1.3-7.7) k/uL PT (9.0-12.0) sec INR (<1.2) Chloride (98-107) mmol/L Glucose (74-99) mg/dL POC Glucose (mg/dL) 293 H 316 H 334 H (75-99) mg/dL 12/14/20 12/14/20 12/14/20 Range/Units 06:35 06:35 06:35 WBC 12.0 H (3.8-10.6) k/uL RBC 3.43 L (4.30-5.90) m/uL Hgb 10.1 L (13.0-17.5) gm/dL Hct 30.2 L (39.0-53.0) % Neutrophils # 9.3 H (1.3-7.7) k/uL PT 24.0 H (9.0-12.0) sec INR 2.5 H (<1.2) Chloride 108 H (98-107) mmol/L Glucose 167 H (74-99) mg/dL POC Glucose (mg/dL) (75-99) mg/dL 04/20/20 Range/Units 07:01 WBC (3.8-10.6) k/uL RBC (4.30-5.90) m/uL Hgb (13.0-17.5) gm/dL Hct (39.0-53.0) % Neutrophils # (1.3-7.7) k/uL PT (9.0-12.0) sec INR (<1.2) Chloride (98-107) mmol/L Glucose (74-99) mg/dL POC Glucose (mg/dL) 173 H (75-99) mg/dL Microbiology - Last 24 Hours (Table) 04/17/20 02:30 Blood Culture - Preliminary Blood No Growth after 72 hours
[2020-04-20 11:45] LABS: Glucose,Whole Blood 181 mg/dL (75-99)
[2020-04-20] MEDS ORDERED: WARFARIN 2.5 MG TAB PO SCH (17:00)
[2020-04-20 17:06] LABS: Glucose,Whole Blood 409 mg/dL (75-99)
[2020-04-20 20:31] LABS: Glucose,Whole Blood 377 mg/dL (75-99)
[2020-04-20] MEDS: ATORVASTATIN 20 MG TAB PO SCH (20:31)
[2020-04-20] MEDS: INSULIN DETEMIR (LEVEMIR) 100 UNIT/ML SYR SQ SCH (20:32)
--- NOTE | 2020-04-20 23:51 | PN ---
PROGRESS NOTE DATE OF SERVICE: 04/20/2020 REASON FOR FOLLOWUP: Acute influenza and a question of pneumonia. INTERVAL HISTORY: The patient is currently afebrile, still requiring supplemental oxygen. The patient denies having any chest pain. Did have a cough, not bringing up any sputum. No abdominal pain or diarrhea. PHYSICAL EXAMINATION: Blood pressure 147/66, pulse of 74, temperature 97.8. He is 93% on 3 L nasal cannula. General description is a middle-aged male lying in bed in no distress. RESPIRATORY SYSTEM: Unlabored breathing with decreased intensity of breath sounds. No wheeze. HEART: S1, S2. Regular rate and rhythm. ABDOMEN: Soft, no tenderness. LABS: Hemoglobin is 10.1, white count 12. INR is 2.5. Creatinine 0.93. DIAGNOSTIC IMPRESSION AND PLAN: Patient with acute influenza for which the patient is currently on Tamiflu. He did have mildly elevated procalcitonin. However, the second x-ray did not show any acute findings and vancomycin was discontinued. We will recheck his procalcitonin and inflammatory markers tomorrow. Continue with Tamiflu, Prednisone and Zithromax and continue supportive care. MMODL / IJN: [id number] /
[2020-04-21 04:33] VITALS: RESP 18
[2020-04-21 06:17] LABS: Glucose,Whole Blood 219 mg/dL (75-99)
[2020-04-21] MEDS: INSULIN ASPART (NovoLOG) 100 UNIT/ML VIAL SQ SCH ×4 (06:49→12:52)
[2020-04-21] MEDS ORDERED: FUROSEMIDE 10 MG/ML 4 ML VIAL IV STA (08:31)
--- NOTE | 2020-04-21 08:31 | P.DS ---
Providers Date of admission: 04/17/20 02:20 Expected date of discharge: 04/21/20 Attending physician: Kwan Toney Consults: 04/17/20 02:19 Consult Physician Routine Consulting Provider: Blaise Morrison Consult Reason/Comments: icu Do you want consulting provider notified?: Yes 04/17/20 02:27 Consult Physician Routine Consulting Provider: Lynsey Stanton Consult Reason/Comments: known Do you want consulting provider notified?: Yes 04/17/20 07:33 Consult Physician Routine Consulting Provider: Willy Royal Consult Reason/Comments: AMS Do you want consulting provider notified?: Yes 04/17/20 10:26 Consult Physician Routine Consulting Provider: Dara Calix Consult Reason/Comments: infectious disease Do you want consulting provider notified?: Yes Primary care physician: [facility] Course: HISTORY OF PRESENT ILLNESS This is a 65-year-old male patient of Dr. Toney with past medical history significant for left hemiplegia secondary to extensive right MCA thrombolytic bleed from July 2016, complicated by aortic root dissection, bioprosthetic aortic valve replacement and extensive aortic sleeve graft down to the mesenteric vessels, seizure disorder, paroxysmal atrial fibrillation, diabetes mellitus type 2, hyperlipidemia. History of trach and PEG tube placement and removal secondary to prolonged respiratory failure, paralyzed vocal cord, remote history of tobacco use, chronic pain syndrome, stage II coccyx decubitus ulcer. Patient currently resides at [facility] as a long-term resident. Patient developed shortness of breath that progressively worsened and hypoxia. He tested positive for influenza A at the care home. Patient was transferred to [facility] emergency center for evaluation and treatment. Temperature 101.1, heart rate 127, blood pressure 171/94, pulse ox 97% on 4 L nasal cannula. WBC 17.1, hemoglobin 12.2. INR 1.5. Sodium 127, creatinine 0.77. Blood sugar initially 307 but ran in the greater than 500s and 400s during the night. Lactic acid 2.8 currently at 4.9. Magnesium 1.4. Total bilirubin 1.6. CK 323. C-reactive protein 89.4. COVID-19 not detected. Chest x-ray reveals low lung volumes with patchy bilateral lung opacities. Correlate clinically regarding infection or edema. EKG is sinus tachycardia. Patient had received 2 doses of Tamiflu at the care home but currently unresponsive and unable to take oral medications. Patient received morphine 2 mg in the emergency center and was subsequently Narcan without improvement of his mental status 04/18: Patient is regained consciousness. He is back to his baseline. He has left-sided hemiplegia. He is able to answer questions and is quite comfortable in bed. At this time is hemodynamically stable and afebrile. She was positive for influenza and currently on Tamiflu which we will continue. EEG of the brain showed some rare sharp and slow waves over the frontal area neurology restarted the patient on Keppra. CAT scan of the brain shows evidence of a previous stroke. 04/19: Patient found resting comfortable in bed and to assess. He has been transferred out of the intensive care unit. Patient is alert and able to answer questions appropriately. He is on prednisone 5 mg at home and unsure of what the reasoning is. We will start prednisone 40 mg by mouth daily burst taper. Patient remains afebrile. Pulse ox 99% on 2 L via nasal cannula, blood pressure 144/70, heart rate is 81, respirations 18. Blood cultures remain negative. Patient has resumed his warfarin. 04/20: Patient is awake and alert, sitting up in bed. He states his breathing is good. Does have some increased edema for which IV Lasix ordered. Patient's been afebrile, heart rate 60, blood pressure 157/73, pulse ox 94% on 2 L nasal cannula. Patient has completed course of Tamiflu. INR is 2.5. The CBC 12, hemoglobin 10.1. Blood sugars running between 167 and 334. Neurology has recommended transitioning Coumadin to eliquis and patient family will discuss this may make a change at the care home after discharge. Blood cultures no growth after 72 hours. 04/21: Patient is seen today on the cardiac stepdown unit. He is awake and alert. He denies any shortness of breath, cough or chest pain. No nausea or vomiting. No diarrhea. Pulse ox is 94% on 3 L nasal cannula, afebrile, heart rate 74, blood pressure 129/90. INR today is at 2.2. C-reactive protein 15.9. Blood sugars have been elevated on her current regime the patient will be resumed on his regime he follows at [facility] which is much more aggressive and expected to improve blood sugars. COVID-19 testing ordered. Patient will be discharged to [facility] today in stable condition. ASSESSMENT AND PLAN 1. Sepsis and lactic acidosis secondary to influenza a, rule out bacterial pneumonia. 2. Acute hypoxic respiratory failure. 3. Metabolic encephalopathy secondary to sepsis, ruled out CVA. 4. History of right MCA CVA with left hemiplegia, July 2016. 5. Hyponatremia. 6. Bioprosthetic aortic valve replacement and extensive aortic sleeve graft. 7. Sinus tachycardia secondary to sepsis. 8. Paroxysmal atrial fibrillation. 9. Diabetes mellitus type 2 insulin requiring, uncontrolled with hyperglycemia. 10. Stage II decubitus ulcer, present on admission. 11. Seizure disorder. 12. Chronic pain syndrome. 13. Questionable adrenal insufficiency. 14. Rheumatoid arthtritis. DISCHARGE PLAN Return to [facility]. Impression and plan of care have been directed as dictated by the signing physician. Sissy Watts nurse practitioner acting as scribe for signing physician. Patient Condition at Discharge: Good Plan - Discharge Summary Discharge Rx Participant: No New Discharge Prescriptions: New levETIRAcetam [Keppra] 1,000 mg PO Q12HR tab Azithromycin [Zithromax] 500 mg PO DAILY #3 tab Continue Magnesium Hydroxide [Milk of Magnesia] 2,400 mg PO DAILY PRN PRN Reason: Constipation Na Phos,M-B/Na Phos,Di-Ba [Fleet Adult] 133 ml RECTAL DAILY PRN PRN Reason: Constipation bisacodyL [Dulcolax] 10 mg RECTAL DAILY PRN PRN Reason: Constipation Acetaminophen Tab [Tylenol] 650 mg PO Q6H PRN PRN Reason: Pain Or Fever > 100.5 Metoclopramide [Reglan] 10 mg PO ACHS Metoprolol Tartrate [Lopressor] 50 mg PO BID@0800,1700 lisinopriL [Zestril] 10 mg PO BID@0800,1700 Ferrous Sulfate [Iron (65 MG Elemental)] 325 mg PO DAILY@0800 Famotidine [Pepcid] 20 mg PO BID@0800,1700 predniSONE 5 mg PO DAILY@0800 Polyethylene Glycol 3350 [Miralax] 17 gm PO DAILY PRN PRN Reason: Constipation Multivitamins, Thera [Multivitamin (formulary)] 1 tab PO DAILY@0800 Loratadine [Claritin] 10 mg PO DAILY@0800 Atorvastatin [Lipitor] 20 mg PO HS@2100 Insulin Detemir (Levemir) [Levemir] 45 unit SQ DAILY@0700 Folic Acid 1 mg PO DAILY@0800 Warfarin [Coumadin] 5 mg PO SUTUTHSA@1700 Warfarin [Coumadin] 2.5 mg PO MOWEFR@1700 [place] Nasal [place] 1 spray EA NOSTRIL BID PRN PRN Reason: Allergy Symptoms Loperamide HCl [Imodium A-D] 2 - 4 mg PO TID PRN PRN Reason: Loose Stool Ipratropium-Albuterol Nebulize [Duoneb 0.5 mg-3 mg/3 ml Soln] 3 ml INHALATION RT-Q6H PRN PRN Reason: Shortness Of Breath Menthol [Biofreeze] 1 applic TOPICAL TID PRN PRN Reason: pain of shoulders Lactulose 20 Gm Packet 20 gram PO BID@0800,1700 INSULIN ASPART (NovoLOG) [NovoLOG (formulary)] 44 unit SQ DAILY@1630 INSULIN ASPART (NovoLOG) [NovoLOG (formulary)] 32 unit SQ DAILY@0700 INSULIN ASPART (NovoLOG) [NovoLOG (formulary)] 14 unit SQ DAILY@1100 Mirtazapine 7.5 mg PO HS@2100 Ammonium Lactate Cream [Lac-Hydrin 12% Cream] 1 applic TOPICAL BID Changed Furosemide [Lasix] 40 mg PO BID #0 Potassium Chloride Oral Liquid 20 meq PO BID #0 Discontinued HYDROcodone/APAP 10-325MG [Vista 10-325] 1 tab PO Q24H PRN PRN Reason: Pain HYDROcodone/APAP 7.5-325MG [Vista 7.5-325] 1 tab PO BID@0600,1400 levETIRAcetam [Keppra] 750 mg PO BID@0800,1700 HYDROcodone/APAP 10-325MG [Vista 10-325] 1 tab PO HS@2100 INSULIN ASPART (NovoLOG) [NovoLOG (formulary)] 10 unit SQ ONCE Oseltamivir [Tamiflu] 75 mg PO BID@0800,1700 Discharge Medication List Acetaminophen Tab [Tylenol] 650 mg PO Q6H PRN 12/17/16 [History] Atorvastatin [Lipitor] 20 mg PO HS@2100 12/17/16 [History] Famotidine [Pepcid] 20 mg PO BID@0800,1700 0812/17 [History] Ferrous Sulfate [Iron (65 MG Elemental)] 325 mg PO DAILY@0800 12/17/16 [History] Folic Acid 1 mg PO DAILY@0812/17/16 [History] Insulin Detemir (Levemir) [Levemir] 45 unit SQ DAILY@0700 12/17/16 [History] Loratadine [Claritin] 10 mg PO DAILY@0800 12/17/16 [History] Magnesium Hydroxide [Milk of Magnesia] 2,400 mg PO DAILY PRN 12/17/16 [History] Metoclopramide [Reglan] 10 mg PO ACHS 12/17/16 [History] Metoprolol Tartrate [Lopressor] 50 mg PO BID@0800,1700 12/17/16 [History] Multivitamins, Thera [Multivitamin (formulary)] 1 tab PO DAILY@0812/17/16 [History] Na Phos,M-B/Na Phos,Di-Ba [Fleet Adult] 133 ml RECTAL DAILY PRN 12/17/16 [History] [place] Nasal [place] 1 spray EA NOSTRIL BID PRN 12/17/16 [History] Polyethylene Glycol 3350 [Miralax] 17 gm PO DAILY PRN 12/17/16 [History] Warfarin [Coumadin] 2.5 mg PO MOWEFR@17012/17/16 [History] Warfarin [Coumadin] 5 mg PO SUTUTHSA@17012/17/16 [History] bisacodyL [Dulcolax] 10 mg RECTAL DAILY PRN 12/17/16 [History] lisinopriL [Zestril] 10 mg PO BID@0800,1700 12/17/16 [History] predniSONE 5 mg PO DAILY@0800 12/17/16 [History] INSULIN ASPART (NovoLOG) [NovoLOG (formulary)] 14 unit SQ DAILY@1100 10/18/19 [History] INSULIN ASPART (NovoLOG) [NovoLOG (formulary)] 32 unit SQ DAILY@0700 10/18/19 [History] INSULIN ASPART (NovoLOG) [NovoLOG (formulary)] 44 unit SQ DAILY@1630 10/18/19 [History] Ipratropium-Albuterol Nebulize [Duoneb 0.5 mg-3 mg/3 ml Soln] 3 ml INHALATION RT-Q6H PRN 10/18/19 [History] Lactulose 20 Gm Packet 20 gram PO BID@0800,1700 10/18/19 [History] Loperamide HCl [Imodium A-D] 2 - 4 mg PO TID PRN 10/18/19 [History] Menthol [Biofreeze] 1 applic TOPICAL TID PRN 10/18/19 [History] Mirtazapine 7.5 mg PO HS@2100 10/18/19 [History] Ammonium Lactate Cream [Lac-Hydrin 12% Cream] 1 applic TOPICAL BID 04/17/20 [History] Azithromycin [Zithromax] 500 mg PO DAILY #3 tab 04/21/20 [Rx] Furosemide [Lasix] 40 mg PO BID #0 04/21/20 [Rx] Potassium Chloride Oral Liquid 20 meq PO BID #0 04/21/20 [Rx] levETIRAcetam [Keppra] 1,000 mg PO Q12HR tab 04/21/20 [Rx] Follow up Appointment(s)/Referral(s): Lynsey Stanton MD [STAFF PHYSICIAN] - 2 Weeks Kwan Toney MD [Primary Care Provider] - 1 Week (at [facility]) Discharge Disposition: TRANSFER TO SNF/ECF
[2020-04-21] MEDS: IPRATROPIUM-ALBUTEROL 3 ML NEB INHALATION SCH ×2 (08:33→11:59)
--- NOTE | 2020-04-21 08:50 | XR ---
EXAMINATION TYPE: XR chest 1V portable DATE OF EXAM: 04/21/2020 COMPARISON: 04/19/2020 HISTORY: Cough possible pneumonia TECHNIQUE: Single frontal view of the chest is obtained. FINDINGS: Postoperative changes are seen. Clips are seen overlying the right axilla. Heart enlarged. There is bilateral subsegmental areas of consolidation. No pneumothorax. Assessment of the right [place] g limited due to positioning. No sizable effusion on the left. IMPRESSION: 1. Stable subsegmental consolidation may represent infiltrate or atelectasis bilaterally.
[2020-04-21] MEDS ORDERED: AZITHROMYCIN 500 MG TAB PO SCH (09:00)
[2020-04-21 09:21] LABS: C Reactive Protein 50.9 mg/L (<10.0)
[2020-04-21] MEDS: levETIRAcetam 500 MG TAB PO SCH (09:30)
[2020-04-21] MEDS: METOPROLOL TARTRATE 50 MG TAB PO SCH (09:30)
[2020-04-21] MEDS: predniSONE 20 MG TAB PO SCH (09:30)
[2020-04-21] MEDS: OSELTAMIVIR 75 MG CAP PO SCH (09:30)
[2020-04-21 09:31] LABS: INR 2.2 (<1.2); Prothrombin Time 21.1 sec (9.0-12.0)
[2020-04-21] MEDS: PANTOPRAZOLE 40 MG/10 ML VIAL IVP SCH (09:31)
[2020-04-21 11:29] VITALS: BP 145/77; TEMP 98.7
[2020-04-21 11:34] LABS: Glucose,Whole Blood 213 mg/dL (75-99)
[2020-04-21 12:11] VITALS: PULSE 78
--- NOTE | 2020-04-21 20:37 | P.PN ---
Progress Note - Text Progress Note Date: 04/21/20 REASON FOR FOLLOWUP: Acute influenza and a question of pneumonia. INTERVAL HISTORY: The patient is afebrile, pt is breathing comfortably. The patient denies having any chest pain. Did have mild dry cough, No abdominal pain or diarrhea. PHYSICAL EXAMINATION: Blood pressure 140/60, pulse of 70, temperature 97.8. He is 93% on RA. General description is a middle-aged male lying in bed in no distress. RESPIRATORY SYSTEM: Unlabored breathing with decreased intensity of breath sounds. No wheeze. HEART: S1, S2. Regular rate and rhythm. ABDOMEN: Soft, no tenderness. LABS: Procalcitonin 0.07 , sal[place] pcr negative DIAGNOSTIC IMPRESSION AND PLAN: Patient with acute influenza for which the patient completed 5 day course Tamiflu. He did have mildly elevated procalcitonin. However recheck procalcitonin is normal , no need for antibiotics on discharge, continue supportive care.
== END 2020-04-21 13:50 | DRG 871 ==
LOC: EC 01:58 → 2SICU 02:20 → 3SCARD 04-18 19:58
PROVIDERS: ADMIT Internal Medicine Geriatric Medicine; ATTEND Internal Medicine Geriatric Medicine
DX: A41.89 Other specified sepsis (principal); G93.41 Metabolic encephalopathy; J96.01 Acute respiratory failure with hypoxia; J15.9 Unspecified bacterial pneumonia; E87.1 Hypo-osmolality and hyponatremia; E87.2 Acidosis; I69.354 Hemiplegia and hemiparesis following cerebral infarction affecting left non-dominant side; E27.40 Unspecified adrenocortical insufficiency; Z68.41 Body mass index [BMI] 40.0-44.9, adult; R65.20 Severe sepsis without septic shock; L89.152 Pressure ulcer of sacral region, stage 2; J10.1 Influenza due to other identified influenza virus with other respiratory manifestations; E11.65 Type 2 diabetes mellitus with hyperglycemia; G40.909 Epilepsy, unspecified, not intractable, without status epilepticus; I11.0 Hypertensive heart disease with heart failure; I50.9 Heart failure, unspecified; I48.0 Paroxysmal atrial fibrillation; M06.9 Rheumatoid arthritis, unspecified; Z79.4 Long term (current) use of insulin; G93.89 Other specified disorders of brain; E78.5 Hyperlipidemia, unspecified; E83.42 Hypomagnesemia; F32.9 Major depressive disorder, single episode, unspecified; F41.9 Anxiety disorder, unspecified; G89.4 Chronic pain syndrome; I25.10 Atherosclerotic heart disease of native coronary artery without angina pectoris; I45.10 Unspecified right bundle-branch block; Z20.828 Contact with and (suspected) exposure to other viral communicable diseases; M19.90 Unspecified osteoarthritis, unspecified site; E87.70 Fluid overload, unspecified; E66.9 Obesity, unspecified; Z79.01 Long term (current) use of anticoagulants; Z79.899 Other long term (current) drug therapy; Z79.52 Long term (current) use of systemic steroids; Z99.3 Dependence on wheelchair; Z74.01 Bed confinement status; Z95.3 Presence of xenogenic heart valve; Z87.891 Personal history of nicotine dependence; Z86.79 Personal history of other diseases of the circulatory system
CPT/HCPCS: 36415; 36600; 70470; 71045; 80048; 80053; 82140; 82550; 82607; 82728; 82747; 82805; 83036; 83605; 83615; 83735; 83880; 84145; 84443; 85025; 85610; 85730; 86140; 87040; 87070; 87205; 87635; 93005; 93306; 94640; 94660; 95816; 96365; 96366; 96368; 96375; 99291

== ENCOUNTER → 2021-04-08 | Outpatient (CLI) | payer MEDICAID, MEDICARE, OTHER ==
--- NOTE | 2021-04-09 10:42 | ECHOF ---
Referral Reason:edema MEASUREMENTS -------- HEIGHT: 185.4 cm WEIGHT: 113.4 kg BP: 116/56 RVIDd: 3.3 cm (< 3.3) IVSd: 1.4 cm (0.6 - 1.1) LVIDd: 4.7 cm (3.9 - 5.3) LVPWd: 1.4 cm (0.6 - 1.1) IVSs: 2.0 cm LVIDs: 2.8 cm LVPWs: 1.9 cm LA Diam: 4.0 cm (2.7 - 3.8) LAESV Index (A-L): 24.87 ml/m Ao Diam: 3.8 cm (2.0 - 3.7) MV EXCURSION: 16.594 mm (> 18.000) MV EF SLOPE: 57 mm/s (70 - 150) EPSS: 0.3 cm MV E Santhosh: 0.64 m/s MV DecT: 416 ms MV A Santhosh: 0.78 m/s MV E/A Ratio: 0.82 AV maxP.47 mmHg AV meanP.64 mmHg RAP: 5.00 mmHg RVSP: 29.15 mmHg TAPSE: 10.93 mm FINDINGS -------- Sinus rhythm. This was a technically adequate study. The left ventricular size is normal. There is moderate concentric left ventricular hypertrophy. O verall left ventricular systolic function is normal with, an EF between 60 - 65 %. The right ventricle is mildly enlarged. Normal LA size by volume 22+/-6 ml/m2. The right atrium is normal in size. Interatrial and interventricular septum intact. Peak/mean gradient across the Aortic Valve is 25.47mmHg / 10.64mmHg. Normally functioning bioprosth etic valve. The mitral valve is normal. Mild tricuspid regurgitation present. There is mild pulmonary hypertension. The right ventricular systolic pressure, as measured by Doppler, is 29.15mmHg. There is no pulmonic regurgitation present. The aortic root size is normal. IVC Not well visulized. There is no pericardial effusion. CONCLUSIONS -------- 1. The left ventricular size is normal. 2. There is moderate concentric left ventricular hypertrophy. 3. Overall left ventricular systolic function is normal with, an EF between 60 - 65 %. 4. The right ventricle is mildly enlarged. 5. Normal LA size by volume 22+/-6 ml/m2. 6. Peak/mean gradient across the Aortic Valve is 25.47mmHg / 10.64mmHg. 7. Normally functioning bioprosthetic valve. 8. Mild tricuspid regurgitation present. 9. There is mild pulmonary hypertension. 10. The right ventricular systolic pressure, as measured by Doppler, is 29.15mmHg. 11. There is no pulmonic regurgitation present. 12. The aortic root size is normal. 13. There is no pericardial effusion. HOUSING COUNSELOR: Marisol Gamez RDCS
== END | disposition home or self-care (01) ==
LOC: RADECHMAIN 13:14
PROVIDERS: ATTEND Nurse Practitioner Adult Health
DX: I27.20 Pulmonary hypertension, unspecified (principal); I07.1 Rheumatic tricuspid insufficiency
CPT/HCPCS: 93306

== ENCOUNTER 2023-10-07 13:27 | Inpatient (IN) | payer MEDICAID, MEDICARE, OTHER ==
--- NOTE | 2023-10-07 13:43 | ED ---
General Adult HPI - General Chief complaint: Extremity Problem,Nontraumatic Stated complaint: Leg edema Time Seen by Provider: 10/07/23 13:32 Source: patient, EMS, RN notes reviewed Mode of arrival: EMS Limitations: no limitations - History of Present Illness Initial comments: Patient is a 68-year-old male presenting to the emergency department with [facility] for edema. Symptoms have progressed over the few days. No history of similar symptoms previously. Patient states no discomfort. Patient is not ambulatory secondary to left-sided paralysis from previous CVA. Patient denies any chest pain. No dyspnea. - Related Data Home Medications Medication Instructions Recorded Confirmed Acetaminophen Tab [Tylenol] 650 mg PO Q6H PRN 12/17/16 10/07/23 Atorvastatin [Lipitor] 20 mg PO HS@2100 12/17/16 10/07/23 Famotidine [Pepcid] 20 mg PO BID@0800,1700 12/17/16 10/07/23 Loratadine [Claritin] 10 mg PO DAILY@0800 12/17/16 10/07/23 Metoclopramide [Reglan] 10 mg PO ACHS 12/17/16 10/07/23 Multivitamins, Thera [Multivitamin 1 tab PO DAILY@1700 12/17/16 10/07/23 (formulary)] Na Phos,M-B/Na Phos,Di-Ba [Fleet 133 ml RECTAL DAILY PRN 12/17/16 10/07/23 Adult] bisacodyL [Dulcolax] 10 mg RECTAL DAILY PRN 12/17/16 10/07/23 lisinopriL [Zestril] 10 mg PO DAILY@0800 12/17/16 10/07/23 polyethylene glycoL 3350 [Miralax] 17 gm PO DAILY PRN 12/17/16 10/07/23 predniSONE 5 mg PO DAILY@0800 12/17/16 10/07/23 Loperamide HCl [Imodium A-D] 2 - 4 mg PO TID PRN 10/18/19 10/07/23 Menthol [Biofreeze] 1 applic TOPICAL TID PRN 10/18/19 10/07/23 Apixaban [Eliquis] 5 mg PO BID@0800,1700 10/07/23 10/07/23 Co-Q-10 100mg 1 cap PO DAILY@0800 10/07/23 10/07/23 Fish Oil/Dha/Epa [Fish Oil 1,200 1 cap PO DAILY@0810/07/23 10/07/23 mg Fish Oil] Furosemide [Lasix] 60 mg PO DAILY@0800 10/07/23 10/07/23 HYDROcodone/APAP 7.5-325MG [[place] 1 tab PO Q6HR 10/07/23 10/07/23 7.5-325] INSULIN LISPRO (HumaLOG) [humaLOG] 20 units SQ DAILY@1100 10/07/23 10/07/23 INSULIN LISPRO (HumaLOG) [humaLOG] 35 units SQ DAILY@0700 10/07/23 10/07/23 INSULIN LISPRO (HumaLOG) [humaLOG] 45 units SQ DAILY@1700 10/07/23 10/07/23 INSULIN LISPRO (HumaLOG) [humaLOG] See Protocol SQ ACHS 10/07/23 10/07/23 Insulin Glargine [Lantus Vial] 40 unit SQ HS@2100 10/07/23 10/07/23 Insulin Glargine [Lantus Vial] 65 unit SQ DAILY@0700 10/07/23 10/07/23 Lactulose 20 gm PO BID@0800,1700 10/07/23 10/07/23 Magnesium Hydroxide [Milk of 7,200 mg PO Q48H PRN 10/07/23 10/07/23 Magnesia Concentrate] Metoprolol Tartrate [Lopressor] 75 mg PO BID@0800,1700 10/07/23 10/07/23 Sodium Chloride [[place]] 1 spray EA NOSTRIL BID PRN 10/07/23 10/07/23 Spironolactone [Aldactone] 12.5 mg PO DAILY@1400 10/07/23 10/07/23 allopurinoL [Zyloprim] 300 mg PO DAILY@0800 10/07/23 10/07/23 levETIRAcetam [Keppra] 750 mg PO BID@0800,1700 10/07/23 10/07/23 Allergies Allergy/AdvReac Type Severity Reaction Status Date / Time No Known Allergies Allergy Verified 10/07/23 14:13 Review of Systems ROS Statement: Those systems with pertinent positive or pertinent negative responses have been documented in the HPI. ROS Other: All systems not noted in ROS Statement are negative. Constitutional: Denies: fever Eyes: Denies: eye pain ENT: Denies: ear pain Respiratory: Denies: cough, dyspnea Cardiovascular: Reports: edema. Denies: chest pain, orthopnea Endocrine: Denies: fatigue Past Medical History Past Medical History: Atrial Fibrillation, Coronary Artery Disease (CAD), CVA/TIA, Diabetes Mellitus, Hypertension, Osteoarthritis (OA), Respiratory Disorder Additional Past Medical History / Comment(s): non healing wound R big Toe. 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 PEG tube in place. History of Any Multi-Drug Resistant Organisms: None Reported Past Surgical History: Orthopedic Surgery Additional Past Surgical History / Comment(s): femur Past Anesthesia/Blood Transfusion Reactions: No Reported Reaction Past Psychological History: Depression Smoking Status: Former smoker, Never smoker Past Alcohol Use History: None Reported Past Drug Use History: None Reported - Past Family History Mother Family Medical History: No Reported History General Exam Limitations: no limitations General appearance: alert, in no apparent distress Head exam: Present: normocephalic Eye exam: Present: normal appearance Neck exam: Present: normal inspection Respiratory exam: Present: normal lung sounds bilaterally Cardiovascular Exam: Present: regular rate, normal rhythm GI/Abdominal exam: Present: soft. Absent: tenderness Extremities exam: Present: pedal edema. Absent: calf tenderness Neurological exam: Present: alert, other (Left-sided weakness) Psychiatric exam: Present: normal affect, normal mood Skin exam: Present: normal color Course Vital Signs 10/07/23 10/07/23 13:32 15:06 Temperature 99.3 F Pulse Rate 65 66 Respiratory 18 18 Rate Blood Pressure 151/67 143/70 O2 Sat by Pulse 95 95 Oximetry EKG Findings - EKG Results: EKG: interpreted by ERMD (Right bundle branch block), sinus rhythm, normal axis, normal ST/T Medical Decision Making - Medical Decision Making Was pt. sent in by a medical professional or institution (, PA, ASSOCIATE THEATRE PROFESSOR, urgent care, hospital, or halfway...) When possible be specific @ -Patient was sent from nursing facility Did you speak to anyone other than the patient for history (EMS, parent, family, police, friend...)? What history was obtained from this source @ -Family is present and helps provide additional history and confirmatory history was also states patient had a temperature of 100.4 recently Did you review nursing and triage notes (agree or disagree)? Why? @ -I reviewed and agree with nursing and triage notes Were old charts reviewed (outside hosp., previous admission, EMS record, old EKG, old radiological studies, urgent care reports/EKG's, halfway records)? Report findings @ -No old charts were reviewed Differential Diagnosis (chest pain, altered mental status, abdominal pain women, abdominal pain men, vaginal bleeding, weakness, fever, dyspnea, syncope, headache, dizziness, GI bleed, back pain, seizure, CVA, palpatations, mental health, musculoskeletal)? @ -Differential Dyspnea: Coronary syndrome, arrhythmia, tamponade, asthma, COPD, pulmonary embolism, pneumonia, pneumothorax, pulmonary effusion, anaphylaxis, diabetic ketoacidosis, flailed chest, pulmonary contusion, diaphragmatic rupture, anemia, neuromuscular, this is not meant to be an all-inclusive list. EKG interpreted by me (3pts min.). @ -As above X-rays interpreted by me (1pt min.). @ -Chest x-ray shows no acute process CT interpreted by me (1pt min.). @ -None done U/S interpreted by me (1pt. min.). @ -None done What testing was considered but not performed or refused? (CT, X-rays, U/S, labs)? Why? @ -None What meds were considered but not given or refused? Why? @ -None Did you discuss the management of the patient with other professionals (professionals i.e. , PA, ASSOCIATE THEATRE PROFESSOR, lab, RT, psych nurse, certified social workers in health care, emergency room rn, teacher, loan officer, hospice case manager)? Give summary @ -Case discussed with Dr. Naranjo covering Dr. Walsh who will admit Was smoking cessation discussed for >3mins.? @ -No Was critical care preformed (if so, how long)? @ -No Were there social determinants of health that impacted care today? How? (Homelessness, low income, unemployed, alcoholism, drug addiction, tra nsportation, low edu. Level, literacy, decrease access to med. care, senior living, rehab)? @ -No Was there de-escalation of care discussed even if they declined (Discuss DNR or withdrawal of care, Hospice)? DNR status @ -No What co-morbidities impacted this encounter? (DM, HTN, Smoking, COPD, CAD, Cancer, CVA, ARF, Chemo, Hep., AIDS, mental health diagnosis, sleep apnea, morbid obesity)? @ -None Was patient admitted / discharged? Hospital course, mention meds given and route, prescriptions, significant lab abnormalities, going to OR and other pertinent info. @ -Patient and family updated on results and plan. Patient will be admitted with diuresis and further evaluation. Admission orders written. Undiagnosed new problem with uncertain prognosis? @ -No Drug Therapy requiring intensive monitoring for toxicity (Heparin, Nitro, Insulin, Cardizem)? @ -No Were any procedures done? @ -No Diagnosis/symptom? @ -Edema, fever Acute, or Chronic, or Acute on Chronic? @ -Acute, acute Uncomplicated (without systemic symptoms) or Complicated (systemic symptoms)? @ -Default Side effects of treatment? @ -No Exacerbation, Progression, or Severe Exacerbation? @ -No Poses a threat to life or bodily function? How? (Chest pain, [place], [place], pneumonia, PE, COPD, DKA, ARF, appy, cholecystitis, CVA, Diverticulitis, Homicidal, Suicidal, threat to staff... and all critical care pts) @ -No - Lab Data Result diagrams: 10/07/23 13:53 10/07/23 13:53 Lab Results 10/07/23 10/07/23 10/07/23 Range/Units 13:53 13:53 13:53 WBC 10.4 (3.8-10.6) k/uL RBC 3.44 L (4.30-5.90) m/uL Hgb 10.3 L (13.0-17.5) gm/dL Hct 30.8 L (39.0-53.0) % MCV 89.4 (80.0-100.0) fL MCH 29.8 (25.0-35.0) pg MCHC 33.3 (31.0-37.0) g/dL RDW 15.7 H (11.5-15.5) % Plt Count 112 L (150-450) k/uL MPV 8.0 Neutrophils % 75 % Lymphocytes % 11 % Monocytes % 6 % Eosinophils % 5 % Basophils % 1 % Neutrophils # 7.9 H (1.3-7.7) k/uL Lymphocytes # 1.2 (1.0-4.8) k/uL Monocytes # 0.7 (0-1.0) k/uL Eosinophils # 0.5 (0-0.7) k/uL Basophils # 0.1 (0-0.2) k/uL PT 11.5 (10.0-12.5) sec INR 1.1 (<1.2) APTT 26.2 (22.0-30.0) sec Sodium 136 L (137-145) mmol/L Potassium 4.2 (3.5-5.1) mmol/L Chloride 106 (98-107) mmol/L Carbon Dioxide 24 (22-30) mmol/L Anion Gap 6 mmol/L BUN 19 (9-20) mg/dL Creatinine 1.08 (0.66-1.25) mg/dL Est GFR (CKD-EPI)AfAm 82 (>60 ml/min/1.73 sqM) Est GFR (CKD-EPI)NonAf 71 (>60 ml/min/1.73 sqM) Glucose 189 H (74-99) mg/dL Calcium 8.9 (8.4-10.2) mg/dL Magnesium 1.3 L (1.6-2.3) mg/dL Total Bilirubin 0.6 (0.2-1.3) mg/dL AST 22 (17-59) U/L ALT 19 (4-49) U/L Alkaline Phosphatase 36 L (38-126) U/L Troponin I (0.000-0.034) ng/mL NT-Pro-B Natriuret Pep 1780 pg/mL Total Protein 6.0 L (6.3-8.2) g/dL Albumin 3.5 (3.5-5.0) g/dL 10/07/23 Range/Units 13:53 WBC (3.8-10.6) k/uL RBC (4.30-5.90) m/uL Hgb (13.0-17.5) gm/dL Hct (39.0-53.0) % MCV (80.0-100.0) fL MCH (25.0-35.0) pg MCHC (31.0-37.0) g/dL RDW (11.5-15.5) % Plt Count (150-450) k/uL MPV Neutrophils % % Lymphocytes % % Monocytes % % Eosinophils % % Basophils % % Neutrophils # (1.3-7.7) k/uL Lymphocytes # (1.0-4.8) k/uL Monocytes # (0-1.0) k/uL Eosinophils # (0-0.7) k/uL Basophils # (0-0.2) k/uL PT (10.0-12.5) sec INR (<1.2) APTT (22.0-30.0) sec Sodium (137-145) mmol/L Potassium (3.5-5.1) mmol/L Chloride (98-107) mmol/L Carbon Dioxide (22-30) mmol/L Anion Gap mmol/L BUN (9-20) mg/dL Creatinine (0.66-1.25) mg/dL Est GFR (CKD-EPI)AfAm (>60 ml/min/1.73 sqM) Est GFR (CKD-EPI)NonAf (>60 ml/min/1.73 sqM) Glucose (74-99) mg/dL Calcium (8.4-10.2) mg/dL Magnesium (1.6-2.3) mg/dL Total Bilirubin (0.2-1.3) mg/dL AST (17-59) U/L ALT (4-49) U/L Alkaline Phosphatase (38-126) U/L Troponin I <0.012 (0.000-0.034) ng/mL NT-Pro-B Natriuret Pep pg/mL Total Protein (6.3-8.2) g/dL Albumin (3.5-5.0) g/dL Disposition Clinical Impression: Edema, Fever Disposition: ADMITTED IP TO THIS HOSP Is patient prescribed a controlled substance at d/c from ED?: No Referrals: Kwan Toney MD [Primary Care Provider] - 1-2 days Time of Disposition: 16:21
[2023-10-07 14:11] LABS: Basophils # (A) 0.1 k/uL (0-0.2); Basophils % (A) 1 %; Eosinophils # (A) 0.5 k/uL (0-0.7); Eosinophils % (A) 5 %; HCT 30.8 % (39.0-53.0); HGB 10.3 gm/dL (13.0-17.5); Lymphocytes # (A) 1.2 k/uL (1.0-4.8); Lymphocytes % (A) 11 %; MCH 29.8 pg (25.0-35.0); MCHC 33.3 g/dL (31.0-37.0); MCV 89.4 fL (80.0-100.0); Monocytes # (A) 0.7 k/uL (0-1.0); Monocytes % (A) 6 %; Neutrophils # (A) 7.9 k/uL (1.3-7.7); Neutrophils % (A) 75 %; Platelet Count 112 k/uL (150-450); RBC 3.44 m/uL (4.30-5.90); RDW 15.7 % (11.5-15.5); WBC 10.4 k/uL (3.8-10.6)
[2023-10-07 14:15] LABS: INR 1.1 (<1.2); Partial Thromboplastin Time 26.2 sec (22.0-30.0); Prothrombin Time 11.5 sec (10.0-12.5)
[2023-10-07 14:16] LABS: ALT 19 U/L (4-49); AST 22 U/L (17-59); African American GFR (CKD) 82 (>60 ml/min/1.73 sqM); Albumin 3.5 g/dL (3.5-5.0); Alkaline Phosphatase 36 U/L (38-126); Anion Gap 6 mmol/L; Blood Urea Nitrogen 19 mg/dL (9-20); Calcium 8.9 mg/dL (8.4-10.2); Carbon Dioxide 24 mmol/L (22-30); Chloride 106 mmol/L (98-107); Glucose 189 mg/dL (74-99); Magnesium 1.3 mg/dL (1.6-2.3); Non-African American GFR(CKD) 71 (>60 ml/min/1.73 sqM); Potassium 4.2 mmol/L (3.5-5.1); Sodium 136 mmol/L (137-145); Total Bilirubin 0.6 mg/dL (0.2-1.3)
--- NOTE | 2023-10-07 14:19 | XR ---
EXAMINATION TYPE: XR chest 2V DATE OF EXAM: 10/07/2023 COMPARISON: 04/21/2020 INDICATION: Bilateral lower extremity edema TECHNIQUE: Frontal and lateral views of the chest are obtained. FINDINGS: The heart size is normal. The pulmonary vasculature is normal. No suspicious focal consolidations.. IMPRESSION: 1. No acute pulmonary process.
[2023-10-07 14:24] LABS: NT-Pro-B-Type Natriuretic Pept 1780 pg/mL
[2023-10-07] MEDS: FUROSEMIDE 10 MG/ML 4 ML VIAL IV STA (15:09)
[2023-10-07] MEDS ORDERED: polyethylene glycoL 3350 17 GM POWD.PACK PO PRN (16:17)
[2023-10-07] MEDS ORDERED: NA PHOS,M-B/NA PHOS,DI-BA 133 ML ENEMA RECTAL PRN (16:17)
[2023-10-07] MEDS ORDERED: MENTHOL-ZINC OXIDE OINT 113 GM TUBE TOPICAL PRN (16:17)
[2023-10-07] MEDS ORDERED: MAGNESIUM HYDROXIDE 2,400 MG/30 ML CUP PO PRN (16:17)
[2023-10-07] MEDS ORDERED: LOPERAMIDE 2 MG CAP PO PRN (16:17)
--- NOTE | 2023-10-07 16:28 | P.HPIM ---
History of Present Illness 68-year-old pleasant male was sent in to ER with concerns of increasing edema and weight gain. Patient does have demonstrated edema more so in the left leg. Very minimal in the right leg. Ultrasound Doppler is being obtained to rule out DVT and the patient does not have any history of congestive heart failure had a normal ejection fraction although his peripheral edema for which patient is on Lasix and Aldactone. Patient also had low-grade fever although patient does not have any cough chest x-ray did not show any pneumonic process patient denies any symptoms of UTI abdominal pain diarrhea. Patient denies any flulike symptoms. Patient has a stage II-III skin breakdown in the left which appears to be clean without any infection. Patient also has a stage I ulcer in the buttock and a healed ulcer in the left heel. Patient has a extensive and complicated medical history and patient is mostly shelter bound and does have aphasia secondary to right MCA thrombotic bleed after his extensive and complicated diverticulitis with root dissection bioprosthetic aortic valve replacement and aortic sleeve graft extending up to the mesenteric vessels. Patient does have history of atrial fibrillation for which patient is on anticoagulation with Eliquis. REVIEW OF SYSTEMS: CONSTITUTIONAL: No fever, no malaise, no fatigue. HEENT: No recent visual problems or hearing problems. Denied any sore throat. CARDIOVASCULAR: No chest pain, orthopnea, PND, no palpitations, no syncope. PULMONARY: No shortness of breath, no cough, no hemoptysis. GASTROINTESTINAL: No diarrhea, no nausea, no vomiting, no abdominal pain. NEUROLOGICAL: No headaches, no weakness, no numbness. HEMATOLOGICAL: Denies any bleeding or petechiae. GENITOURINARY: Denies any burning micturition, frequency, or urgency. MUSCULOSKELETAL/RHEUMATOLOGICAL: Denies any joint pain, swelling, or any muscle pain. ENDOCRINE: Denies any polyuria or polydipsia. The rest of the 14-point review of systems is negative. PHYSICAL EXAMINATION: GENERAL: The patient is alert and oriented x3, not in any acute distress. Well developed, well nourished. HEENT: Pupils are round and equally reacting to light. EOMI. No scleral icterus. No conjunctival pallor. Normocephalic, atraumatic. No pharyngeal erythema. No thyromegaly. CARDIOVASCULAR: S1 and S2 present. No murmurs, rubs, or gallops. PULMONARY: Chest is clear to auscultation, no wheezing or crackles. ABDOMEN: Soft, nontender, nondistended, normoactive bowel sounds. No palpable organomegaly. MUSCULOSKELETAL: No joint swelling or deformity. EXTREMITIES: No cyanosis, clubbing, or pedal edema. NEUROLOGICAL: Gross neurological examination did not reveal any new focal deficits. Does have slurred speech and some mild focal abnormalities residual from his previous stroke SKIN: No rashes. Assessment and plan -Increase in differential swelling of the left leg will obtain a Doppler to rule out any DVT of the left extremity will use IV Lasix for a day or 2 with kidney function electrolyte monitoring for peripheral edema no evidence of congestive heart failure exacerbation at this time -Hypomagnesemia magnesium will be replaced -Fever unknown etiology patient had temperature of 100.5 at the shelter will obtain urine cultures blood cultures, COVID-19 influenza testing. Patient will not be started on antibiotics will monitor for further fevers -History of MCA cerebrovascular accident with some residual in the plegia -Epigastric aortic valve placement -Type 2 diabetes mellitus patient will be resumed on home regimen along with high-dose sliding scale -Seizure disorder -Rheumatoid arthritis -Paroxysmal atrial fibrillation presently sinus rhythm rate controlled patient will be resumed on anticoagulation - DVT prophylaxis: On anticoagulation as mentioned above Past Medical History Past Medical History: Atrial Fibrillation, Coronary Artery Disease (CAD), CVA/TIA, Diabetes Mellitus, Hypertension, Osteoarthritis (OA), Respiratory Disorder Additional Past Medical History / Comment(s): non healing wound R big Toe. 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 PEG tube in place. History of Any Multi-Drug Resistant Organisms: None Reported Past Surgical History: Orthopedic Surgery Additional Past Surgical History / Comment(s): femur Past Anesthesia/Blood Transfusion Reactions: No Reported Reaction Past Psychological History: Depression Smoking Status: Former smoker, Never smoker Past Alcohol Use History: None Reported Past Drug Use History: None Reported - Past Family History Mother Family Medical History: No Reported History Medications and Allergies Home Medications Medication Instructions Recorded Confirmed Type Acetaminophen Tab [Tylenol] 650 mg PO Q6H PRN 12/17/16 10/07/23 History Atorvastatin [Lipitor] 20 mg PO HS@2100 12/17/16 10/07/23 History Famotidine [Pepcid] 20 mg PO BID@0800,1700 12/17/16 10/07/23 History Loratadine [Claritin] 10 mg PO DAILY@0800 12/17/16 10/07/23 History Metoclopramide [Reglan] 10 mg PO ACHS 12/17/16 10/07/23 History Multivitamins, Thera [Multivitamin 1 tab PO DAILY@1700 12/17/16 10/07/23 History (formulary)] Na Phos,M-B/Na Phos,Di-Ba [Fleet 133 ml RECTAL DAILY PRN 12/17/16 10/07/23 History Adult] bisacodyL [Dulcolax] 10 mg RECTAL DAILY PRN 12/17/16 10/07/23 History lisinopriL [Zestril] 10 mg PO DAILY@79912/17/16 10/07/23 History polyethylene glycoL 3350 [Miralax] 17 gm PO DAILY PRN 12/17/16 10/07/23 History predniSONE 5 mg PO DAILY@0812/17/16 10/07/23 History Loperamide HCl [Imodium A-D] 2 - 4 mg PO TID PRN 10/18/19 10/07/23 History Menthol [Biofreeze] 1 applic TOPICAL TID PRN 10/18/19 10/07/23 History Apixaban [Eliquis] 5 mg PO BID@0800,1700 10/07/23 10/07/23 History Co-Q-10 100mg 1 cap PO DAILY@79910/07/23 10/07/23 History Fish Oil/Dha/Epa [Fish Oil 1,200 1 cap PO DAILY@79910/07/23 10/07/23 History mg Fish Oil] Furosemide [Lasix] 60 mg PO DAILY@79910/07/23 10/07/23 History HYDROcodone/APAP 7.5-325MG [[place] 1 tab PO Q6HR 10/07/23 10/07/23 History 7.5-325] INSULIN LISPRO (HumaLOG) [humaLOG] 20 units SQ DAILY@1100 10/07/23 10/07/23 History INSULIN LISPRO (HumaLOG) [humaLOG] 35 units SQ DAILY@0700 10/07/23 10/07/23 History INSULIN LISPRO (HumaLOG) [humaLOG] 45 units SQ DAILY@1700 10/07/23 10/07/23 History INSULIN LISPRO (HumaLOG) [humaLOG] See Protocol SQ ACHS 10/07/23 10/07/23 History Insulin Glargine [Lantus Vial] 40 unit SQ HS@2100 10/07/23 10/07/23 History Insulin Glargine [Lantus Vial] 65 unit SQ DAILY@0700 10/07/23 10/07/23 History Lactulose 20 gm PO BID@0800,1700 10/07/23 10/07/23 History Magnesium Hydroxide [Milk of 7,200 mg PO Q48H PRN 10/07/23 10/07/23 History Magnesia Concentrate] Metoprolol Tartrate [Lopressor] 75 mg PO BID@0800,1700 10/07/23 10/07/23 History Sodium Chloride [[place]] 1 spray EA NOSTRIL BID PRN 10/07/23 10/07/23 History Spironolactone [Aldactone] 12.5 mg PO DAILY@1400 10/07/23 10/07/23 History allopurinoL [Zyloprim] 300 mg PO DAILY@0800 10/07/23 10/07/23 History levETIRAcetam [Keppra] 750 mg PO BID@0800,1700 10/07/23 10/07/23 History Allergies Allergy/AdvReac Type Severity Reaction Status Date / Time No Known Allergies Allergy Verified 10/07/23 14:13 Physical Exam Vitals: Vital Signs Temp Pulse Resp BP Pulse Ox 10/07/23 15:06 99.3 F 66 18 143/70 95 10/07/23 13:32 65 18 151/67 95 Intake and Output 10/07/23 10/07/23 10/07/23 06:59 14:59 22:59 Other: Weight 113.398 kg Results CBC & Chem 7: 10/07/23 13:53 10/07/23 13:53 Labs: Abnormal Lab Results - Last 24 Hours (Table) 10/07/23 10/07/23 Range/Units 13:53 13:53 RBC 3.44 L (4.30-5.90) m/uL Hgb 10.3 L (13.0-17.5) gm/dL Hct 30.8 L (39.0-53.0) % RDW 15.7 H (11.5-15.5) % Plt Count 112 L (150-450) k/uL Neutrophils # 7.9 H (1.3-7.7) k/uL Sodium 136 L (137-145) mmol/L Glucose 189 H (74-99) mg/dL Magnesium 1.3 L (1.6-2.3) mg/dL Alkaline Phosphatase 36 L (38-126) U/L Total Protein 6.0 L (6.3-8.2) g/dL
[2023-10-07 17:18] LABS: Glucose,Whole Blood 219 mg/dL (70-110)
--- NOTE | 2023-10-07 17:44 | US ---
EXAMINATION TYPE: US venous doppler duplex LE RT DATE OF EXAM: 10/07/2023 5:32 PM COMPARISON: NONE CLINICAL INDICATION: Male, 68 years old with history of swelling; right leg edema SIDE PERFORMED: right TECHNIQUE: The lower extremity deep venous system is examined utilizing real time linear array sonog kell with graded compression, doppler sonography and color-flow sonography. VESSELS IMAGED: Common Femoral Vein Deep Femoral Vein Greater Saphenous Vein * Femoral Vein Popliteal Vein Small Saphenous Vein * Proximal Calf Veins (* superficial vessels) Right Leg: No evidence of DVT as visualized IMPRESSION: 1. Right lower extremity ultrasound negative for deep venous thrombosis.
[2023-10-07] MEDS: LACTULOSE 20 GM/30 ML CUP PO SCH (18:16)
[2023-10-07] MEDS: METOPROLOL TARTRATE 25 MG TAB PO SCH (18:17)
[2023-10-07] MEDS: FAMOTIDINE 20 MG TAB PO SCH (18:18)
[2023-10-07] MEDS: MULTIVITAMINS, THERA 1 EACH TAB PO SCH (18:18)
[2023-10-07] MEDS: APIXABAN 5 MG TAB PO SCH (18:18)
[2023-10-07] MEDS: MAGNESIUM OXIDE 400 MG TAB PO STA (18:19)
[2023-10-07] MEDS: HYDROcodone/APAP 7.5-325MG 1 EACH TAB PO SCH (18:19)
[2023-10-07] MEDS: METOCLOPRAMIDE 10 MG TAB PO SCH (18:20)
[2023-10-07] MEDS: INSULIN ASPART (NovoLOG) 100 UNIT/ML VIAL SQ SCH ×2 (18:20)
[2023-10-07] MEDS: MAGNESIUM SULFATE-D5W PMX 1 GM in DEXTROSE/WATER 1 100ML.BAG IVPB SCH (18:22)
[2023-10-07] MEDS: ATORVASTATIN 20 MG TAB PO SCH (22:04)
[2023-10-07] MEDS: INSULIN DETEMIR (LEVEMIR) 100 UNIT/ML SYR SQ SCH (22:05)
[2023-10-07 22:08] LABS: Glucose,Whole Blood 273 mg/dL (70-110)
[2023-10-08] MEDS: FUROSEMIDE 10 MG/ML 4 ML VIAL IV SCH (06:22)
[2023-10-08 06:56] LABS: Appearance,Urine Clear (Clear); Bacteria,Urine Occasional /hpf; Bilirubin,Urine Negative (Negative); Blood,Urine Negative (Negative); Color,Urine Colorless; Glucose,Urine (UA) Negative (Negative); Hyaline Casts,Urine 5 /lpf (0-2); Ketones,Urine Negative (Negative); Leukocyte Esterase,Urine Large (Negative); Mucus,Urine Rare /hpf; Nitrite,Urine Negative (Negative); PH, Urine 5.5 (5.0-8.0); Protein,Urine Negative (Negative); RBC,Urine 5 /hpf (0-5); Specific Gravity,Urine 1.013 (1.001-1.035); Squamous Epithelial Cell,Urine 1 /hpf (0-4); Urobilinogen,Urine <2.0 mg/dL (<2.0); WBC,Urine 74 /hpf (0-5)
[2023-10-08 08:28] LABS: Glucose,Whole Blood 205 mg/dL (70-110)
[2023-10-08] MEDS: INSULIN ASPART (NovoLOG) 100 UNIT/ML VIAL SQ SCH ×2 (09:22→12:45)
[2023-10-08] MEDS: INSULIN DETEMIR (LEVEMIR) 100 UNIT/ML SYR SQ SCH (09:22)
[2023-10-08] MEDS: ZINC OXIDE PASTE (Z-GUARD) 1 APPLIC TOPICAL ONE (09:23)
[2023-10-08] MEDS: allopurinoL 300 MG TAB PO SCH (09:24)
[2023-10-08] MEDS: lisinopriL 10 MG TAB PO SCH (09:24)
[2023-10-08] MEDS: LORATADINE 10 MG TAB PO SCH (09:24)
[2023-10-08 12:07] LABS: Glucose,Whole Blood 249 mg/dL (70-110)
[2023-10-08] MEDS: predniSONE 5 MG TAB PO SCH (12:46)
--- NOTE | 2023-10-08 13:31 | P.PN ---
Subjective 68-year-old pleasant male was sent in to ER with concerns of increasing edema and weight gain. Patient does have demonstrated edema more so in the left leg. Very minimal in the right leg. Ultrasound Doppler is being obtained to rule out DVT and the patient does not have any history of congestive heart failure had a normal ejection fraction although his peripheral edema for which patient is on Lasix and Aldactone. Patient also had low-grade fever although patient does not have any cough chest x-ray did not show any pneumonic process patient denies any symptoms of UTI abdominal pain diarrhea. Patient denies any flulike symptoms. Patient has a stage II-III skin breakdown in the left which appears to be clean without any infection. Patient also has a stage I ulcer in the buttock and a healed ulcer in the left heel. Patient has a extensive and complicated medical history and patient is mostly [facility] bound and does have aphasia secondary to right MCA thrombotic bleed after his extensive and complicated diverticulitis with root dissection bioprosthetic aortic valve replacement and aortic sleeve graft extending up to the mesenteric vessels. Patient does have history of atrial fibrillation for which patient is on anticoagulation with Eliquis. October 08, 2023 Patient still has significant swelling in the left leg. By mistake I ordered Doppler of the right lower extremity which is negative for DVT. Will obtain a Doppler of the left lower extremity today. Will continue with IV Lasix. Constitutional: Denied any fatigue denied any fever. Cardio vascular: denied any chest pain, palpitations Gastrointestinal denied any nausea vomiting Pulmonary: Denied any shortness of breath cough Neurologic denied any new focal deficits All inpatient medications were reviewed and appropriate changes in these medications as dictated in the interval history and assessment and plan. PHYSICAL EXAMINATION: GENERAL: The patient is alert and oriented x3, not in any acute distress. Well developed, well nourished. HEENT: Pupils are round and equally reacting to light. EOMI. No scleral icterus. No conjunctival pallor. Normocephalic, atraumatic. No pharyngeal erythema. No thyromegaly. CARDIOVASCULAR: S1 and S2 present. No rubs, or gallops. Patient has systolic as well as diastolic murmur in the aortic area and possibly Osten faint murmur in the mitral area and a tricuspid systolic murmur PULMONARY: Chest is clear to auscultation, no wheezing or crackles. ABDOMEN: Soft, nontender, nondistended, normoactive bowel sounds. No palpable organomegaly. MUSCULOSKELETAL: No joint swelling or deformity. EXTREMITIES: No cyanosis, clubbing, or pedal edema. NEUROLOGICAL: Gross neurological examination did not reveal any new focal deficits. Does have slurred speech and some mild focal abnormalities residual from his previous stroke SKIN: No rashes. Assessment and plan -Increase in differential swelling of the left leg will obtain a Doppler to rule out any DVT of the left extremity continue with IV Lasix will repeat the basic metabolic profile tomorrow -Hypomagnesemia magnesium was replaced. Repeat magnesium tomorrow -Fever unknown etiology patient had temperature of 100.5 at the [facility] will obtain urine cultures blood cultures, COVID-19 influenza are negative no more fever since admission. Patient will not be started on antibiotics will monitor for further fevers. 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 aortic valve placement -Type 2 diabetes mellitus patient will be resumed on home regimen along with high-dose sliding scale -Seizure disorder -Rheumatoid arthritis -Paroxysmal atrial fibrillation presently sinus rhythm rate controlled patient will be resumed on anticoagulation - Objective - Vital Signs Vital signs: Vital Signs Temp 98.9 F 10/08/23 06:56 Pulse 60 10/08/23 06:56 Resp 20 10/08/23 06:56 BP 136/70 10/08/23 06:56 Pulse Ox 96 10/08/23 06:56 FiO2 Intake & Output 10/07/23 10/08/23 10/08/23 18:59 06:59 18:59 Output Total 1150 Balance -1150 Weight 113.398 kg 113.398 kg Output: Urine 1150 Other: Voiding Method External Catheter External Catheter # Bowel Movements 0 - Labs CBC & Chem 7: 10/07/23 13:53 10/07/23 13:53 Labs: Abnormal Lab Results - Last 24 Hours (Table) 10/07/23 10/07/23 10/07/23 Range/Units 13:53 13:53 17:16 RBC 3.44 L (4.30-5.90) m/uL Hgb 10.3 L (13.0-17.5) gm/dL Hct 30.8 L (39.0-53.0) % RDW 15.7 H (11.5-15.5) % Plt Count 112 L (150-450) k/uL Neutrophils # 7.9 H (1.3-7.7) k/uL Sodium 136 L (137-145) mmol/L Glucose 189 H (74-99) mg/dL POC Glucose (mg/dL) 219 H (70-110) mg/dL Magnesium 1.3 L (1.6-2.3) mg/dL Alkaline Phosphatase 36 L (38-126) U/L Total Protein 6.0 L (6.3-8.2) g/dL Ur Leukocyte Esterase (Negative) Urine WBC (0-5) /hpf Urine Bacteria (None) /hpf Hyaline Casts (0-2) /lpf Urine Mucus (None) /hpf 10/07/23 10/08/23 10/08/23 Range/Units 22:03 06:25 08:26 RBC (4.30-5.90) m/uL Hgb (13.0-17.5) gm/dL Hct (39.0-53.0) % RDW (11.5-15.5) % Plt Count (150-450) k/uL Neutrophils # (1.3-7.7) k/uL Sodium (137-145) mmol/L Glucose (74-99) mg/dL POC Glucose (mg/dL) 273 H 205 H (70-110) mg/dL Magnesium (1.6-2.3) mg/dL Alkaline Phosphatase (38-126) U/L Total Protein (6.3-8.2) g/dL Ur Leukocyte Esterase Large H (Negative) Urine WBC 74 H (0-5) /hpf Urine Bacteria Occasional H (None) /hpf Hyaline Casts 5 H (0-2) /lpf Urine Mucus Rare H (None) /hpf 10/08/23 Range/Units 12:05 RBC (4.30-5.90) m/uL Hgb (13.0-17.5) gm/dL Hct (39.0-53.0) % RDW (11.5-15.5) % Plt Count (150-450) k/uL Neutrophils # (1.3-7.7) k/uL Sodium (137-145) mmol/L Glucose (74-99) mg/dL POC Glucose (mg/dL) 249 H (70-110) mg/dL Magnesium (1.6-2.3) mg/dL Alkaline Phosphatase (38-126) U/L Total Protein (6.3-8.2) g/dL Ur Leukocyte Esterase (Negative) Urine WBC (0-5) /hpf Urine Bacteria (None) /hpf Hyaline Casts (0-2) /lpf Urine Mucus (None) /hpf
--- NOTE | 2023-10-08 14:56 | US ---
EXAMINATION TYPE: US venous doppler duplex LE LT DATE OF EXAM: 10/08/2023 2:38 PM COMPARISON: US Rt LEV negative yesterday CLINICAL INDICATION: Male, 68 years old with history of edema; bialteral leg edema Rt>Lt SIDE PERFORMED: Left TECHNIQUE: The lower extremity deep venous system is examined utilizing real time linear array sonog kell with graded compression, doppler sonography and color-flow sonography. VESSELS IMAGED: Common Femoral Vein Deep Femoral Vein Greater Saphenous Vein * Femoral Vein Popliteal Vein Small Saphenous Vein * Proximal Calf Veins (* superficial vessels) Left Leg: Negative for DVT exam limited by edema, large body habitus, and patient difficulty tolerating compressions IMPRESSION: Grayscale, color doppler, spectral doppler imaging performed of the deep veins of the lo wer extremities. There is normal flow, compressibility, vascular waveforms.
[2023-10-08 16:46] LABS: Glucose,Whole Blood 273 mg/dL (70-110)
[2023-10-08] MEDS: MAGNESIUM SULFATE-D5W PMX 1 GM in DEXTROSE/WATER 1 100ML.BAG IVPB SCH (16:55)
[2023-10-08] MEDS: SPIRONOLACTONE 25 MG TAB PO SCH (17:37)
[2023-10-08] MEDS: PIPERACILLIN-TAZOBACTAM 3.375 GM in SODIUM CHLORIDE 0.9% 100 ML IVPB SCH (17:38)
[2023-10-08 21:32] LABS: Glucose,Whole Blood 271 mg/dL (70-110)
[2023-10-08] MEDS: IOPAMIDOL CONTRAST (ORAL USE) VIAL PO PRN (23:57)
--- NOTE | 2023-10-09 05:45 | CT ---
EXAMINATION TYPE: CT abdomen pelvis w con DATE OF EXAM: 10/09/2023 COMPARISON: Prior CTA aorta October 18, 2019 HISTORY: RLQ tenderness and fever CT DLP: 3158.4 mGycm, Automated Exposure Control for Dose Reduction was Utilized. CONTRAST: CT scan of the abdomen and pelvis is performed with oral and with IV Contrast, patient injected with 100 mL of Isovue 300. FINDINGS: LUNG BASES: Coronary artery calcification and/or stent in the LAD distribution. Overlying sternal wir es are redemonstrated. 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 Calcification at level of the a ortic valve redemonstrated. New tiny left pleural effusion. LIVER/GB: No significant abnormality is appreciated. PANCREAS: No significant abnormality is seen. SPLEEN: Persistent 2.5 cm simple appearing thin-walled cyst in spleen axial image 28. ADRENALS: No significant abnormality is seen. KIDNEYS: Cortical thinning in both kidneys consistent with products of chronic medical renal disease. No hydronephrosis seen bilaterally. BOWEL: Oral contrast only reaches mid small bowel loops in the lower abdomen. There is new 1.3 cm met allic foreign body at base of cecum is presumed postsurgical change related to appendectomy is new fr om prior study. No abnormal small or large bowel dilatation. PROSTATE/SEMINAL VESICLES: No gross abnormality seen. LYMPH NODES: No greater than 1cm abdominal or pelvic lymph nodes are appreciated. OSSEOUS STRUCTURES: Surgical change of proximal right femur is redemonstrated similar to prior. OTHER: Chronic dissection of the abdominal aorta is redemonstrated. It is less well-seen on this stud y due to poor contrast bolus. There is new Mild to moderate subcutaneous edema in the soft tissue of the pelvis. IMPRESSION: 1. There is 1.3 cm metallic foreign body in the right lower quadrant presumed related to surgery such as embolization coil or clip new from prior study. Correlate clinically as metallic ingested foreign body needs to be excluded. No other new acute findings seen to account for patient's symptoms of rig ht lower quadrant pain. No bowel obstruction is present.
[2023-10-09 06:05] LABS: Glucose,Whole Blood 244 mg/dL (70-110)
[2023-10-09 07:50] LABS: Basophils # (A) 0.1 k/uL (0-0.2); Basophils % (A) 1 %; Eosinophils # (A) 0.6 k/uL (0-0.7); Eosinophils % (A) 5 %; HCT 32.8 % (39.0-53.0); HGB 10.5 gm/dL (13.0-17.5); Lymphocytes # (A) 1.8 k/uL (1.0-4.8); Lymphocytes % (A) 17 %; MCH 28.8 pg (25.0-35.0); Monocytes # (A) 0.6 k/uL (0-1.0); Monocytes % (A) 6 %; Neutrophils # (A) 7.2 k/uL (1.3-7.7); Neutrophils % (A) 69 %; Platelet Count 125 k/uL (150-450); RBC 3.64 m/uL (4.30-5.90); RDW 15.4 % (11.5-15.5); WBC 10.4 k/uL (3.8-10.6)
[2023-10-09 08:00] LABS: ALT 17 U/L (4-49); AST 21 U/L (17-59); African American GFR (CKD) 66 (>60 ml/min/1.73 sqM); Albumin 3.2 g/dL (3.5-5.0); Albumin/Globulin Ratio 1.3; Alkaline Phosphatase 37 U/L (38-126); Anion Gap 5 mmol/L; Blood Urea Nitrogen 24 mg/dL (9-20); Calcium 8.8 mg/dL (8.4-10.2); Carbon Dioxide 26 mmol/L (22-30); Chloride 104 mmol/L (98-107); Globulin 2.5 g/dL; Glucose 221 mg/dL (74-99); Non-African American GFR(CKD) 57 (>60 ml/min/1.73 sqM); Potassium 4.2 mmol/L (3.5-5.1); Sodium 135 mmol/L (137-145); Total Bilirubin 0.8 mg/dL (0.2-1.3); Total Protein 5.7 g/dL (6.3-8.2)
[2023-10-09 08:08] LABS: NT-Pro-B-Type Natriuretic Pept 673 pg/mL
--- NOTE | 2023-10-09 09:40 | P.CONS ---
History of Present Illness - Reason for Consult Consult date: 10/08/23 - History of Present Illness Patient is a 68-year-old male with a past medical history significant for atrial fibrillation coronary disease diabetes mellitus hypertension osteoarthritis CVA TIA patient presented to the hospital yesterday afternoon for evaluation of concern for edema mostly swelling to the lower extremity denies having any discomfort or any redness patient did have a left-sided penicillin previous CVA. Denies having any headache or URI symptoms no chest pain shortness of breath or cough no nausea no vomiting or any diarrhea patient on presentation to the hospital did have a low-grade fever of 99.3 F patient was not tachycardic hypotensive or hypoxic and no need for supplemental oxygen p atient did have a white count of 10.4 creatinine 1.08 liver enzymes are normal urine has been mildly positive influenza RSV COVID testing was negative patient did have a chest x-ray that was reported negative for any acute cardiopulmonary process he did have a venous Doppler study that was negative for DVT infectious disease was consulted because of fever and need for antibiotic therapy, patient denies any history of cholecystectomy or appendectomy Past Medical History Past Medical History: Atrial Fibrillation, Coronary Artery Disease (CAD), CVA/TIA, Diabetes Mellitus, Hypertension, Osteoarthritis (OA), Respiratory Disorder Additional Past Medical History / Comment(s): non healing wound R big Toe. 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 PEG tube in place. History of Any Multi-Drug Resistant Organisms: None Reported Past Surgical History: Orthopedic Surgery Additional Past Surgical History / Comment(s): femur Past Anesthesia/Blood Transfusion Reactions: No Reported Reaction Past Psychological History: Depression Smoking Status: Former smoker, Never smoker Past Alcohol Use History: None Reported Past Drug Use History: None Reported - Past Family History Mother Family Medical History: No Reported History Medications and Allergies Home Medications Medication Instructions Recorded Confirmed Type Acetaminophen Tab [Tylenol] 650 mg PO Q6H PRN 12/17/16 10/07/23 History Atorvastatin [Lipitor] 20 mg PO HS@2100 12/17/16 10/07/23 History Famotidine [Pepcid] 20 mg PO BID@0800,1700 /04/2310/07/23 History Loratadine [Claritin] 10 mg PO DAILY@0800 12/17/16 10/07/23 History Metoclopramide [Reglan] 10 mg PO ACHS 12/17/16 10/07/23 History Multivitamins, Thera [Multivitamin 1 tab PO DAILY@1700 12/17/16 10/07/23 History (formulary)] Na Phos,M-B/Na Phos,Di-Ba [Fleet 133 ml RECTAL DAILY PRN 12/17/16 10/07/23 Histo ry Adult] bisacodyL [Dulcolax] 10 mg RECTAL DAILY PRN 12/17/16 10/07/23 History lisinopriL [Zestril] 10 mg PO DAILY@0800 12/17/16 10/07/23 History polyethylene glycoL 3350 [Miralax] 17 gm PO DAILY PRN 12/17/16 10/07/23 History predniSONE 5 mg PO DAILY@0800 12/17/16 10/07/23 History Loperamide HCl [Imodium A-D] 2 - 4 mg PO TID PRN 10/18/19 10/07/23 History Menthol [Biofreeze] 1 applic TOPICAL TID PRN 10/18/19 10/07/23 History Apixaban [Eliquis] 5 mg PO BID@0800,1700 10/07/23 10/07/23 History Co-Q-10 100mg 1 cap PO DAILY@0810/07/23 10/07/23 History Fish Oil/Dha/Epa [Fish Oil 1,200 1 cap PO DAILY@0800 10/07/23 10/07/23 History mg Fish Oil] Furosemide [Lasix] 60 mg PO DAILY@0810/07/23 10/07/23 History HYDROcodone/APAP 7.5-325MG [[place] 1 tab PO Q6HR 10/07/23 10/07/23 History 7.5-325] INSULIN LISPRO (HumaLOG) [humaLOG] 20 units SQ DAILY@1100 10/07/23 10/07/23 History INSULIN LISPRO (HumaLOG) [humaLOG] 35 units SQ DAILY@0700 10/07/23 10/07/23 Hi story INSULIN LISPRO (HumaLOG) [humaLOG] 45 units SQ DAILY@1700 10/07/23 10/07/23 History INSULIN LISPRO (HumaLOG) [humaLOG] See Protocol SQ [facility] 10/07/23 10/07/23 History Insulin Glargine [Lantus Vial] 40 unit SQ HS@2100 10/07/23 10/07/23 History Insulin Glargine [Lantus Vial] 65 unit SQ DAILY@0700 10/07/23 10/07/23 History Lactulose 20 gm PO BID@0800,1700 10/07/23 10/07/23 History Magnesium Hydroxide [Milk of 7,200 mg PO Q48H PRN 10/07/23 10/07/23 History Magnesia Concentrate] Metoprolol Tartrate [Lopressor] 75 mg PO BID@0800,1700 10/07/23 10/07/23 History Sodium Chloride [[place] Avinger] 1 spray EA NOSTRIL BID PRN 10/07/23 10/07/23 History Spironolactone [Aldactone] 12.5 mg PO DAILY@1400 10/07/23 10/07/23 History allopurinoL [Zyloprim] 300 mg PO DAILY@0800 10/07/23 10/07/23 History levETIRAcetam [Keppra] 750 mg PO BID@0800,1700 10/07/23 10/07/23 History Allergies Allergy/AdvReac Type Severity Reaction Status Date / Time No Known Allergies Allergy Verified 10/07/23 14:13 Physical Exam Vitals: Vital Signs Temp Pulse Pulse Resp BP BP Pulse Ox 10/08/23 06:56 98.9 F 60 20 136/70 96 10/08/23 02:43 98.1 F 62 18 142/68 95 10/08/23 02:35 99.1 F 59 L 18 136/67 96 10/08/23 00:56 98.1 F 61 18 146/69 95 10/07/23 18:27 86 18 127/66 95 10/07/23 15:06 99.3 F 66 18 143/70 95 Intake and Output 10/07/23 10/08/23 10/08/23 22:59 06:59 14:59 Output Total 1150 Balance -1150 Output: Urine 1150 Other: Voiding Method External Catheter External Catheter # Bowel Movements 0 Weight 113.398 kg Results CBC & Chem 7: 10/09/23 06:40 10/09/23 06:40 Labs: Abnormal Lab Results - Last 24 Hours (Table) 10/07/23 10/07/23 10/08/23 Range/Units 17:16 22:03 06:25 POC Glucose (mg/dL) 219 H 273 H (70-110) mg/dL Ur Leukocyte Esterase Large H (Negative) Urine WBC 74 H (0-5) /hpf Urine Bacteria Occasional H (None) /hpf Hyaline Casts 5 H (0-2) /lpf Urine Mucus Rare H (None) /hpf 10/08/23 10/08/23 Range/Units 08:26 12:05 POC Glucose (mg/dL) 205 H 249 H (70-110) mg/dL Ur Leukocyte Esterase (Negative) Urine WBC (0-5) /hpf Urine Bacteria (None) /hpf Hyaline Casts (0-2) /lpf Urine Mucus (None) /hpf Assessment and Plan Plan: 1patient with a low-grade fever source possible urinary as he did have a positive UA versus abdominal source as the patient was noticed to be tender in the right lower quadrant area 2-we will obtain CT of abdominal pelvis with contrast to better define pain and tenderness to the right lower quadrant area patient mention he did not have any history of appendectomy questionable appendicitis 3-we will empirically start patient on Zosyn while waiting for the workup to be completed We will follow on clinical condition and cultures to further adjust medication if needed Thank you for this consultation we will follow the patient along with you Dictation was produced using [employer] dictation software. please excuse any grammatical, word or spelling errors. Time with Patient: Greater than 30
[2023-10-09 10:50] LABS: Glucose,Whole Blood 253 mg/dL (70-110)
--- NOTE | 2023-10-09 12:26 | P.CRDCN ---
History of Present Illness History of present illness: HISTORY OF PRESENT ILLNESS: This is a 68-year-old male with a past medical history significant for atrial fibrillation, CVA with residual left sided weakness, hypertension, hyperlipidemia, diabetes, and prosthetic aortic valve replacement. Patient follows in the office with Dr. Stanton. We have been asked to see the patient in consultation for congestive heart failure. Patient examined at the bedside. Patient's is at the bedside. Patient resides at [facility]. Patient states over the past few days he has noticed increased lower extremity edema. He denied having any shortness of breath or cough. He did have a fever at the group home apparently which has since resolved. He is currently afebrile. He denies any chest pain or pressure. Patient spouse at the bedside states that the patient was on 40 mg of Lasix twice a day but due to his kidney function declining he was switched to 40 mg daily. However he did have about a 9 pound weight gain. She states the day before he came into the hospital his Lasix was increased to 60 mg daily and he was also started on Aldactone. She states he does have left upper and lower extremity edema at baseline but it is significan tly worse currently than his baseline. The patient has been started on IV Lasix. Vital signs are stable. DIAGNOSTICS: - EKG reveals sinus mechanism with right bundle branch block. - Chest xray negative for acute process. - Lower extremity Doppler: Negative for DVT - Laboratory data: WBC 10.4. Hemoglobin 10.5. Platelet count 125. Sodium 135. Potassium 4.2. BUN 24. Creatinine 1.30. proBNP 673. - Current home cardiac medications include Lasix 60 mg daily, Lipitor 20 mg at night, lisinopril 10 mg daily, Aldactone 12.5 mg daily, Eliquis 5 mg twice a day, Toprol tartrate 75 mg twice a day - Most recent echocardiogram obtained in the office in October 2022 revealed normal EF, mild TR, prosthetic aortic valve, mild MR REVIEW OF SYSTEMS: At the time of my exam: CONSTITUTIONAL: Denies fever or chills. Reports recent weight gain of 9 pounds. HEENT: Denies blurred vision, vision changes, or eye pain. Denies hemoptysis CARDIOVASCULAR: Denies chest pain. Denies orthopnea. Denies PND. Denies palpitations. Reports lower extremity edema RESPIRATORY: Denies shortness of breath. GASTROINTESTINAL: Denies abdominal pain. Denies nausea or vomiting. HEMATOLOGIC: Denies bleeding disorders. GENITOURINARY: Denies any blood in urine. SKIN: Denies pruitis. Denies rash. PHYSICAL EXAM: VITAL SIGNS: Reviewed. GENERAL: Well-developed in no acute distress. HEENT: Head is normocephalic. Pupils are equal, round. Sclerae anicteric. Mucous membranes of the mouth are moist. Neck supple. No JVD or thyromegaly LUNGS: Respirations even and unlabored. Lungs essentially clear to auscultation bilaterally. HEART: Regular rate and rhythm. S1 and S2 heard. Systolic murmur noted. ABDOMEN: Soft. Nondistended. Nontender. EXTREMITIES: No clubbing or cyanosis. Peripheral pulses intact. Left upper ex tremity weakness. Left upper extremity edema. Bilateral pitting lower extremity edema, worse at the feet and ankles. NEUROLOGIC: Awake and alert. Oriented x 3. ASSESSMENT: Bilateral lower extremity edema Acute on chronic heart failure with preserved EF Known right bundle branch block Fever at group home, since resolved History of MCA CVA with residual left-sided weakness Paroxysmal atrial fibrillation History of bioprosthetic aortic valve replacement Diabetes Seizure disorder History of repair of dissecting thoracic aortic aneurysm Hypomagnesemia PLAN: 2D echo has been ordered. Await results. Continue IV Lasix for lower extremity edema Daily weights, accurate intake and output, and monitoring of kidney function Recheck magnesium level Further recommendations pending patient course Nurse practitioner note has been reviewed by physician. Signing provider agrees with the documented findings, assessment, and plan of care documented by PERIODONTIST as a scribe. Past Medical History Past Medical History: Atrial Fibrillation, Coronary Artery Disease (CAD), CVA/TIA, Diabetes Mellitus, Hypertension, Osteoarthritis (OA), Respiratory Disorder Additional Past Medical History / Comment(s): non healing wound R big Toe. 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 PEG tube in place. History of Any Multi-Drug Resistant Organisms: None Reported Past Surgical History: Orthopedic Surgery Additional Past Surgical History / Comment(s): femur Past Anesthesia/Blood Transfusion Reactions: No Reported Reaction Past Psychological History: Depression Smoking Status: Former smoker, Never smoker Past Alcohol Use History: None Reported Past Drug Use History: None Reported - Past Family History Mother Family Medical History: No Reported History Medications and Allergies Home Medications Medication Instructions Recorded Confirmed Type Acetaminophen Tab [Tylenol] 650 mg PO Q6H PRN 12/17/16 10/07/23 History Atorvastatin [Lipitor] 20 mg PO HS@2100 12/17/16 10/07/23 History Famotidine [Pepcid] 20 mg PO BID@0800,1700 12/17/16 10/07/23 History Loratadine [Claritin] 10 mg PO DAILY@0800 12/17/16 10/07/23 History Metoclopramide [Reglan] 10 mg PO ACHS 12/17/16 10/07/23 History Multivitamins, Thera [Multivitamin 1 tab PO DAILY@1700 12/17/16 10/07/23 History (formulary)] Na Phos,M-B/Na Phos,Di-Ba [Fleet 133 ml RECTAL DAILY PRN 12/17/16 10/07/23 History Adult] bisacodyL [Dulcolax] 10 mg RECTAL DAILY PRN 12/17/16 10/07/23 History lisinopriL [Zestril] 10 mg PO DAILY@0800 12/17/16 10/07/23 History polyethylene glycoL 3350 [Miralax] 17 gm PO DAILY PRN 12/17/16 10/07/23 History predniSONE 5 mg PO DAILY@0800 12/17/16 10/07/23 History Loperamide HCl [Imodium A-D] 2 - 4 mg PO TID PRN 10/18/19 10/07/23 History Menthol [Biofreeze] 1 applic TOPICAL TID PRN 10/18/19 10/07/23 History Apixaban [Eliquis] 5 mg PO BID@0800,1700 10/07/23 10/07/23 History Co-Q-10 100mg 1 cap PO DAILY@79910/07/23 10/07/23 History Fish Oil/Dha/Epa [Fish Oil 1,200 1 cap PO DAILY@0810/07/23 10/07/23 History mg Fish Oil] Furosemide [Lasix] 60 mg PO DAILY@0800 10/07/23 10/07/23 History HYDROcodone/APAP 7.5-325MG [[place] 1 tab PO Q6HR 10/07/23 10/07/23 History 7.5-325] INSULIN LISPRO (HumaLOG) [humaLOG] 20 units SQ DAILY@1100 10/07/23 10/07/23 History INSULIN LISPRO (HumaLOG) [humaLOG] 35 units SQ DAILY@0700 10/07/23 10/07/23 History INSULIN LISPRO (HumaLOG) [humaLOG] 45 units SQ DAILY@1700 10/07/23 10/07/23 History INSULIN LISPRO (HumaLOG) [humaLOG] See Protocol SQ ACHS 10/07/23 10/07/23 History Insulin Glargine [Lantus Vial] 40 unit SQ HS@2100 10/07/23 10/07/23 History Insulin Glargine [Lantus Vial] 65 unit SQ DAILY@0700 10/07/23 10/07/23 History Lactulose 20 gm PO BID@0800,1700 10/07/23 10/07/23 History Magnesium Hydroxide [Milk of 7,200 mg PO Q48H PRN 10/07/23 10/07/23 History Magnesia Concentrate] Metoprolol Tartrate [Lopressor] 75 mg PO BID@0800,1700 10/07/23 10/07/23 History Sodium Chloride [[place]] 1 spray EA NOSTRIL BID PRN 10/07/23 10/07/23 History Spironolactone [Aldactone] 12.5 mg PO DAILY@1400 10/07/23 10/07/23 History allopurinoL [Zyloprim] 300 mg PO DAILY@0800 10/07/23 10/07/23 History levETIRAcetam [Keppra] 750 mg PO BID@0800,1700 10/07/23 10/07/23 History Allergies Allergy/AdvReac Type Severity Reaction Status Date / Time No Known Allergies Allergy Verified 10/07/23 14:13 Physical Exam Vitals: Vital Signs Temp Pulse Resp BP Pulse Ox 10/09/23 07:18 99.0 F 66 18 157/78 94 L 10/09/23 02:27 99.4 F 67 18 148/71 95 10/08/23 19:40 71 16 10/08/23 19:07 99.4 F 71 16 114/66 96 10/08/23 13:05 99.1 F 67 19 144/71 95 Intake and Output 10/08/23 10/09/23 10/09/23 22:59 06:59 14:59 Output Total 1150 700 Balance -1150 -700 Output: Urine 1150 700 Other: Voiding Method External Catheter Results 10/09/23 06:40 10/09/23 06:40 Cardiac Enzymes 10/09/23 Range/Units 06:40 AST 21 (17-59) U/L CBC 10/09/23 Range/Units 06:40 WBC 10.4 (3.8-10.6) k/uL RBC 3.64 L (4.30-5.90) m/uL Hgb 10.5 L (13.0-17.5) gm/dL Hct 32.8 L (39.0-53.0) % Plt Count 125 L (150-450) k/uL Comprehensive Metabolic Panel 10/09/23 Range/Units 06:40 Sodium 135 L (137-145) mmol/L Potassium 4.2 (3.5-5.1) mmol/L Chloride 104 (98-107) mmol/L Carbon Dioxide 26 (22-30) mmol/L BUN 24 H (9-20) mg/dL Creatinine 1.30 H (0.66-1.25) mg/dL Glucose 221 H (74-99) mg/dL Calcium 8.8 (8.4-10.2) mg/dL AST 21 (17-59) U/L ALT 17 (4-49) U/L Alkaline Phosphatase 37 L (38-126) U/L Total Protein 5.7 L (6.3-8.2) g/dL Albumin 3.2 L (3.5-5.0) g/dL Current Medications Generic Name Dose Route Start Last Admin Trade Name Freq PRN Reason Stop Dose Admin Hydrocodone Bitart/Acetaminophen 1 each 10/07/23 18:00 10/09/23 06:15 Hydrocodone/Apap 7.5-325mg 1 Each Tab PO 1 each Q6HR DIANA Administration Allopurinol 300 mg 10/08/23 08:00 10/09/23 08:31 Allopurinol 300 Mg Tab PO 300 mg DAILY@0800 DIANA Administration Apixaban 5 mg 10/07/23 17:00 10/09/23 08:29 Apixaban 5 Mg Tab PO 5 mg BID@0800,1700 [facility] Administration Protocol Atorvastatin Calcium 20 mg 10/07/23 21:00 10/08/23 21:55 Atorvastatin 20 Mg Tab PO 20 mg HS@2100 DIANA Administration Calamine/Phenol 1 applic 10/07/23 16:17 Menthol-Zinc Oxide Oint 113 Gm Tube TOPICAL TID PRN PAIN/DISCOMFORT MELANIE SHOULDERS Famotidine 20 mg 10/07/23 17:00 10/09/23 08:30 Famotidine 20 Mg Tab PO 20 mg BID@0800,1700 DIANA Administration Furosemide 40 mg 10/08/23 06:00 10/09/23 06:16 Furosemide 10 Mg/Ml 4 Ml Vial IV 40 mg 0600,1800 DIANA Administration Piperacillin Sod/Tazobactam 100 mls @ 25 mls/hr 10/08/23 16:30 10/09/23 08:31 Sod 3.375 gm/ Sodium Chloride IVPB 25 mls/hr Q8HR [facility] Administration Protocol Insulin Aspart 20 unit 10/08/23 11:00 10/08/23 12:45 Insulin Aspart (Novolog) 100 Unit/Ml Vial SQ 20 unit DAILY@1100 [facility] Administration Insulin Aspart 35 unit 10/08/23 07:00 10/09/23 06:16 Insulin Aspart (Novolog) 100 Unit/Ml Vial SQ 35 unit DAILY@0700 [facility] Administration Insulin Aspart 45 unit 10/07/23 17:00 10/08/23 17:37 Insulin Aspart (Novolog) 100 Unit/Ml Vial SQ 45 unit DAILY@1700 [facility] Administration Insulin Aspart 0 unit 10/07/23 17:30 10/09/23 08:29 Insulin Aspart (Novolog) 100 Unit/Ml Vial SQ 8 unit AC-TID [facility] Administration Protocol Insulin Detemir 40 unit 10/07/23 21:00 10/08/23 21:54 Insulin Detemir (Levemir) 100 Unit/Ml Syr SQ 40 unit HS@2100 [facility] Administration Insulin Detemir 65 unit 10/08/23 07:00 10/09/23 06:16 Insulin Detemir (Levemir) 100 Unit/Ml Syr SQ 65 unit DAILY@0700 DIANA Administration Lactulose 20 gm 10/07/23 17:00 10/09/23 08:28 Lactulose 20 Gm/30 Ml Cup PO 20 gm BID@0800,1700 [facility] Administration Levetiracetam 750 mg 10/07/23 17:00 10/09/23 08:29 Levetiracetam 750 Mg Tab PO 750 mg BID@0800,1700 [facility] Administration Lisinopril 10 mg 10/08/23 08:00 10/09/23 08:31 Lisinopril 10 Mg Tab PO 10 mg DAILY@0800 DIANA Administration Loperamide HCl 2 mg 10/07/23 16:17 Loperamide 2 Mg Cap PO TID PRN Loose Stool Loratadine 10 mg 10/08/23 08:00 10/09/23 08:31 Loratadine 10 Mg Tab PO 10 mg DAILY@0800 [facility] Administration Magnesium Hydroxide 2,400 mg 10/07/23 16:17 Magnesium Hydroxide 2,400 Mg/30 Ml Cup PO Q48H PRN Constipation Metoclopramide HCl 10 mg 10/07/23 17:30 10/09/23 06:15 Metoclopramide 10 Mg Tab PO 10 mg ACHS [facility] Administration Metoprolol Tartrate 75 mg 10/07/23 17:00 10/09/23 08:30 Metoprolol Tartrate 25 Mg Tab PO 75 mg BID@0800,1700 [facility] Administration Multivitamins 1 each 10/07/23 17:00 10/08/23 17:36 Multivitamins, Thera 1 Each Tab PO 1 each DAILY@1700 [facility] Administration Polyethylene Glycol 17 gm 10/07/23 16:17 Polyethylene Glycol 3350 17 Gm Powd.Pack PO DAILY PRN Constipation Prednisone 5 mg 10/08/23 08:00 10/09/23 08:30 Prednisone 5 Mg Tab PO 5 mg DAILY@0800 [facility] Administration Sodium Biphosphate/Sodium Phosphate 133 ml 10/07/23 16:17 Na Phos,M-B/Na Phos,Di-Ba 133 Ml Enema RECTAL DAILY PRN Constipation Spironolactone 12.5 mg 10/08/23 14:00 10/08/23 17:37 Spironolactone 25 Mg Tab PO 12.5 mg DAILY@1400 [facility] Administration Intake and Output 10/08/23 10/09/23 10/09/23 22:59 06:59 14:59 Output Total 1150 700 Balance -1150 -700 Output: Urine 1150 700 Other: Voiding Method External Catheter 10/09/23 06:40 10/09/23 06:40
[2023-10-09 14:33] VITALS: BMI 33.0
[2023-10-09 15:59] LABS: Glucose,Whole Blood 281 mg/dL (70-110)
--- NOTE | 2023-10-09 17:40 | P.GSCN ---
History of Present Illness Consult date: 10/09/23 Reason for Consult: foreign body of cecum History of present illness: this a 68-year-old male who was admitted for fever and UTI. Patient underwent computed tomography scan of the abdomen. Patient's found have a metallic foreign body in the cecum. The foreign body measures 1.5 cm. Patient currently resides in a snf due to a stroke after repair of aortic dissection. Patient denies any abdominal pain currently. Past Medical History Past Medical History: Atrial Fibrillation, Coronary Artery Disease (CAD), CVA/TIA, Diabetes Mellitus, Hypertension, Osteoarthritis (OA), Respiratory Disorder Additional Past Medical History / Comment(s): non healing wound R big Toe. 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 PEG tube in place. History of Any Multi-Drug Resistant Organisms: None Reported Past Surgical History: Orthopedic Surgery Additional Past Surgical History / Comment(s): femur Past Anesthesia/Blood Transfusion Reactions: No Reported Reaction Past Psychological History: Depression Smoking Status: Former smoker, Never smoker Past Alcohol Use History: None Reported Past Drug Use History: None Reported - Past Family History Mother Family Medical History: No Reported History Medications and Allergies Home Medications Medication Instructions Recorded Confirmed Type Acetaminophen Tab [Tylenol] 650 mg PO Q6H PRN 12/17/16 10/07/23 History Atorvastatin [Lipitor] 20 mg PO HS@2100 12/17/16 10/07/23 History Famotidine [Pepcid] 20 mg PO BID@0800,1700 12/17/16 10/07/23 History Loratadine [Claritin] 10 mg PO DAILY@0800 12/17/16 10/07/23 History Metoclopramide [Reglan] 10 mg PO ACHS 12/17/16 10/07/23 History Multivitamins, Thera [Multivitamin 1 tab PO DAILY@1700 12/17/16 10/07/23 History (formulary)] Na Phos,M-B/Na Phos,Di-Ba [Fleet 133 ml RECTAL DAILY PRN 12/17/16 10/07/23 History Adult] bisacodyL [Dulcolax] 10 mg RECTAL DAILY PRN 12/17/16 10/07/23 History lisinopriL [Zestril] 10 mg PO DAILY@0800 12/17/16 10/07/23 History polyethylene glycoL 3350 [Miralax] 17 gm PO DAILY PRN 12/17/16 10/07/23 History predniSONE 5 mg PO DAILY@0812/17/16 10/07/23 History Loperamide HCl [Imodium A-D] 2 - 4 mg PO TID PRN 10/18/19 10/07/23 History Menthol [Biofreeze] 1 applic TOPICAL TID PRN 10/18/19 10/07/23 History Apixaban [Eliquis] 5 mg PO BID@0800,1700 10/07/23 10/07/23 History Co-Q-10 100mg 1 cap PO DAILY@0810/07/23 10/07/23 History Fish Oil/Dha/Epa [Fish Oil 1,200 1 cap PO DAILY@0810/07/23 10/07/23 History mg Fish Oil] Furosemide [Lasix] 60 mg PO DAILY@0810/07/23 10/07/23 History HYDROcodone/APAP 7.5-325MG [[place] 1 tab PO Q6HR 10/07/23 10/07/23 History 7.5-325] INSULIN LISPRO (HumaLOG) [humaLOG] 20 units SQ DAILY@1100 10/07/23 10/07/23 History INSULIN LISPRO (HumaLOG) [humaLOG] 35 units SQ DAILY@0700 10/07/23 10/07/23 History INSULIN LISPRO (HumaLOG) [humaLOG] 45 units SQ DAILY@1700 10/07/23 10/07/23 History INSULIN LISPRO (HumaLOG) [humaLOG] See Protocol SQ ACHS 10/07/23 10/07/23 H istory Insulin Glargine [Lantus Vial] 40 unit SQ HS@2100 10/07/23 10/07/23 History Insulin Glargine [Lantus Vial] 65 unit SQ DAILY@0710/07/23 10/07/23 History Lactulose 20 gm PO BID@0800,1700 10/07/23 10/07/23 History Magnesium Hydroxide [Milk of 7,200 mg PO Q48H PRN 10/07/23 10/07/23 History Magnesia Concentrate] Metoprolol Tartrate [Lopressor] 75 mg PO BID@0800,1700 10/07/23 10/07/23 History Sodium Chloride [[place]] 1 spray EA NOSTRIL BID PRN 10/07/23 10/07/23 History Spironolactone [Aldactone] 12.5 mg PO DAILY@1400 10/07/23 10/07/23 History allopurinoL [Zyloprim] 300 mg PO DAILY@0800 10/07/23 10/07/23 History levETIRAcetam [Keppra] 750 mg PO BID@0800,1700 10/07/23 10/07/23 History Allergies Allergy/AdvReac Type Severity Reaction Status Date / Time No Known Allergies Allergy Verified 10/07/23 14:13 Surgical - Exam Vital Signs Pulse Resp BP Pulse Ox 65 18 151/67 95 10/07/23 13:32 10/07/23 13:32 10/07/23 13:32 10/07/23 13:32 - General no distress - Abdomen Abdomen: soft, non tender Results - Labs 10/09/23 06:40 10/09/23 06:40 Abnormal Lab Results - Last 24 Hours (Table) 10/08/23 10/09/23 10/09/23 Range/Units 21:26 06:04 06:40 RBC 3.64 L (4.30-5.90) m/uL Hgb 10.5 L (13.0-17.5) gm/dL Hct 32.8 L (39.0-53.0) % Plt Count 125 L (150-450) k/uL Sodium (137-145) mmol/L BUN (9-20) mg/dL Creatinine (0.66-1.25) mg/dL Glucose (74-99) mg/dL POC Glucose (mg/dL) 271 H 244 H (70-110) mg/dL Magnesium (1.6-2.3) mg/dL Alkaline Phosphatase (38-126) U/L Total Protein (6.3-8.2) g/dL Albumin (3.5-5.0) g/dL 10/09/23 10/09/23 10/09/23 Range/Units 06:40 06:45 10:48 RBC (4.30-5.90) m/uL Hgb (13.0-17.5) gm/dL Hct (39.0-53.0) % Plt Count (150-450) k/uL Sodium 135 L (137-145) mmol/L BUN 24 H (9-20) mg/dL Creatinine 1.30 H (0.66-1.25) mg/dL Glucose 221 H (74-99) mg/dL POC Glucose (mg/dL) 253 H (70-110) mg/dL Magnesium 1.5 L (1.6-2.3) mg/dL Alkaline Phosphatase 37 L (38-126) U/L Total Protein 5.7 L (6.3-8.2) g/dL Albumin 3.2 L (3.5-5.0) g/dL 10/09/23 Range/Units 15:56 RBC (4.30-5.90) m/uL Hgb (13.0-17.5) gm/dL Hct (39.0-53.0) % Plt Count (150-450) k/uL Sodium (137-145) mmol/L BUN (9-20) mg/dL Creatinine (0.66-1.25) mg/dL Glucose (74-99) mg/dL POC Glucose (mg/dL) 281 H (70-110) mg/dL Magnesium (1.6-2.3) mg/dL Alkaline Phosphatase (38-126) U/L Total Protein (6.3-8.2) g/dL Albumin (3.5-5.0) g/dL Microbiology - Last 24 Hours (Table) 10/08/23 06:25 Urine Culture - Preliminary Urine,Voided Group D Enterococcus 10/07/23 17:43 Blood Culture - Preliminary Blood 10/07/23 17:34 Blood Culture - Preliminary Blood Diabetes panel 10/09/23 Range/Units 06:40 Sodium 135 L (137-145) mmol/L Potassium 4.2 (3.5-5.1) mmol/L Chloride 104 (98-107) mmol/L Carbon Dioxide 26 (22-30) mmol/L BUN 24 H (9-20) mg/dL Creatinine 1.30 H (0.66-1.25) mg/dL Glucose 221 H (74-99) mg/dL Calcium 8.8 (8.4-10.2) mg/dL AST 21 (17-59) U/L ALT 17 (4-49) U/L Alkaline Phosphatase 37 L (38-126) U/L Total Protein 5.7 L (6.3-8.2) g/dL Albumin 3.2 L (3.5-5.0) g/dL Calcium panel 10/09/23 Range/Units 06:40 Calcium 8.8 (8.4-10.2) mg/dL Albumin 3.2 L (3.5-5.0) g/dL Pituitary panel 10/09/23 Range/Units 06:40 Sodium 135 L (137-145) mmol/L Potassium 4.2 (3.5-5.1) mmol/L Chloride 104 (98-107) mmol/L Carbon Dioxide 26 (22-30) mmol/L BUN 24 H (9-20) mg/dL Creatinine 1.30 H (0.66-1.25) mg/dL Glucose 221 H (74-99) mg/dL Calcium 8.8 (8.4-10.2) mg/dL Adrenal panel 10/09/23 Range/Units 06:40 Sodium 135 L (137-145) mmol/L Potassium 4.2 (3.5-5.1) mmol/L Chloride 104 (98-107) mmol/L Carbon Dioxide 26 (22-30) mmol/L BUN 24 H (9-20) mg/dL Creatinine 1.30 H (0.66-1.25) mg/dL Glucose 221 H (74-99) mg/dL Calcium 8.8 (8.4-10.2) mg/dL Total Bilirubin 0.8 (0.2-1.3) mg/dL AST 21 (17-59) U/L ALT 17 (4-49) U/L Alkaline Phosphatase 37 L (38-126) U/L Total Protein 5.7 L (6.3-8.2) g/dL Albumin 3.2 L (3.5-5.0) g/dL Assessment and Plan Assessment: metallic foreign body. This is most likely ingested. The patient should have a repeat abdominal x-ray performed in several days to see if the foreign body moves.
--- NOTE | 2023-10-09 17:55 | CA ---
Transthoracic Echo Report Name: Heriberto Lane Age: 68 Gender: M : 1955 Exam Date: 10/09/2023 11:00 Exam Location: [facility] [facility] Ht (in): 73 Wt (lb): 250 Ordering Physician: Kwan Toney MD Attending/Referring Phys: Communications Station Manager Katerin Tabares RDCS Procedure CPT: Indications: lvfunction Cardiac Hx: Technical Quality: Technically difficult study Contrast 1: Definity Total Dose (mL): 2 Contrast 2: Total Dose (mL): MEASUREMENTS (Male / Female) Normal Values 2D ECHO LV Diastolic Diameter PLAX 5.4 cm 4.2 - 5.9 / 3.9 - 5.3 cm LV Systolic Diameter PLAX 4.0 cm IVS Diastolic Thickness 1.0 cm 0.6 - 1.0 / 0.6 - 0.9 cm LVPW Diastolic Thickness 1.2 cm 0.6 - 1.0 / 0.6 - 0.9 cm LV Relative Wall Thickness 0.4 RV Internal Dim ED PLAX 3.0 cm LVOT Diameter 2.2 cm LV Diastolic Volume MOD BP 124.3 cm??? 67 - 155 / 56 - 104 cm??? LV Systolic Volume MOD BP 37.8 cm??? 22 - 58 / 19 - 49 cm??? LV Ejection Fraction MOD BP 69.6 % >= 55 % LV Cardiac Index MOD BP 2401.4 cm???/min???m??? LV Diastolic Volume MOD 4C 138.8 cm??? LV Systolic Volume MOD 4C 35.5 cm??? LV Ejection Fraction MOD 4C 74.4 % LV Cardiac Index MOD 4C 2867.2 cm???/min???m??? LV Diastolic Length 4C 9.0 cm LV Systolic Length 4C 6.6 cm LV Diastolic Volume MOD 2C 108.5 cm??? LV Systolic Volume MOD 2C 39.4 cm??? LV Ejection Fraction MOD 2C 63.7 % LV Cardiac Index MOD 2C 1920.7 cm???/min???m??? LV Diastolic Length 2C 8.7 cm LV Systolic Length 2C 6.9 cm Ascending Aorta Diameter 3.0 cm DOPPLER AV Peak Velocity 236.0 cm/s AV Peak Gradient 22.3 mmHg AV Mean Velocity 167.2 cm/s AV Mean Gradient 13.8 mmHg AV Velocity Time Integral 49.1 cm LVOT Peak Velocity 113.6 cm/s LVOT Peak Gradient 5.2 mmHg LVOT Velocity Time Integral 22.2 cm LVOT Stroke Volume 87.4 cm??? LVOT Stroke Volume Index 36.9 ml/m??? LVOT Cardiac Index 2426.7 cm???/min???m??? AV Area Cont Eq vti 1.8 cm??? AV Area Cont Eq pk 1.9 cm??? MV Area PHT 3.8 cm??? Mitral E Point Velocity 66.4 cm/s Mitral A Point Velocity 69.4 cm/s Mitral E to A Ratio 1.0 MV Deceleration Time 198.0 ms TR Peak Velocity 264.5 cm/s TR Peak Gradient 28.0 mmHg PV Peak Velocity 125.8 cm/s PV Peak Gradient 6.3 mmHg FINDINGS Left Ventricle Left ventricular ejection fraction is estimated at 60-65 %. Left ventricular cavity size normal. Left ventricular wall thickness normal. No obvious regional wall motion abnormalities. Right Ventricle Normal right ventricular size with mildly reduced function. Right Atrium Right atrium not well visualized. Left Atrium Normal left atrial size by visual. Mitral Valve Structurally normal mitral valve. No evidence for mitral valve prolapse. No mitral stenosis. Trace mitral regurgitation. Aortic Valve Status post [place] Procedure 2016. No aortic regurgitation. Peak velocity of 2.95 m/s, peak gradient 35 mmHg, mean gradient 19 mmHg, and estimated aortic valve area of 1.8 cm???. Tricuspid Valve Structurally normal tricuspid valve. No tricuspid stenosis. Mild tricuspid regurgitation. Pulmonic Valve Pulmonic valve not well visualized. No pulmonic stenosis. No pulmonic regurgitation. Pericardium No pericardial effusion. Aorta Normal size aortic root and proximal ascending aorta. CONCLUSIONS Technically suboptimal study LV function appears normal No aortic regurgitation Mild aortic stenosis Previewed by: Dr. Maco Grewal MD (Electronically Signed) Final Date: 09 October 2023 17:54
[2023-10-09 20:46] LABS: Glucose,Whole Blood 242 mg/dL (70-110)
--- NOTE | 2023-10-09 20:49 | P.PN ---
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 Also has been dealing with decubitus ulcer on the buttocks on the left heel area in manage. Was admitted to the hospital 2 days ago on October 06 for significant edema and anasarca not well-controlled has been on diuretics also was running low-grade temperature not a clear whether he has any infection or not. Culture has been negative so far laboratory value showed negative UA blood sugar continues to be slightly elevated continue to have slight abdominal cramps and discomfort on and off CAT scan of the abdomen was done showed 1.3 cm metallic foreign body in the right lower quadrant presume related to surgery with embolization coil or clip from prior study no other major finding otherwise. Doppler study of both legs right and left did not show any deep venous thrombosis. Chest x-ray does not show any process. Otherwise patient been treated with aggressive management for anasarca and edema currently. Also has patient seen by cardiology as an outpatient which has not had ability to see cardiology last 6 months annual echocardiograms past year will order an echocardiogram and for patient to be seen cardiology as an in-house specially with anasarca and swelling to see if we can help. Eventually echocardiogram was performed and showed 60 to 65% ejection fraction with left ventricular cavity is normal with normal thickness mitral valve had structurally normal mitral valve with no evidence of mitral prolapse or mitral stenosis. Aortic valve post valve replacement from 2017 no aortic regurgitation peak velocity of 2.95 with a gradient of 35 mmHg and mean gradient of 19 with aortic stenosis. Rest of the structure are perfectly normal at this point. Ended up having to find out with general surgery think about the finding in the cecum with current finding and its metallic foreign body this is most likely ingested and considered repeat an x-ray to see if this has moved. But no acute abdomen requiring intervention otherwise. Again cardiology seen patient in consultation and review current finding with bilateral lower extremity edema and acute chronic heart failure with preserved ejection fraction and right bundle branch block agree with the consideration for an echo continue diuretics with aggressive management for edema will check magnesium level further recommendation is to follow-up. REVIEW OF SYSTEMS: CONSTITUTIONAL: Overweight no acute respiratory distress EYES: No icterus sclerae, no conjunctivitis. EARS, NOSE, MOUTH, THROAT, and FACE: No sore throat, lymphadenopathy, carotid bruits or deformity. RESPIRATORY: No shortness of breath cough wheezes CARDIOVASCULAR: Positive PND orthopnea palpitation. GASTROINTESTINAL: Still have mild abdominal discomfort with nausea no vomiting slight gastroparesis with mild diarrhea. GENITOURINARY: Negative for Hematuria or UTI, no kidney stones. INTEGUMENT/BREAST: Severe anasarca and edema, history of rheumatoid arthritis with generalized arthralgia. HEMATOLOGIC/LYMPHATIC: Negative for bleed or purpura. MUSCULOSKELTAL: Generalized muscle and joint pain. NEURLOGICAL: Bedridden with severe left-sided weakness. BEHAVIORAL/PSYCH: Negative. ENDOCRINE: Negative. PHYSICAL EXAMINATION: General Appearance: Alert, cooperative, no distress, appears stated age. Neck HEENT: Supple, no lymphadenopathy, no thyroid enlargement, no carotid br uits. Lungs: Decreased breath sound bilaterally with fine rhonchi no crackles. Chest Wall: Decreased expansion with deep inspiration no tenderness and no deformity was found on exam, no costochondral pain or discomfort. Heart: Irregular rate and rhythm, S1, S2 normal, no murmur, rub or gallop. Back: Symmetric, no curvature, ROM normal, no CVA tenderness. Abdomen: Slight discomfort lower abdominal region area no rebound no rigidity slight anasarca and mild ascites. Extremities: 2+ edema with quite anasarca worse on the left side than right side Pulses: 2+ and symmetric. Skin: Skin color, texture, tugor normal, no rashes or lesions. Neurologic: Alert oriented x3 cranial nerves II through XII intact, positive weakness in the left side patient is bedridden. ASSESSMENT AND PLAN: _Anasarca and edema: Continue diuretics IV will have another Doppler of left leg to rule out DVT. Continue furosemide 40 mg IV up to 3 times a day, still on spironolactone and if needed will add Zaroxolyn watch kidney function carefully. Swelling is coming down gradually. _Fever of abdominal region: Remain on Zosyn currently, all testing came back to be negative including blood culture, COVID, influenza and RSV UA was negative as well chest x-ray did not show any infiltrate. _Congestive heart failure and ischemic cardiomyopathy: Continue aggressive management. Remain on furosemide, spironolactone, lisinopril and metoprolol. Echocardiogram was done and showed no decrease in ejection fraction and this is well-preserved ejection fraction heart failure. 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 _Type 2 diabetes with severe hyperglycemia: Continue Levemir at 40 mg nightly and 65 units in the morning still on NovoLog total of 20 units 1100, 45 units at 745 ended at 1700. He could probably benefit from SGLT2 product with product like Jardiance at this point. _Stage IIIa chronic kidney disease: Still watching kidney function carefully specially with the IV diuretics at this point. No change in kidney function at this point. _Paroxysmal atrial fibrillation: Pulse rate is well-controlled still on meto prolol patient is on Eliquis 5 mg twice a day. _Post aortic valve placement: Has been seeing cardiology echocardiogram and maintained every 1 to 2 years. _Seizure disorders: Still on Keppra 750 mg twice a day hide no seizure activity. _Rheumatoid arthritis: Has been off biological agent is on prednisone 5 mg daily as a maintenance has not been seen rheumatology in a while. _Post dissected ascending aorta postsurgery at [facility] years ago that the time was complicated with a stroke and aortic valve placement. _Thrombocytopenia: Most likely reactive to infection and sepsis continue current management for now repeat CBC tomorrow. CODE STATUS: Full code. Discharge expectation: Advance physical therapy continue current management patient will be discharged back to [facility] hopefully in the next 48 hours. Objective - Vital Signs Vital signs: Vital Signs Temp 99.4 F 10/09/23 02:27 Pulse 67 10/09/23 02:27 Resp 18 10/09/23 02:27 BP 148/71 10/09/23 02:27 Pulse Ox 95 10/09/23 02:27 FiO2 Intake & Output 10/08/23 10/08/23 10/09/23 06:59 18:59 06:59 Output Total 1150 1150 700 Balance -1150 -1150 -700 Weight 113.398 kg Output: Urine 1150 1150 700 Other: Voiding Method External Catheter External Catheter External Catheter # Bowel Movements 0 - Labs CBC & Chem 7: 10/09/23 06:40 10/09/23 06:40 Labs: Abnormal Lab Results - Last 24 Hours (Table) 10/08/23 10/08/23 10/08/23 Range/Units 06:25 08:26 12:05 POC Glucose (mg/dL) 205 H 249 H (70-110) mg/dL Ur Leukocyte Esterase Large H (Negative) Urine WBC 74 H (0-5) /hpf Urine Bacteria Occasional H (None) /hpf Hyaline Casts 5 H (0-2) /lpf Urine Mucus Rare H (None) /hpf 10/08/23 10/08/23 Range/Units 16:44 21:26 POC Glucose (mg/dL) 273 H 271 H (70-110) mg/dL Ur Leukocyte Esterase (Negative) Urine WBC (0-5) /hpf Urine Bacteria (None) /hpf Hyaline Casts (0-2) /lpf Urine Mucus (None) /hpf Microbiology - Last 24 Hours (Table) 10/07/23 17:43 Blood Culture - Preliminary Blood 10/07/23 17:34 Blood Culture - Preliminary Blood
[2023-10-09] MEDS: FUROSEMIDE 10 MG/ML 4 ML VIAL IV SCH (23:05)
[2023-10-10 05:52] LABS: Glucose,Whole Blood 216 mg/dL (70-110)
[2023-10-10] MEDS ORDERED: ONDANSETRON 4 MG/2 ML VIAL IVP PRN (07:09)
[2023-10-10 09:06] LABS: BUN/Creat Ratio 13.53 Ratio (12.00-20.00); Blood Urea Nitrogen 25.7 mg/dL (9.0-27.0); Calcium 8.9 mg/dL (8.7-10.3); Carbon Dioxide 21.9 mmol/L (21.6-31.8); Chloride 100 mmol/L (96-109); Glucose 176 mg/dL (70-110); Potassium 4.4 mmol/L (3.5-5.5); Sodium 137 mmol/L (135-145)
[2023-10-10] MEDS: FUROSEMIDE 10 MG/ML 4 ML VIAL IV SCH (09:34)
[2023-10-10] MEDS: metOLazone 2.5 MG TAB PO SCH (09:40)
[2023-10-10] MEDS: MAGNESIUM SULFATE-D5W PMX 1 GM in DEXTROSE/WATER 1 100ML.BAG IVPB SCH (10:01)
[2023-10-10 10:15] LABS: Glucose,Whole Blood 307 mg/dL (70-110)
--- NOTE | 2023-10-10 10:24 | XR ---
EXAMINATION TYPE: XR abdomen 2V DATE OF EXAM: 10/10/2023 9:55 AM CLINICAL INDICATION:Male, 68 years old with history of Foreign Body; COMPARISON: None. TECHNIQUE: Two views of the abdomen were obtained. FINDINGS: The bowel gas pattern is nonspecific without dilated loops of small or large bowel. There i s no evidence for organomegaly or pneumoperitoneum. The osseous structures are intact. No abnormal calcifications are present. Fecal material and gas are demonstrated throughout the colon and rectum. Right hip fixation hardware appears intact. Mild calyx density near the right hip also present. Ther e is sternotomy wires present. IMPRESSION: 1. Right hip arthroplasty hardware and metallic body near the right hip and sternotomy wires otherwi se no radiopaque foreign body visualized. 2. Nonspecific bowel gas pattern without radiographic evidence for acute process.
--- NOTE | 2023-10-10 11:09 | P.PN ---
Subjective HISTORY OF PRESENT ILLNESS: This is a 68-year-old male with a past medical history significant for atrial fibrillation, CVA with residual left sided weakness, hypertension, hyperlipidemia, diabetes, and prosthetic aortic valve replacement. Patient follows in the office with Dr. Stanton. We have been asked to see the patient in consultation for congestive heart failure. Patient examined at the bedside. Patient's is at the bedside. Patient resides at [facility]. Patient states over the past few days he has noticed increased lower extremity edema. He denied having any shortness of breath or cough. He did have a fever at the [facility] apparently which has since resolved. He is currently afebrile. He denies any chest pain or pressure. Patient spouse at the bedside states that the patient was on 40 mg of Lasix twice a day but due to his kidney function declining he was switched to 40 mg daily. However he did have about a 9 pound weight gain. She states the day before he came into the hospital his Lasix was increased to 60 mg daily and he was also started on Aldactone. She states he does have left upper and lower extremity edema at baseline but it is significantly worse currently than his baseline. The patient has been started on IV Lasix. Vital signs are stable. DIAGNOSTICS: - EKG reveals sinus mechanism with right bundle branch block. - Chest xray negative for acute process. - Lower extremity Doppler: Negative for DVT - Laboratory data: WBC 10.4. Hemoglobin 10.5. Platelet count 125. Sodium 135. Potassium 4.2. BUN 24. Creatinine 1.30. proBNP 673. - Current home cardiac medications include Lasix 60 mg daily, Lipitor 20 mg at night, lisinopril 10 mg daily, Aldactone 12.5 mg daily, Eliquis 5 mg twice a day, Toprol tartrate 75 mg twice a day - Most recent echocardiogram obtained in the office in October 2022 revealed normal EF, mild TR, prosthetic aortic valve, mild MR 10/10/2023 Patient examined this morning. Patients spouse is present. Patient denies chest pain or pressure. Denies shortness of breath. He remains on IV Lasix. He was also started on Zaroxolyn per primary medicine. Creatinine today worsened at 1.9. Echocardiogram completed revealing ejection fraction 60 to 65% with mild aortic stenosis PHYSICAL EXAM: VITAL SIGNS: Reviewed. GENERAL: Well-developed in no acute distress. HEENT: Head is normocephalic. Pupils are equal, round. Sclerae anicteric. Mucous membranes of the mouth are moist. Neck supple. No JVD or thyromegaly LUNGS: Respirations even and unlabored. Lungs essentially clear to auscultation bilaterally. HEART: Regular rate and rhythm. S1 and S2 heard. Systolic murmur noted. ABDOMEN: Soft. Nondistended. Nontender. EXTREMITIES: No clubbing or cyanosis. Peripheral pulses intact. Left upper extremity weakness. Left upper extremity edema. Bilateral pitting lower extremity edema, worse at the feet and ankles. NEUROLOGIC: Awake and alert. Oriented x 3. ASSESSMENT: Bilateral lower extremity edema, may be related to venous stasis and immobility rather than congestive heart failure Acute on chronic heart failure with preserved EF Known right bundle branch block Fever at fdc, since resolved History of MCA CVA with residual left-sided weakness Paroxysmal atrial fibrillation History of bioprosthetic aortic valve replacement Diabetes Seizure disorder History of repair of dissecting thoracic aortic aneurysm Hypomagnesemia PLAN: Discontinue IV Lasix, Aldactone, and Zaroxolyn secondary to worsening kidney function. Repeat kidney function in a.m. Daily weights, accurate intake and output, and monitoring of kidney function Commend Bright wraps to lower extremities and elevation of bilateral lower extremities Further recommendations pending patient course Nurse practitioner note has been reviewed by physician. Signing provider agrees with the documented findings, assessment, and plan of care documented by CAR [employer]DER as a scribe. Objective - Vital Signs Vital signs: Vital Signs Temp 99.3 F 10/10/23 07:22 Pulse 91 10/10/23 07:22 Resp 19 10/10/23 07:22 BP 125/62 10/10/23 07:22 Pulse Ox 92 L 10/10/23 09:23 FiO2 Intake & Output 10/09/23 10/10/23 10/10/23 18:59 06:59 18:59 Output Total 200 Balance -200 Weight 113.398 kg Output: Urine 200 Other: Voiding Method External Catheter External Catheter External Catheter # Voids 3 # Bowel Movements 1 1 - Labs CBC & Chem 7: 10/09/23 06:40 10/10/23 02:58 Labs: Abnormal Lab Results - Last 24 Hours (Table) 10/09/23 10/09/23 10/09/23 Range/Units 06:45 15:56 20:44 Anion Gap (4.00-12.00) mmol/L Creatinine (0.6-1.5) mg/dL Est GFR (CKD-EPI) (>=60) Glucose (70-110) mg/dL POC Glucose (mg/dL) 281 H 242 H (70-110) mg/dL Magnesium 1.5 L (1.6-2.3) mg/dL 10/10/23 10/10/23 10/10/23 Range/Units 02:58 05:49 10:14 Anion Gap 15.10 H (4.00-12.00) mmol/L Creatinine 1.9 H (0.6-1.5) mg/dL Est GFR (CKD-EPI) 38 L (>=60) Glucose 176 H (70-110) mg/dL POC Glucose (mg/dL) 216 H 307 H (70-110) mg/dL Magnesium (1.6-2.3) mg/dL Microbiology - Last 24 Hours (Table) 10/07/23 17:43 Blood Culture - Preliminary Blood 10/07/23 17:34 Blood Culture - Preliminary Blood 10/08/23 06:25 Urine Culture - Preliminary Urine,Voided Group D Enterococcus
[2023-10-10 11:30] LABS: Glucose,Whole Blood 340 mg/dL (70-110)
--- NOTE | 2023-10-10 15:12 | P.PN ---
Subjective Progress Note Date: 10/10/23 Principal diagnosis: Reason for follow-up is fever question of UTI Patient is a 68-year-old male with a past medical history significant for atrial fibrillation coronary disease diabetes mellitus hypertension osteoarthritis CVA TIA patient presented to the hospital for evaluation of lower extremity swelling he did have a low-grade fever prompting this consultation. On today's evaluation that is 10/10/2023,the patient did have a low-grade fever of 99.7 at 1 AM the patient is afebrile since then the patient is breathing comfortably on room air denies any chest pain shortness of breath or cough nausea vomiting no diarrhea has been reported. Patient did have CBC done today, creatinine slightly up to 1.9 urine is growing Enterococcus that is sensitive penicillin Objective - Vital Signs Vital signs: Vital Signs Temp 99.3 F 10/10/23 07:22 Pulse 91 10/10/23 07:22 Resp 19 10/10/23 07:22 BP 125/62 10/10/23 07:22 Pulse Ox 92 L 10/10/23 09:23 FiO2 Intake & Output 10/09/23 10/10/23 10/10/23 18:59 06:59 18:59 Output Total 200 Balance -200 Weight 113.398 kg Output: Urine 200 Other: Voiding Method External Catheter External Catheter External Catheter # Voids 3 # Bowel Movements 1 1 - Exam GENERAL DESCRIPTION: An elderly male lying in bed in no distress RESPIRATORY SYSTEM: Unlabored breathing , decreased breath sounds at bases HEART: S1 S2 regular rate and rhythm , ABDOMEN: Soft , no tenderness EXTREMITIES: No edema feet - Labs CBC & Chem 7: 10/09/23 06:40 10/10/23 02:58 Labs: Abnormal Lab Results - Last 24 Hours (Table) 10/09/23 10/09/23 10/09/23 Range/Units 06:45 15:56 20:44 Anion Gap (4.00-12.00) mmol/L Creatinine (0.6-1.5) mg/dL Est GFR (CKD-EPI) (>=60) Glucose (70-110) mg/dL POC Glucose (mg/dL) 281 H 242 H (70-110) mg/dL Magnesium 1.5 L (1.6-2.3) mg/dL 10/10/23 10/10/23 10/10/23 Range/Units 02:58 05:49 10:14 Anion Gap 15.10 H (4.00-12.00) mmol/L Creatinine 1.9 H (0.6-1.5) mg/dL Est GFR (CKD-EPI) 38 L (>=60) Glucose 176 H (70-110) mg/dL POC Glucose (mg/dL) 216 H 307 H (70-110) mg/dL Magnesium (1.6-2.3) mg/dL 10/10/23 Range/Units 11:28 Anion Gap (4.00-12.00) mmol/L Creatinine (0.6-1.5) mg/dL Est GFR (CKD-EPI) (>=60) Glucose (70-110) mg/dL POC Glucose (mg/dL) 340 H (70-110) mg/dL Magnesium (1.6-2.3) mg/dL Microbiology - Last 24 Hours (Table) 10/07/23 17:43 Blood Culture - Preliminary Blood 10/07/23 17:34 Blood Culture - Preliminary Blood 10/08/23 06:25 Urine Culture - Preliminary Urine,Voided Group D Enterococcus Assessment and Plan (1) UTI (urinary tract infection) Current Visit: Yes Status: Acute Code(s): N39.0 - URINARY TRACT INFECTION, SITE NOT SPECIFIED SNOMED Code(s): 24771006 (2) Fever Current Visit: Yes Status: Acute Code(s): R50.9 - FEVER, UNSPECIFIED SNOMED Code(s): 570171744 Plan: 1patient with a low-grade fever source possible urinary as he did have a positive UA versus abdominal source as the patient was noticed to be tender in the right lower quadrant area 2- CT of abdominal pelvis did not show any acute abnormality no evidence of appendicitis 3-patient urine is positive culture pending continue with Zosyn while waiting for the culture to finalize. at the bedside questions were answered Dictation was produced using Medium dictation software. please excuse any grammatical, word or spelling errors. Time with Patient: Less than 30
--- NOTE | 2023-10-10 15:14 | P.PN ---
Subjective Progress Note Date: 10/09/23 Principal diagnosis: Reason for follow-up is fever question of UTI Patient is a 68-year-old male with a past medical history significant for atrial fibrillation coronary disease diabetes mellitus hypertension osteoarthritis CVA TIA patient presented to the hospital for evaluation of lower extremity swelling he did have a low-grade fever prompting this consultation. On today's evaluation that is 10/09/2023,the patient did have a low-grade fever 100.2 this afternoon, patient is breathing comfortably on room air, the patient denies chest pain shortness of breath and no significant cough, patient denies abdominal pain, no nausea vomiting or diarrhea has been reported. Patient did have a white count of 10.4, BUN is 24 creatinine is 1.30, CT abdominal pelvis mention metallic foreign body right lower quadrant question of embolization coil or clip Objective - Vital Signs Vital signs: Vital Signs Temp 98.7 F 10/09/23 19:54 Pulse 87 10/09/23 19:54 Resp 18 10/09/23 19:54 BP 169/77 10/09/23 19:54 Pulse Ox 96 10/09/23 19:54 FiO2 Intake & Output 10/09/23 10/09/23 10/10/23 06:59 18:59 06:59 Output Total 700 Balance -700 Weight 113.398 kg Output: Urine 700 Other: Voiding Method External Catheter External Catheter - Exam GENERAL DESCRIPTION: An elderly male lying in bed in no distress RESPIRATORY SYSTEM: Unlabored breathing , decreased breath sounds at bases HEART: S1 S2 regular rate and rhythm , ABDOMEN: Soft , no tenderness EXTREMITIES: No edema feet - Labs CBC & Chem 7: 10/09/23 06:40 10/10/23 02:58 Labs: Abnormal Lab Results - Last 24 Hours (Table) 10/09/23 10/09/23 10/09/23 Range/Units 06:04 06:40 06:40 RBC 3.64 L (4.30-5.90) m/uL Hgb 10.5 L (13.0-17.5) gm/dL Hct 32.8 L (39.0-53.0) % Plt Count 125 L (150-450) k/uL Sodium 135 L (137-145) mmol/L BUN 24 H (9-20) mg/dL Creatinine 1.30 H (0.66-1.25) mg/dL Glucose 221 H (74-99) mg/dL POC Glucose (mg/dL) 244 H (70-110) mg/dL Magnesium (1.6-2.3) mg/dL Alkaline Phosphatase 37 L (38-126) U/L Total Protein 5.7 L (6.3-8.2) g/dL Albumin 3.2 L (3.5-5.0) g/dL 10/09/23 10/09/23 10/09/23 Range/Units 06:45 10:48 15:56 RBC (4.30-5.90) m/uL Hgb (13.0-17.5) gm/dL Hct (39.0-53.0) % Plt Count (150-450) k/uL Sodium (137-145) mmol/L BUN (9-20) mg/dL Creatinine (0.66-1.25) mg/dL Glucose (74-99) mg/dL POC Glucose (mg/dL) 253 H 281 H (70-110) mg/dL Magnesium 1.5 L (1.6-2.3) mg/dL Alkaline Phosphatase (38-126) U/L Total Protein (6.3-8.2) g/dL Albumin (3.5-5.0) g/dL 10/09/23 Range/Units 20:44 RBC (4.30-5.90) m/uL Hgb (13.0-17.5) gm/dL Hct (39.0-53.0) % Plt Count (150-450) k/uL Sodium (137-145) mmol/L BUN (9-20) mg/dL Creatinine (0.66-1.25) mg/dL Glucose (74-99) mg/dL POC Glucose (mg/dL) 242 H (70-110) mg/dL Magnesium (1.6-2.3) mg/dL Alkaline Phosphatase (38-126) U/L Total Protein (6.3-8.2) g/dL Albumin (3.5-5.0) g/dL Microbiology - Last 24 Hours (Table) 10/08/23 06:25 Urine Culture - Preliminary Urine,Voided Group D Enterococcus 10/07/23 17:43 Blood Culture - Preliminary Blood 10/07/23 17:34 Blood Culture - Preliminary Blood Assessment and Plan (1) Fever Current Visit: Yes Status: Acute Code(s): R50.9 - FEVER, UNSPECIFIED SNOMED Code(s): 834092298 (2) UTI (urinary tract infection) Current Visit: Yes Status: Acute Code(s): N39.0 - URINARY TRACT INFECTION, SITE NOT SPECIFIED SNOMED Code(s): 38101284 Plan: 1patient with a low-grade fever source possible urinary as he did have a positive UA versus abdominal source as the patient was noticed to be tender in the right lower quadrant area 2- CT of abdominal pelvis did not show any acute abnormality no evidence of appendicitis 3-patient urine is positive culture pending continue, likely source of his fever to continue with Zosyn while waiting for the culture to finalize. Dictation was produced using vogogo dictation software. please excuse any grammatical, word or spelling errors. Time with Patient: Less than 30
[2023-10-10 16:34] LABS: Glucose,Whole Blood 374 mg/dL (70-110)
[2023-10-10] MEDS: AMPICILLIN-SULBACTAM 3 GM in SODIUM CHLORIDE 0.9% 100 ML IVPB SCH (17:16)
[2023-10-10 20:11] LABS: Glucose,Whole Blood 384 mg/dL (70-110)
--- NOTE | 2023-10-10 22:33 | P.PN ---
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 Also has been dealing with decubitus ulcer on the buttocks on the left heel area in manage. Was admitted to the hospital 2 days ago on October 06 for significant edema and anasarca not well-controlled has been on diuretics also was running low-grade temperature not a clear whether he has any infection or not. Culture has been negative so far laboratory value showed negative UA blood sugar continues to be slightly elevated continue to have slight abdominal cramps and discomfort on and off CAT scan of the abdomen was done showed 1.3 cm metallic foreign body in the right lower quadrant presume related to surgery with embolization coil or clip from prior study no other major finding otherwise. Doppler study of both legs right and left did not show any deep venous thrombosis. Chest x-ray does not show any process. Otherwise patient been treated with aggressive management for anasarca and edema currently. Also has patient seen by cardiology as an outpatient which has not had ability to see cardiology last 6 months annual echocardiograms past year will order an echocardiogram and for patient to be seen cardiology as an in-house specially with anasarca and swelling to see if we can help. Eventually echocardiogram was performed and showed 60 to 65% ejection fraction with left ventricular cavity is normal with normal thickness mitral valve had structurally normal mitral valve with no evidence of mitral prolapse or mitral stenosis. Aortic valve post valve replacement from 2017 no aortic regurgitation peak velocity of 2.95 with a gradient of 35 mmHg and mean gradient of 19 with aortic stenosis. Rest of the structure are perfectly normal at this point. Ended up having to find out with general surgery think about the finding in the cecum with current finding and its metallic foreign body this is most likely ingested and considered repeat an x-ray to see if this has moved. But no acute abdomen requiring intervention otherwise. Again cardiology seen patient in consultation and review current finding with bilateral lower extremity edema and acute chronic heart failure with preserved ejection fraction and right bundle branch block agree with the consideration for an echo continue diuretics with aggressive management for edema will check magnesium level further recommendation is to follow-up. 10/10/2023: His culture came back positive for the Enterococcus facialis remain on Zosyn currently receiving is not controlling his temperature bowel so far, white blood cell is down to 10.4 and creatinine has been slightly bit worse at 1.9 t louie with GFR down to 38 specially being on more diuretics. His Lasix remain at 40 mg 3 times a day, spironolactone at 25 mg a day and added Zaroxolyn 2.5 mg daily repeat creatinine tomorrow as well magnesium is at 1.6. Infectious disease decided since Enterococcus is sensitive to penicillin that to continue Zosyn for now till the culture is finalized. Otherwise CT of the abdomen pelvis did not show any appendicitis or any infection but shows slight foreign body in the cecum which repeat plain x-ray came back negative for any major abnormality requiring help. Also patient had seen cardiology looking into management for acute on chronic heart failure with preserved ejection fraction and agree with IV Lasix Zaroxolyn and Aldactone is to watch kidney function little bit more carefully. Surprisingly with patient's condition in the past every time we did 3 treatment with Lasix, Zaroxolyn and Aldactone the kidney function declined quite bit so we have to be just careful this time in the next day or 2. Patient is patient to be discharged home today but with all current management and the culture is not finalized and the edema still bad patient is not ready to leave the hospital yet. REVIEW OF SYSTEMS: CONSTITUTIONAL: Overweight no acute respiratory distress EYES: No icterus sclerae, no conjunctivitis. EARS, NOSE, MOUTH, THROAT, and FACE: No sore throat, lymphadenopathy, carotid bruits or deformity. RESPIRATORY: No shortness of breath cough wheezes CARDIOVASCULAR: Positive PND orthopnea palpitation. GASTROINTESTINAL: Still have mild abdominal discomfort with nausea no vomiting slight gastroparesis with mild diarrhea. GENITOURINARY: Negative for Hematuria or UTI, no kidney stones. INTEGUMENT/BREAST: Severe anasarca and edema, history of rheumatoid arthritis with generalized arthralgia. HEMATOLOGIC/LYMPHATIC: Negative for bleed or purpura. MUSCULOSKELTAL: Generalized muscle and joint pain. NEURLOGICAL: Bedridden with severe left-sided weakness. BEHAVIORAL/PSYCH: Negative. ENDOCRINE: Negative. PHYSICAL EXAMINATION: General Appearance: Alert, cooperative, no distress, appears stated age. Neck HEENT: Supple, no lymphadenopathy, no thyroid enlargement, no carotid bruits. Lungs: Decreased breath sound bilaterally with fine rhonchi no crackles. Chest Wall: Decreased expansion with deep inspiration no tenderness and no deformity was found on exam, no costochondral pain or discomfort. Heart: Irregular rate and rhythm, S1, S2 normal, no murmur, rub or gallop. Back: Symmetric, no curvature, ROM normal, no CVA tenderness. Abdomen: Slight discomfort lower abdominal region area no rebound no rigidity slight anasarca and mild ascites. Extremities: 2+ edema with quite anasarca worse on the left side than right side Pulses: 2+ and symmetric. Skin: Skin color, texture, tugor normal, no rashes or lesions. Neurologic: Alert oriented x3 cranial nerves II through XII intact, positive weakness in the left side patient is bedridden. ASSESSMENT AND PLAN: _Anasarca and edema: Doppler was negative for DVT, will continue furosemide 40 mg IV 3 times a day, spironolactone was increased to 25 mg daily and added Zaroxolyn 2.5 mg a day. Watch kidney function more carefully in the next 48 hours. _Fever : Most likely from urinary tract infection and possible sepsis, remain on Zosyn currently, all testing came back to be negative including blood culture, COVID, influenza and RSV UA was negative as well chest x-ray did not show any infiltrate. _Congestive heart failure and ischemic cardiomyopathy, mostly acute on chronic congestive heart failure with preserved ejection fraction: Continue aggressive management. Remain on furosemide, spironolactone, lisinopril and metoprolol. Echocardiogram was done and showed better ejection fraction than expected with preserved ejection fraction heart failure. _History of CVA with middle cerebral artery occlusion of the right side si gnificant left-sided weakness. _Type 2 diabetes with severe hyperglycemia: His blood sugar was quite bit elevated we will continue insulin at this point we will add Jardiance. _Stage IIIa chronic kidney disease: Still watching kidney function carefully specially with the IV diuretics at this point. Slightly with worsening kidney function with current diuretics. _Paroxysmal atrial fibrillation: Pulse rate is well-controlled still on metoprolol patient is on Eliquis 5 mg twice a day. _Post aortic valve placement: Has been seeing cardiology echocardiogram and maintained every 1 to 2 years. _Seizure disorders: Still on Keppra 750 mg twice a day hide no seizure activity. _Rheumatoid arthritis: Has been off biological agent is on prednisone 5 mg daily as a maintenance has not been seen rheumatology in a while. _Post dissected ascending aorta postsurgery at [facility] years ago that the time was complicated with a stroke and aortic valve placement. _Thrombocytopenia: Mild decrease in platelet count continue to watch CBC while treating infection carefully. CODE STATUS: Full code. Discharge expectation: The patient does well and stable might be able to send him back to [facility] tomorrow. Objective - Vital Signs Vital signs: Vital Signs Temp 99.7 F H 10/10/23 01:15 Pulse 74 10/10/23 01:15 Resp 18 10/10/23 01:15 BP 121/66 10/10/23 01:15 Pulse Ox 95 10/10/23 01:15 FiO2 Intake & Output 10/09/23 10/09/23 10/10/23 06:59 18:59 06:59 Output Total 700 Balance -700 Weight 113.398 kg Output: Urine 700 Other: Voiding Method External Catheter External Catheter External Catheter - Labs CBC & Chem 7: 10/09/23 06:40 10/10/23 02:58 Labs: Abnormal Lab Results - Last 24 Hours (Table) 10/09/23 10/09/23 10/09/23 Range/Units 06:40 06:40 06:45 RBC 3.64 L (4.30-5.90) m/uL Hgb 10.5 L (13.0-17.5) gm/dL Hct 32.8 L (39.0-53.0) % Plt Count 125 L (150-450) k/uL Sodium 135 L (137-145) mmol/L BUN 24 H (9-20) mg/dL Creatinine 1.30 H (0.66-1.25) mg/dL Glucose 221 H (74-99) mg/dL POC Glucose (mg/dL) (70-110) mg/dL Magnesium 1.5 L (1.6-2.3) mg/dL Alkaline Phosphatase 37 L (38-126) U/L Total Protein 5.7 L (6.3-8.2) g/dL Albumin 3.2 L (3.5-5.0) g/dL 10/09/23 10/09/23 10/09/23 Range/Units 10:48 15:56 20:44 RBC (4.30-5.90) m/uL Hgb (13.0-17.5) gm/dL Hct (39.0-53.0) % Plt Count (150-450) k/uL Sodium (137-145) mmol/L BUN (9-20) mg/dL Creatinine (0.66-1.25) mg/dL Glucose (74-99) mg/dL POC Glucose (mg/dL) 253 H 281 H 242 H (70-110) mg/dL Magnesium (1.6-2.3) mg/dL Alkaline Phosphatase (38-126) U/L Total Protein (6.3-8.2) g/dL Albumin (3.5-5.0) g/dL 10/10/23 Range/Units 05:49 RBC (4.30-5.90) m/uL Hgb (13.0-17.5) gm/dL Hct (39.0-53.0) % Plt Count (150-450) k/uL Sodium (137-145) mmol/L BUN (9-20) mg/dL Creatinine (0.66-1.25) mg/dL Glucose (74-99) mg/dL POC Glucose (mg/dL) 216 H (70-110) mg/dL Magnesium (1.6-2.3) mg/dL Alkaline Phosphatase (38-126) U/L Total Protein (6.3-8.2) g/dL Albumin (3.5-5.0) g/dL Microbiology - Last 24 Hours (Table) 10/07/23 17:43 Blood Culture - Preliminary Blood 10/07/23 17:34 Blood Culture - Preliminary Blood 10/08/23 06:25 Urine Culture - Preliminary Urine,Voided Group D Enterococcus
[2023-10-11 06:05] LABS: Glucose,Whole Blood 213 mg/dL (70-110)
[2023-10-11 08:39] LABS: HCT 29.8 % (39.6-50.0); HGB 9.7 g/dL (13.0-17.0); MCH 28.8 pg (27.0-32.0); MCHC 32.6 g/dL (32.0-37.0); MCV 88.4 FL (80.0-97.0); Mean Platelet Volume 10.3 FL (9.5-12.2); NRBC Per 100 WBC 0 X 10*3/uL (0.00-0.01); Platelet Count 139 X 10*3/uL (140-440); RBC 3.37 X 10*6/uL (4.40-5.60); RDW 14.7 % (11.5-14.5); WBC 11.24 X 10*3/uL (4.50-10.00)
[2023-10-11 08:52] LABS: ALT 18 U/L (10-49); AST 15 U/L (14-35); Albumin 3.4 g/dL (3.8-4.9); Albumin/Globulin Ratio 1.55 Ratio (1.60-3.17); Alkaline Phosphatase 23 U/L (41-126); BUN/Creat Ratio 12.38 Ratio (12.00-20.00); Blood Urea Nitrogen 32.2 mg/dL (9.0-27.0); Calcium 8.8 mg/dL (8.7-10.3); Carbon Dioxide 22.7 mmol/L (21.6-31.8); Chloride 98 mmol/L (96-109); Globulin 2.2 g/dL (1.6-3.3); Glucose 222 mg/dL (70-110); Potassium 4.7 mmol/L (3.5-5.5); Sodium 134 mmol/L (135-145); Total Bilirubin 0.3 mg/dL (0.3-1.2); Total Protein 5.6 g/dL (6.2-8.2)
[2023-10-11 08:54] LABS: Basophils # (A) 0.1 k/uL (0-0.2); Basophils % (A) 1 %; Eosinophils # (A) 0.6 k/uL (0-0.7); Eosinophils % (A) 6 %; HCT 30.6 % (39.0-53.0); HGB 9.8 gm/dL (13.0-17.5); Lymphocytes # (A) 1.5 k/uL (1.0-4.8); Lymphocytes % (A) 15 %; MCH 28.7 pg (25.0-35.0); MCHC 31.9 g/dL (31.0-37.0); MCV 90.2 fL (80.0-100.0); Monocytes # (A) 0.7 k/uL (0-1.0); Monocytes % (A) 7 %; Neutrophils # (A) 6.9 k/uL (1.3-7.7); Neutrophils % (A) 69 %; Platelet Count 133 k/uL (150-450); RDW 15.3 % (11.5-15.5)
--- NOTE | 2023-10-11 09:34 | P.PN ---
Subjective HISTORY OF PRESENT ILLNESS: This is a 68-year-old male with a past medical history significant for atrial fibrillation, CVA with residual left sided weakness, hypertension, hyperlipidemia, diabetes, and prosthetic aortic valve replacement. Patient follows in the office with Dr. Stanton. We have been asked to see the patient in consultation for congestive heart failure. Patient examined at the bedside. Patient's is at the bedside. Patient resides at [facility]. Patient states over the past few days he has noticed increased lower extremity edema. He denied having any shortness of breath or cough. [facility] apparently which has since resolved. He is currently afebrile. He denies any chest pain or pressure. Patient spouse at the bedside states that the patient was on 40 mg of Lasix twice a day but due to his kidney function declining he was switched to 40 mg daily. However he did have about a 9 pound weight gain. She states the day before he came into the hospital his Lasix was increased to 60 mg daily and he was also started on Aldactone. She states he does have left upper and lower extremity edema at baseline but it is significantly worse currently than his baseline. The patient has been started on IV Lasix. Vital signs are stable. DIAGNOSTICS: - EKG reveals sinus mechanism with right bundle branch block. - Chest xray negative for acute process. - Lower extremity Doppler: Negative for DVT - Laboratory data: WBC 10.4. Hemoglobin 10.5. Platelet count 125. Sodium 135. Potassium 4.2. BUN 24. Creatinine 1.30. proBNP 673. - Current home cardiac medications include Lasix 60 mg daily, Lipitor 20 mg at night, lisinopril 10 mg daily, Aldactone 12.5 mg daily, Eliquis 5 mg twice a day, Toprol tartrate 75 mg twice a day - Most recent echocardiogram obtained in the office in October 2022 revealed normal EF, mild TR, prosthetic aortic valve, mild MR 10/10/2023 Patient examined this morning. Patients spouse is present. Patient denies chest pain or pressure. Denies shortness of breath. He remains on IV Lasix. He was also started on Zaroxolyn per primary medicine. Creatinine today worsened at 1.9. Echocardiogram completed revealing ejection fraction 60 to 65% with mild aortic stenosis 10/11/2023 Patient examined this morning. Patients spouse is present. Patient denies chest pain or pressure. Denies shortness of breath. Patient's Lasix, Zaroxolyn, and Aldactone were discontinued yesterday. Creatinine worsened today at 2.6. Vital signs are stable. PHYSICAL EXAM: VITAL SIGNS: Reviewed. GENERAL: Well-developed in no acute distress. HEENT: Head is normocephalic. Pupils are equal, round. Sclerae anicteric. Mucous membranes of the mouth are moist. Neck supple. No JVD or thyromegaly LUNGS: Respirations even and unlabored. Lungs essentially clear to auscultation bilaterally. HEART: Regular rate and rhythm. S1 and S2 heard. Systolic murmur noted. ABDOMEN: Soft. Nondistended. Nontender. EXTREMITIES: No clubbing or cyanosis. Peripheral pulses intact. Left upper extremity weakness. Left upper extremity edema. Bilateral pitting lower extremity edema, worse at the feet and ankles. NEUROLOGIC: Awake and alert. Oriented x 3. ASSESSMENT: Bilateral lower extremity edema, may be related to venous stasis and immobility rather than congestive heart failure Acute on chronic heart failure with preserved EF Acute kidney injury Known right bundle branch block Fever at [facility], since resolved History of MCA CVA with residual left-sided weakness Paroxysmal atrial fibrillation History of bioprosthetic aortic valve replacement Diabetes Seizure disorder History of repair of dissecting thoracic aortic aneurysm Hypomagnesemia PLAN: Lasix, Aldactone, and Zaroxolyn discontinued yesterday secondary to worsening kidney function. Repeat kidney function in a.m. Continue lisinopril for now. If kidney function continues to decline tomorrow we will discontinue lisinopril. Continue Bright wraps to lower extremities and elevation of bilateral lower extremities Further recommendations pending patient course Nurse practitioner note has been reviewed by physician. Signing provider agrees with the documented findings, assessment, and plan of care documented by [employer] as a scribe. Objective - Vital Signs Vital signs: Vital Signs Temp 98.3 F 10/11/23 07:17 Pulse 61 10/11/23 07:17 Resp 18 10/11/23 07:17 BP 152/72 10/11/23 07:17 Pulse Ox 95 10/11/23 09:15 FiO2 Intake & Output 10/10/23 10/11/23 10/11/23 18:59 06:59 18:59 Output Total 450 550 Balance -450 -550 Output: Urine 450 550 Other: Voiding Method External Catheter External Catheter # Bowel Movements 1 - Labs CBC & Chem 7: 10/11/23 08:11 10/11/23 03:21 Labs: Abnormal Lab Results - Last 24 Hours (Table) 10/10/23 10/10/23 10/10/23 Range/Units 10:14 11:28 16:32 WBC (4.50-10.00) X 10*3/uL RBC (4.40-5.60) X 10*6/uL Hgb (13.0-17.0) g/dL Hct (39.6-50.0) % RDW (11.5-14.5) % Plt Count (140-440) X 10*3/uL Sodium (135-145) mmol/L Anion Gap (4.00-12.00) mmol/L BUN (9.0-27.0) mg/dL Creatinine (0.6-1.5) mg/dL Est GFR (CKD-EPI) (>=60) Glucose (70-110) mg/dL POC Glucose (mg/dL) 307 H 340 H 374 H (70-110) mg/dL Alkaline Phosphatase (41-126) U/L Total Protein (6.2-8.2) g/dL Albumin (3.8-4.9) g/dL Albumin/Globulin Ratio (1.60-3.17) Ratio 10/10/23 10/11/23 10/11/23 Range/Units 20:08 03:21 03:21 WBC 11.24 H (4.50-10.00) X 10*3/uL RBC 3.37 L (4.40-5.60) X 10*6/uL Hgb 9.7 L (13.0-17.0) g/dL Hct 29.8 L (39.6-50.0) % RDW 14.7 H (11.5-14.5) % Plt Count 139 L (140-440) X 10*3/uL Sodium 134 L (135-145) mmol/L Anion Gap 13.30 H (4.00-12.00) mmol/L BUN 32.2 H (9.0-27.0) mg/dL Creatinine 2.6 H (0.6-1.5) mg/dL Est GFR (CKD-EPI) 26 L (>=60) Glucose 222 H (70-110) mg/dL POC Glucose (mg/dL) 384 H (70-110) mg/dL Alkaline Phosphatase 23 L (41-126) U/L Total Protein 5.6 L (6.2-8.2) g/dL Albumin 3.4 L (3.8-4.9) g/dL Albumin/Globulin Ratio 1.55 L (1.60-3.17) Ratio 10/11/23 10/11/23 Range/Units 06:03 08:11 WBC (4.50-10.00) X 10*3/uL RBC 3.40 L (4.40-5.60) X 10*6/uL Hgb 9.8 L (13.0-17.0) g/dL Hct 30.6 L (39.6-50.0) % RDW (11.5-14.5) % Plt Count 133 L (140-440) X 10*3/uL Sodium (135-145) mmol/L Anion Gap (4.00-12.00) mmol/L BUN (9.0-27.0) mg/dL Creatinine (0.6-1.5) mg/dL Est GFR (CKD-EPI) (>=60) Glucose (70-110) mg/dL POC Glucose (mg/dL) 213 H (70-110) mg/dL Alkaline Phosphatase (41-126) U/L Total Protein (6.2-8.2) g/dL Albumin (3.8-4.9) g/dL Albumin/Globulin Ratio (1.60-3.17) Ratio Microbiology - Last 24 Hours (Table) 10/07/23 17:43 Blood Culture - Preliminary Blood 10/07/23 17:34 Blood Culture - Preliminary Blood 10/08/23 06:25 Urine Culture - Final Urine,Voided Enterococcus faecalis
[2023-10-11] MEDS: FAMOTIDINE 20 MG TAB PO SCH (09:45)
--- NOTE | 2023-10-11 10:13 | CDI ---
Documentation Clarification Form Date: 10/11/2023 10:01:34 AM From: Jeanie Smith RN CCDS Phone: [phone] Admit Date: 10/07/2023 04:23:00 PM Patient Name: Heriberto Lane Visit Number: [id number] Discharge Date: ATTENTION: The Clinical Documentation Specialists (CDI) and [facility] Coding Staff appreciate your assistance in clarifying documentation. Please respond to the clarification below the line at the bottom and electronically sign. The CDI & [facility] Coding staff will review the response and follow-up if needed. Please note: Queries are made part of the Legal Health Record. If you have any questions, please contact the author of this message via ITS. Dr. Kwan Toney Sepsis is documented 10/08, medicine note which may lack sufficient clinical evidence/support in the medical record. Additional clarification is requested. History/Risk Factors: 68-year old male presents to the ED with edema and weight gain more in left leg than right leg. Medical History: Atrial fibrillation, CAD, CVA, DM, HTN and Respiratory disorder. 10/06, [facility] Clinical Indicators: VSS, 10/06: B/P 143/70; HR 66; Temperature 99.3F Oral; RR 18; SpO2 95% RA LABS, 10/06: Wbc 10.4; Neutrophils 7.9 Urine Culture, 10/07: Enterococus faecalis Treatment: 10/07 -10/09 Zosyn 3.375gm IVPB Q8H; 10/09 Ampicillin 3gm IVPB Q6H After work up and study, please clarify which diagnosis is most appropriate? [ ] Sepsis ruled out [XX ] Sepsis is a valid diagnosis as evidence by the following: (Please add rationale): Fever and chills, tachycardia, tachypnea altered mental status, elevated white cell and urine culture of Enterococcus facialis [ ] Other, please specify [ ] Unable to determine SIRS Criteria: 2 or more of the following may indicate SIRS Temperature < 96.8F (36C) or > 101.0F (38.3C) Heart Rate > 90 bpm Respiratory Rate > 20 breaths/min or PaCO2 < 32 mmHg White Blood Cell Count > 12,000 or < 4,000 cells/mm3 or > 10% bands (Template Last Reviewed: May 2023) EVIE
[2023-10-11 11:27] LABS: Glucose,Whole Blood 273 mg/dL (70-110)
--- NOTE | 2023-10-11 12:10 | P.NPCON ---
History of Present Illness - Reason for Consult acute renal failure - History of Present Illness Reason for consultation: Acute kidney injury History of present illness: Patient is a 68-year-old male seen in renal consultation for acute kidney injury. Patient's creatinine on admission on October 07, 2023 was 1.08 and is up to 2.6 today. Patient came from [facility] due to worsening edema in his lower extremities. Patient received IV diuretics, Aldactone as well as Zaroxolyn this admission. He was then transition to oral diuretics. Currently he is off all diuretics due to worsening kidney function. Blood pressure stable. He is currently on room air. Denies chest pain or shortness of breath. Echoc ardiogram showed preserved ejection fraction. No evidence of fluid overload noted on chest x-ray. Patient did receive IV contrast for CT abdomen and pelvis on October 09, 2023 which showed no hydronephrosis. Patient has longstanding history of diabetes. Also has history of aortic valve replacement. No proteinuria noted on UA. Denies use of nonsteroidals. Denies gross hematuria or dysuria. No fever or chills. Oral intake fair. No vomiting or diarrhea. Vital signs are stable. General: No acute distress. HEENT: Head exam is unremarkable. LUNGS: No audible rhonchi or wheezes. HEART: Rate and Rhythm are regular. ABDOMEN: Obese, nontender. EXTREMITITES: Trace edema. Past Medical History Past Medical History: Atrial Fibrillation, Coronary Artery Disease (CAD), CVA/TIA, Diabetes Mellitus, Hypertension, Osteoarthritis (OA), Respiratory Disorder Additional Past Medical History / Comment(s): non healing wound R big Toe. 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 PEG tube in place. History of Any Multi-Drug Resistant Organisms: None Reported Past Surgical History: Orthopedic Surgery Additional Past Surgical History / Comment(s): femur Past Anesthesia/Blood Transfusion Reactions: No Reported Reaction Past Psychological History: Depression Smoking Status: Former smoker, Never smoker Past Alcohol Use History: None Reported Past Drug Use History: None Reported - Past Family History Mother Family Medical History: No Reported History Medications and Allergies Home Medications Medication Instructions Recorded Confirmed Type Acetaminophen Tab [Tylenol] 650 mg PO Q6H PRN 12/17/16 10/07/23 History Atorvastatin [Lipitor] 20 mg PO HS@2100 12/17/16 10/07/23 History Famotidine [Pepcid] 20 mg PO BID@0800,1700 12/17/16 10/07/23 History Loratadine [Claritin] 10 mg PO DAILY@0800 12/17/16 10/07/23 History Metoclopramide [Reglan] 10 mg PO ACHS 12/17/16 10/07/23 History Multivitamins, Thera [Multivitamin 1 tab PO DAILY@1700 12/17/16 10/07/23 History (formulary)] Na Phos,M-B/Na Phos,Di-Ba [Fleet 133 ml RECTAL DAILY PRN 12/17/16 10/07/23 History Adult] bisacodyL [Dulcolax] 10 mg RECTAL DAILY PRN 12/17/16 10/07/23 History lisinopriL [Zestril] 10 mg PO DAILY@0800 12/17/16 10/07/23 History polyethylene glycoL 3350 [Miralax] 17 gm PO DAILY PRN 12/17/16 10/07/23 History predniSONE 5 mg PO DAILY@0812/17/16 10/07/23 History Loperamide HCl [Imodium A-D] 2 - 4 mg PO TID PRN 10/18/19 10/07/23 History Menthol [Biofreeze] 1 applic TOPICAL TID PRN 10/18/19 10/07/23 History Apixaban [Eliquis] 5 mg PO BID@0800,1700 10/07/23 10/07/23 History Co-Q-10 100mg 1 cap PO DAILY@79910/07/23 10/07/23 History Fish Oil/Dha/Epa [Fish Oil 1,200 1 cap PO DAILY@79910/07/23 10/07/23 History mg Fish Oil] Furosemide [Lasix] 60 mg PO DAILY@79910/07/23 10/07/23 History HYDROcodone/APAP 7.5-325MG [[place] 1 tab PO Q6HR 10/07/23 10/07/23 History 7.5-325] INSULIN LISPRO (HumaLOG) [humaLOG] 20 units SQ DAILY@1100 10/07/23 10/07/23 History INSULIN LISPRO (HumaLOG) [humaLOG] 35 units SQ DAILY@0700 10/07/23 10/07/23 History INSULIN LISPRO (HumaLOG) [humaLOG] 45 units SQ DAILY@1700 10/07/23 10/07/23 History INSULIN LISPRO (HumaLOG) [humaLOG] See Protocol SQ ACHS 10/07/23 10/07/23 History Insulin Glargine [Lantus Vial] 40 unit SQ HS@2100 10/07/23 10/07/23 History Insulin Glargine [Lantus Vial] 65 unit SQ DAILY@0700 10/07/23 10/07/23 History Lactulose 20 gm PO BID@0800,1700 10/07/23 10/07/23 History Magnesium Hydroxide [Milk of 7,200 mg PO Q48H PRN 10/07/23 10/07/23 History Magnesia Concentrate] Metoprolol Tartrate [Lopressor] 75 mg PO BID@0800,1700 10/07/23 10/07/23 History Sodium Chloride [[place]] 1 spray EA NOSTRIL BID PRN 10/07/23 10/07/23 History Spironolactone [Aldactone] 12.5 mg PO DAILY@1400 10/07/23 10/07/23 History allopurinoL [Zyloprim] 300 mg PO DAILY@0800 10/07/23 10/07/23 History levETIRAcetam [Keppra] 750 mg PO BID@0800,1700 10/07/23 10/07/23 History Allergies Allergy/AdvReac Type Severity Reaction Status Date / Time No Known Allergies Allergy Verified 10/07/23 14:13 Physical Exam Vitals: Vital Signs Temp Pulse Resp BP Pulse Ox 10/11/23 09:15 95 10/11/23 07:17 98.3 F 61 18 152/72 94 L 10/11/23 00:59 98.8 F 65 18 137/72 95 10/10/23 20:57 98.5 F 63 16 133/75 94 L 10/10/23 13:04 98.8 F 85 18 125/70 91 L Intake and Output 10/10/23 10/11/23 10/11/23 22:59 06:59 14:59 Output Total 550 Balance -550 Output: Urine 550 Other: Voiding Method External Catheter # Bowel Movements 1 Results - Lab Results Most recent lab results Calcium 8.8 mg/dL (8.7-10.3) 10/11/23 03:21 Magnesium 1.6 mg/dL (1.6-2.3) 10/10/23 02:58 10/11/23 08:11 10/11/23 03:21 Assessment and Plan Plan: Assessment: 1. Acute kidney injury secondary to ATN secondary to infection, diuresis. Also received IV contrast on October 09, [address] of the abdomen and pelvis. Creatinine 1.08 on admission and up to 2.6 today. Rule out urinary retention. No proteinuria on UA. No hydronephrosis noted on CAT scan. 2. Diabetes mellitus. 3. Benign hypertension. 4. History of aortic valve replacement. 5. Chronic diastolic CHF. 6. Enterococcus UTI on antibiotics. ID following. Plan: Continue to hold off on diuretics. Start normal saline at 50 cc an hour. Stop lisinopril. Check bladder scan to rule out urinary retention. Avoid nephrotoxins, including Fleet enemas and nonsteroidals. Continue to monitor renal function and urine output. Thank you for the consultation. I will continue to follow the patient with you during his hospital stay.
[2023-10-11] MEDS: SODIUM CHLORIDE 0.9% 1,000 ML IV SCH (12:22)
--- NOTE | 2023-10-11 16:00 | P.PN ---
Subjective Progress Note Date: 10/11/23 CHIEF COMPLAINT: Foreign body of cecum HISTORY OF PRESENT ILLNESS: Patient admitted to the hospital with fever and UTI. Surgical service following for metallic foreign body in the cecum. Abdominal x-ray from yesterday did not report foreign body. Patient denies any abdominal pain. Denies any nausea or vomiting. He reports having bowel movements. Afebrile WBC 10.0 PHYSICAL EXAM: VITAL SIGNS: Reviewed. GENERAL: Well-developed in no acute distress. ABDOMEN: Soft. Nondistended. Nontender. NEUROLOGIC: Alert and oriented. Cranial nerves II through XII grossly intact. ASSESSMENT: 1. Metallic foreign body. This most likely was ingested. 2. UTI 3. History of CVA after aortic dissection repair PLAN: -Repeat abdominal x-ray ordered for today for further evaluation of the foreign body and if it moves Physician [employer] Feeder note has been reviewed by physician. Signing provider agrees with the documented findings, assessment, and plan of care. Objective - Vital Signs Vital signs: Vital Signs Temp 98.7 F 10/11/23 14:00 Pulse 64 10/11/23 14:00 Resp 18 10/11/23 14:00 BP 120/69 10/11/23 14:00 Pulse Ox 96 10/11/23 14:00 FiO2 Intake & Output 10/10/23 10/11/23 10/11/23 18:59 06:59 18:59 Output Total 450 550 Balance -450 -550 Output: Urine 450 550 Other: Voiding Method External Catheter External Catheter # Bowel Movements 1 1 - Labs CBC & Chem 7: 10/11/23 08:11 10/11/23 03:21 Labs: Abnormal Lab Results - Last 24 Hours (Table) 10/10/23 10/10/23 10/11/23 Range/Units 16:32 20:08 03:21 WBC (4.50-10.00) X 10*3/uL RBC (4.40-5.60) X 10*6/uL Hgb (13.0-17.0) g/dL Hct (39.6-50.0) % RDW (11.5-14.5) % Plt Count (140-440) X 10*3/uL Sodium 134 L (135-145) mmol/L Anion Gap 13.30 H (4.00-12.00) mmol/L BUN 32.2 H (9.0-27.0) mg/dL Creatinine 2.6 H (0.6-1.5) mg/dL Est GFR (CKD-EPI) 26 L (>=60) Glucose 222 H (70-110) mg/dL POC Glucose (mg/dL) 374 H 384 H (70-110) mg/dL Alkaline Phosphatase 23 L (41-126) U/L Total Protein 5.6 L (6.2-8.2) g/dL Albumin 3.4 L (3.8-4.9) g/dL Albumin/Globulin Ratio 1.55 L (1.60-3.17) Ratio 10/11/23 10/11/23 10/11/23 Range/Units 03:21 06:03 08:11 WBC 11.24 H (4.50-10.00) X 10*3/uL RBC 3.37 L 3.40 L (4.40-5.60) X 10*6/uL Hgb 9.7 L 9.8 L (13.0-17.0) g/dL Hct 29.8 L 30.6 L (39.6-50.0) % RDW 14.7 H (11.5-14.5) % Plt Count 139 L 133 L (140-440) X 10*3/uL Sodium (135-145) mmol/L Anion Gap (4.00-12.00) mmol/L BUN (9.0-27.0) mg/dL Creatinine (0.6-1.5) mg/dL Est GFR (CKD-EPI) (>=60) Glucose (70-110) mg/dL POC Glucose (mg/dL) 213 H (70-110) mg/dL Alkaline Phosphatase (41-126) U/L Total Protein (6.2-8.2) g/dL Albumin (3.8-4.9) g/dL Albumin/Globulin Ratio (1.60-3.17) Ratio 10/11/23 Range/Units 11:25 WBC (4.50-10.00) X 10*3/uL RBC (4.40-5.60) X 10*6/uL Hgb (13.0-17.0) g/dL Hct (39.6-50.0) % RDW (11.5-14.5) % Plt Count (140-440) X 10*3/uL Sodium (135-145) mmol/L Anion Gap (4.00-12.00) mmol/L BUN (9.0-27.0) mg/dL Creatinine (0.6-1.5) mg/dL Est GFR (CKD-EPI) (>=60) Glucose (70-110) mg/dL POC Glucose (mg/dL) 273 H (70-110) mg/dL Alkaline Phosphatase (41-126) U/L Total Protein (6.2-8.2) g/dL Albumin (3.8-4.9) g/dL Albumin/Globulin Ratio (1.60-3.17) Ratio Microbiology - Last 24 Hours (Table) 10/07/23 17:43 Blood Culture - Preliminary Blood 10/07/23 17:34 Blood Culture - Preliminary Blood 10/08/23 06:25 Urine Culture - Final Urine,Voided Enterococcus faecalis
[2023-10-11] MEDS: FUROSEMIDE 40 MG TAB PO SCH (16:03)
[2023-10-11 16:42] LABS: Glucose,Whole Blood 271 mg/dL (70-110)
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
[2023-10-11 21:14] LABS: Glucose,Whole Blood 228 mg/dL (70-110)
--- NOTE | 2023-10-11 22:37 | P.PN ---
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 Also has been dealing with decubitus ulcer on the buttocks on the left heel area in manage. Was admitted to the hospital 2 days ago on October 06 for significant edema and anasarca not well-controlled has been on diuretics also was running low-grade temperature not a clear whether he has any infection or not. Culture has been negative so far laboratory value showed negative UA blood sugar continues to be slightly elevated continue to have slight abdominal cramps and discomfort on and off CAT scan of the abdomen was done showed 1.3 cm metallic foreign body in the right lower quadrant presume related to surgery with embolization coil or clip from prior study no other major finding otherwise. Doppler study of both legs right and left did not show any deep venous thrombosis. Chest x-ray does not show any process. Otherwise patient been treated with aggressive management for anasarca and edema currently. Also has patient seen by cardiology as an outpatient which has not had ability to see cardiology last 6 months annual echocardiograms past year will order an echocardiogram and for patient to be seen cardiology as an in-house specially with anasarca and swelling to see if we can help. Eventually echocardiogram was performed and showed 60 to 65% ejection fraction with left ventricular cavity is normal with normal thickness mitral valve had structurally normal mitral valve with no evidence of mitral prolapse or mitral stenosis. Aortic valve post valve replacement from 2017 no aortic regurgitation peak velocity of 2.95 with a gradient of 35 mmHg and mean gradient of 19 with aortic stenosis. Rest of the structure are perfectly normal at this point. Ended up having to find out with general surgery think about the finding in the cecum with current finding and its metallic foreign body this is most likely ingested and considered repeat an x-ray to see if this has moved. But no acute abdomen requiring intervention otherwise. Again cardiology seen patient in consultation and review current finding with bilateral lower extremity edema and acute chronic heart failure with preserved ejection fraction and right bundle branch block agree with the consideration for an echo continue diuretics with aggressive management for edema will check magnesium level further recommendation is to follow-up. 10/10/2023: His culture came back positive for the Enterococcus facialis remain on Zosyn currently receiving is not controlling his temperature bowel so far, white blood cell is down to 10.4 and creatinine has been slightly bit worse at 1.9 t louie with GFR down to 38 specially being on more diuretics. His Lasix remain at 40 mg 3 times a day, spironolactone at 25 mg a day and added Zaroxolyn 2.5 mg daily repeat creatinine tomorrow as well magnesium is at 1.6. Infectious disease decided since Enterococcus is sensitive to penicillin that to continue Zosyn for now till the culture is finalized. Otherwise CT of the abdomen pelvis did not show any appendicitis or any infection but shows slight foreign body in the cecum which repeat plain x-ray came back negative for any major abnormality requiring help. Also patient had seen cardiology looking into management for acute on chronic heart failure with preserved ejection fraction and agree with IV Lasix Zaroxolyn and Aldactone is to watch kidney function little bit more carefully. Surprisingly with patient's condition in the past every time we did 3 treatment with Lasix, Zaroxolyn and Aldactone the kidney function declined quite bit so we have to be just careful this time in the next day or 2. Patient is patient to be discharged home today but with all current management and the culture is not finalized and the edema still bad patient is not ready to leave the hospital yet. 10/11/2023: Kidney function is much worse today creatinine is up to 2.6 with GFR down to 26 blood sugar slightly better continue to have anasarca and edema patient be seen nephrology today and recommendation again to take him off all diuretics and any nephrotoxic agent. Nephrology opinion this is an acute tubular necrosis secondary to infection diuretic use and dehydration. Also from probably be diuresed with a CAT scan done couple days earlier. I had normal saline at 50 cc an hour and stop lisinopril completely at this point check bladder for urinary retention continue to monitor kidney function carefully along with urine output. This will delay discharge at least the next 24 hours for now. Of course previously CAT scan of the abdomen does not show any hydronephrosis. REVIEW OF SYSTEMS: CONSTITUTIONAL: Overweight no acute respiratory distress EYES: No icterus sclerae, no conjunctivitis. EARS, NOSE, MOUTH, THROAT, and FACE: No sore throat, lymphadenopathy, carotid bruits or deformity. RESPIRATORY: No shortness of breath cough wheezes CARDIOVASCULAR: Positive PND orthopnea palpitation. GASTROINTESTINAL: Still have mild abdominal discomfort with nausea no vomiting slight gastroparesis with mild diarrhea. GENITOURINARY: Negative for Hematuria or UTI, no kidney stones. INTEGUMENT/BREAST: Severe anasarca and edema, history of rheumatoid arthritis with generalized arthralgia. HEMATOLOGIC/LYMPHATIC: Negative for bleed or purpura. MUSCULOSKELTAL: Generalized muscle and joint pain. NEURLOGICAL: Bedridden with severe left-sided weakness. BEHAVIORAL/PSYCH: Negative. ENDOCRINE: Negative. PHYSICAL EXAMINATION: General Appearance: Alert, cooperative, no distress, appears stated age. Neck HEENT: Supple, no lymphadenopathy, no thyroid enlargement, no carotid bruits. Lungs: Decreased breath sound bilaterally with fine rhonchi no crackles. Chest Wall: Decreased expansion with deep inspiration no tenderness and no def ormity was found on exam, no costochondral pain or discomfort. Heart: Irregular rate and rhythm, S1, S2 normal, no murmur, rub or gallop. Back: Symmetric, no curvature, ROM normal, no CVA tenderness. Abdomen: Slight discomfort lower abdominal region area no rebound no rigidity slight anasarca and mild ascites. Extremities: 2+ edema with quite anasarca worse on the left side than right side Pulses: 2+ and symmetric. Skin: Skin color, texture, tugor normal, no rashes or lesions. Neurologic: Alert oriented x3 cranial nerves II through XII intact, positive weakness in the left side patient is bedridden. ASSESSMENT AND PLAN: _Anasarca and edema: Was on diuretics between furosemide, spironolactone and Zaroxolyn which made the kidney function much worse still having quite a bit edema will hold off on oral diuretics at this point. _Fever : Mostly urinary tract infection with culture positive for Enterococcus facialis: Responding to current antibiotic with Zosyn. _Acute kidney failure mostly most likely secondary to acute tubular necrosis, hypoperfusion, dehydration and sepsis treat underlying disease keep watching kidney function more carefully. _Congestive heart failure and ischemic cardiomyopathy, mostly acute on chronic congestive heart failure with preserved ejection fraction, will try to hold off on lisinopril, spironolactone, Lasix and Zaroxolyn Echocardiogram was done and showed better ejection fraction than expected with preserved ejection fraction heart failure. _History of CVA with middle cerebral artery occlusion of the right side signifi cant left-sided weakness. _Type 2 diabetes with severe hyperglycemia: His blood sugar was quite bit elevated we will continue insulin at this point we will add Jardiance. _Stage IIIa chronic kidney disease: Still watching kidney function carefully specially with the IV diuretics at this point. Slightly with worsening kidney function with current diuretics. _Paroxysmal atrial fibrillation: Pulse rate is well-controlled still on metoprolol patient is on Eliquis 5 mg twice a day. _Post aortic valve placement: Has been seeing cardiology echocardiogram and maintained every 1 to 2 years. _Seizure disorders: Still on Keppra 750 mg twice a day hide no seizure activity. _Rheumatoid arthritis: Has been off biological agent is on prednisone 5 mg daily as a maintenance has not been seen rheumatology in a while. _Post dissected ascending aorta postsurgery at [facility] years ago lise t the time was complicated with a stroke and aortic valve placement. _Thrombocytopenia: Mild decrease in platelet count continue to watch CBC while treating infection carefully. CODE STATUS: Full code. Discharge expectation: With much worsening kidney function Long talk with the today discharge will be delayed patient is seen nephrology probably plan for discharge in the next 48 hours. Objective - Vital Signs Vital signs: Vital Signs Temp 98.8 F 10/11/23 00:59 Pulse 65 10/11/23 00:59 Resp 18 10/11/23 00:59 BP 137/72 10/11/23 00:59 Pulse Ox 95 10/11/23 00:59 FiO2 Intake & Output 10/10/23 10/10/23 10/11/23 06:59 18:59 06:59 Output Total 200 450 550 Balance -200 -450 -550 Output: Urine 200 450 550 Other: Voiding Method External Catheter External Catheter External Catheter # Voids 3 # Bowel Movements 1 1 - Labs CBC & Chem 7: 10/11/23 08:11 10/11/23 03:21 Labs: Abnormal Lab Results - Last 24 Hours (Table) 10/10/23 10/10/23 10/10/23 Range/Units 02:58 10:14 11:28 Anion Gap 15.10 H (4.00-12.00) mmol/L Creatinine 1.9 H (0.6-1.5) mg/dL Est GFR (CKD-EPI) 38 L (>=60) Glucose 176 H (70-110) mg/dL POC Glucose (mg/dL) 307 H 340 H (70-110) mg/dL 10/10/23 10/10/23 10/11/23 Range/Units 16:32 20:08 06:03 Anion Gap (4.00-12.00) mmol/L Creatinine (0.6-1.5) mg/dL Est GFR (CKD-EPI) (>=60) Glucose (70-110) mg/dL POC Glucose (mg/dL) 374 H 384 H 213 H (70-110) mg/dL Microbiology - Last 24 Hours (Table) 10/07/23 17:43 Blood Culture - Preliminary Blood 10/07/23 17:34 Blood Culture - Preliminary Blood 10/08/23 06:25 Urine Culture - Final Urine,Voided Enterococcus faecalis
[2023-10-12 06:23] LABS: Glucose,Whole Blood 168 mg/dL (70-110)
[2023-10-12] MEDS ORDERED: SPIRONOLACTONE 25 MG TAB PO SCH (09:00)
[2023-10-12 09:50] LABS: BUN/Creat Ratio 10.03 Ratio (12.00-20.00); Blood Urea Nitrogen 35.1 mg/dL (9.0-27.0); Calcium 8.3 mg/dL (8.7-10.3); Carbon Dioxide 20.3 mmol/L (21.6-31.8); Chloride 100 mmol/L (96-109); Glucose 149 mg/dL (70-110); Potassium 4.7 mmol/L (3.5-5.5); Sodium 136 mmol/L (135-145)
--- NOTE | 2023-10-12 10:54 | CDI ---
Documentation Clarification Form Date: 10/12/2023 10:20:43 AM From: Jeanie Smith RN CCDS Phone: [phone] Admit Date: 10/07/2023 04:23:00 PM Patient Name: Heriberto Lane Visit Number: [id number] Discharge Date: ATTENTION: The Clinical Documentation Specialists (CDI) and [facility] Coding Staff appreciate your assistance in clarifying documentation. Please respond to the clarification below the line at the bottom and electronically sign. The CDI & [facility] Coding staff will review the response and follow-up if needed. Please note: Queries are made part of the Legal Health Record. If you have any questions, please contact the author of this message via ITS. Dr. Kwan Ward Coccyx Stage 2 pressure ulcer is documented by Nursing in Physical assessment/Integumentary, 10/07. Based on this information and the findings below, is there an additional diagnosis that is clinically appropriate for this patient? History/Risk Factors: 68-year-old male presents to the ED with increasing edema and weight gain. Left leg edema more edema than right. Medical history: Atrial fibrillation, CAD, CVA, DM, HTN and OA 10/06,HP. Clinical Indicators: wound assessment 10/10 Location: Coccyx Wound description: Type 2 partial flap loss, Length 9cm, Width 4cm Treatment: Foam with border, Turn 2QH off loading, Calmoseptine ointment TID PRN, Is there an additional diagnosis that is clinically appropriate for this patient? [ XX ] Coccyx Pressure Ulcer Stage 2 [ ] Other condition, please specify [ ] Unable to determine Clinical Definitions: Stage 1 Pressure Ulcer: intact skin, non-blanching redness of local area Stage 2 Pressure Ulcer: Partial thickness, loss of dermis, pink wound bed Stage 3 Pressure Ulcer: Full thickness tissue loss Stage 4 Pressure Ulcer: Full thickness tissue loss with exposed bone, tendon, or muscle. Unstageable pressure ulcer: Full thickness tissue loss in which the base of the ulcer is covered by slough (yellow, euceda, thompson, green or brown) and/or eschar (euceda, brown or black) in the wound bed. (Template Last Revised: July 2020) MTDD
--- NOTE | 2023-10-12 11:29 | P.PN ---
Subjective Patient is seen in follow-up for acute kidney injury. Renal function worsening. Creatinine 3.5 today. Has external catheter. Nonoliguric. Receiving IV fluids. Oral intake fair. Denies chest pain or shortness of breath. Vital signs are stable. General: No acute distress. HEENT: Head exam is unremarkable. LUNGS: No audible rhonchi or wheezes. HEART: Rate and Rhythm are regular. ABDOMEN: Nontender. EXTREMITITES: No edema. Objective - Vital Signs Vital signs: Vital Signs Temp 98.5 F 10/12/23 07:35 Pulse 61 10/12/23 07:35 Resp 18 10/12/23 07:35 BP 137/73 10/12/23 07:35 Pulse Ox 96 10/12/23 09:01 FiO2 Intake & Output 10/11/23 10/12/23 10/12/23 18:59 06:59 18:59 Output Total 200 Balance -200 Output: Urine 200 Other: Voiding Method External Catheter Diaper External Catheter External Catheter # Bowel Movements 1 - Labs CBC & Chem 7: 10/11/23 08:11 10/12/23 05:45 Labs: Abnormal Lab Results - Last 24 Hours (Table) 10/11/23 10/11/23 10/11/23 Range/Units 11:25 16:40 21:12 Carbon Dioxide (21.6-31.8) mmol/L Anion Gap (4.00-12.00) mmol/L BUN (9.0-27.0) mg/dL Creatinine (0.6-1.5) mg/dL Est GFR (CKD-EPI) (>=60) BUN/Creatinine Ratio (12.00-20.00) Ratio Glucose (70-110) mg/dL POC Glucose (mg/dL) 273 H 271 H 228 H (70-110) mg/dL Calcium (8.7-10.3) mg/dL 10/12/23 10/12/23 Range/Units 05:45 06:22 Carbon Dioxide 20.3 L (21.6-31.8) mmol/L Anion Gap 15.70 H (4.00-12.00) mmol/L BUN 35.1 H (9.0-27.0) mg/dL Creatinine 3.5 H (0.6-1.5) mg/dL Est GFR (CKD-EPI) 18 L (>=60) BUN/Creatinine Ratio 10.03 L (12.00-20.00) Ratio Glucose 149 H (70-110) mg/dL POC Glucose (mg/dL) 168 H (70-110) mg/dL Calcium 8.3 L (8.7-10.3) mg/dL Assessment and Plan Plan: Assessment: 1. Acute kidney injury secondary to ATN secondary to infection, diuresis. Also received IV contrast on October 09, [address] of the abdomen and pelvis. Creatinine 1.08 on admission and up to 3.5 today. Bladder scan showed urine volume of 200 to 300 cc. No proteinuria on UA. No hydronephrosis noted on CAT scan. 2. Diabetes mellitus. 3. Benign hypertension. Controlled. 4. History of aortic valve replacement. 5. Chronic diastolic CHF. 6. Enterococcus UTI on antibiotics. ID following. Plan: Continue to hold off on diuretics. Last dose given October 11, 2023. Change fluids to bicarb drip. Stop lisinopril. Last dose given October 11, 2023. Insert Alanis for strict I's and O's. Avoid nephrotoxins, including Fleet enemas and nonsteroidals. Continue to monitor renal function and urine output.
[2023-10-12 12:18] LABS: Glucose,Whole Blood 254 mg/dL (70-110)
--- NOTE | 2023-10-12 12:39 | P.PN ---
Subjective HISTORY OF PRESENT ILLNESS: This is a 68-year-old male with a past medical history significant for atrial fibrillation, CVA with residual left sided weakness, hypertension, hyperlipidemia, diabetes, and prosthetic aortic valve replacement. Patient follows in the office with Dr. Stanton. We have been asked to see the patient in consultation for congestive heart failure. Patient examined at the bedside. Patient's is at the bedside. Patient resides at [facility]. Patient states over the past few days he has noticed increased lower extremity edema. He denied having any shortness of breath or cough. He did have a fever at the [facility] apparently which has since resolved. He is currently afebrile. He denies any chest pain or pressure. Patient spouse at the bedside states that the patient was on 40 mg of Lasix twice a day but due to his kidney function declining he was switched to 40 mg daily. However he did have about a 9 pound weight gain. She states the day before he came into the hospital his Lasix was increased to 60 mg daily and he was also started on Aldactone. She states he does have left upper and lower extremity edema at baseline but it is significantly worse currently than his baseline. The patient has been started on IV Lasix. Vital signs are stable. DIAGNOSTICS: - EKG reveals sinus mechanism with right bundle branch block. - Chest xray negative for acute process. - Lower extremity Doppler: Negative for DVT - Laboratory data: WBC 10.4. Hemoglobin 10.5. Platelet count 125. Sodium 135. Potassium 4.2. BUN 24. Creatinine 1.30. proBNP 673. - Current home cardiac medications include Lasix 60 mg daily, Lipitor 20 mg at night, lisinopril 10 mg daily, Aldactone 12.5 mg daily, Eliquis 5 mg twice a day, Toprol tartrate 75 mg twice a day - Most recent echocardiogram obtained in the office in October 2022 revealed normal EF, mild TR, prosthetic aortic valve, mild MR 10/10/2023 Patient examined this morning. Patients spouse is present. Patient denies chest pain or pressure. Denies shortness of breath. He remains on IV Lasix. He was also started on Zaroxolyn per primary medicine. Creatinine today worsened at 1.9. Echocardiogram completed revealing ejection fraction 60 to 65% with mild aortic stenosis 10/11/2023 Patient examined this morning. Patients spouse is present. Patient denies chest pain or pressure. Denies shortness of breath. Patient's Lasix, Zaroxolyn, and Aldactone were discontinued yesterday. Creatinine worsened today at 2.6. Vital signs are stable. 10/12/2023 Patient examined this afternoon at the bedside. Patient denies chest pain or pressure. He denies shortness of breath. Patient remains off all diuretics. Creatinine today 3.5. Patient just had a Alanis catheter placed per nursing with about 100 cc of urine output. He is currently receiving IV fluids. PHYSICAL EXAM: VITAL SIGNS: Reviewed. GENERAL: Well-developed in no acute distress. HEENT: Head is normocephalic. Pupils are equal, round. Sclerae anicteric. Mucous membranes of the mouth are moist. Neck supple. No JVD or thyromegaly LUNGS: Respirations even and unlabored. Lungs essentially clear to auscultation bilaterally. HEART: Regular rate and rhythm. S1 and S2 heard. Systolic murmur noted. ABDOMEN: Soft. Nondistended. Nontender. EXTREMITIES: No clubbing or cyanosis. Peripheral pulses intact. Left upper extremity weakness. Left upper extremity edema. Bilateral pitting lower extremity edema, worse at the feet and ankles. NEUROLOGIC: Awake and alert. Oriented x 3. ASSESSMENT: Bilateral lower extremity edema, may be related to venous stasis and immobility rather than congestive heart failure Acute on chronic heart failure with preserved EF Acute kidney injury Known right bundle branch block Fever at [facility], since resolved History of MCA CVA with residual left-sided weakness Paroxysmal atrial fibrillation History of bioprosthetic aortic valve replacement Diabetes Seizure disorder History of repair of dissecting thoracic aortic aneurysm Hypomagnesemia PLAN: Lasix, Aldactone, Zaroxolyn, and Lisinopril discontinued secondary to worsening kidney function. Repeat kidney function in a.m. Continue additional cardiac medications Continue Bright wraps to lower extremities and elevation of bilateral lower extremities Further recommendations pending patient course Nurse practitioner note has been reviewed by physician. Signing provider agrees with the documented findings, assessment, and plan of care documented by MACHINE PACKAGER as a scribe. Objective - Vital Signs Vital signs: Vital Signs Temp 98.5 F 10/12/23 07:35 Pulse 61 10/12/23 07:35 Resp 18 10/12/23 07:35 BP 137/73 10/12/23 07:35 Pulse Ox 96 10/12/23 09:01 FiO2 Intake & Output 06/05/24 06/06/24 06/06/24 18:59 06:59 18:59 Output Total 200 Balance -200 Output: Urine 200 Other: Voiding Method External Catheter Diaper External Catheter External Catheter # Bowel Movements 1 - Labs CBC & Chem 7: 10/11/23 08:11 10/12/23 05:45 Labs: Abnormal Lab Results - Last 24 Hours (Table) 10/11/23 10/11/23 10/11/23 Range/Units 11:25 16:40 21:12 Carbon Dioxide (21.6-31.8) mmol/L Anion Gap (4.00-12.00) mmol/L BUN (9.0-27.0) mg/dL Creatinine (0.6-1.5) mg/dL Est GFR (CKD-EPI) (>=60) BUN/Creatinine Ratio (12.00-20.00) Ratio Glucose (70-110) mg/dL POC Glucose (mg/dL) 273 H 271 H 228 H (70-110) mg/dL Calcium (8.7-10.3) mg/dL 10/12/23 10/12/23 Range/Units 05:45 06:22 Carbon Dioxide 20.3 L (21.6-31.8) mmol/L Anion Gap 15.70 H (4.00-12.00) mmol/L BUN 35.1 H (9.0-27.0) mg/dL Creatinine 3.5 H (0.6-1.5) mg/dL Est GFR (CKD-EPI) 18 L (>=60) BUN/Creatinine Ratio 10.03 L (12.00-20.00) Ratio Glucose 149 H (70-110) mg/dL POC Glucose (mg/dL) 168 H (70-110) mg/dL Calcium 8.3 L (8.7-10.3) mg/dL
[2023-10-12] MEDS: DEXTROSE 5% IN WATER 1,000 ML with SODIUM BICARB (1 MEQ/ML) 150 ML IV SCH (13:01)
--- NOTE | 2023-10-12 13:29 | P.PN ---
Subjective Progress Note Date: 10/12/23 CHIEF COMPLAINT: Foreign body of cecum HISTORY OF PRESENT ILLNESS: Patient admitted to the hospital with fever and UTI. Surgical service following for metallic foreign body in the cecum. Patient denies any abdominal pain. Abdominal x-ray from yesterday reported persistent metallic density near the cecum. Patient does not report having bowel movements. PHYSICAL EXAM: VITAL SIGNS: Reviewed. GENERAL: Well-developed in no acute distress. ABDOMEN: Soft. Nondistended. Nontender. NEUROLOGIC: Alert and oriented. Cranial nerves II through XII grossly intact. ASSESSMENT: 1. Metallic foreign body. This most likely was ingested. 2. UTI 3. History of CVA after aortic dissection repair PLAN: -Patient can be discharged from surgical standpoint -Would recommend bowel prep and this can be done outpatient to help progression of removing the metallic foreign body Physician Geospatial Extractor Analysis note has been reviewed by physician. Signing provider agrees with the documented findings, assessment, and plan of care. Objective - Vital Signs Vital signs: Vital Signs Temp 98.5 F 10/12/23 07:35 Pulse 61 10/12/23 07:35 Resp 18 10/12/23 07:35 BP 137/73 10/12/23 07:35 Pulse Ox 96 10/12/23 09:01 FiO2 Intake & Output 10/11/23 10/12/23 10/12/23 18:59 06:59 18:59 Output Total 200 300 Balance -200 -300 Output: Urine 200 300 Uretheral (Alanis) 300 Other: Voiding Method External Catheter Diaper External Catheter External Catheter # Bowel Movements 1 - Labs CBC & Chem 7: 10/11/23 08:11 10/12/23 05:45 Labs: Abnormal Lab Results - Last 24 Hours (Table) 10/11/23 10/11/23 10/12/23 Range/Units 16:40 21:12 05:45 Carbon Dioxide 20.3 L (21.6-31.8) mmol/L Anion Gap 15.70 H (4.00-12.00) mmol/L BUN 35.1 H (9.0-27.0) mg/dL Creatinine 3.5 H (0.6-1.5) mg/dL Est GFR (CKD-EPI) 18 L (>=60) BUN/Creatinine Ratio 10.03 L (12.00-20.00) Ratio Glucose 149 H (70-110) mg/dL POC Glucose (mg/dL) 271 H 228 H (70-110) mg/dL Calcium 8.3 L (8.7-10.3) mg/dL 10/12/23 10/12/23 Range/Units 06:22 12:16 Carbon Dioxide (21.6-31.8) mmol/L Anion Gap (4.00-12.00) mmol/L BUN (9.0-27.0) mg/dL Creatinine (0.6-1.5) mg/dL Est GFR (CKD-EPI) (>=60) BUN/Creatinine Ratio (12.00-20.00) Ratio Glucose (70-110) mg/dL POC Glucose (mg/dL) 168 H 254 H (70-110) mg/dL Calcium (8.7-10.3) mg/dL
[2023-10-12 16:36] LABS: Glucose,Whole Blood 193 mg/dL (70-110)
--- NOTE | 2023-10-12 17:11 | P.PN ---
Subjective Progress Note Date: 10/11/23 Principal diagnosis: Reason for follow-up is fever question of UTI Patient is a 68-year-old male with a past medical history significant for atrial fibrillation coronary disease diabetes mellitus hypertension osteoarthritis CVA TIA patient presented to the hospital for evaluation of lower extremity swelling he did have a low-grade fever prompting this consultation. On today's evaluation that is 10/11/2023, the patient continues to be afebrile, the patient is on room air and breathing comfortably, the Pt denies having any chest pain or cough, the patient denies having any abdominal pain no vomiting or any diarrhea has been reported by the nursing staff. Patient white count is 10.0, creatinine is 2.6 Objective - Vital Signs Vital signs: Vital Signs Temp 98.3 F 10/11/23 07:17 Pulse 61 10/11/23 07:17 Resp 18 10/11/23 07:17 BP 152/72 10/11/23 07:17 Pulse Ox 95 10/11/23 09:15 FiO2 Intake & Output 10/10/23 10/11/23 10/11/23 18:59 06:59 18:59 Output Total 450 550 Balance -450 -550 Output: Urine 450 550 Other: Voiding Method External Catheter External Catheter # Bowel Movements 1 1 - Exam GENERAL DESCRIPTION: An elderly male lying in bed in no distress RESPIRATORY SYSTEM: Unlabored breathing , decreased breath sounds at bases HEART: S1 S2 regular rate and rhythm , ABDOMEN: Soft , no tenderness EXTREMITIES: No edema feet - Labs CBC & Chem 7: 10/11/23 08:11 10/12/23 05:45 Labs: Abnormal Lab Results - Last 24 Hours (Table) 10/10/23 10/10/23 10/11/23 Range/Units 16:32 20:08 03:21 WBC (4.50-10.00) X 10*3/uL RBC (4.40-5.60) X 10*6/uL Hgb (13.0-17.0) g/dL Hct (39.6-50.0) % RDW (11.5-14.5) % Plt Count (140-440) X 10*3/uL Sodium 134 L (135-145) mmol/L Anion Gap 13.30 H (4.00-12.00) mmol/L BUN 32.2 H (9.0-27.0) mg/dL Creatinine 2.6 H (0.6-1.5) mg/dL Est GFR (CKD-EPI) 26 L (>=60) Glucose 222 H (70-110) mg/dL POC Glucose (mg/dL) 374 H 384 H (70-110) mg/dL Alkaline Phosphatase 23 L (41-126) U/L Total Protein 5.6 L (6.2-8.2) g/dL Albumin 3.4 L (3.8-4.9) g/dL Albumin/Globulin Ratio 1.55 L (1.60-3.17) Ratio 10/11/23 10/11/23 10/11/23 Range/Units 03:21 06:03 08:11 WBC 11.24 H (4.50-10.00) X 10*3/uL RBC 3.37 L 3.40 L (4.40-5.60) X 10*6/uL Hgb 9.7 L 9.8 L (13.0-17.0) g/dL Hct 29.8 L 30.6 L (39.6-50.0) % RDW 14.7 H (11.5-14.5) % Plt Count 139 L 133 L (140-440) X 10*3/uL Sodium (135-145) mmol/L Anion Gap (4.00-12.00) mmol/L BUN (9.0-27.0) mg/dL Creatinine (0.6-1.5) mg/dL Est GFR (CKD-EPI) (>=60) Glucose (70-110) mg/dL POC Glucose (mg/dL) 213 H (70-110) mg/dL Alkaline Phosphatase (41-126) U/L Total Protein (6.2-8.2) g/dL Albumin (3.8-4.9) g/dL Albumin/Globulin Ratio (1.60-3.17) Ratio 10/11/23 Range/Units 11:25 WBC (4.50-10.00) X 10*3/uL RBC (4.40-5.60) X 10*6/uL Hgb (13.0-17.0) g/dL Hct (39.6-50.0) % RDW (11.5-14.5) % Plt Count (140-440) X 10*3/uL Sodium (135-145) mmol/L Anion Gap (4.00-12.00) mmol/L BUN (9.0-27.0) mg/dL Creatinine (0.6-1.5) mg/dL Est GFR (CKD-EPI) (>=60) Glucose (70-110) mg/dL POC Glucose (mg/dL) 273 H (70-110) mg/dL Alkaline Phosphatase (41-126) U/L Total Protein (6.2-8.2) g/dL Albumin (3.8-4.9) g/dL Albumin/Globulin Ratio (1.60-3.17) Ratio Microbiology - Last 24 Hours (Table) 10/07/23 17:43 Blood Culture - Preliminary Blood 10/07/23 17:34 Blood Culture - Preliminary Blood 10/08/23 06:25 Urine Culture - Final Urine,Voided Enterococcus faecalis Assessment and Plan (1) Fever Current Visit: Yes Status: Acute Code(s): R50.9 - FEVER, UNSPECIFIED SNOMED Code(s): 565994452 (2) UTI (urinary tract infection) Current Visit: Yes Status: Acute Code(s): N39.0 - URINARY TRACT INFECTION, SITE NOT SPECIFIED SNOMED Code(s): 21670547 Plan: 1patient with a low-grade fever source possible urinary as he did have a positive UA versus abdominal source as the patient was noticed to be tender in the right lower quadrant area 2- CT of abdominal pelvis did not show any acute abnormality no evidence of appendicitis 3-patient urine is positive culture growing Enterococcus faecalis for which the patient is covered with a Unasyn to continue monitor clinical course closely Dictation was produced using [employer] dictation software. please excuse any grammatical, word or spelling errors. Time with Patient: Less than 30
--- NOTE | 2023-10-12 17:12 | P.PN ---
Subjective Progress Note Date: 10/12/23 Principal diagnosis: Reason for follow-up is fever question of UTI Patient is a 68-year-old male with a past medical history significant for atrial fibrillation coronary disease diabetes mellitus hypertension osteoarthritis CVA TIA patient presented to the hospital for evaluation of lower extremity swelling he did have a low-grade fever prompting this consultation. On today's evaluation that is 10/12/2023, Patient is afebrile patient is currently on room air and denies having any shortness of breath, the patient denies any chest pain or cough, the patient denies any nausea vomiting did not have any abdominal pain and no diarrhea, patient complaining about the Alanis catheter No CBC was done today creatinine 3.5 blood culture has been negative Objective - Vital Signs Vital signs: Vital Signs Temp 98.5 F 10/12/23 07:35 Pulse 61 10/12/23 07:35 Resp 18 10/12/23 07:35 BP 137/73 10/12/23 07:35 Pulse Ox 96 10/12/23 09:01 FiO2 Intake & Output 10/11/23 10/12/23 10/12/23 18:59 06:59 18:59 Output Total 200 300 Balance -200 -300 Output: Urine 200 300 Uretheral (Alanis) 300 Other: Voiding Method External Catheter Diaper External Catheter External Catheter # Bowel Movements 1 - Exam GENERAL DESCRIPTION: An elderly male lying in bed in no distress RESPIRATORY SYSTEM: Unlabored breathing , decreased breath sounds at bases HEART: S1 S2 regular rate and rhythm , ABDOMEN: Soft , no tenderness EXTREMITIES: No edema feet - Labs CBC & Chem 7: 10/11/23 08:11 10/12/23 05:45 Labs: Abnormal Lab Results - Last 24 Hours (Table) 10/11/23 10/11/23 10/12/23 Range/Units 16:40 21:12 05:45 Carbon Dioxide 20.3 L (21.6-31.8) mmol/L Anion Gap 15.70 H (4.00-12.00) mmol/L BUN 35.1 H (9.0-27.0) mg/dL Creatinine 3.5 H (0.6-1.5) mg/dL Est GFR (CKD-EPI) 18 L (>=60) BUN/Creatinine Ratio 10.03 L (12.00-20.00) Ratio Glucose 149 H (70-110) mg/dL POC Glucose (mg/dL) 271 H 228 H (70-110) mg/dL Calcium 8.3 L (8.7-10.3) mg/dL 10/12/23 10/12/23 Range/Units 06:22 12:16 Carbon Dioxide (21.6-31.8) mmol/L Anion Gap (4.00-12.00) mmol/L BUN (9.0-27.0) mg/dL Creatinine (0.6-1.5) mg/dL Est GFR (CKD-EPI) (>=60) BUN/Creatinine Ratio (12.00-20.00) Ratio Glucose (70-110) mg/dL POC Glucose (mg/dL) 168 H 254 H (70-110) mg/dL Calcium (8.7-10.3) mg/dL Assessment and Plan (1) Fever Current Visit: Yes Status: Acute Code(s): R50.9 - FEVER, UNSPECIFIED SNOMED Code(s): 865503224 (2) UTI (urinary tract infection) Current Visit: Yes Status: Acute Code(s): N39.0 - URINARY TRACT INFECTION, SITE NOT SPECIFIED SNOMED Code(s): 44314506 Plan: 1patient with a low-grade fever source possible urinary as he did have a positive UA versus abdominal source as the patient was noticed to be tender in the right lower quadrant area 2- CT of abdominal pelvis did not show any acute abnormality no evidence of appendicitis 3-patient urine is positive culture growing Enterococcus faecalis for which the patient is covered with a Unasyn, patient noticed a worsening of his kidney function for the patient being monitored closely by nephrology team Dictation was produced using [employer] dictation software. please excuse any gra mmatical, word or spelling errors. Time with Patient: Less than 30
[2023-10-12] MEDS: AMPICILLIN-SULBACTAM 3 GM in SODIUM CHLORIDE 0.9% 100 ML IVPB SCH (18:28)
[2023-10-12 20:35] LABS: Glucose,Whole Blood 211 mg/dL (70-110)
--- NOTE | 2023-10-12 23:00 | P.PN ---
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 Also has been dealing with decubitus ulcer on the buttocks on the left heel area in manage. Was admitted to the hospital 2 days ago on October 06 for significant edema and anasarca not well-controlled has been on diuretics also was running low-grade temperature not a clear whether he has any infection or not. Culture has been negative so far laboratory value showed negative UA blood sugar continues to be slightly elevated continue to have slight abdominal cramps and discomfort on and off CAT scan of the abdomen was done showed 1.3 cm metallic foreign body in the right lower quadrant presume related to surgery with embolization coil or clip from prior study no other major finding otherwise. Doppler study of both legs right and left did not show any deep venous thrombosis. Chest x-ray does not show any process. Otherwise patient been treated with aggressive management for anasarca and edema currently. Also has patient seen by cardiology as an outpatient which has not had ability to see cardiology last 6 months annual echocardiograms past year will order an echocardiogram and for patient to be seen cardiology as an in-house specially with anasarca and swelling to see if we can help. Eventually echocardiogram was performed and showed 60 to 65% ejection fraction with left ventricular cavity is normal with normal thickness mitral valve had structurally normal mitral valve with no evidence of mitral prolapse or mitral stenosis. Aortic valve post valve replacement from 2017 no aortic regurgitation peak velocity of 2.95 with a gradient of 35 mmHg and mean gradient of 19 with aortic stenosis. Rest of the structure are perfectly normal at this point. Ended up having to find out with general surgery think about the finding in the cecum with current finding and its metallic foreign body this is most likely ingested and considered repeat an x-ray to see if this has moved. But no acute abdomen requiring intervention otherwise. Again cardiology seen patient in consultation and review current finding with bilateral lower extremity edema and acute chronic heart failure with preserved ejection fraction and right bundle branch block agree with the consideration for an echo continue diuretics with aggressive management for edema will check magnesium level further recommendation is to follow-up. 10/10/2023: His culture came back positive for the Enterococcus facialis remain on Zosyn currently receiving is not controlling his temperature bowel so far, white blood cell is down to 10.4 and creatinine has been slightly bit worse at 1.9 t louie with GFR down to 38 specially being on more diuretics. His Lasix remain at 40 mg 3 times a day, spironolactone at 25 mg a day and added Zaroxolyn 2.5 mg daily repeat creatinine tomorrow as well magnesium is at 1.6. Infectious disease decided since Enterococcus is sensitive to penicillin that to continue Zosyn for now till the culture is finalized. Otherwise CT of the abdomen pelvis did not show any appendicitis or any infection but shows slight foreign body in the cecum which repeat plain x-ray came back negative for any major abnormality requiring help. Also patient had seen cardiology looking into management for acute on chronic heart failure with preserved ejection fraction and agree with IV Lasix Zaroxolyn and Aldactone is to watch kidney function little bit more carefully. Surprisingly with patient's condition in the past every time we did 3 treatment with Lasix, Zaroxolyn and Aldactone the kidney function declined quite bit so we have to be just careful this time in the next day or 2. Patient is patient to be discharged home today but with all current management and the culture is not finalized and the edema still bad patient is not ready to leave the hospital yet. 10/11/2023: Kidney function is much worse today creatinine is up to 2.6 with GFR down to 26 blood sugar slightly better continue to have anasarca and edema patient be seen nephrology today and recommendation again to take him off all diuretics and any nephrotoxic agent. Nephrology opinion this is an acute tubular necrosis secondary to infection diuretic use and dehydration. Also from probably be diuresed with a CAT scan done couple days earlier. I had normal saline at 50 cc an hour and stop lisinopril completely at this point check bladder for urinary retention continue to monitor kidney function carefully along with urine output. This will delay discharge at least the next 24 hours for now. Of course previously CAT scan of the abdomen does not show any hydronephrosis. 10/12/2023: He is much worse today with a kidney function had declined significantly creatinine is up to 3.5 with GFR down to 18, blood sugar still mildly elevated, he is off all diuretics and all nephrotoxic agent but this is not improving so far patient will continue gentle hydration with nephrology to go on for the next 24 hours at this point. UTI still being treated successfully doing well continue antibiotics for few more days. The plan was to discharge patient to [facility] rehab but he is not in any condition to be discharged yet. Edema swelling and bloating sensation are the same or slightly better compared to yesterday. REVIEW OF SYSTEMS: CONSTITUTIONAL: Overweight no acute respiratory distress EYES: No icterus sclerae, no conjunctivitis. EARS, NOSE, MOUTH, THROAT, and FACE: No sore throat, lymphadenopathy, carotid bruits or deformity. RESPIRATORY: No shortness of breath cough wheezes CARDIOVASCULAR: Positive PND orthopnea palpitation. GASTROINTESTINAL: Still have mild abdominal discomfort with nausea no vomiting slight gastroparesis with mild diarrhea. GENITOURINARY: Negative for Hematuria or UTI, no kidney stones. INTEGUMENT/BREAST: Severe anasarca and edema, history of rheumatoid arthritis with generalized arthralgia. HEMATOLOGIC/LYMPHATIC: Negative for bleed or purpura. MUSCULOSKELTAL: Generalized muscle and joint pain. NEURLOGICAL: Bedridden with severe left-sided weakness. BEHAVIORAL/PSYCH: Negative. ENDOCRINE: Negative. PHYSICAL EXAMINATION: General Appearance: Alert, cooperative, no distress, appears stated age. Neck HEENT: Supple, no lymphadenopathy, no thyroid enlargement, no carotid bruits. Lungs: Decreased breath sound bilaterally with fine rhonchi no crackles. Chest Wall: Decreased expansion with deep inspiration no tenderness and no deformity was found on exam, no costochondral pain or discomfort. Heart: Irregular rate and rhythm, S1, S2 normal, no murmur, rub or gallop. Back: Symmetric, no curvature, ROM normal, no CVA tenderness. Abdomen: Slight discomfort lower abdominal region area no rebound no rigidity slight anasarca and mild ascites. Extremities: 2+ edema with quite anasarca worse on the left side than right side Pulses: 2+ and symmetric. Skin: Skin color, texture, tugor normal, no rashes or lesions. Neurologic: Alert oriented x3 cranial nerves II through XII intact, positive we akness in the left side patient is bedridden. ASSESSMENT AND PLAN: _Anasarca and edema: Because of the decline in kidney function off all diuretics at this point continue gentle hydration and avoid diuretics for the next week or so. _Fever : Mostly urinary tract infection with culture positive for Enterococcus facialis: Responding to current antibiotic with Zosyn. Will switch to oral antibiotics when he goes to [facility]. _Acute kidney failure despite underlying problem and because which is not important this point important to kidney function Declining patient is off all nephrotoxic agent. Continue to watch for 24 manage patient declining more might require dialysis. _Congestive heart failure and ischemic cardiomyopathy, the last echocardiogram showing well-preserved ejection fraction heart failure continue current medication management. 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 _Type 2 diabetes with severe hyperglycemia: His blood sugar was quite bit elevated we will continue insulin at this point we will add Jardiance. _Stage IIIa chronic kidney disease: Still watching kidney function carefully specially with the IV diuretics at this point. Slightly with worsening kidney function with current diuretics. _Paroxysmal atrial fibrillation: Pulse rate is well-controlled still on me toprolol patient is on Eliquis 5 mg twice a day. _Post aortic valve placement: Has been seeing cardiology echocardiogram and maintained every 1 to 2 years. _Seizure disorders: Still on Keppra 750 mg twice a day hide no seizure activity. _Rheumatoid arthritis: Has been off biological agent is on prednisone 5 mg daily as a maintenance has not been seen rheumatology in a while. _Post dissected ascending aorta postsurgery at [facility] years ago that the time was complicated with a stroke and aortic valve placement. _Thrombocytopenia: Mild decrease in platelet count continue to watch CBC while treating infection carefully. CODE STATUS: Full code. Discharge expectation: Continue aggressive management for now currently seen nephrology, will continue IV antibiotics for worsening kidney function patient might require dialysis otherwise if improvement can be discharged with anti biotics for few days. Objective - Vital Signs Vital signs: Vital Signs Temp 97.3 F L 10/12/23 02:39 Pulse 62 10/12/23 02:39 Resp 15 10/12/23 02:39 BP 151/80 10/12/23 02:39 Pulse Ox 94 L 10/12/23 02:39 FiO2 Intake & Output 10/11/23 10/11/2310/11/24 06:59 18:59 06:59 Output Total 550 Balance -550 Output: Urine 550 Other: Voiding Method External Catheter External Catheter Diaper External Catheter # Bowel Movements 1 - Labs CBC & Chem 7: 10/11/23 08:11 10/12/23 05:45 Labs: Abnormal Lab Results - Last 24 Hours (Table) 10/11/23 10/11/23 10/11/23 Range/Units 03:21 03:21 06:03 WBC 11.24 H (4.50-10.00) X 10*3/uL RBC 3.37 L (4.40-5.60) X 10*6/uL Hgb 9.7 L (13.0-17.0) g/dL Hct 29.8 L (39.6-50.0) % RDW 14.7 H (11.5-14.5) % Plt Count 139 L (140-440) X 10*3/uL Sodium 134 L (135-145) mmol/L Anion Gap 13.30 H (4.00-12.00) mmol/L BUN 32.2 H (9.0-27.0) mg/dL Creatinine 2.6 H (0.6-1.5) mg/dL Est GFR (CKD-EPI) 26 L (>=60) Glucose 222 H (70-110) mg/dL POC Glucose (mg/dL) 213 H (70-110) mg/dL Alkaline Phosphatase 23 L (41-126) U/L Total Protein 5.6 L (6.2-8.2) g/dL Albumin 3.4 L (3.8-4.9) g/dL Albumin/Globulin Ratio 1.55 L (1.60-3.17) Ratio 10/11/23 10/11/23 10/11/23 Range/Units 08:11 11:25 16:40 WBC (4.50-10.00) X 10*3/uL RBC 3.40 L (4.40-5.60) X 10*6/uL Hgb 9.8 L (13.0-17.0) g/dL Hct 30.6 L (39.6-50.0) % RDW (11.5-14.5) % Plt Count 133 L (140-440) X 10*3/uL Sodium (135-145) mmol/L Anion Gap (4.00-12.00) mmol/L BUN (9.0-27.0) mg/dL Creatinine (0.6-1.5) mg/dL Est GFR (CKD-EPI) (>=60) Glucose (70-110) mg/dL POC Glucose (mg/dL) 273 H 271 H (70-110) mg/dL Alkaline Phosphatase (41-126) U/L Total Protein (6.2-8.2) g/dL Albumin (3.8-4.9) g/dL Albumin/Globulin Ratio (1.60-3.17) Ratio 10/11/23 Range/Units 21:12 WBC (4.50-10.00) X 10*3/uL RBC (4.40-5.60) X 10*6/uL Hgb (13.0-17.0) g/dL Hct (39.6-50.0) % RDW (11.5-14.5) % Plt Count (140-440) X 10*3/uL Sodium (135-145) mmol/L Anion Gap (4.00-12.00) mmol/L BUN (9.0-27.0) mg/dL Creatinine (0.6-1.5) mg/dL Est GFR (CKD-EPI) (>=60) Glucose (70-110) mg/dL POC Glucose (mg/dL) 228 H (70-110) mg/dL Alkaline Phosphatase (41-126) U/L Total Protein (6.2-8.2) g/dL Albumin (3.8-4.9) g/dL Albumin/Globulin Ratio (1.60-3.17) Ratio
[2023-10-13 06:12] LABS: Glucose,Whole Blood 164 mg/dL (70-110)
--- NOTE | 2023-10-13 10:30 | P.PN ---
Subjective HISTORY OF PRESENT ILLNESS: This is a 68-year-old male with a past medical history significant for atrial fibrillation, CVA with residual left sided weakness, hypertension, hyperlipidemia, diabetes, and prosthetic aortic valve replacement. Patient follows in the office with Dr. Stanton. We have been asked to see the patient in consultation for congestive heart failure. Patient examined at the bedside. Patient's is at the bedside. Patient resides at [facility]. Patient states over the past few days he has noticed increased lower extremity edema. He denied having any shortness of breath or cough. He did have a fever at the assisted apparently which has since resolved. He is currently afebrile. He denies any chest pain or pressure. Patient spouse at the bedside states that the patient was on 40 mg of Lasix twice a day but due to his kidney function declining he was switched to 40 mg daily. However he did have about a 9 pound weight gain. She states the day before he came into the hospital his Lasix was increased to 60 mg daily and he was also started on Aldactone. She states he does have left upper and lower extremity edema at baseline but it is significantly worse currently than his baseline. The patient has been started on IV Lasix. Vital signs are stable. DIAGNOSTICS: - EKG reveals sinus mechanism with right bundle branch block. - Chest xray negative for acute process. - Lower extremity Doppler: Negative for DVT - Laboratory data: WBC 10.4. Hemoglobin 10.5. Platelet count 125. Sodium 135. Potassium 4.2. BUN 24. Creatinine 1.30. proBNP 673. - Current home cardiac medications include Lasix 60 mg daily, Lipitor 20 mg at night, lisinopril 10 mg daily, Aldactone 12.5 mg daily, Eliquis 5 mg twice a day, Toprol tartrate 75 mg twice a day - Most recent echocardiogram obtained in the office in October 2022 revealed normal EF, mild TR, prosthetic aortic valve, mild MR 10/10/2023 Patient examined this morning. Patients spouse is present. Patient denies chest pain or pressure. Denies shortness of breath. He remains on IV Lasix. He was also started on Zaroxolyn per primary medicine. Creatinine today worsened at 1.9. Echocardiogram completed revealing ejection fraction 60 to 65% with mild aortic stenosis 10/11/2023 Patient examined this morning. Patients spouse is present. Patient denies chest pain or pressure. Denies shortness of breath. Patient's Lasix, Zaroxolyn, and Aldactone were discontinued yesterday. Creatinine worsened today at 2.6. Vital signs are stable. 10/12/2023 Patient examined this afternoon at the bedside. Patient denies chest pain or pressure. He denies shortness of breath. Patient remains off all diuretics. Creatinine today 3.5. Patient just had a Alanis catheter placed per nursing with about 100 cc of urine output. He is currently receiving IV fluids. 10/13/2023 Patient examined this morning at the bedside. Patient currently denies chest pain or pressure. He denies shortness of breath. Patient remains off all nephrotoxic agents. Kidney function from this morning is currently pending. Vital signs are stable. PHYSICAL EXAM: VITAL SIGNS: Reviewed. GENERAL: Well-developed in no acute distress. HEENT: Head is normocephalic. Pupils are equal, round. Sclerae anicteric. Mucous membranes of the mouth are moist. Neck supple. No JVD or thyromegaly LUNGS: Respirations even and unlabored. Lungs essentially clear to auscultation bilaterally. HEART: Regular rate and rhythm. S1 and S2 heard. Systolic murmur noted. ABDOMEN: Soft. Nondistended. Nontender. EXTREMITIES: No clubbing or cyanosis. Peripheral pulses intact. Left upper extremity weakness. Left upper extremity edema. Bilateral pitting lower extremity edema, worse at the feet and ankles. NEUROLOGIC: Awake and alert. Oriented x 3. ASSESSMENT: Bilateral lower extremity edema, may be related to venous stasis and immobility rather than congestive heart failure Acute on chronic heart failure with preserved EF Acute kidney injury Known right bundle branch block Fever at assisted, since resolved History of MCA CVA with residual left-sided weakness Paroxysmal atrial fibrillation History of bioprosthetic aortic valve replacement Diabetes Seizure disorder History of repair of dissecting thoracic aortic aneurysm Hypomagnesemia PLAN: Lasix, Aldactone, Zaroxolyn, and Lisinopril discontinued secondary to worsening kidney function. Repeat kidney function in a.m. Continue additional cardiac medications Continue Bright wraps to lower extremities and elevation of bilateral lower extremities No further inpatient recommendations from a cardiac standpoint We will sign off. Please reconsult if needed. Nurse practitioner note has been reviewed by physician. Signing provider agrees with the documented findings, assessment, and plan of care documented by AUCTIONEER TOBACCO as a scribe. Objective - Vital Signs Vital signs: Vital Signs Temp 99.3 F 10/13/23 02:00 Pulse 58 L 10/13/23 02:00 Resp 16 10/13/23 02:00 BP 145/75 10/13/23 02:00 Pulse Ox 93 L 10/13/23 02:00 FiO2 Intake & Output 10/12/23 10/13/23 10/13/23 18:59 06:59 18:59 Output Total 300 200 Balance -300 -200 Weight 157 kg Output: Urine 300 200 Uretheral (Alanis) 300 Other: Voiding Method External Catheter Indwelling Catheter - Labs CBC & Chem 7: 10/11/23 08:11 10/12/23 05:45 Labs: Abnormal Lab Results - Last 24 Hours (Table) 10/12/23 10/12/23 10/12/23 Range/Units 05:45 12:16 16:35 Carbon Dioxide 20.3 L (21.6-31.8) mmol/L Anion Gap 15.70 H (4.00-12.00) mmol/L BUN 35.1 H (9.0-27.0) mg/dL Creatinine 3.5 H (0.6-1.5) mg/dL Est GFR (CKD-EPI) 18 L (>=60) BUN/Creatinine Ratio 10.03 L (12.00-20.00) Ratio Glucose 149 H (70-110) mg/dL POC Glucose (mg/dL) 254 H 193 H (70-110) mg/dL Calcium 8.3 L (8.7-10.3) mg/dL 10/12/23 10/13/23 Range/Units 20:33 06:11 Carbon Dioxide (21.6-31.8) mmol/L Anion Gap (4.00-12.00) mmol/L BUN (9.0-27.0) mg/dL Creatinine (0.6-1.5) mg/dL Est GFR (CKD-EPI) (>=60) BUN/Creatinine Ratio (12.00-20.00) Ratio Glucose (70-110) mg/dL POC Glucose (mg/dL) 211 H 164 H (70-110) mg/dL Calcium (8.7-10.3) mg/dL Microbiology - Last 24 Hours (Table) 10/07/23 17:43 Blood Culture - Final Blood 10/07/23 17:34 Blood Culture - Final Blood
--- NOTE | 2023-10-13 11:34 | P.PN ---
Subjective Patient is seen in follow-up for acute kidney injury. Renal function worsening. Creatinine 3.5 as of yesterday. Has Alanis catheter. Urine output 200 cc overnight. Receiving IV fluids. Oral intake fair. Denies chest pain or shortness of breath. present at bedside. Vital signs are stable. General: No acute distress. HEENT: Head exam is unremarkable. LUNGS: No audible rhonchi or wheezes. HEART: Rate and Rhythm are regular. ABDOMEN: Nontender. EXTREMITITES: No edema. Objective - Vital Signs Vital signs: Vital Signs Temp 98.9 F 10/13/23 08:04 Pulse 65 10/13/23 08:04 Resp 16 10/13/23 08:04 BP 133/73 10/13/23 08:04 Pulse Ox 96 10/13/23 08:04 FiO2 Intake & Output 10/12/23 10/13/23 10/13/23 18:59 06:59 18:59 Output Total 300 200 Balance -300 -200 Weight 157 kg Output: Urine 300 200 Uretheral (Alanis) 300 Other: Voiding Method External Catheter Indwelling Catheter Indwelling Catheter - Labs CBC & Chem 7: 10/11/23 08:11 10/12/23 05:45 Labs: Abnormal Lab Results - Last 24 Hours (Table) 10/12/23 10/12/23 10/12/23 Range/Units 12:16 16:35 20:33 POC Glucose (mg/dL) 254 H 193 H 211 H (70-110) mg/dL 10/13/23 Range/Units 06:11 POC Glucose (mg/dL) 164 H (70-110) mg/dL Microbiology - Last 24 Hours (Table) 10/07/23 17:43 Blood Culture - Final Blood 10/07/23 17:34 Blood Culture - Final Blood Assessment and Plan Plan: Assessment: 1. Acute kidney injury secondary to ATN secondary to infection, diuresis. Also received IV contrast on October 09, [address] of the abdomen and pelvis. Creatinine 1.08 on admission and up to 3.5 yesterday. Bladder scan showed urine volume of 200 to 300 cc. Has Alanis catheter. No proteinuria on UA. No hydronephrosis noted on CAT scan. 2. Diabetes mellitus. 3. Benign hypertension. Controlled. 4. History of aortic valve replacement. 5. Chronic diastolic CHF. 6. Enterococcus UTI on antibiotics. ID following. Plan: Continue to hold off on diuretics. Last dose given October 11, 2023. Currently on bicarb drip. Stopped lisinopril. Last dose given October 11, 2023. Maintain Alanis catheter. Avoid nephrotoxins, including Fleet enemas and nonsteroidals. Continue to monitor renal function and urine output. Follow-up morning labs. If renal function continues to worsen, will initiate renal replacement therapy. Discussed with patient and his present at bedside. They are in agreement.
[2023-10-13 11:42] LABS: BUN/Creat Ratio 8.56 Ratio (12.00-20.00); Blood Urea Nitrogen 38.5 mg/dL (9.0-27.0); Calcium 8.3 mg/dL (8.7-10.3); Carbon Dioxide 21.3 mmol/L (21.6-31.8); Chloride 97 mmol/L (96-109); Glucose 143 mg/dL (70-110); Magnesium 2.1 mg/dL (1.5-2.4); Potassium 4.3 mmol/L (3.5-5.5); Sodium 136 mmol/L (135-145)
[2023-10-13 11:46] LABS: Glucose,Whole Blood 233 mg/dL (70-110)
--- NOTE | 2023-10-13 13:50 | P.PN ---
Subjective Progress Note Date: 10/13/23 CHIEF COMPLAINT: Foreign body of cecum HISTORY OF PRESENT ILLNESS: Patient admitted to the hospital with fever and UTI. Patient with acute kidney injury creatinine now 4.5. Followed by nephrology and being monitored for possible renal replacement. Surgical service following for metallic foreign body in the cecum. Patient denies any abdominal pain. Patient did have a bowel movement. Abdominal x-ray from yesterday reported persistent metallic density near the cecum. PHYSICAL EXAM: VITAL SIGNS: Reviewed. GENERAL: Well-developed in no acute distress. ABDOMEN: Soft. Nondistended. Nontender. NEUROLOGIC: Alert and oriented. Cranial nerves II through XII grossly intact. ASSESSMENT: 1. Metallic foreign body. This most likely was ingested. 2. UTI 3. 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 SIMEON PLAN: -Continue lactulose and MiraLAX -Would recommend bowel prep and this can be done outpatient to help progression of removing the metallic foreign body Physician Forensic Photographer note has been reviewed by physician. Signing provider agrees with the documented findings, assessment, and plan of care. Objective - Vital Signs Vital signs: Vital Signs Temp 100.3 F H 10/13/23 13:19 Pulse 68 10/13/23 13:19 Resp 19 10/13/23 13:19 BP 153/72 10/13/23 13:19 Pulse Ox 95 10/13/23 13:19 FiO2 Intake & Output 10/12/23 10/13/23 10/13/23 18:59 06:59 18:59 Output Total 300 200 Balance -300 -200 Weight 157 kg Output: Urine 300 200 Uretheral (Alanis) 300 Other: Voiding Method External Catheter Indwelling Catheter Indwelling Catheter - Labs CBC & Chem 7: 10/11/23 08:11 10/13/23 07:06 Labs: Abnormal Lab Results - Last 24 Hours (Table) 10/12/23 10/12/23 10/13/23 Range/Units 16:35 20:33 06:11 Carbon Dioxide (21.6-31.8) mmol/L Anion Gap (4.00-12.00) mmol/L BUN (9.0-27.0) mg/dL Creatinine (0.6-1.5) mg/dL Est GFR (CKD-EPI) (>=60) BUN/Creatinine Ratio (12.00-20.00) Ratio Glucose (70-110) mg/dL POC Glucose (mg/dL) 193 H 211 H 164 H (70-110) mg/dL Calcium (8.7-10.3) mg/dL 10/13/23 10/13/23 Range/Units 07:06 11:45 Carbon Dioxide 21.3 L (21.6-31.8) mmol/L Anion Gap 17.70 H (4.00-12.00) mmol/L BUN 38.5 H (9.0-27.0) mg/dL Creatinine 4.5 H (0.6-1.5) mg/dL Est GFR (CKD-EPI) 14 L (>=60) BUN/Creatinine Ratio 8.56 L (12.00-20.00) Ratio Glucose 143 H (70-110) mg/dL POC Glucose (mg/dL) 233 H (70-110) mg/dL Calcium 8.3 L (8.7-10.3) mg/dL Microbiology - Last 24 Hours (Table) 10/07/23 17:43 Blood Culture - Final Blood 10/07/23 17:34 Blood Culture - Final Blood
[2023-10-13] MEDS: fentaNYL (PF) 50 MCG/1 ML VIAL IVP ONE ×3 (14:05→14:12)
[2023-10-13] MEDS: MIDAZOLAM 2 MG/2 ML VIAL IVP ONE (14:05)
[2023-10-13] MEDS: LIDOCAINE 1% INJ 10MG/ML (20 ML MDV) SQ ONE (14:09)
[2023-10-13] MEDS: SODIUM CHLORIDE 0.9% 500 ML 500 ML IV ONE (14:17)
[2023-10-13] MEDS: HEPARIN SODIUM 1,000 UN/ML (10ML VL) MISCELLANE ONE (14:18)
--- NOTE | 2023-10-13 14:37 | P.GSCN ---
History of Present Illness History of present illness: 68-year-old gentleman consulted for placement of dialysis catheter. Kidney functions are deteriorating creatinine is 3.5 Medical history history of atrial fibrillation, coronary disease, hypertension, diabetes Surgical history aortic valve replacement in the past Neck is supple no bruit appreciated Chest few crackles the lung bases good in both lung. Second sound present abdomen is protuberant Femorals are 1+ Plan is placement of dialysis catheter risk and complication discussed Past Medical History Past Medical History: Atrial Fibrillation, Coronary Artery Disease (CAD), CVA/TIA, Diabetes Mellitus, Hypertension, Osteoarthritis (OA), Respiratory Disorder Additional Past Medical History / Comment(s): non healing wound R big Toe. 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 PEG tube in place. History of Any Multi-Drug Resistant Organisms: None Reported Past Surgical History: Orthopedic Surgery Additional Past Surgical History / Comment(s): femur Past Anesthesia/Blood Transfusion Reactions: No Reported Reaction Past Psychological History: Depression Smoking Status: Former smoker, Never smoker Past Alcohol Use History: None Reported Past Drug Use History: None Reported - Past Family History Mother Family Medical History: No Reported History Medications and Allergies Home Medications Medication Instructions Recorded Confirmed Type Acetaminophen Tab [Tylenol] 650 mg PO Q6H PRN 12/17/16 10/07/23 History Atorvastatin [Lipitor] 20 mg PO HS@2100 12/17/16 10/07/23 History Famotidine [Pepcid] 20 mg PO BID@0800,1700 12/17/16 10/07/23 History Loratadine [Claritin] 10 mg PO DAILY@0800 12/17/16 10/07/23 History Metoclopramide [Reglan] 10 mg PO ACHS 12/17/16 10/07/23 History Multivitamins, Thera [Multivitamin 1 tab PO DAILY@1700 12/17/16 10/07/23 History (formulary)] Na Phos,M-B/Na Phos,Di-Ba [Fleet 133 ml RECTAL DAILY PRN 12/17/16 10/07/23 History Adult] bisacodyL [Dulcolax] 10 mg RECTAL DAILY PRN 12/17/16 10/07/23 History lisinopriL [Zestril] 10 mg PO DAILY@0800 12/17/16 10/07/23 History polyethylene glycoL 3350 [Miralax] 17 gm PO DAILY PRN 12/17/16 10/07/23 History predniSONE 5 mg PO DAILY@0800 12/17/16 10/07/23 History Loperamide HCl [Imodium A-D] 2 - 4 mg PO TID PRN 10/18/19 10/07/23 History Menthol [Biofreeze] 1 applic TOPICAL TID PRN 10/18/19 10/07/23 History Apixaban [Eliquis] 5 mg PO BID@0800,1700 10/07/23 10/07/23 History Co-Q-10 100mg 1 cap PO DAILY@0810/07/23 10/07/23 History Fish Oil/Dha/Epa [Fish Oil 1,200 1 cap PO DAILY@0810/07/23 10/07/23 History mg Fish Oil] Furosemide [Lasix] 60 mg PO DAILY@0800 10/07/23 10/07/23 History HYDROcodone/APAP 7.5-325MG [[place] 1 tab PO Q6HR 10/07/23 10/07/23 History 7.5-325] INSULIN LISPRO (HumaLOG) [humaLOG] 20 units SQ DAILY@1100 10/07/23 10/07/23 History INSULIN LISPRO (HumaLOG) [humaLOG] 35 units SQ DAILY@0700 10/07/23 10/07/23 History INSULIN LISPRO (HumaLOG) [humaLOG] 45 units SQ DAILY@1700 10/07/23 10/07/23 History INSULIN LISPRO (HumaLOG) [humaLOG] See Protocol SQ ACHS 10/07/23 10/07/23 History Insulin Glargine [Lantus Vial] 40 unit SQ HS@2100 10/07/23 10/07/23 History Insulin Glargine [Lantus Vial] 65 unit SQ DAILY@0700 10/07/23 10/07/23 History Lactulose 20 gm PO BID@0800,1700 10/07/23 10/07/23 History Magnesium Hydroxide [Milk of 7,200 mg PO Q48H PRN 10/07/23 10/07/23 History Magnesia Concentrate] Metoprolol Tartrate [Lopressor] 75 mg PO BID@0800,1700 10/07/23 10/07/23 History Sodium Chloride [Simpson Emerson] 1 spray EA NOSTRIL BID PRN 10/07/23 10/07/23 History Spironolactone [Aldactone] 12.5 mg PO DAILY@1400 10/07/23 10/07/23 History allopurinoL [Zyloprim] 300 mg PO DAILY@0800 10/07/23 10/07/23 History levETIRAcetam [Keppra] 750 mg PO BID@0800,1700 10/07/23 10/07/23 History Allergies Allergy/AdvReac Type Severity Reaction Status Date / Time No Known Allergies Allergy Verified 10/07/23 14:13 Surgical - Exam Vital Signs Pulse Resp BP Pulse Ox 65 18 151/67 95 10/07/23 13:32 10/07/23 13:32 10/07/23 13:32 10/07/23 13:32 Results - Labs 10/11/23 08:11 10/13/23 07:06 Abnormal Lab Results - Last 24 Hours (Table) 10/12/23 10/12/23 10/13/23 Range/Units 16:35 20:33 06:11 Carbon Dioxide (21.6-31.8) mmol/L Anion Gap (4.00-12.00) mmol/L BUN (9.0-27.0) mg/dL Creatinine (0.6-1.5) mg/dL Est GFR (CKD-EPI) (>=60) BUN/Creatinine Ratio (12.00-20.00) Ratio Glucose (70-110) mg/dL POC Glucose (mg/dL) 193 H 211 H 164 H (70-110) mg/dL Calcium (8.7-10.3) mg/dL 10/13/23 10/13/23 Range/Units 07:06 11:45 Carbon Dioxide 21.3 L (21.6-31.8) mmol/L Anion Gap 17.70 H (4.00-12.00) mmol/L BUN 38.5 H (9.0-27.0) mg/dL Creatinine 4.5 H (0.6-1.5) mg/dL Est GFR (CKD-EPI) 14 L (>=60) BUN/Creatinine Ratio 8.56 L (12.00-20.00) Ratio Glucose 143 H (70-110) mg/dL POC Glucose (mg/dL) 233 H (70-110) mg/dL Calcium 8.3 L (8.7-10.3) mg/dL Microbiology - Last 24 Hours (Table) 10/07/23 17:43 Blood Culture - Final Blood 10/07/23 17:34 Blood Culture - Final Blood Diabetes panel 10/13/23 Range/Units 07:06 Sodium 136 (135-145) mmol/L Potassium 4.3 (3.5-5.5) mmol/L Chloride 97 (96-109) mmol/L Carbon Dioxide 21.3 L (21.6-31.8) mmol/L BUN 38.5 H (9.0-27.0) mg/dL Creatinine 4.5 H (0.6-1.5) mg/dL Glucose 143 H (70-110) mg/dL Calcium 8.3 L (8.7-10.3) mg/dL Calcium panel 10/13/23 Range/Units 07:06 Calcium 8.3 L (8.7-10.3) mg/dL Pituitary panel 10/13/23 Range/Units 07:06 Sodium 136 (135-145) mmol/L Potassium 4.3 (3.5-5.5) mmol/L Chloride 97 (96-109) mmol/L Carbon Dioxide 21.3 L (21.6-31.8) mmol/L BUN 38.5 H (9.0-27.0) mg/dL Creatinine 4.5 H (0.6-1.5) mg/dL Glucose 143 H (70-110) mg/dL Calcium 8.3 L (8.7-10.3) mg/dL Adrenal panel 10/13/23 Range/Units 07:06 Sodium 136 (135-145) mmol/L Potassium 4.3 (3.5-5.5) mmol/L Chloride 97 (96-109) mmol/L Carbon Dioxide 21.3 L (21.6-31.8) mmol/L BUN 38.5 H (9.0-27.0) mg/dL Creatinine 4.5 H (0.6-1.5) mg/dL Glucose 143 H (70-110) mg/dL Calcium 8.3 L (8.7-10.3) mg/dL
--- NOTE | 2023-10-13 14:38 | P.PCN ---
Description of Procedure: Preop diagnosis is acute chronic renal failure Postop same Procedure ultrasound-guided 30 cm dialysis catheter placed right femoral a [facility] Patient brought to the [employer] right groin was prepped and draped in Prestel manner 1% lidocaine for infected with IV sedation sound guided micropuncture introduced right femoral vein micropuncture guide was passed and 4 point dilator advanced up the guidewire. After that we passed the regular guidewire under fluoroscopic control which was parked at the superior vena cava. Catheter was advanced then 30 cm dialysis catheter placed on the top of the guidewire guidewire was removed flushed with heparin saline hep-locked secured with 3-0 nylon patient tarted the procedure well
[2023-10-13 16:30] LABS: Hepatitis B Surface Antigen Nonreactive (Nonreactive)
[2023-10-13 16:52] LABS: Hepatitis B Surface AB- Quant 9.4 mIU/mL
[2023-10-13 16:57] LABS: Glucose,Whole Blood 225 mg/dL (70-110)
--- NOTE | 2023-10-13 19:44 | P.PN ---
Subjective Progress Note Date: 10/13/23 Principal diagnosis: Reason for follow-up is fever question of UTI Patient is a 68-year-old male with a past medical history significant for atrial fibrillation coronary disease diabetes mellitus hypertension osteoarthritis CVA TIA patient presented to the hospital for evaluation of lower extremity swelling he did have a low-grade fever prompting this consultation. On today's evaluation that is 10/13/2023, patient did have low-grade fever 100.3 this afternoon, patient is breathing comfortably on room air denies any chest pain shortness of breath or cough no nausea vomiting no abdominal pain no diarrhea. Patient creatinine is 4.5 blood culture has been negative Objective - Vital Signs Vital signs: Vital Signs Temp 98.9 F 10/13/23 08:04 Pulse 65 10/13/23 08:04 Resp 16 10/13/23 08:04 BP 133/73 10/13/23 08:04 Pulse Ox 96 10/13/23 08:04 FiO2 Intake & Output 10/12/23 10/13/23 10/13/23 18:59 06:59 18:59 Output Total 300 200 Balance -300 -200 Weight 157 kg Output: Urine 300 200 Uretheral (Alanis) 300 Other: Voiding Method External Catheter Indwelling Catheter Indwelling Catheter - Exam GENERAL DESCRIPTION: An elderly male lying in bed in no distress RESPIRATORY SYSTEM: Unlabored breathing , decreased breath sounds at bases HEART: S1 S2 regular rate and rhythm , ABDOMEN: Soft , no tenderness EXTREMITIES: No edema feet - Labs CBC & Chem 7: 10/11/23 08:11 10/13/23 07:06 Labs: Abnormal Lab Results - Last 24 Hours (Table) 10/12/23 10/12/23 10/13/23 Range/Units 16:35 20:33 06:11 Carbon Dioxide (21.6-31.8) mmol/L Anion Gap (4.00-12.00) mmol/L BUN (9.0-27.0) mg/dL Creatinine (0.6-1.5) mg/dL Est GFR (CKD-EPI) (>=60) BUN/Creatinine Ratio (12.00-20.00) Ratio Glucose (70-110) mg/dL POC Glucose (mg/dL) 193 H 211 H 164 H (70-110) mg/dL Calcium (8.7-10.3) mg/dL 10/13/23 10/13/23 Range/Units 07:06 11:45 Carbon Dioxide 21.3 L (21.6-31.8) mmol/L Anion Gap 17.70 H (4.00-12.00) mmol/L BUN 38.5 H (9.0-27.0) mg/dL Creatinine 4.5 H (0.6-1.5) mg/dL Est GFR (CKD-EPI) 14 L (>=60) BUN/Creatinine Ratio 8.56 L (12.00-20.00) Ratio Glucose 143 H (70-110) mg/dL POC Glucose (mg/dL) 233 H (70-110) mg/dL Calcium 8.3 L (8.7-10.3) mg/dL Microbiology - Last 24 Hours (Table) 10/07/23 17:43 Blood Culture - Final Blood 10/07/23 17:34 Blood Culture - Final Blood Assessment and Plan (1) Fever Current Visit: Yes Status: Acute Code(s): R50.9 - FEVER, UNSPECIFIED SNOMED Code(s): 212063039 (2) UTI (urinary tract infection) Current Visit: Yes Status: Acute Code(s): N39.0 - URINARY TRACT INFECTION, SITE NOT SPECIFIED SNOMED Code(s): 14692287 Plan: 1patient with a low-grade fever source possible urinary as he did have a positive UA versus abdominal source as the patient was noticed to be tender in the right lower quadrant area 2- CT of abdominal pelvis did not show any acute abnormality no evidence of appendicitis 3-patient urine is positive culture growing Enterococcus faecalis, blood culture has been negative patient is covered with Unasyn may need dialysis as per discussion with the who is an RN nephrology following the patient Dictation was produced using [employer] dictation software. please excuse any grammatical, word or spelling errors. Time with Patient: Less than 30
[2023-10-13 20:30] LABS: Glucose,Whole Blood 237 mg/dL (70-110)
[2023-10-14 06:04] LABS: Glucose,Whole Blood 145 mg/dL (70-110)
[2023-10-14 08:55] LABS: Glucose,Whole Blood 167 mg/dL (70-110)
--- NOTE | 2023-10-14 09:16 | P.PN ---
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 Also has been dealing with decubitus ulcer on the buttocks on the left heel area in manage. Was admitted to the hospital 2 days ago on October 06 for significant edema and anasarca not well-controlled has been on diuretics also was running low-grade temperature not a clear whether he has any infection or not. Culture has been negative so far laboratory value showed negative UA blood sugar continues to be slightly elevated continue to have slight abdominal cramps and discomfort on and off CAT scan of the abdomen was done showed 1.3 cm metallic foreign body in the right lower quadrant presume related to surgery with embolization coil or clip from prior study no other major finding otherwise. Doppler study of both legs right and left did not show any deep venous thrombosis. Chest x-ray does not show any process. Otherwise patient been treated with aggressive management for anasarca and edema currently. Also has patient seen by cardiology as an outpatient which has not had ability to see cardiology last 6 months annual echocardiograms past year will order an echocardiogram and for patient to be seen cardiology as an in-house specially with anasarca and swelling to see if we can help. Eventually echocardiogram was performed and showed 60 to 65% ejection fraction with left ventricular cavity is normal with normal thickness mitral valve had structurally normal mitral valve with no evidence of mitral prolapse or mitral stenosis. Aortic valve post valve replacement from 2017 no aortic regurgitation peak velocity of 2.95 with a gradient of 35 mmHg and mean gradient of 19 with aortic stenosis. Rest of the structure are perfectly normal at this point. Ended up having to find out with general surgery think about the finding in the cecum with current finding and its metallic foreign body this is most likely ingested and considered repeat an x-ray to see if this has moved. But no acute abdomen requiring intervention otherwise. Again cardiology seen patient in consultation and review current finding with bilateral lower extremity edema and acute chronic heart failure with preserved ejection fraction and right bundle branch block agree with the consideration for an echo continue diuretics with aggressive management for edema will check magnesium level further recommendation is to follow-up. 10/10/2023: His culture came back positive for the Enterococcus facialis remain on Zosyn currently receiving is not controlling his temperature bowel so far, white blood cell is down to 10.4 and creatinine has been slightly bit worse at 1.9 t louie with GFR down to 38 specially being on more diuretics. His Lasix remain at 40 mg 3 times a day, spironolactone at 25 mg a day and added Zaroxolyn 2.5 mg daily repeat creatinine tomorrow as well magnesium is at 1.6. Infectious disease decided since Enterococcus is sensitive to penicillin that to continue Zosyn for now till the culture is finalized. Otherwise CT of the abdomen pelvis did not show any appendicitis or any infection but shows slight foreign body in the cecum which repeat plain x-ray came back negative for any major abnormality requiring help. Also patient had seen cardiology looking into management for acute on chronic heart failure with preserved ejection fraction and agree with IV Lasix Zaroxolyn and Aldactone is to watch kidney function little bit more carefully. Surprisingly with patient's condition in the past every time we did 3 treatment with Lasix, Zaroxolyn and Aldactone the kidney function declined quite bit so we have to be just careful this time in the next day or 2. Patient is patient to be discharged home today but with all current management and the culture is not finalized and the edema still bad patient is not ready to leave the hospital yet. 10/11/2023: Kidney function is much worse today creatinine is up to 2.6 with GFR down to 26 blood sugar slightly better continue to have anasarca and edema patient be seen nephrology today and recommendation again to take him off all diuretics and any nephrotoxic agent. Nephrology opinion this is an acute tubular necrosis secondary to infection diuretic use and dehydration. Also from probably be diuresed with a CAT scan done couple days earlier. I had normal saline at 50 cc an hour and stop lisinopril completely at this point check bladder for urinary retention continue to monitor kidney function carefully along with urine output. This will delay discharge at least the next 24 hours for now. Of course previously CAT scan of the abdomen does not show any hydronephrosis. 10/12/2023: He is much worse today with a kidney function had declined significantly creatinine is up to 3.5 with GFR down to 18, blood sugar still mildly elevated, he is off all diuretics and all nephrotoxic agent but this is not improving so far patient will continue gentle hydration with nephrology to go on for the next 24 hours at this point. UTI still being treated successfully doing well continue antibiotics for few more days. The plan was to discharge patient to [facility] rehab but he is not in any condition to be discharged yet. Edema swelling and bloating sensation are the same or slightly better compared to yesterday. 10/13/2023: Kidney function is much worse at this point with GFR is very low aline ent acute kidney injury with acute kidney failure will require most likely hemodialysis Dr. Samuels had requested Dr. Rodríguez to put the dialysis line patient will be going for hemodialysis today. Infectious disease was remaining been treated for fever with most likely urinary tract infection with culture positive for Enterococcus fistulous which patient remained on Unasyn for it for now. Patient is not happy that he is not going back tomorrow with fast enough but he need to stay on the hospital run hemodialysis and see if this is not reversed patient will require probably to stay on hemodialysis from [place]. REVIEW OF SYSTEMS: CONSTITUTIONAL: Overweight no acute respiratory distress EYES: No icterus sclerae, no conjunctivitis. EARS, NOSE, MOUTH, THROAT, and FACE: No sore throat, lymphadenopathy, carotid bruits or deformity. RESPIRATORY: No shortness of breath cough wheezes CARDIOVASCULAR: Positive PND orthopnea palpitation. GASTROINTESTINAL: Still have mild abdominal discomfort with nausea no vomiting slight gastroparesis with mild diarrhea. GENITOURINARY: Negative for Hematuria or UTI, no kidney stones. INTEGUMENT/BREAST: Severe anasarca and edema, history of rheumatoid arthritis with generalized arthralgia. HEMATOLOGIC/LYMPHATIC: Negative for bleed or purpura. MUSCULOSKELTAL: Generalized muscle and joint pain. NEURLOGICAL: Bedridden with severe left-sided weakness. BEHAVIORAL/PSYCH: Negative. ENDOCRINE: Negative. PHYSICAL EXAMINATION: General Appearance: Alert, cooperative, no distress, appears stated age. Neck HEENT: Supple, no lymphadenopathy, no thyroid enlargement, no carotid bruits. Lungs: Decreased breath sound bilaterally with fine rhonchi no crackles. Chest Wall: Decreased expansion with deep inspiration no tenderness and no deformity was found on exam, no costochondral pain or discomfort. Heart: Irregular rate and rhythm, S1, S2 normal, no murmur, rub or gallop. Back: Symmetric, no curvature, ROM normal, no CVA tenderness. Abdomen: Slight discomfort lower abdominal region area no rebound no rigidity slight anasarca and mild ascites. Extremities: 2+ edema with quite anasarca worse on the left side than right side Pulses: 2+ and symmetric. Skin: Skin color, texture, tugor normal, no rashes or lesions. Neurologic: Alert oriented x3 cranial nerves II through XII intact, positive weakness in the left side patient is bedridden. ASSESSMENT AND PLAN: _Acute kidney failure: With much worsening kidney function patient will require hemodialysis process started by nephrology at this point with dialysis catheter and his first dialysis will done today. _Anasarca and edema: Has been off diuretic still having Bright wrap helping to reduce edema some but if patient started dialysis that can move the fluid a lot faster. _Fever : Mostly urinary tract infection with culture positive for Enterococcus facialis: Responding to current antibiotic with Zosyn. Will switch to oral antibiotics when he goes to [facility]. _Acute kidney failure despite underlying problem and because which is not important this point important to kidney function Declining patient is off all nephrotoxic agent. Continue to watch for 24 manage patient declining more might require dialysis. _Congestive heart failure and ischemic cardiomyopathy, the last echocardiogram showing well-preserved ejection fraction heart failure continue current medication management. Will continue current management for now. 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 _Type 2 diabetes with severe hyperglycemia: His blood sugar was quite bit e levated we will continue insulin at this point we will add Jardiance. Blood sugars remain good and reasonably below 200. _Stage IIIa chronic kidney disease: Still watching kidney function carefully specially with the IV diuretics at this point. Slightly with worsening kidney function with current diuretics. _Paroxysmal atrial fibrillation: Pulse rate is well-controlled still on metoprolol patient is on Eliquis 5 mg twice a day. _Post aortic valve placement: Has been seeing cardiology echocardiogram and maintained every 1 to 2 years. _Seizure disorders: Still on Keppra 750 mg twice a day hide no seizure activity. _Rheumatoid arthritis: Has been off biological agent is on prednisone 5 mg daily as a maintenance has not been seen rheumatology in a while. _Post dissected ascending aorta postsurgery at [facility] years ago that the time was complicated with a stroke and aortic valve placement. _Thrombocytopenia: Mild decrease in platelet count continue to watch CBC while t reating infection carefully. CODE STATUS: Full code. Discussion: Much worsening kidney function patient will be starting hemodialysis today, continue to take extra fluid out to help his anasarca and edema and hopefully the kidney function will improve after a few session of hemodialysis. Patient still full code, discussion with him and his was supportive of aggressive management at this point. Objective - Vital Signs Vital signs: Vital Signs Temp 99.3 F 10/13/23 02:00 Pulse 58 L 10/13/23 02:00 Resp 16 10/13/23 02:00 BP 145/75 10/13/23 02:00 Pulse Ox 93 L 10/13/23 02:00 FiO2 Intake & Output 10/12/23 10/12/23 10/13/23 06:59 18:59 06:59 Output Total 200 300 200 Balance -200 -300 -200 Weight 157 kg Output: Urine 200 300 200 Uretheral (Alanis) 300 Other: Voiding Method Diaper External Catheter Indwelling Catheter External Catheter - Labs CBC & Chem 7: 10/11/23 08:11 10/13/23 07:06 Labs: Abnormal Lab Results - Last 24 Hours (Table) 10/12/23 10/12/23 10/12/23 Range/Units 05:45 06:22 12:16 Carbon Dioxide 20.3 L (21.6-31.8) mmol/L Anion Gap 15.70 H (4.00-12.00) mmol/L BUN 35.1 H (9.0-27.0) mg/dL Creatinine 3.5 H (0.6-1.5) mg/dL Est GFR (CKD-EPI) 18 L (>=60) BUN/Creatinine Ratio 10.03 L (12.00-20.00) Ratio Glucose 149 H (70-110) mg/dL POC Glucose (mg/dL) 168 H 254 H (70-110) mg/dL Calcium 8.3 L (8.7-10.3) mg/dL 10/12/23 10/12/23 Range/Units 16:35 20:33 Carbon Dioxide (21.6-31.8) mmol/L Anion Gap (4.00-12.00) mmol/L BUN (9.0-27.0) mg/dL Creatinine (0.6-1.5) mg/dL Est GFR (CKD-EPI) (>=60) BUN/Creatinine Ratio (12.00-20.00) Ratio Glucose (70-110) mg/dL POC Glucose (mg/dL) 193 H 211 H (70-110) mg/dL Calcium (8.7-10.3) mg/dL Microbiology - Last 24 Hours (Table) 10/07/23 17:43 Blood Culture - Final Blood 10/07/23 17:34 Blood Culture - Final Blood
[2023-10-14 10:24] LABS: BUN/Creat Ratio 7.31 Ratio (12.00-20.00); Blood Urea Nitrogen 30.7 mg/dL (9.0-27.0); Calcium 8.2 mg/dL (8.7-10.3); Carbon Dioxide 25.1 mmol/L (21.6-31.8); Chloride 94 mmol/L (96-109); Glucose 124 mg/dL (70-110); Magnesium 1.8 mg/dL (1.5-2.4); Sodium 135 mmol/L (135-145)
[2023-10-14 11:09] LABS: Glucose,Whole Blood 161 mg/dL (70-110)
--- NOTE | 2023-10-14 11:26 | P.PN ---
Subjective Patient is seen in follow-up for acute kidney injury. Renal function worsened with creatinine up to 4.5 dated October 13, 2023. Started on hemodialysis October 13, 2023. Urine output about 500 cc in the last 24 hours. On IV fluids. Has Alanis catheter. present at bedside. Vital signs are stable. General: No acute distress. HEENT: Head exam is unremarkable. LUNGS: No audible rhonchi or wheezes. HEART: Rate and Rhythm are regular. ABDOMEN: Nontender. EXTREMITITES: Lower extremities wrapped. No edema. Objective - Vital Signs Vital signs: Vital Signs Temp 99.3 F 10/14/23 07:58 Pulse 94 10/14/23 07:58 Resp 20 10/14/23 07:58 BP 161/72 10/14/23 07:58 Pulse Ox 95 10/14/23 07:58 FiO2 Intake & Output 10/13/23 10/14/23 10/14/23 18:59 06:59 18:59 Intake Total 100 400 Output Total 200 1275 500 Balance -100 -875 -500 Weight 158.8 kg Intake: IV 100 Hemodialysis 400 Output: Urine 200 375 500 Uretheral (Alanis) 500 Hemodialysis 900 Other: Voiding Method Indwelling Catheter Indwelling Catheter # Bowel Movements 1 - Labs CBC & Chem 7: 10/11/23 08:11 10/14/23 06:30 Labs: Abnormal Lab Results - Last 24 Hours (Table) 10/13/23 10/13/23 10/13/23 Range/Units 07:06 07:06 11:45 Chloride (96-109) mmol/L Carbon Dioxide 21.3 L (21.6-31.8) mmol/L Anion Gap 17.70 H (4.00-12.00) mmol/L BUN 38.5 H (9.0-27.0) mg/dL Creatinine 4.5 H (0.6-1.5) mg/dL Est GFR (CKD-EPI) 14 L (>=60) BUN/Creatinine Ratio 8.56 L (12.00-20.00) Ratio Glucose 143 H (70-110) mg/dL POC Glucose (mg/dL) 233 H (70-110) mg/dL Calcium 8.3 L (8.7-10.3) mg/dL Hep Bs Antibody A (Negative) 10/13/23 10/13/2310/13/24 Range/Units 16:56 20:28 05:59 Chloride (96-109) mmol/L Carbon Dioxide (21.6-31.8) mmol/L Anion Gap (4.00-12.00) mmol/L BUN (9.0-27.0) mg/dL Creatinine (0.6-1.5) mg/dL Est GFR (CKD-EPI) (>=60) BUN/Creatinine Ratio (12.00-20.00) Ratio Glucose (70-110) mg/dL POC Glucose (mg/dL) 225 H 237 H 145 H (70-110) mg/dL Calcium (8.7-10.3) mg/dL Hep Bs Antibody (Negative) 10/14/23 10/14/23 10/14/23 Range/Units 06:30 08:53 11:04 Chloride 94 L (96-109) mmol/L Carbon Dioxide (21.6-31.8) mmol/L Anion Gap 15.90 H (4.00-12.00) mmol/L BUN 30.7 H (9.0-27.0) mg/dL Creatinine 4.2 H (0.6-1.5) mg/dL Est GFR (CKD-EPI) 15 L (>=60) BUN/Creatinine Ratio 7.31 L (12.00-20.00) Ratio Glucose 124 H (70-110) mg/dL POC Glucose (mg/dL) 167 H 161 H (70-110) mg/dL Calcium 8.2 L (8.7-10.3) mg/dL Hep Bs Antibody (Negative) Assessment and Plan Plan: Assessment: 1. Acute kidney injury secondary to ATN secondary to infection, diuresis. Also received IV contrast on October 09, [address] of the abdomen and pelvis. Creatinine 1.08 on admission and up to 4.5 dated October 13, 2023. Bladder scan showed urine volume of 200 to 300 cc. Has Alanis catheter. No proteinuria on UA. No hydronephrosis noted on CAT scan. Urine output about 500 cc in the last 24 hours. 2. Diabetes mellitus. 3. Benign hypertension. Stable. 4. History of aortic valve replacement. 5. Chronic diastolic CHF. 6. Enterococcus UTI on antibiotics. ID following. 7. History of CVA. Plan: Currently seen while undergoing hemodialysis. Plan to hold tomorrow and r udayse Monday for further need. Continue to hold off on diuretics. Last dose given October 11, 2023. Stop bicarb drip. Start normal saline at 60 cc an hour. Stopped lisinopril. Last dose given October 11, 2023. Maintain Alanis catheter. Avoid nephrotoxins, including Fleet enemas and nonsteroidals. Continue to monitor renal function and urine output. Check phosphorus level.
[2023-10-14] MEDS: SODIUM CHLORIDE 0.9% 1,000 ML IV SCH (11:32)
[2023-10-14 12:38] LABS: Glucose,Whole Blood 181 mg/dL (70-110)
[2023-10-14 16:54] LABS: Glucose,Whole Blood 268 mg/dL (70-110)
--- NOTE | 2023-10-14 18:35 | P.PN ---
Progress Note - Text Progress Note Date: 10/14/23 CHIEF COMPLAINT: Foreign body of cecum HISTORY OF PRESENT ILLNESS: Patient admitted to the hospital with fever and UTI. Patient with SIMEON. Followed by nephrology and being monitored for possible renal replacement. Surgical service following for metallic foreign body in the cecum. Patient denies any abdominal pain. Patient havin bowel movements. Previous Abdominal x-ray showed persistent metallic density near the cecum. PHYSICAL EXAM: VITAL SIGNS: Reviewed. GENERAL: Well-developed in no acute distress. ABDOMEN: Soft. Nondistended. Nontender. NEUROLOGIC: Alert and oriented. Cranial nerves II through XII grossly intact. ASSESSMENT: 1. Metallic foreign body. This most likely was ingested. 2. UTI 3. 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 SIMEON PLAN: -Continue lactulose and MiraLAX -Would recommend bowel prep and this can be done outpatient to help progression of removing the metallic foreign body
[2023-10-14] MEDS ORDERED: ACETAMINOPHEN TAB 325 MG TAB PO PRN (18:54)
--- NOTE | 2023-10-14 19:11 | P.PN ---
Subjective Progress Note Date: 10/14/23 Assumed care of this patient today from his primary physician. Patient is evaluated on the medical floor resting in bed. Had temporary dialysis catheter placed by Dr Rodríguez. He is undergoing hemodialysis. He also underwent hemodialysis last night. General surgery following regarding metallic foreign body of the cecum recommending lactulose and miralax and posssibly outpatient bowel prep to pass. Patient continues to have intermittent fever. He is continued on antibiotics in the form of IV Unasyn per ID. Nephrology following. Maintained on IV bicarb. Review of Systems Constitutional: Denied any fatigue denied any fever. Cardio vascular: denied any chest pain, palpitations Gastrointestinal: denied any nausea, vomiting, diarrhea Pulmonary: Denied any shortness of breath cough Neurologic denied any new focal deficits All inpatient medications were reviewed and appropriate changes in these med ications as dictated in the interval history and assessment and plan. PHYSICAL EXAMINATION: General Appearance: Alert, cooperative, no distress, appears stated age. Neck HEENT: Supple, no lymphadenopathy, no thyroid enlargement, no carotid bruits. Lungs: Decreased breath sound bilaterally with fine rhonchi no crackles. Chest Wall: Decreased expansion with deep inspiration no tenderness and no def ormity was found on exam, no costochondral pain or discomfort. Heart: Irregular rate and rhythm, S1, S2 normal, no murmur, rub or gallop. Back: Symmetric, no curvature, ROM normal, no CVA tenderness. Abdomen: Slight discomfort lower abdominal region area no rebound no rigidity slight anasarca and mild ascites. Extremities: 2+ edema with quite anasarca worse on the left side than right side Pulses: 2+ and symmetric. Skin: Skin color, texture, tugor normal, no rashes or lesions. Neurologic: Alert oriented x3 cranial nerves II through XII intact, positive weakness in the left side patient is bedridden. ASSESSMENT AND PLAN: _Acute kidney failure: With much worsening kidney function patient will require hemodialysis _Anasarca and edema: Has been off diuretic still having Bright wrap helping to reduce edema. Started on hemodialysis per nephrology. -Urinary tract infection and sepsis with culture positive for Enterococcus facialis: Continue on IV zosyn, ID following and oral antibiotics on discharge. _Congestive heart failure and ischemic cardiomyopathy, the last echocardiogram showing well-preserved ejection fraction heart failure continue current medication management. -Metallic foreign body of cecum with general surgery following recommending to continue lactulose and miralax for now. 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 _Type 2 diabetes with severe hyperglycemia: His blood sugar was quite bit elevated we will continue insulin Hold off of jardiance because of low GFR. can resume when renal function improves. _Stage IIIa chronic kidney disease _Paroxysmal atrial fibrillation: Pulse rate is well-controlled still on metoprolol patient is on Eliquis 5 mg twice a day. may need renal dose if renal function not improving with hemodialysis _Post aortic valve placement: Has been seeing cardiology echocardiogram and maintained every 1 to 2 years. _Seizure disorders: Still on Keppra 750 mg twice a day with no seizure activity. _Rheumatoid arthritis: Has been off biological agent is on prednisone 5 mg daily as a maintenance has not been seen rheumatology in a while. _Post dissected ascending aorta postsurgery at [facility] years ago that the time was complicated with a stroke and aortic valve placement. _Thrombocytopenia: Mild decrease in platelet count continue to watch CBC while treating infection carefully. CODE STATUS: Full code. Continue hemodialysis per nephrology. Repeat blood work in the AM. The impression and plan of care has been dictated by Viji Fitzgerald Nurse Practitioner as directed. Dr. Jose A MD I have performed a history and physical examination and medical decision making of this patient, discussed the same with the dictator, and agree with the dictators assessment and plan as written, documented as a scribe. Based on total visit time, I have performed more than 50% of this visit. Objective - Vital Signs Vital signs: Vital Signs Temp 99.3 F 10/14/23 16:57 Pulse 97 10/14/23 13:47 Resp 18 10/14/23 13:47 BP 135/66 10/14/23 13:47 Pulse Ox 98 10/14/23 13:47 FiO2 Intake & Output 10/13/23 10/14/23 10/14/23 18:59 06:59 18:59 Intake Total 100 400 500 Output Total 200 1275 2600 Balance -100 875 -2100 Weight 158.8 kg Intake: IV 100 Hemodialysis 400 500 Output: Urine 380 845 3179 Uretheral (Alanis) 500 Hemodialysis 900 1400 Other: Voiding Method Indwelling Catheter Indwelling Catheter Indwelling Catheter # Bowel Movements 1 - Labs CBC & Chem 7: 10/11/23 08:11 10/14/23 06:30 Labs: Abnormal Lab Results - Last 24 Hours (Table) 10/13/23 10/14/23 10/14/23 Range/Units 20:28 05:59 06:30 Chloride 94 L (96-109) mmol/L Anion Gap 15.90 H (4.00-12.00) mmol/L BUN 30.7 H (9.0-27.0) mg/dL Creatinine 4.2 H (0.6-1.5) mg/dL Est GFR (CKD-EPI) 15 L (>=60) BUN/Creatinine Ratio 7.31 L (12.00-20.00) Ratio Glucose 124 H (70-110) mg/dL POC Glucose (mg/dL) 237 H 145 H (70-110) mg/dL Calcium 8.2 L (8.7-10.3) mg/dL 10/14/23 10/14/23 10/14/23 Range/Units 08:53 11:04 12:36 Chloride (96-109) mmol/L Anion Gap (4.00-12.00) mmol/L BUN (9.0-27.0) mg/dL Creatinine (0.6-1.5) mg/dL Est GFR (CKD-EPI) (>=60) BUN/Creatinine Ratio (12.00-20.00) Ratio Glucose (70-110) mg/dL POC Glucose (mg/dL) 167 H 161 H 181 H (70-110) mg/dL Calcium (8.7-10.3) mg/dL 10/14/23 Range/Units 16:43 Chloride (96-109) mmol/L Anion Gap (4.00-12.00) mmol/L BUN (9.0-27.0) mg/dL Creatinine (0.6-1.5) mg/dL Est GFR (CKD-EPI) (>=60) BUN/Creatinine Ratio (12.00-20.00) Ratio Glucose (70-110) mg/dL POC Glucose (mg/dL) 268 H (70-110) mg/dL Calcium (8.7-10.3) mg/dL Assessment and Plan Time with Patient: Less than 30
[2023-10-14 20:24] LABS: Glucose,Whole Blood 245 mg/dL (70-110)
[2023-10-14] MEDS: INSULIN ASPART (NovoLOG) 100 UNIT/ML VIAL SQ SCH (21:40)
[2023-10-15 05:46] LABS: Glucose,Whole Blood 127 mg/dL (70-110)
--- NOTE | 2023-10-15 11:13 | P.PN ---
Subjective Patient is seen in follow-up for acute kidney injury. Renal function worsened with creatinine up to 4.5 dated October 13, 2023. Started on hemodialysis October 13, 2023. Urine output documented as 1.8 L in the last 24 hours. On IV fluids. Has Alanis catheter. No vomiting or diarrhea. No active complaints. Vital signs are stable. General: No acute distress. HEENT: Head exam is unremarkable. LUNGS: No audible rhonchi or wheezes. HEART: Rate and Rhythm are regular. ABDOMEN: Nontender. EXTREMITITES: Lower extremities wrapped. No edema. Objective - Vital Signs Vital signs: Vital Signs Temp 99.4 F 10/15/23 07:54 Pulse 74 10/15/23 07:54 Resp 18 10/15/23 07:54 BP 163/77 10/15/23 07:54 Pulse Ox 93 L 10/15/23 07:54 FiO2 Intake & Output 10/14/23 10/15/23 10/15/23 18:59 06:59 18:59 Intake Total 500 200 Output Total 2600 625 550 Balance -2100 -625 -350 Weight 158 kg Intake: Oral 200 Hemodialysis 500 Output: Urine 1200 625 550 Uretheral (Alanis) 500 550 Hemodialysis 1400 Other: Voiding Method Indwelling Catheter Indwelling Catheter - Labs CBC & Chem 7: 10/11/23 08:11 10/14/23 06:30 Labs: Abnormal Lab Results - Last 24 Hours (Table) 10/14/23 10/14/23 10/14/23 Range/Units 12:36 16:43 20:22 POC Glucose (mg/dL) 181 H 268 H 245 H (70-110) mg/dL 10/15/23 Range/Units 05:44 POC Glucose (mg/dL) 127 H (70-110) mg/dL Assessment and Plan Plan: Assessment: 1. Acute kidney injury secondary to ATN secondary to infection, diuresis. Also received IV contrast on October 09, [address] of the abdomen and pelvis. Creatinine 1.08 on admission and up to 4.5 dated October 13, 2023. Has right femoral catheter. Bladder scan showed urine volume of 200 to 300 cc. Has Alanis catheter. No proteinuria on UA. No hydronephrosis noted on CAT scan. Nonoliguric. 2. Diabetes mellitus. 3. Benign hypertension. Stable. 4. History of aortic valve replacement. 5. Chronic diastolic CHF. 6. Enterococcus UTI on antibiotics. ID following. 7. History of CVA. Plan: Last hemodialysis October 14, 2023. Hold dialysis today. Continue to hold off on diuretics. Last dose given October 11, 2023. Maintain normal saline. Stopped lisinopril. Last dose given October 11, 2023. Maintain Alanis catheter. Avoid nephrotoxins, including Fleet enemas and nonsteroidals. Continue to monitor renal function and urine output. Continue to assess daily for need for renal replacement therapy. Phosphorus level 4.5.
[2023-10-15 12:05] LABS: Glucose,Whole Blood 175 mg/dL (70-110)
[2023-10-15] MEDS: amLODIPine 5 MG TAB PO SCH (12:20)
[2023-10-15 16:45] LABS: Glucose,Whole Blood 233 mg/dL (70-110)
--- NOTE | 2023-10-15 20:01 | P.PN ---
Subjective Progress Note Date: 10/15/23 Assumed care of this patient today from his primary physician. Patient is evaluated on the medical floor resting in bed. Had temporary dialysis catheter placed by Dr Rodríguez. He is undergoing hemodialysis. He also underwent hemodialysis last night. General surgery following regarding metallic foreign body of the cecum recommending lactulose and miralax and posssibly outpatient bowel prep to pass. Patient continues to have intermittent fever. He is continued on antibiotics in the form of IV Unasyn per ID. Nephrology following. Maintained on IV bicarb. 10/15/2023 Patient is evaluated today resting in bed. Patient underwent hemodialysis yesterday with 1.4 L off. No further dialysis sessions ordered, nephrology assessing daily. He has no acute complaints. Patient continues on IV unasyn for enterococcus UTI. ID following. Blood pressures 155/77, on room air. He has been afebrile. Review of Systems Constitutional: Denied any fatigue denied any fever. Cardio vascular: denied any chest pain, palpitations Gastrointestinal: denied any nausea, vomiting, diarrhea Pulmonary: Denied any shortness of breath cough Neurologic denied any new focal deficits All inpatient medications were reviewed and appropriate changes in these medications as dictated in the interval history and assessment and plan. PHYSICAL EXAMINATION: General Appearance: Alert, cooperative, no distress, appears stated age. Neck HEENT: Supple, no lymphadenopathy, no thyroid enlargement, no carotid bruits. Lungs: Decreased breath sound bilaterally with fine rhonchi no crackles. Chest Wall: Decreased expansion with deep inspiration no tenderness and no deformity was found on exam, no costochondral pain or discomfort. Heart: Irregular rate and rhythm, S1, S2 normal, no murmur, rub or gallop. Back: Symmetric, no curvature, ROM normal, no CVA tenderness. Abdomen: Slight discomfort lower abdominal region area no rebound no rigidity slight anasarca and mild ascites. Extremities: 2+ edema with quite anasarca worse on the left side than right side Pulses: 2+ and symmetric. Skin: Skin color, texture, tugor normal, no rashes or lesions. Neurologic: Alert oriented x3 cranial nerves II through XII intact, positive weakness in the left side patient is bedridden. ASSESSMENT AND PLAN: _Acute kidney failure: With much worsening kidney function patient will require hemodialysis _Anasarca and edema: Has been off diuretic still having Bright wrap helping to reduce edema. Started on hemodialysis per nephrology. Last session on October 13. -Urinary tract infection and sepsis with culture positive for Enterococcus facialis: Continue on IV zosyn, ID following and oral antibiotics on discharge. _Congestive heart failure and ischemic cardiomyopathy, the last echocardiogram showing well-preserved ejection fraction heart failure continue current medication management. -Metallic foreign body of cecum with general surgery following recommending to continue lactulose and miralax for now. 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 can resume when renal function improves. _Stage IIIa chronic kidney disease _Paroxysmal atrial fibrillation: Pulse rate is well-controlled still on metoprolol patient is on Eliquis 5 mg twice a day. may need renal dose if renal function not improving with hemodialysis _Post aortic valve placement: Has been seeing cardiology echocardiogram and maintained every 1 to 2 years. _Seizure disorders: Still on Keppra 750 mg twice a day with no seizure activity. _Rheumatoid arthritis: Has been off biological agent is on prednisone 5 mg daily as a maintenance has not been seen rheumatology in a while. _Post dissected ascending aorta postsurgery at [facility] years ago that the time was complicated with a stroke and aortic valve placement. _Thrombocytopenia: Mild decrease in platelet count continue to watch CBC while treating infection carefully. -Hypertension, started on amlodipine CODE STATUS: Full code. Continue hemodialysis per nephrology. Repeat blood work in the AM. Plan is for return to [facility] on discharge. The impression and plan of care has been dictated by Viji Fitzgerald, Nurse Practitioner as directed. Dr. Jose A MD I have performed a history and physical examination and medical decision making of this patient, discussed the same with the dictator, and agree with the dictators assessment and plan as written, documented as a scribe. Based on total visit time, I have performed more than 50% of this visit. Objective - Vital Signs Vital signs: Vital Signs Temp 98.5 F 10/15/23 17:56 Pulse 66 10/15/23 17:56 Resp 16 10/15/23 17:56 BP 155/77 10/15/23 17:02 Pulse Ox 100 10/15/23 17:56 FiO2 Intake & Output 10/15/23 10/15/23 10/16/23 06:59 18:59 06:59 Intake Total 437 Output Total 625 1550 Balance -625 -1113 Weight 158 kg Intake: Oral 437 Output: Urine 625 1550 Uretheral (Alanis) 550 Other: Voiding Method Indwelling Catheter Indwelling Catheter - Labs CBC & Chem 7: 10/11/23 08:11 10/14/23 06:30 Labs: Abnormal Lab Results - Last 24 Hours (Table) 10/14/23 10/15/23 10/15/23 Range/Units 20:22 05:44 12:01 POC Glucose (mg/dL) 245 H 127 H 175 H (70-110) mg/dL 10/15/23 Range/Units 16:41 POC Glucose (mg/dL) 233 H (70-110) mg/dL Assessment and Plan Time with Patient: Less than 30
[2023-10-15 20:36] LABS: Glucose,Whole Blood 223 mg/dL (70-110)
--- NOTE | 2023-10-15 23:06 | P.PN ---
Subjective Progress Note Date: 10/14/23 Principal diagnosis: Reason for follow-up is fever question of UTI Patient is a 68-year-old male with a past medical history significant for atrial fibrillation coronary disease diabetes mellitus hypertension osteoarthritis CVA TIA patient presented to the hospital for evaluation of lower extremity swelling he did have a low-grade fever prompting this consultation. On today's evaluation that is 10/14/2023, Patient is afebrile this morning he denies any chills, patient mention breathing comfortably and is currently on room air, patient denies any chest pain occasional cough patient denies any abdominal pain no diarrhea no nausea no vomiting. No CBC was done today creatinine is 4.2 Objective - Vital Signs Vital signs: Vital Signs Temp 99.3 F 10/14/23 07:58 Pulse 94 10/14/23 07:58 Resp 20 10/14/23 07:58 BP 161/72 10/14/23 07:58 Pulse Ox 95 10/14/23 07:58 FiO2 Intake & Output 10/13/23 10/14/23 10/14/23 18:59 06:59 18:59 Intake Total 100 400 Output Total 200 1275 500 Balance -100 -875 -500 Weight 158.8 kg Intake: IV 100 Hemodialysis 400 Output: Urine 200 375 500 Uretheral (Alanis) 500 Hemodialysis 900 Other: Voiding Method Indwelling Catheter Indwelling Catheter # Bowel Movements 1 - Exam Elderly male lying in bed in no distress Respiratory system unlabored breathing Patient is awake and alert no distress - Labs CBC & Chem 7: 10/11/23 08:11 10/14/23 06:30 Labs: Abnormal Lab Results - Last 24 Hours (Table) 10/13/23 10/13/23 10/13/23 Range/Units 07:06 07:06 11:45 Chloride (96-109) mmol/L Carbon Dioxide 21.3 L (21.6-31.8) mmol/L Anion Gap 17.70 H (4.00-12.00) mmol/L BUN 38.5 H (9.0-27.0) mg/dL Creatinine 4.5 H (0.6-1.5) mg/dL Est GFR (CKD-EPI) 14 L (>=60) BUN/Creatinine Ratio 8.56 L (12.00-20.00) Ratio Glucose 143 H (70-110) mg/dL POC Glucose (mg/dL) 233 H (70-110) mg/dL Calcium 8.3 L (8.7-10.3) mg/dL Hep Bs Antibody A (Negative) 10/13/23 10/13/23 10/14/23 Range/Units 16:56 20:28 05:59 Chloride (96-109) mmol/L Carbon Dioxide (21.6-31.8) mmol/L Anion Gap (4.00-12.00) mmol/L BUN (9.0-27.0) mg/dL Creatinine (0.6-1.5) mg/dL Est GFR (CKD-EPI) (>=60) BUN/Creatinine Ratio (12.00-20.00) Ratio Glucose (70-110) mg/dL POC Glucose (mg/dL) 225 H 237 H 145 H (70-110) mg/dL Calcium (8.7-10.3) mg/dL Hep Bs Antibody (Negative) 10/14/23 10/14/23 10/14/23 Range/Units 06:30 08:53 11:04 Chloride 94 L (96-109) mmol/L Carbon Dioxide (21.6-31.8) mmol/L Anion Gap 15.90 H (4.00-12.00) mmol/L BUN 30.7 H (9.0-27.0) mg/dL Creatinine 4.2 H (0.6-1.5) mg/dL Est GFR (CKD-EPI) 15 L (>=60) BUN/Creatinine Ratio 7.31 L (12.00-20.00) Ratio Glucose 124 H (70-110) mg/dL POC Glucose (mg/dL) 167 H 161 H (70-110) mg/dL Calcium 8.2 L (8.7-10.3) mg/dL Hep Bs Antibody (Negative) Assessment and Plan (1) Fever Current Visit: Yes Status: Acute Code(s): R50.9 - FEVER, UNSPECIFIED SNOMED Code(s): 498571284 (2) UTI (urinary tract infection) Current Visit: Yes Status: Acute Code(s): N39.0 - URINARY TRACT INFECTION, SITE NOT SPECIFIED SNOMED Code(s): 19303936 Plan: This is a telehealth visit 1patient with a low-grade fever source possible urinary as he did have a positive UA versus abdominal source as the patient was noticed to be tender in the right lower quadrant area 2- CT of abdominal pelvis did not show any acute abnormality no evidence of appendicitis 3-patient urine is positive culture growing Enterococcus faecalis, blood culture has been negative 4- patient has been started on dialysis because of worsening kidney function for now the patient is covered with the Unasyn Dictation was produced using [employer] dictation software. please excuse any grammatical, word or spelling errors. Time with Patient: Less than 30
--- NOTE | 2023-10-15 23:07 | P.PN ---
Subjective Progress Note Date: 10/15/23 Principal diagnosis: Reason for follow-up is fever question of UTI Patient is a 68-year-old male with a past medical history significant for atrial fibrillation coronary disease diabetes mellitus hypertension osteoarthritis CVA TIA patient presented to the hospital for evaluation of lower extremity swelling he did have a low-grade fever prompting this consultation. On today's evaluation that is 10/15/2023,the patient denies any fever or any chills, patient is breathing comfortably on room air, the patient denies chest pain shortness of breath and no significant cough, patient denies abdominal pain, no nausea vomiting or diarrhea. No lab draw today Objective - Vital Signs Vital signs: Vital Signs Temp 99.4 F 10/15/23 07:54 Pulse 74 10/15/23 07:54 Resp 18 10/15/23 07:54 BP 163/77 10/15/23 07:54 Pulse Ox 93 L 10/15/23 07:54 FiO2 Intake & Output 10/14/23 10/15/23 10/15/23 18:59 06:59 18:59 Intake Total 500 200 Output Total 2600 625 550 Balance -2100 -625 -350 Weight 158 kg Intake: Oral 200 Hemodialysis 500 Output: Urine 1200 625 550 Uretheral (Alanis) 500 550 Hemodialysis 1400 Other: Voiding Method Indwelling Catheter Indwelling Catheter - Exam Elderly male lying in bed in no distress Respiratory system unlabored breathing Patient is awake and alert no distress - Labs CBC & Chem 7: 10/11/23 08:11 10/14/23 06:30 Labs: Abnormal Lab Results - Last 24 Hours (Table) 10/14/23 10/14/23 10/14/23 Range/Units 06:30 11:04 12:36 Chloride 94 L (96-109) mmol/L Anion Gap 15.90 H (4.00-12.00) mmol/L BUN 30.7 H (9.0-27.0) mg/dL Creatinine 4.2 H (0.6-1.5) mg/dL Est GFR (CKD-EPI) 15 L (>=60) BUN/Creatinine Ratio 7.31 L (12.00-20.00) Ratio Glucose 124 H (70-110) mg/dL POC Glucose (mg/dL) 161 H 181 H (70-110) mg/dL Calcium 8.2 L (8.7-10.3) mg/dL 10/14/23 10/14/23 10/15/23 Range/Units 16:43 20:22 05:44 Chloride (96-109) mmol/L Anion Gap (4.00-12.00) mmol/L BUN (9.0-27.0) mg/dL Creatinine (0.6-1.5) mg/dL Est GFR (CKD-EPI) (>=60) BUN/Creatinine Ratio (12.00-20.00) Ratio Glucose (70-110) mg/dL POC Glucose (mg/dL) 268 H 245 H 127 H (70-110) mg/dL Calcium (8.7-10.3) mg/dL Assessment and Plan (1) Fever Current Visit: Yes Status: Acute Code(s): R50.9 - FEVER, UNSPECIFIED SNOMED Code(s): 214085409 (2) UTI (urinary tract infection) Current Visit: Yes Status: Acute Code(s): N39.0 - URINARY TRACT INFECTION, SITE NOT SPECIFIED SNOMED Code(s): 99552802 Plan: This is a telehealth visit 1patient with a low-grade fever source possible urinary as he did have a positive UA versus abdominal source as the patient was noticed to be tender in the right lower quadrant area 2- CT of abdominal pelvis did not show any acute abnormality no evidence of appendicitis 3-patient urine is positive culture growing Enterococcus faecalis, blood culture has been negative 4- patient to continue with the Unasyn and monitor clinical course closely Dictation was produced using [employer] dictation software. please excuse any grammatical, word or spelling errors. Time with Patient: Less than 30
[2023-10-16 05:41] LABS: Glucose,Whole Blood 116 mg/dL (70-110)
--- NOTE | 2023-10-16 08:31 | P.PN ---
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 Also has been dealing with decubitus ulcer on the buttocks on the left heel area in manage. Was admitted to the hospital 2 days ago on October 06 for significant edema and anasarca not well-controlled has been on diuretics also was running low-grade temperature not a clear whether he has any infection or not. Culture has been negative so far laboratory value showed negative UA blood sugar continues to be slightly elevated continue to have slight abdominal cramps and discomfort on and off CAT scan of the abdomen was done showed 1.3 cm metallic foreign body in the right lower quadrant presume related to surgery with embolization coil or clip from prior study no other major finding otherwise. Doppler study of both legs right and left did not show any deep venous thrombosis. Chest x-ray does not show any process. Otherwise patient been treated with aggressive management for anasarca and edema currently. Also has patient seen by cardiology as an outpatient which has not had ability to see cardiology last 6 months annual echocardiograms past year will order an echocardiogram and for patient to be seen cardiology as an in-house specially with anasarca and swelling to see if we can help. Eventually echocardiogram was performed and showed 60 to 65% ejection fraction with left ventricular cavity is normal with normal thickness mitral valve had structurally normal mitral valve with no evidence of mitral prolapse or mitral stenosis. Aortic valve post valve replacement from 2017 no aortic regurgitation peak velocity of 2.95 with a gradient of 35 mmHg and mean gradient of 19 with aortic stenosis. Rest of the structure are perfectly normal at this point. Ended up having to find out with general surgery think about the finding in the cecum with current finding and its metallic foreign body this is most likely ingested and considered repeat an x-ray to see if this has moved. But no acute abdomen requiring intervention otherwise. Again cardiology seen patient in consultation and review current finding with bilateral lower extremity edema and acute chronic heart failure with preserved ejection fraction and right bundle branch block agree with the consideration for an echo continue diuretics with aggressive management for edema will check magnesium level further recommendation is to follow-up. 10/10/2023: His culture came back positive for the Enterococcus facialis remain on Zosyn currently receiving is not controlling his temperature bowel so far, white blood cell is down to 10.4 and creatinine has been slightly bit worse at 1.9 t louie with GFR down to 38 specially being on more diuretics. His Lasix remain at 40 mg 3 times a day, spironolactone at 25 mg a day and added Zaroxolyn 2.5 mg daily repeat creatinine tomorrow as well magnesium is at 1.6. Infectious disease decided since Enterococcus is sensitive to penicillin that to continue Zosyn for now till the culture is finalized. Otherwise CT of the abdomen pelvis did not show any appendicitis or any infection but shows slight foreign body in the cecum which repeat plain x-ray came back negative for any major abnormality requiring help. Also patient had seen cardiology looking into management for acute on chronic heart failure with preserved ejection fraction and agree with IV Lasix Zaroxolyn and Aldactone is to watch kidney function little bit more carefully. Surprisingly with patient's condition in the past every time we did 3 treatment with Lasix, Zaroxolyn and Aldactone the kidney function declined quite bit so we have to be just careful this time in the next day or 2. Patient is patient to be discharged home today but with all current management and the culture is not finalized and the edema still bad patient is not ready to leave the hospital yet. 10/11/2023: Kidney function is much worse today creatinine is up to 2.6 with GFR down to 26 blood sugar slightly better continue to have anasarca and edema patient be seen nephrology today and recommendation again to take him off all diuretics and any nephrotoxic agent. Nephrology opinion this is an acute tubular necrosis secondary to infection diuretic use and dehydration. Also from probably be diuresed with a CAT scan done couple days earlier. I had normal saline at 50 cc an hour and stop lisinopril completely at this point check bladder for urinary retention continue to monitor kidney function carefully along with urine output. This will delay discharge at least the next 24 hours for now. Of course previously CAT scan of the abdomen does not show any hydronephrosis. 10/12/2023: He is much worse today with a kidney function had declined significantly creatinine is up to 3.5 with GFR down to 18, blood sugar still mildly elevated, he is off all diuretics and all nephrotoxic agent but this is not improving so far patient will continue gentle hydration with nephrology to go on for the next 24 hours at this point. UTI still being treated successfully doing well continue antibiotics for few more days. The plan was to discharge patient to [facility] rehab but he is not in any condition to be discharged yet. Edema swelling and bloating sensation are the same or slightly better compared to yesterday. 10/13/2023: Kidney function is much worse at this point with GFR is very low aline ent acute kidney injury with acute kidney failure will require most likely hemodialysis Dr. Samuels had requested Dr. Rodríguez to put the dialysis line patient will be going for hemodialysis today. Infectious disease was remaining been treated for fever with most likely urinary tract infection with culture positive for Enterococcus fistulous which patient remained on Unasyn for it for now. Patient is not happy that he is not going back tomorrow with fast enough but he need to stay on the hospital run hemodialysis and see if this is not reversed patient will require probably to stay on hemodialysis. 10/16/2023: Patient remain on hemodialysis through the weekend Continue to see nephrology hemodialysis apparently was done last time on October 13 and was held on the continue to hold diuretics since maintain normal saline and stop lisinopril. Continue Alanis catheter for urine output creatinine remained at 4.2 on the will repeat another CMP CBC today. Also patient currently see infectious disease for Enterococcus facialis UTI growing with a culture and continue Unasyn. Medically patient was stable vitals are under control. Whether patient is going to continue on hemodialysis or not this to be determined by nephrology and the plan probably start preparing patient for getting back tomorrow with today or tomorrow. REVIEW OF SYSTEMS: CONSTITUTIONAL: Overweight no acute respiratory distress EYES: No icterus sclerae, no conjunctivitis. EARS, NOSE, MOUTH, THROAT, and FACE: No sore throat, lymphadenopathy, carotid bruits or deformity. RESPIRATORY: No shortness of breath cough wheezes CARDIOVASCULAR: Positive PND orthopnea palpitation. GASTROINTESTINAL: Still have mild abdominal discomfort with nausea no vomiting slight gastroparesis with mild diarrhea. GENITOURINARY: Negative for Hematuria or UTI, no kidney stones. INTEGUMENT/BREAST: Severe anasarca and edema, history of rheumatoid arthritis with generalized arthralgia. HEMATOLOGIC/LYMPHATIC: Negative for bleed or purpura. MUSCULOSKELTAL: Generalized muscle and joint pain. NEURLOGICAL: Bedridden with severe left-sided weakness. BEHAVIORAL/PSYCH: Negative. ENDOCRINE: Negative. PHYSICAL EXAMINATION: General Appearance: Alert, cooperative, no distress, appears stated age. Neck HEENT: Supple, no lymphadenopathy, no thyroid enlargement, no carotid bruits. Lungs: Decreased breath sound bilaterally with fine rhonchi no crackles. Chest Wall: Decreased expansion with deep inspiration no tenderness and no deformity was found on exam, no costochondral pain or discomfort. Heart: Irregular rate and rhythm, S1, S2 normal, no murmur, rub or gallop. Back: Symmetric, no curvature, ROM normal, no CVA tenderness. Abdomen: Slight discomfort lower abdominal region area no rebound no rigidity slight anasarca and mild ascites. Extremities: 2+ edema with quite anasarca worse on the left side than right side Pulses: 2+ and symmetric. Skin: Skin color, texture, tugor normal, no rashes or lesions. Neurologic: Alert oriented x3 cranial nerves II through XII intact, positive weakness in the left side patient is bedridden. ASSESSMENT AND PLAN: _Acute kidney failure: With much worsening kidney function patient will require hemodialysis for 2 sessions and then was held yesterday waiting for creatinine today and nephrology to decide whether to continue dialysis or not. _Anasarca and edema: Has been off diuretic still having Bright wrap helping to reduce edema some but if patient started dialysis so far with hemodialysis was taking 1 and half liters daily. _Fever : Mostly urinary tract infection with culture positive for Enterococcus facialis was switched to Unasyn and controlling symptoms without any side effect. _Acute kidney failure despite underlying problem and because which is not important this point important to kidney function Declining patient is off all nephrotoxic agent. Continue to watch for 24 manage patient declining more might require dialysis. _Congestive heart failure and ischemic cardiomyopathy, the last echocardiogram showing well-preserved ejection fraction heart failure continue current medication management. Will continue current management for now. 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 _Type 2 diabetes with severe hyperglycemia: His blood sugar was quite bit elevated we will continue insulin at this point we will add Jardiance. Blood sugars remain good and reasonably below 200. _Stage IIIa chronic kidney disease: Still watching kidney function carefully specially with the IV diuretics at this point. Slightly with worsening kidney function with current diuretics. _Paroxysmal atrial fibrillation: Pulse rate is well-controlled still on metoprolol patient is on Eliquis 5 mg twice a day. _Post aortic valve placement: Has been seeing cardiology echocardiogram and maintained every 1 to 2 years. _Seizure disorders: Still on Keppra 750 mg twice a day hide no seizure activity. _Rheumatoid arthritis: Has been off biological agent is on prednisone 5 mg daily as a maintenance has not been seen rheumatology in a while. _Post dissected ascending aorta postsurgery at [facility] years ago that the time was complicated with a stroke and aortic valve placement. _Thrombocytopenia: Was mostly secondary to Zosyn prescription was stopped. CODE STATUS: Full code. Discussion: Patient had dialysis on Monday and Monday and was held on Monday, waiting for creatinine today to decide whether to continue dialysis or not. still have a significant Fluid overload might need HD today. Objective - Vital Signs Vital signs: Vital Signs Temp 99.2 F 10/16/23 01:07 Pulse 61 10/16/23 01:07 Resp 17 10/16/23 01:07 BP 126/62 10/16/23 01:07 Pulse Ox 93 L 10/16/23 01:07 FiO2 Intake & Output 10/15/23 10/15/23 10/16/23 06:59 18:59 06:59 Intake Total 437 Output Total 625 1550 1400 Balance -625 -5063 -1400 Weight 158 kg 157.8 kg Intake: Oral 437 Output: Urine 625 1550 1400 Uretheral (Alanis) 550 Other: Voiding Method Indwelling Catheter Indwelling Catheter Indwelling Catheter - Labs CBC & Chem 7: 10/11/23 08:11 10/14/23 06:30 Labs: Abnormal Lab Results - Last 24 Hours (Table) 10/15/23 10/15/23 10/15/23 Range/Units 12:01 16:41 20:31 POC Glucose (mg/dL) 175 H 233 H 223 H (70-110) mg/dL 10/16/23 Range/Units 05:39 POC Glucose (mg/dL) 116 H (70-110) mg/dL
[2023-10-16 08:39] LABS: Glucose,Whole Blood 153 mg/dL (70-110)
[2023-10-16 09:21] LABS: BUN/Creat Ratio 7.76 Ratio (12.00-20.00); Blood Urea Nitrogen 19.4 mg/dL (9.0-27.0); Calcium 8.5 mg/dL (8.7-10.3); Carbon Dioxide 26.1 mmol/L (21.6-31.8); Chloride 99 mmol/L (96-109); Glucose 108 mg/dL (70-110); Magnesium 1.7 mg/dL (1.5-2.4); Potassium 3.7 mmol/L (3.5-5.5); Sodium 137 mmol/L (135-145)
[2023-10-16 09:43] LABS: Basophils # (A) 0.05 X 10*3/uL (0.00-0.10); Basophils % (A) 0.5 %; Eosinophils # (A) 0.68 X 10*3/uL (0.04-0.35); Eosinophils % (A) 6.3 %; HCT 27.5 % (39.6-50.0); HGB 8.4 g/dL (13.0-17.0); Lymphocytes # (A) 1.98 X 10*3/uL (0.90-5.00); Lymphocytes % (A) 18.4 %; MCH 27.7 pg (27.0-32.0); MCHC 30.5 g/dL (32.0-37.0); MCV 90.8 FL (80.0-97.0); Mean Platelet Volume 10.8 FL (9.5-12.2); Monocytes # (A) 0.84 X 10*3/uL (0.20-1.00); Monocytes % (A) 7.8 %; NRBC Per 100 WBC 0 X 10*3/uL (0.00-0.01); Neutrophils # (A) 7.11 X 10*3/uL (1.80-7.70); Neutrophils % (A) 66.2 %; Platelet Count 152 X 10*3/uL (140-440); RBC 3.03 X 10*6/uL (4.40-5.60); RDW 14.1 % (11.5-14.5); WBC 10.75 X 10*3/uL (4.50-10.00)
[2023-10-16 11:49] LABS: Glucose,Whole Blood 151 mg/dL (70-110)
--- NOTE | 2023-10-16 13:46 | P.PN ---
Subjective Progress Note Date: 10/16/23 CHIEF COMPLAINT: Foreign body of cecum HISTORY OF PRESENT ILLNESS: Patient admitted to the hospital with fever and UTI. Patient with acute kidney injury and started on hemodialysis. Surgical service following in regards to metallic foreign body in the cecum. Patient denies any abdominal pain. Does report a decreased appetite. He has been having bowel movements. cr 2.5 PHYSICAL EXAM: VITAL SIGNS: Reviewed. GENERAL: Well-developed in no acute distress. ABDOMEN: Soft. Nondistended. Nontender. NEUROLOGIC: Alert and oriented. Cranial nerves II through XII grossly intact. ASSESSMENT: 1. Metallic foreign body in the cecum. This most likely was ingested. 2. UTI 3. 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 SIMEON PLAN: -Continue lactulose and MiraLAX Physician Clicking Machine Operator note has been reviewed by physician. Signing provider agrees with the documented findings, assessment, and plan of care. Objective - Vital Signs Vital signs: Vital Signs Temp 98.1 F 10/16/23 08:06 Pulse 67 10/16/23 08:06 Resp 18 10/16/23 08:06 BP 153/69 10/16/23 08:06 Pulse Ox 92 L 10/16/23 08:06 FiO2 Intake & Output 10/15/23 10/16/23 10/16/23 18:59 06:59 18:59 Intake Total 437 Output Total 1550 1400 600 Balance -1113 -1400 -600 Weight 157.8 kg Intake: Oral 437 Output: Urine 1550 1400 600 Uretheral (Alanis) 550 Other: Voiding Method Indwelling Catheter Indwelling Catheter - Labs CBC & Chem 7: 10/16/23 04:56 10/16/23 04:56 Labs: Abnormal Lab Results - Last 24 Hours (Table) 10/15/23 10/15/23 10/16/23 Range/Units 16:41 20:31 04:56 WBC (4.50-10.00) X 10*3/uL RBC (4.40-5.60) X 10*6/uL Hgb (13.0-17.0) g/dL Hct (39.6-50.0) % MCHC (32.0-37.0) g/dL Immature Gran # (0.00-0.04) X 10*3/uL Eosinophils # (0.04-0.35) X 10*3/uL Creatinine 2.5 H (0.6-1.5) mg/dL Est GFR (CKD-EPI) 27 L (>=60) BUN/Creatinine Ratio 7.76 L (12.00-20.00) Ratio POC Glucose (mg/dL) 233 H 223 H (70-110) mg/dL Calcium 8.5 L (8.7-10.3) mg/dL C-Reactive Protein 10.60 H (0.00-0.80) mg/dL 10/16/23 10/16/23 10/16/23 Range/Units 04:56 05:39 08:36 WBC 10.75 H (4.50-10.00) X 10*3/uL RBC 3.03 L (4.40-5.60) X 10*6/uL Hgb 8.4 L (13.0-17.0) g/dL Hct 27.5 L (39.6-50.0) % MCHC 30.5 L (32.0-37.0) g/dL Immature Gran # 0.09 H (0.00-0.04) X 10*3/uL Eosinophils # 0.68 H (0.04-0.35) X 10*3/uL Creatinine (0.6-1.5) mg/dL Est GFR (CKD-EPI) (>=60) BUN/Creatinine Ratio (12.00-20.00) Ratio POC Glucose (mg/dL) 116 H 153 H (70-110) mg/dL Calcium (8.7-10.3) mg/dL C-Reactive Protein (0.00-0.80) mg/dL 10/16/23 Range/Units 11:46 WBC (4.50-10.00) X 10*3/uL RBC (4.40-5.60) X 10*6/uL Hgb (13.0-17.0) g/dL Hct (39.6-50.0) % MCHC (32.0-37.0) g/dL Immature Gran # (0.00-0.04) X 10*3/uL Eosinophils # (0.04-0.35) X 10*3/uL Creatinine (0.6-1.5) mg/dL Est GFR (CKD-EPI) (>=60) BUN/Creatinine Ratio (12.00-20.00) Ratio POC Glucose (mg/dL) 151 H (70-110) mg/dL Calcium (8.7-10.3) mg/dL C-Reactive Protein (0.00-0.80) mg/dL
--- NOTE | 2023-10-16 14:53 | P.PN ---
Subjective patient is seen for follow-up for acute kidney injury. Started on hemodialysis on 10/13/2023. Urine output has improved and hemodialysis is currently on hold. last hemodialysis on 10/14/2023. Serum creatinine at 2.5 mg/dL today. maintained on gentle IV hydration. No complaints of shortness of breath. Urine output at 2.9 L for 24 hours. Objective - Vital Signs Vital signs: Vital Signs Temp 98.1 F 10/16/23 08:06 Pulse 67 10/16/23 08:06 Resp 18 10/16/23 08:06 BP 153/69 10/16/23 08:06 Pulse Ox 92 L 10/16/23 08:06 FiO2 Intake & Output 10/15/23 10/16/23 10/16/23 18:59 06:59 18:59 Intake Total 437 Output Total 1550 1400 600 Balance -1113 -1400 -600 Weight 157.8 kg Intake: Oral 437 Output: Urine 1550 1400 600 Uretheral (Alanis) 550 Other: Voiding Method Indwelling Catheter Indwelling Catheter - Exam patient is awake, comfortable, no acute distress. Examination of the heart S1 and S2 Examination of the lungs decreased breath sounds at the bases Abdomen is soft obese nontender Examination of lower extremities shows edema 1+. Both legs are wrapped. Left hemiparesis. - Labs CBC & Chem 7: 10/16/23 04:56 10/16/23 04:56 Labs: Abnormal Lab Results - Last 24 Hours (Table) 10/15/23 10/15/23 10/16/23 Range/Units 16:41 20:31 04:56 WBC (4.50-10.00) X 10*3/uL RBC (4.40-5.60) X 10*6/uL Hgb (13.0-17.0) g/dL Hct (39.6-50.0) % MCHC (32.0-37.0) g/dL Immature Gran # (0.00-0.04) X 10*3/uL Eosinophils # (0.04-0.35) X 10*3/uL Creatinine 2.5 H (0.6-1.5) mg/dL Est GFR (CKD-EPI) 27 L (>=60) BUN/Creatinine Ratio 7.76 L (12.00-20.00) Ratio POC Glucose (mg/dL) 233 H 223 H (70-110) mg/dL Calcium 8.5 L (8.7-10.3) mg/dL C-Reactive Protein 10.60 H (0.00-0.80) mg/dL 10/16/23 10/16/23 10/16/23 Range/Units 04:56 05:39 08:36 WBC 10.75 H (4.50-10.00) X 10*3/uL RBC 3.03 L (4.40-5.60) X 10*6/uL Hgb 8.4 L (13.0-17.0) g/dL Hct 27.5 L (39.6-50.0) % MCHC 30.5 L (32.0-37.0) g/dL Immature Gran # 0.09 H (0.00-0.04) X 10*3/uL Eosinophils # 0.68 H (0.04-0.35) X 10*3/uL Creatinine (0.6-1.5) mg/dL Est GFR (CKD-EPI) (>=60) BUN/Creatinine Ratio (12.00-20.00) Ratio POC Glucose (mg/dL) 116 H 153 H (70-110) mg/dL Calcium (8.7-10.3) mg/dL C-Reactive Protein (0.00-0.80) mg/dL 10/16/23 Range/Units 11:46 WBC (4.50-10.00) X 10*3/uL RBC (4.40-5.60) X 10*6/uL Hgb (13.0-17.0) g/dL Hct (39.6-50.0) % MCHC (32.0-37.0) g/dL Immature Gran # (0.00-0.04) X 10*3/uL Eosinophils # (0.04-0.35) X 10*3/uL Creatinine (0.6-1.5) mg/dL Est GFR (CKD-EPI) (>=60) BUN/Creatinine Ratio (12.00-20.00) Ratio POC Glucose (mg/dL) 151 H (70-110) mg/dL Calcium (8.7-10.3) mg/dL C-Reactive Protein (0.00-0.80) mg/dL Assessment and Plan Assessment: 1. Acute kidney injury secondary to ATN secondary to infection, diuresis. Also received IV contrast on October 09, [address] of the abdomen and pelvis. Creatinine 1.08 on admission and up to 4.5 dated October 13, 2023. Has right femoral catheter. Bladder scan showed urine volume of 200 to 300 cc. Has Alanis catheter. No proteinuria on UA. No hydronephrosis noted on CAT scan. Nonoliguric. hemodialysis currently on hold as renal function has improved. 2. Diabetes mellitus. 3. Benign hypertension. Stable. 4. History of aortic valve replacement. 5. Chronic diastolic CHF. 6. Enterococcus UTI on antibiotics. ID following. 7. History of CVA. Plan: continue to encourage increase oral intake. Continue to hold hemodialysis. Repeat labs in a.m. Avoid any nephrotoxic agents. DC IV fluids. Repeat chest x-ray
[2023-10-16] MEDS: AMPICILLIN-SULBACTAM 3 GM in SODIUM CHLORIDE 0.9% 100 ML IVPB SCH (15:08)
--- NOTE | 2023-10-16 15:19 | P.PN ---
Subjective Progress Note Date: 10/16/23 Principal diagnosis: Reason for follow-up is fever question of UTI Patient is a 68-year-old male with a past medical history significant for atrial fibrillation coronary disease diabetes mellitus hypertension osteoarthritis CVA TIA patient presented to the hospital for evaluation of lower extremity swelling he did have a low-grade fever prompting this consultation. On today's evaluation that is 10/16/2023,the patient remains to be afebrile, patient is on room air not requiring supplemental oxygen and denies any shortness of breath no chest pain or cough.Patient denies having any nausea or vomiting, no abdominal pain and no diarrhea has been reported. Did have good urine output as reported by the Patient white count is 10.75, creatinine is 2.5 Objective - Vital Signs Vital signs: Vital Signs Temp 99.2 F 10/16/23 01:07 Pulse 61 10/16/23 01:07 Resp 17 10/16/23 01:07 BP 126/62 10/16/23 01:07 Pulse Ox 93 L 10/16/23 01:07 FiO2 Intake & Output 10/15/23 10/16/23 10/16/23 18:59 06:59 18:59 Intake Total 437 Output Total 1550 1400 Balance -1113 -1400 Weight 157.8 kg Intake: Oral 437 Output: Urine 1550 1400 Uretheral (Alanis) 550 Other: Voiding Method Indwelling Catheter Indwelling Catheter - Exam Elderly male lying in bed in no distress Respiratory system unlabored breathing clear to auscultation anteriorly Abdominal soft no tenderness Patient is awake and alert no distress Exam completed with the help of DIE TRIMMER - Labs CBC & Chem 7: 10/16/23 04:56 10/16/23 04:56 Labs: Abnormal Lab Results - Last 24 Hours (Table) 10/15/23 10/15/23 10/15/23 Range/Units 12:01 16:41 20:31 POC Glucose (mg/dL) 175 H 233 H 223 H (70-110) mg/dL 10/16/23 10/16/23 Range/Units 05:39 08:36 POC Glucose (mg/dL) 116 H 153 H (70-110) mg/dL Assessment and Plan (1) Fever Current Visit: Yes Status: Acute Code(s): R50.9 - FEVER, UNSPECIFIED SNOMED Code(s): 303587098 (2) UTI (urinary tract infection) Current Visit: Yes Status: Acute Code(s): N39.0 - URINARY TRACT INFECTION, SITE NOT SPECIFIED SNOMED Code(s): 19522968 Plan: This is a telehealth visit 1patient with a low-grade fever source possible urinary as he did have a positive UA versus abdominal source as the patient was noticed to be tender in the right lower quadrant area 2- CT of abdominal pelvis did not show any acute abnormality no evidence of appendicitis 3-patient urine is positive culture growing Enterococcus faecalis, blood culture has been negative 4- patient has received adequate Unasyn while inpatient no need for antibiotic on discharge Dictation was produced using [employer] dictation software. please excuse any grammatical, word or spelling errors. Time with Patient: Less than 30
--- NOTE | 2023-10-16 15:21 | XR ---
EXAMINATION TYPE: XR chest 1V DATE OF EXAM: 10/16/2023 COMPARISON: 10/07/2023 HISTORY: Fever TECHNIQUE: Single frontal view of the chest is obtained. FINDINGS: Sternotomy wires with mild cardiomegaly. No overt failure. Linear changes suggestive of sc arring or atelectasis. Use osteopenia and degenerative change of the spine and bilateral effusions. N o pneumothorax. IMPRESSION: 1. Basilar subsegmental atelectasis with tiny bilateral effusions. Early infiltrate not entirely excl uded.
[2023-10-16 17:04] LABS: Glucose,Whole Blood 196 mg/dL (70-110)
[2023-10-16 21:46] LABS: Glucose,Whole Blood 211 mg/dL (70-110)
[2023-10-17 06:15] LABS: Glucose,Whole Blood 143 mg/dL (70-110)
--- NOTE | 2023-10-17 07:43 | P.PN ---
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 Also has been dealing with decubitus ulcer on the buttocks on the left heel area in manage. Was admitted to the hospital 2 days ago on October 06 for significant edema and anasarca not well-controlled has been on diuretics also was running low-grade temperature not a clear whether he has any infection or not. Culture has been negative so far laboratory value showed negative UA blood sugar continues to be slightly elevated continue to have slight abdominal cramps and discomfort on and off CAT scan of the abdomen was done showed 1.3 cm metallic foreign body in the right lower quadrant presume related to surgery with embolization coil or clip from prior study no other major finding otherwise. Doppler study of both legs right and left did not show any deep venous thrombosis. Chest x-ray does not show any process. Otherwise patient been treated with aggressive management for anasarca and edema currently. Also has patient seen by cardiology as an outpatient which has not had ability to see cardiology last 6 months annual echocardiograms past year will order an echocardiogram and for patient to be seen cardiology as an in-house specially with anasarca and swelling to see if we can help. Eventually echocardiogram was performed and showed 60 to 65% ejection fraction with left ventricular cavity is normal with normal thickness mitral valve had structurally normal mitral valve with no evidence of mitral prolapse or mitral stenosis. Aortic valve post valve replacement from 2017 no aortic regurgitation peak velocity of 2.95 with a gradient of 35 mmHg and mean gradient of 19 with aortic stenosis. Rest of the structure are perfectly normal at this point. Ended up having to find out with general surgery think about the finding in the cecum with current finding and its metallic foreign body this is most likely ingested and considered repeat an x-ray to see if this has moved. But no acute abdomen requiring intervention otherwise. Again cardiology seen patient in consultation and review current finding with bilateral lower extremity edema and acute chronic heart failure with preserved ejection fraction and right bundle branch block agree with the consideration for an echo continue diuretics with aggressive management for edema will check magnesium level further recommendation is to follow-up. 10/10/2023: His culture came back positive for the Enterococcus facialis remain on Zosyn currently receiving is not controlling his temperature bowel so far, white blood cell is down to 10.4 and creatinine has been slightly bit worse at 1.9 t louie with GFR down to 38 specially being on more diuretics. His Lasix remain at 40 mg 3 times a day, spironolactone at 25 mg a day and added Zaroxolyn 2.5 mg daily repeat creatinine tomorrow as well magnesium is at 1.6. Infectious disease decided since Enterococcus is sensitive to penicillin that to continue Zosyn for now till the culture is finalized. Otherwise CT of the abdomen pelvis did not show any appendicitis or any infection but shows slight foreign body in the cecum which repeat plain x-ray came back negative for any major abnormality requiring help. Also patient had seen cardiology looking into management for acute on chronic heart failure with preserved ejection fraction and agree with IV Lasix Zaroxolyn and Aldactone is to watch kidney function little bit more carefully. Surprisingly with patient's condition in the past every time we did 3 treatment with Lasix, Zaroxolyn and Aldactone the kidney function declined quite bit so we have to be just careful this time in the next day or 2. Patient is patient to be discharged home today but with all current management and the culture is not finalized and the edema still bad patient is not ready to leave the hospital yet. 10/11/2023: Kidney function is much worse today creatinine is up to 2.6 with GFR down to 26 blood sugar slightly better continue to have anasarca and edema patient be seen nephrology today and recommendation again to take him off all diuretics and any nephrotoxic agent. Nephrology opinion this is an acute tubular necrosis secondary to infection diuretic use and dehydration. Also from probably be diuresed with a CAT scan done couple days earlier. I had normal saline at 50 cc an hour and stop lisinopril completely at this point check bladder for urinary retention continue to monitor kidney function carefully along with urine output. This will delay discharge at least the next 24 hours for now. Of course previously CAT scan of the abdomen does not show any hydronephrosis. 10/12/2023: He is much worse today with a kidney function had declined significantly creatinine is up to 3.5 with GFR down to 18, blood sugar still mildly elevated, he is off all diuretics and all nephrotoxic agent but this is not improving so far patient will continue gentle hydration with nephrology to go on for the next 24 hours at this point. UTI still being treated successfully doing well continue antibiotics for few more days. The plan was to discharge patient to [facility] rehab but he is not in any condition to be discharged yet. Edema swelling and bloating sensation are the same or slightly better compared to yesterday. 10/13/2023: Kidney function is much worse at this point with GFR is very low aline ent acute kidney injury with acute kidney failure will require most likely hemodialysis Dr. Samuels had requested Dr. Rodríguez to put the dialysis line patient will be going for hemodialysis today. Infectious disease was remaining been treated for fever with most likely urinary tract infection with culture positive for Enterococcus fistulous which patient remained on Unasyn for it for now. Patient is not happy that he is not going back tomorrow with fast enough but he need to stay on the hospital run hemodialysis and see if this is not reversed patient will require probably to stay on hemodialysis. 10/16/2023: Patient remain on hemodialysis through the weekend Continue to see nephrology hemodialysis apparently was done last time on October 13 and was held on the continue to hold diuretics since maintain normal saline and stop lisinopril. Continue Alanis catheter for urine output creatinine remained at 4.2 on the will repeat another CMP CBC today. Also patient currently see infectious disease for Enterococcus facialis UTI growing with a culture and continue Unasyn. Medically patient was stable vitals are under control. Whether patient is going to continue on hemodialysis or not this to be determined by nephrology and the plan probably start preparing patient for getting back tomorrow with today or tomorrow. 10/17/2023: Seen patient today accompanied with his was eating breakfast in the morning, he is feeling slightly bit better, less shortness of breath, still having oxygen on with his vitals are stable, increased urine output with no hematuria or cloudy urine. His creatinine had improved significantly down to 2.5 after stopping dialysis for over 72 hours so far. BUN/creatinine are pending this morning and hopefully patient will have his Alanis catheter out today and prepare for discharge back to [facility] tomorrow. Patient is still on IV Unasyn for his Enterococcus faecalis UTI will ask infectious disease to switch him to oral antibiotic if he still need to be on any antibiotics for after leaving the hospital. Edema in the left foot mostly started become slightly bit worse still having Bright wrap to reduce edema without any diuretics for the last 5 days straight. Patient will be started back on furosemide at least 40 mg daily if agreed with nephrology today and prepare again for discharge tomorrow morning. REVIEW OF SYSTEMS: CONSTITUTIONAL: Overweight no acute respiratory distress EYES: No icterus sclerae, no conjunctivitis. EARS, NOSE, MOUTH, THROAT, and FACE: No sore throat, lymphadenopathy, carotid bruits or deformity. RESPIRATORY: No shortness of breath cough wheezes CARDIOVASCULAR: Positive PND orthopnea palpitation. GASTROINTESTINAL: Still have mild abdominal discomfort with nausea no vomiting slight gastroparesis with mild diarrhea. GENITOURINARY: Negative for Hematuria or UTI, no kidney stones. INTEGUMENT/BREAST: Severe anasarca and edema, history of rheumatoid arthritis with generalized arthralgia. HEMATOLOGIC/LYMPHATIC: Negative for bleed or purpura. MUSCULOSKELTAL: Generalized muscle and joint pain. NEURLOGICAL: Bedridden with severe left-sided weakness. BEHAVIORAL/PSYCH: Negative. ENDOCRINE: Negative. PHYSICAL EXAMINATION: General Appearance: Alert, cooperative, no distress, appears stated age. Neck HEENT: Supple, no lymphadenopathy, no thyroid enlargement, no carotid bruits. Lungs: Decreased breath sound bilaterally with fine rhonchi no crackles. Chest Wall: Decreased expansion with deep inspiration no tenderness and no deformity was found on exam, no costochondral pain or discomfort. Heart: Irregular rate and rhythm, S1, S2 normal, no murmur, rub or gallop. Back: Symmetric, no curvature, ROM normal, no CVA tenderness. Abdomen: Slight discomfort lower abdominal region area no rebound no rigidity slight anasarca and mild ascites. Extremities: 2+ edema with quite anasarca worse on the left side than right side with increased edema in the left foot compared to the right side. Pulses: 2+ and symmetric. Skin: Skin color, texture, tugor normal, no rashes or lesions. Neurologic: Alert oriented x3 cranial nerves II through XII intact, positive weakness in the left side patient is bedridden. ASSESSMENT AND PLAN: _Acute kidney failure: Secondary to acute tubular necrosis and probably the use of IV iodine for his CAT scan initially, after 3 session of hemodialysis and without hemodialysis for the last 3 days patient creatinine is much better and is making good urine output on his own. _Anasarca and edema: Has been off diuretic still having Bright wrap helping to reduce edema patient will go back on furosemide 40 mg started today. _Fever : Mostly urinary tract infection with culture positive for Enterococcus facialis was switched to Unasyn if he is not done with IV antibiotic we will try to switch him to oral antibiotic for going back to [facility] tomorrow. _Acute kidney failure despite underlying problem and because which is not important this point important to kidney function Declining patient is off all nephrotoxic agent. Continue to watch for 24 manage patient declining more might require dialysis. _Congestive heart failure, the last echocardiogram showing well-preserved ejection fraction heart failure continue current medication management. Will continue current management for now. 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 _Type 2 diabetes with severe hyperglycemia: His blood sugar was quite bit elevated we will continue insulin at this point we will add Jardiance. Blood sugars remain good and reasonably below 200. _Stage IIIa chronic kidney disease: Still watching kidney function carefully specially with the IV diuretics at this point. Slightly with worsening kidney function with current diuretics. _Paroxysmal atrial fibrillation: Pulse rate is well-controlled still on metoprolol patient is on Eliquis 5 mg twice a day. _Post aortic valve placement: Has been seeing cardiology echocardiogram and maintained every 1 to 2 years. _Seizure disorders: Still on Keppra 750 mg twice a day hide no seizure activity. _Rheumatoid arthritis: Has been off biological agent is on prednisone 5 mg daily as a maintenance has not been seen rheumatology in a while. _Post dissected ascending aorta postsurgery at [facility] years ago that the time was complicated with a stroke and aortic valve placement. _Thrombocytopenia: Resolved was secondary to use of Zosyn. CODE STATUS: Full code. Discussion: His Alanis catheter will be out today, will initiate furosemide again, finalize antibiotic management and prepare for going back to residential tomorrow. Objective - Vital Signs Vital signs: Vital Signs Temp 97.8 F 10/17/23 01:50 Pulse 59 L 10/17/23 01:50 Resp 18 10/17/23 01:50 BP 144/68 10/17/23 01:50 Pulse Ox 96 10/17/23 01:50 FiO2 Intake & Output 10/16/23 10/16/23 10/17/23 06:59 18:59 06:59 Intake Total 221 Output Total 6516 415 8935 Balance -1400 -379 -2049 Weight 157.8 kg 156.489 kg Intake: Oral 221 Output: Urine 1112 215 5010 Other: Voiding Method Indwelling Catheter Indwelling Catheter Indwelling Catheter # Bowel Movements 1 - Labs CBC & Chem 7: 10/16/23 04:56 10/16/23 04:56 Labs: Abnormal Lab Results - Last 24 Hours (Table) 10/16/23 10/16/23 10/16/23 Range/Units 04:56 04:56 08:36 WBC 10.75 H (4.50-10.00) X 10*3/uL RBC 3.03 L (4.40-5.60) X 10*6/uL Hgb 8.4 L (13.0-17.0) g/dL Hct 27.5 L (39.6-50.0) % MCHC 30.5 L (32.0-37.0) g/dL Immature Gran # 0.09 H (0.00-0.04) X 10*3/uL Eosinophils # 0.68 H (0.04-0.35) X 10*3/uL Creatinine 2.5 H (0.6-1.5) mg/dL Est GFR (CKD-EPI) 27 L (>=60) BUN/Creatinine Ratio 7.76 L (12.00-20.00) Ratio POC Glucose (mg/dL) 153 H (70-110) mg/dL Calcium 8.5 L (8.7-10.3) mg/dL C-Reactive Protein 10.60 H (0.00-0.80) mg/dL 10/16/23 10/16/23 10/16/23 Range/Units 11:46 17:02 21:45 WBC (4.50-10.00) X 10*3/uL RBC (4.40-5.60) X 10*6/uL Hgb (13.0-17.0) g/dL Hct (39.6-50.0) % MCHC (32.0-37.0) g/dL Immature Gran # (0.00-0.04) X 10*3/uL Eosinophils # (0.04-0.35) X 10*3/uL Creatinine (0.6-1.5) mg/dL Est GFR (CKD-EPI) (>=60) BUN/Creatinine Ratio (12.00-20.00) Ratio POC Glucose (mg/dL) 151 H 196 H 211 H (70-110) mg/dL Calcium (8.7-10.3) mg/dL C-Reactive Protein (0.00-0.80) mg/dL
[2023-10-17 09:50] LABS: Basophils # (A) 0.1 k/uL (0-0.2); Basophils % (A) 1 %; Eosinophils # (A) 0.5 k/uL (0-0.7); Eosinophils % (A) 5 %; HCT 28.8 % (39.0-53.0); HGB 9.1 gm/dL (13.0-17.5); Lymphocytes # (A) 1.8 k/uL (1.0-4.8); Lymphocytes % (A) 18 %; MCHC 31.5 g/dL (31.0-37.0); MCV 89.1 fL (80.0-100.0); Mean Platelet Volume 7.9; Monocytes # (A) 0.5 k/uL (0-1.0); Monocytes % (A) 5 %; Neutrophils # (A) 6.9 k/uL (1.3-7.7); Neutrophils % (A) 70 %; Platelet Count 164 k/uL (150-450); RBC 3.24 m/uL (4.30-5.90); RDW 14.8 % (11.5-15.5); WBC 9.9 k/uL (3.8-10.6)
[2023-10-17 10:06] LABS: ALT 22 U/L (4-49); AST 23 U/L (17-59); African American GFR (CKD) 43 (>60 ml/min/1.73 sqM); Albumin 2.9 g/dL (3.5-5.0); Albumin/Globulin Ratio 1.2; Alkaline Phosphatase 29 U/L (38-126); Anion Gap 7 mmol/L; Blood Urea Nitrogen 17 mg/dL (9-20); Calcium 8.7 mg/dL (8.4-10.2); Carbon Dioxide 25 mmol/L (22-30); Chloride 103 mmol/L (98-107); Globulin 2.5 g/dL; Glucose 156 mg/dL (74-99); Non-African American GFR(CKD) 37 (>60 ml/min/1.73 sqM); Potassium 3.8 mmol/L (3.5-5.1); Sodium 135 mmol/L (137-145); Total Bilirubin 0.7 mg/dL (0.2-1.3); Total Protein 5.4 g/dL (6.3-8.2)
[2023-10-17 10:19] LABS: Magnesium 1.5 mg/dL (1.6-2.3)
[2023-10-17 12:20] LABS: Glucose,Whole Blood 166 mg/dL (70-110)
--- NOTE | 2023-10-17 13:00 | P.PN ---
Subjective patient is seen for follow-up for acute kidney injury. Started on hemodialysis on 10/13/2023. Urine output has improved and hemodialysis is currently on hold. last hemodialysis on 10/14/2023. Serum creatinine at 1.8 mg/dL today. IV fluids discontinued yesterday. No complaints of shortness of breath. Urine output at 2.6 L for 24 hours. Objective - Vital Signs Vital signs: Vital Signs Temp 98.4 F 10/17/23 07:06 Pulse 63 10/17/23 07:06 Resp 19 10/17/23 07:06 BP 152/73 10/17/23 07:06 Pulse Ox 97 10/17/23 08:27 FiO2 Intake & Output 10/16/23 10/17/23 10/17/23 18:59 06:59 18:59 Intake Total 221 118 Output Total 600 0 865 Balance -379 -2049 -742 Weight 156.489 kg Intake: Oral 221 118 Output: Urine 600 0 865 Uretheral (Alanis) 445 Other: Voiding Method Indwelling Catheter Indwelling Catheter Indwelling Catheter # Bowel Movements 1 1 - Exam patient is awake, comfortable, no acute distress. Examination of the heart S1 and S2 Examination of the lungs decreased breath sounds at the bases Abdomen is soft obese nontender Examination of lower extremities shows edema 1+. worse on the left side. Both legs are wrapped. Left hemiparesis. - Labs CBC & Chem 7: 10/17/23 08:25 10/17/23 08:25 Labs: Abnormal Lab Results - Last 24 Hours (Table) 10/16/23 10/16/23 10/17/23 Range/Units 17:02 21:45 06:13 RBC (4.30-5.90) m/uL Hgb (13.0-17.5) gm/dL Hct (39.0-53.0) % Sodium (137-145) mmol/L Creatinine (0.66-1.25) mg/dL Glucose (74-99) mg/dL POC Glucose (mg/dL) 196 H 211 H 143 H (70-110) mg/dL Magnesium (1.6-2.3) mg/dL Alkaline Phosphatase (38-126) U/L Total Protein (6.3-8.2) g/dL Albumin (3.5-5.0) g/dL 10/17/23 10/17/23 10/17/23 Range/Units 08:25 08:25 12:18 RBC 3.24 L (4.30-5.90) m/uL Hgb 9.1 L (13.0-17.5) gm/dL Hct 28.8 L (39.0-53.0) % Sodium 135 L (137-145) mmol/L Creatinine 1.84 H (0.66-1.25) mg/dL Glucose 156 H (74-99) mg/dL POC Glucose (mg/dL) 166 H (70-110) mg/dL Magnesium 1.5 L (1.6-2.3) mg/dL Alkaline Phosphatase 29 L (38-126) U/L Total Protein 5.4 L (6.3-8.2) g/dL Albumin 2.9 L (3.5-5.0) g/dL Assessment and Plan Assessment: 1. Acute kidney injury secondary to ATN secondary to infection, diuresis. Also received IV contrast on October 09, [address] of the abdomen and pelvis. Creatinine 1.08 on admission and up to 4.5 dated October 13, 2023. Has right femoral catheter. Bladder scan showed urine volume of 200 to 300 cc. Has Alanis catheter. No proteinuria on UA. No hydronephrosis noted on CAT scan. Nonoliguric. hemodialysis currently on hold as renal function has improved. 2. Diabetes mellitus. 3. Benign hypertension. Stable. 4. History of aortic valve replacement. 5. Chronic diastolic CHF. 6. Enterococcus UTI on antibiotics. ID following. 7. History of CVA. Plan: continue to encourage increase oral intake. Continue to hold hemodialysis. DC dialysis catheter Repeat labs in a.m. Avoid any nephrotoxic agents. continue off of IV fluids IV Lasix 1
[2023-10-17] MEDS: FUROSEMIDE 10 MG/ML 4 ML VIAL IV STA (13:10)
--- NOTE | 2023-10-17 14:02 | P.PN ---
Subjective Progress Note Date: 10/17/23 Principal diagnosis: Reason for follow-up is fever question of UTI Patient is a 68-year-old male with a past medical history significant for atrial fibrillation coronary disease diabetes mellitus hypertension osteoarthritis CVA TIA patient presented to the hospital for evaluation of lower extremity swelling he did have a low-grade fever prompting this consultation. On today's evaluation that is 10/16/2023,the patient remains to be afebrile, patient is on room air not requiring supplemental oxygen and denies any shortness of breath no chest pain or cough.Patient denies having any nausea or vomiting, no abdominal pain and no diarrhea has been reported, patient mention feeling better. Patient white count normal at 9.9, creatinine is improved to 1.84 blood culture has been negative Objective - Vital Signs Vital signs: Vital Signs Temp 98.4 F 10/17/23 07:06 Pulse 63 10/17/23 07:06 Resp 19 10/17/23 07:06 BP 152/73 10/17/23 07:06 Pulse Ox 97 10/17/23 08:27 FiO2 Intake & Output 10/16/23 10/17/23 10/17/23 18:59 06:59 18:59 Intake Total 221 Output Total 600 0 Balance -379 -2049 Weight 156.489 kg Intake: Oral 221 Output: Urine 600 2049 Other: Voiding Method Indwelling Catheter Indwelling Catheter # Bowel Movements 1 - Exam Elderly male lying in bed in no distress Respiratory system unlabored breathing clear to auscultation anteriorly Abdominal soft no tenderness Patient is awake and alert no distress Exam completed with the help of REDUCING MACHINE OPERATOR - Labs CBC & Chem 7: 10/17/23 08:25 10/17/23 08:25 Labs: Abnormal Lab Results - Last 24 Hours (Table) 10/16/23 10/16/23 10/16/23 Range/Units 04:56 04:56 11:46 WBC 10.75 H (4.50-10.00) X 10*3/uL RBC 3.03 L (4.40-5.60) X 10*6/uL Hgb 8.4 L (13.0-17.0) g/dL Hct 27.5 L (39.6-50.0) % MCHC 30.5 L (32.0-37.0) g/dL Immature Gran # 0.09 H (0.00-0.04) X 10*3/uL Eosinophils # 0.68 H (0.04-0.35) X 10*3/uL Creatinine 2.5 H (0.6-1.5) mg/dL Est GFR (CKD-EPI) 27 L (>=60) BUN/Creatinine Ratio 7.76 L (12.00-20.00) Ratio POC Glucose (mg/dL) 151 H (70-110) mg/dL Calcium 8.5 L (8.7-10.3) mg/dL C-Reactive Protein 10.60 H (0.00-0.80) mg/dL 10/16/23 10/16/23 10/17/23 Range/Units 17:02 21:45 06:13 WBC (4.50-10.00) X 10*3/uL RBC (4.40-5.60) X 10*6/uL Hgb (13.0-17.0) g/dL Hct (39.6-50.0) % MCHC (32.0-37.0) g/dL Immature Gran # (0.00-0.04) X 10*3/uL Eosinophils # (0.04-0.35) X 10*3/uL Creatinine (0.6-1.5) mg/dL Est GFR (CKD-EPI) (>=60) BUN/Creatinine Ratio (12.00-20.00) Ratio POC Glucose (mg/dL) 196 H 211 H 143 H (70-110) mg/dL Calcium (8.7-10.3) mg/dL C-Reactive Protein (0.00-0.80) mg/dL Assessment and Plan (1) Fever Current Visit: Yes Status: Acute Code(s): R50.9 - FEVER, UNSPECIFIED SNOMED Code(s): 468981040 (2) UTI (urinary tract infection) Current Visit: Yes Status: Acute Code(s): N39.0 - URINARY TRACT INFECTION, SITE NOT SPECIFIED SNOMED Code(s): 06191327 Plan: This is a telehealth visit 1patient with a low-grade fever source possible urinary as he did have a positive UA versus abdominal source as the patient was noticed to be tender in the right lower quadrant area 2- CT of abdominal pelvis did not show any acute abnormality no evidence of appendicitis 3-patient urine is positive culture did grew Enterococcus faecalis, blood culture has been negative 4- patient has received adequate Unasyn during this admission hence recommending no antibiotic on discharge Dictation was produced using [employer] dictation software. please excuse any grammatical, word or spelling errors. Time with Patient: Less than 30
[2023-10-17 16:55] LABS: Glucose,Whole Blood 194 mg/dL (70-110)
[2023-10-17 20:54] LABS: Glucose,Whole Blood 170 mg/dL (70-110)
[2023-10-18 02:16] VITALS: RESP 16
[2023-10-18 05:43] LABS: Glucose,Whole Blood 135 mg/dL (70-110)
[2023-10-18 08:50] LABS: HCT 28.6 % (39.6-50.0); HGB 9.1 g/dL (13.0-17.0); MCH 28.2 pg (27.0-32.0); MCHC 31.8 g/dL (32.0-37.0); MCV 88.5 FL (80.0-97.0); Mean Platelet Volume 10.1 FL (9.5-12.2); NRBC Per 100 WBC 0 X 10*3/uL (0.00-0.01); Platelet Count 189 X 10*3/uL (140-440); RBC 3.23 X 10*6/uL (4.40-5.60); WBC 10.95 X 10*3/uL (4.50-10.00)
[2023-10-18 09:09] LABS: ALT 26 U/L (10-49); AST 24 U/L (14-35); Albumin 3.4 g/dL (3.8-4.9); Albumin/Globulin Ratio 1.62 Ratio (1.60-3.17); Alkaline Phosphatase 23 U/L (41-126); BUN/Creat Ratio 8.89 Ratio (12.00-20.00); Calcium 8.7 mg/dL (8.7-10.3); Carbon Dioxide 26.1 mmol/L (21.6-31.8); Chloride 102 mmol/L (96-109); Globulin 2.1 g/dL (1.6-3.3); Glucose 126 mg/dL (70-110); Potassium 3.7 mmol/L (3.5-5.5); Sodium 141 mmol/L (135-145); Total Bilirubin 0.3 mg/dL (0.3-1.2); Total Protein 5.5 g/dL (6.2-8.2)
[2023-10-18 11:44] LABS: Glucose,Whole Blood 213 mg/dL (70-110)
--- NOTE | 2023-10-18 12:56 | P.DS ---
Providers Date of admission: 10/07/23 16:23 Attending physician: Kwan Toney Consults: 10/07/23 16:16 Consult Physician Routine Consulting Provider: Dara Calix Consult Reason/Comments: fever unknown etiology Do you want consulting provider notified?: Yes 10/11/23 10:13 Consult Physician Routine Consulting Provider: Adrian Ramos Consult Reason/Comments: Elevated Bun/creat Do you want consulting provider notified?: Yes 10/13/23 12:17 Consult Physician Routine Consulting Provider: Robbie Rodríguez Consult Reason/Comments: temporary dialysis cath Do you want consulting provider notified?: Yes 10/17/23 11:24 Consult Physician Routine Consulting Provider: Robbie Rodríguez Consult Reason/Comments: Dialysis cath removal Do you want consulting provider notified?: Yes Primary care physician: [facility] Course: HISTORY OF PRESENT ILLNESS: 68-year-old office patient has been [facility] Leon for the last few years who had history of stroke with right middle cerebral artery occlusion causing to have severe left-sided weakness, also 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 Also has been dealing with decubitus ulcer on the buttocks on the left heel area in manage. Was admitted to the hospital 2 days ago on October 06 for significant edema and anasarca not well-controlled has been on diuretics also was running low-grade temperature not a clear whether he has any infection or not. Culture has been negative so far laboratory value showed negative UA blood sugar continues to be slightly elevated continue to have slight abdominal cramps and discomfort on and off CAT scan of the abdomen was done showed 1.3 cm metallic foreign body in the right lower quadrant presume related to surgery with embolization coil or clip from prior study no other major finding otherwise. Doppler study of both legs right and left did not show any deep venous thrombosis. Chest x-ray does not show any process. Otherwise patient been tr eated with aggressive management for anasarca and edema currently. Also has patient seen by cardiology as an outpatient which has not had ability to see cardiology last 6 months annual echocardiograms past year will order an echocardiogram and for patient to be seen cardiology as an in-house specially with anasarca and swelling to see if we can help. Eventually echocardiogram was performed and showed 60 to 65% ejection fraction with left ventricular cavity is normal with normal thickness mitral valve had structurally normal mitral valve with no evidence of mitral prolapse or mitral stenosis. Aortic valve post valve replacement from 2017 no aortic regurgitation peak velocity of 2.95 with a gradient of 35 mmHg and mean gradient of 19 with aortic stenosis. Rest of the structure are perfectly normal at this point. Ended up having to find out with general surgery think about the finding in the cecum with current finding and its metallic foreign body this is most likely ingested and considered repeat an x-ray to see if this has moved. But no acute abdomen requiring intervention otherwise. Again cardiology seen patient in consultation and review current finding with bilateral lower extremity edema and acute chronic heart failure with preserved ejection fraction and right bundle branch block agree with the consideration for an echo continue diuretics with aggressive management for edema will check magnesium level further recommendation is to follow-up. 10/10/2023: His culture came back positive for the Enterococcus facialis remain on Zosyn currently receiving is not controlling his temperature bowel so far, white blood cell is down to 10.4 and creatinine has been slightly bit worse at 1.9 today with GFR down to 38 specially being on more diuretics. His Lasix remain at 40 mg 3 times a day, spironolactone at 25 mg a day and added Zaroxolyn 2.5 mg daily repeat creatinine tomorrow as well magnesium is at 1.6. Infectious disease decided since Enterococcus is sensitive to penicillin that to continue Zosyn for now till the culture is finalized. Otherwise CT of the abdomen pelvis did not show any appendicitis or any infection but shows slight foreign body in the cecum which repeat plain x-ray came back negative for any major abnormality requiring help. Also patient had seen cardiology looking into management for acute on chronic heart failure with preserved ejection fraction and agree with IV Lasix Zaroxolyn and Aldactone is to watch kidney function little bit more carefully. Surprisingly with patient's condition in the past every time we did 3 treatment with Lasix, Zaroxolyn and Aldactone the kidney function declined quite bit so we have to be just careful this time in the next day or 2. Patient is patient to be discharged home today but with all current management and the culture is not finalized and the edema still bad patient is not ready to leave the hospital yet. 10/11/2023: Kidney function is much worse today creatinine is up to 2.6 with GFR down to 26 blood sugar slightly better continue to have anasarca and edema patient be seen nephrology today and recommendation again to take him off all diuretics and any nephrotoxic agent. Nephrology opinion this is an acute tubular necrosis secondary to infection diuretic use and dehydration. Also from probably be diuresed with a CAT scan done couple days earlier. I had normal saline at 50 cc an hour and stop lisinopril completely at this point check bladder for urinary retention continue to monitor kidney function carefully along with urine output. This will delay discharge at least the next 24 hours for now. Of course previously CAT scan of the abdomen does not show any hydronephrosis. 10/12/2023: He is much worse today with a kidney function had declined significantly creatinine is up to 3.5 with GFR down to 18, blood sugar still mildly elevated, he is off all diuretics and all nephrotoxic agent but this is not improving so far patient will continue gentle hydration with nephrology to go on for the next 24 hours at this point. UTI still being treated successfully doing well continue antibiotics for few more days. The plan was to discharge patient to [facility] rehab but he is not in any condition to be discharged yet. Edema swelling and bloating sensation are the same or slightly better compared to yesterday. 10/13/2023: Kidney function is much worse at this point with GFR is very low patient acute kidney injury with acute kidney failure will require most likely hemodialysis Dr. Samuels had requested Dr. Rodríguez to put the dialysis line patient will be going for hemodialysis today. Infectious disease was remaining been treated for fever with most likely urinary tract infection with culture positive for Enterococcus fistulous which patient remained on Unasyn for it for now. Patient is not happy that he is not going back tomorrow with fast enough but he need to stay on the hospital run hemodialysis and see if this is not reversed patient will require probably to stay on hemodialysis. 10/16/2023: Patient remain on hemodialysis through the weekend Continue to see nephrology hemodialysis apparently was done last time on October 13 and was held on the continue to hold diuretics since 25th maintain normal saline and stop lisinopril. Continue Alanis catheter for urine output creatinine remained at 4.2 on the eighth will repeat another CMP CBC today. Also patient currently see infectious disease for Enterococcus facialis UTI growing with a culture and continue Unasyn. Medically patient was stable vitals are under control. Whether patient is going to continue on hemodialysis or not this to be determined by nephrology and the plan probably start preparing patient for getting back tomorrow with today or tomorrow. 10/17/2023: Seen patient today accompanied with his was eating breakfast in the morning, he is feeling slightly bit better, less shortness of breath, still having oxygen on with his vitals are stable, increased urine output with no hematuria or cloudy urine. His creatinine had improved significantly down to 2.5 after stopping dialysis for over 72 hours so far. BUN/creatinine are pending this morning and hopefully patient will have his Alanis catheter out today and prepare for discharge back to [facility] tomorrow. Patient is still on IV Unasyn for his Enterococcus faecalis UTI will ask infectious disease to switch him to oral antibiotic if he still need to be on any antibiotics for after leaving the hospital. Edema in the left foot mostly started become slightly bit worse still having Bright wrap to reduce edema without any diuretics for the last 5 days straight. Patient will be started back on furosemide at least 40 mg daily if agreed with nephrology today and prepare again for discharge tomorrow morning. 10/18/2023: He is doing much better, was started back on diuretics and seem to tolerate it very well, significant improvement in kidney function compared to before and creatinine is down to almost his baseline at 1.84, blood sugar running in the low 150s much better. Continue nursing care for small sacral multiple break which is stage II mostly. Remain on Unasyn antibiotic vasquez for Enterococcus facialis by He completed total of 10 days no need for any further antibiotics. Awaiting for his lab from this morning the patient hopefully will be transferred back to [facility] today. REVIEW OF SYSTEMS: CONSTITUTIONAL: Overweight no acute respiratory distress EYES: No icterus sclerae, no conjunctivitis. EARS, NOSE, MOUTH, THROAT, and FACE: No sore throat, lymphadenopathy, carotid bruits or deformity. RESPIRATORY: No shortness of breath cough wheezes CARDIOVASCULAR: Positive PND orthopnea palpitation. GASTROINTESTINAL: Still have mild abdominal discomfort with nausea no vomiting slight gastroparesis with mild diarrhea. GENITOURINARY: Negative for Hematuria or UTI, no kidney stones. INTEGUMENT/BREAST: Severe anasarca and edema, history of rheumatoid arthritis with generalized arthralgia. HEMATOLOGIC/LYMPHATIC: Negative for bleed or purpura. MUSCULOSKELTAL: Generalized muscle and joint pain. NEURLOGICAL: Bedridden with severe left-sided weakness. BEHAVIORAL/PSYCH: Negative. ENDOCRINE: Negative. PHYSICAL EXAMINATION: General Appearance: Alert, cooperative, no distress, appears stated age. Neck HEENT: Supple, no lymphadenopathy, no thyroid enlargement, no carotid bruits. Lungs: Decreased breath sound bilaterally with fine rhonchi no crackles. Chest Wall: Decreased expansion with deep inspiration no tenderness and no deformity was found on exam, no costochondral pain or discomfort. Heart: Irregular rate and rhythm, S1, S2 normal, no murmur, rub or gallop. Back: Symmetric, no curvature, ROM normal, no CVA tenderness. Abdomen: Slight discomfort lower abdominal region area no rebound no rigidity slight anasarca and mild ascites. Extremities: 2+ edema with quite anasarca worse on the left side than right side with increased edema in the left foot compared to the right side. Pulses: 2+ and symmetric. Skin: Skin color, texture, tugor normal, no rashes or lesions. Neurologic: Alert oriented x3 cranial nerves II through XII intact, positive weakness in the left side patient is bedridden. ASSESSMENT AND PLAN: _Acute kidney failure: Secondary to acute tubular necrosis and probably the use of IV iodine for his CAT scan initially, after 3 session of hemodialysis and without hemodialysis for the last 3 days patient creatinine is much better and is making good urine output on his own. _Anasarca and edema: Has been off diuretic still having Bright wrap helping to reduce edema patient will go back on furosemide 40 mg started today. _Fever : Mostly urinary tract infection with culture positive for Enterococcus facialis was switched to Unasyn if he is not done with IV antibiotic we will try to switch him to oral antibiotic for going back to [facility] tomorrow. _Acute kidney failure despite underlying problem and because which is not important this point important to kidney function Declining patient is off all nephrotoxic agent. Continue to watch for 24 manage patient declining more might require dialysis. _Congestive heart failure, the last echocardiogram showing well-preserved ejection fraction heart failure continue current medication management. Will continue current management for now. 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 _Type 2 diabetes with severe hyperglycemia: His blood sugar was quite bit elevated we will continue insulin at this point we will add Jardiance. Blood sugars remain good and reasonably below 200. _Stage IIIa chronic kidney disease: Still watching kidney function carefully specially with the IV diuretics at this point. Slightly with worsening kidney function with current diuretics. _Paroxysmal atrial fibrillation: Pulse rate is well-controlled still on metoprolol patient is on Eliquis 5 mg twice a day. _Post aortic valve placement: Has been seeing cardiology echocardiogram and maintained every 1 to 2 years. _Seizure disorders: Still on Keppra 750 mg twice a day hide no seizure activity. _Rheumatoid arthritis: Has been off biological agent is on prednisone 5 mg daily as a maintenance has not been seen rheumatology in a while. _Post dissected ascending aorta postsurgery at [facility] years ago that the time was complicated with a stroke and aortic valve placement. _Thrombocytopenia: Resolved was secondary to use of Zosyn. CODE STATUS: Full code. Hospital course: He was admitted to the hospital on October 09, 2023 for fever chills severe anasarca and swelling mostly in the left side for the last few days did not respond well to diuretics despite being on 60 mg of furosemide combined with smaller dose of Zaroxolyn pain did not improve. His temperature was not quite sure what is going on with his infection whether he had URI or any of the virus infection expected. Culture on admission was negative. His urine was slightly bit positive initially started on R Zosyn which patient responded well to it afterward. Continue to have significant edema did not improve his echocardiogram was done showed well-preserved ejection fraction with aortic valve prostatic in place and doing well. Patient was seen cardiology and infectious disease at this point. He ended up going for CAT scan of the abdomen with contrast which created acute kidney injury and worsening kidney failure his creatinine kept climbing up with GFR down to 10. Nephrology was consulted and they agree this is most likely diet related kidney injury required hemodialysis patient had dialysis line in the right femoral area by Dr. Rodríguez and start dialysis with 1 and half liter of fluid removed after the third session of dialysis patient started improving he has a Alanis catheter to watch his urine output continue to show clear urine. His urine culture was positive for Enterococcus and was remain on Zosyn initially but developed to have significant side effects from Zosyn including thrombocytopenia with a culture being susceptible to many antibiotic was switched to Unasyn by infectious disease. After holding off dialysis for 2 days straight kidney function started improving and patient did not require any further more. Continue to have significant anasarca and swelling of the left side require Bright wrap little bit tight to help and nephrology finally decided to try to introduce furosemide again which she had 1 dose on 10/16 his Alanis catheter came out. Patient still making good urine output with no retention. No further need for any IV antibiotics or oral antibiotics at this point. He had a small stage II sacral area been watched since he came from a weight with no change and will be continue caring for when he goes back to [facility] as well. Patient is very stable to discharge back to [facility] today to watch his kidney function at least twice a week next 2 weeks and once a week for 4 weeks afterward to make an appointment to see nephrology as an outpatient as well. Time spent on discharging patient was over 45 minutes. Plan - Discharge Summary Discharge Rx Participant: No New Discharge Prescriptions: New Metoprolol Tartrate [Lopressor] 75 mg PO BID@0800,1700 tab amLODIPine [Norvasc] 5 mg PO DAILY tab Continue Na Phos,M-B/Na Phos,Di-Ba [Fleet Adult] 133 ml RECTAL DAILY PRN PRN Reason: Constipation bisacodyL [Dulcolax] 10 mg RECTAL DAILY PRN PRN Reason: Constipation Acetaminophen Tab [Tylenol] 650 mg PO Q6H PRN PRN Reason: Pain Metoclopramide [Reglan] 10 mg PO ACHS Famotidine [Pepcid] 20 mg PO BID@0800,1700 predniSONE 5 mg PO DAILY@0800 polyethylene glycoL 3350 [Miralax] 17 gm PO DAILY PRN PRN Reason: Constipation Multivitamins, Thera [Multivitamin (formulary)] 1 tab PO DAILY@1700 Loratadine [Claritin] 10 mg PO DAILY@0800 Atorvastatin [Lipitor] 20 mg PO HS@2100 Loperamide HCl [Imodium A-D] 2 - 4 mg PO TID PRN PRN Reason: Loose Stool Menthol [Biofreeze] 1 applic TOPICAL TID PRN PRN Reason: PAIN/DISCOMFORT MELANIE SHOULDERS Magnesium Hydroxide [Milk of Magnesia Concentrate] 7,200 mg PO Q48H PRN PRN Reason: Constipation levETIRAcetam [Keppra] 750 mg PO BID@0800,1700 Apixaban [Eliquis] 5 mg PO BID@0800,1700 INSULIN LISPRO (HumaLOG) [humaLOG] 35 units SQ DAILY@0700 INSULIN LISPRO (HumaLOG) [humaLOG] 20 units SQ DAILY@1100 allopurinoL [Zyloprim] 300 mg PO DAILY@0800 HYDROcodone/APAP 7.5-325MG [[place] 7.5-325] 1 tab PO Q6HR #30 tab Sodium Chloride [Jenkins Coolidge] 1 spray EA NOSTRIL BID PRN PRN Reason: Allergy Symptoms INSULIN LISPRO (HumaLOG) [humaLOG] See Protocol SQ ACHS Lactulose 20 gm PO BID@0800,1700 Insulin Glargine [Lantus Vial] 65 unit SQ DAILY@0700 Insulin Glargine [Lantus Vial] 40 unit SQ HS@2100 INSULIN LISPRO (HumaLOG) [humaLOG] 45 units SQ DAILY@1700 Fish Oil/Dha/Epa [Fish Oil 1,200 mg Fish Oil] 1 cap PO DAILY@0800 Co-Q-10 100mg 1 cap PO DAILY@0800 Changed Furosemide [Lasix] 40 mg PO DAILY@0800 #0 Discontinued lisinopriL [Zestril] 10 mg PO DAILY@0800 Metoprolol Tartrate [Lopressor] 75 mg PO BID@0800,1700 Spironolactone [Aldactone] 12.5 mg PO DAILY@1400 Discharge Medication List Acetaminophen Tab [Tylenol] 650 mg PO Q6H PRN 12/17/16 [History] Atorvastatin [Lipitor] 20 mg PO HS@2100 12/17/16 [History] Famotidine [Pepcid] 20 mg PO BID@0800,1700 12/17/16 [History] Loratadine [Claritin] 10 mg PO DAILY@0800 12/17/16 [History] Metoclopramide [Reglan] 10 mg PO ACHS 12/17/16 [History] Multivitamins, Thera [Multivitamin (formulary)] 1 tab PO DAILY@1700 12/17/16 [History] Na Phos,M-B/Na Phos,Di-Ba [Fleet Adult] 133 ml RECTAL DAILY PRN 12/17/16 [History] bisacodyL [Dulcolax] 10 mg RECTAL DAILY PRN 12/17/16 [History] polyethylene glycoL 3350 [Miralax] 17 gm PO DAILY PRN 12/17/16 [History] predniSONE 5 mg PO DAILY@0800 12/17/16 [History] Loperamide HCl [Imodium A-D] 2 - 4 mg PO TID PRN 10/18/19 [History] Menthol [Biofreeze] 1 applic TOPICAL TID PRN 10/18/19 [History] Apixaban [Eliquis] 5 mg PO BID@0800,1700 10/07/23 [History] Co-Q-10 100mg 1 cap PO DAILY@0810/07/23 [History] Fish Oil/Dha/Epa [Fish Oil 1,200 mg Fish Oil] 1 cap PO DAILY@0810/07/23 [History] INSULIN LISPRO (HumaLOG) [humaLOG] 20 units SQ DAILY@1100 10/07/23 [History] INSULIN LISPRO (HumaLOG) [humaLOG] 35 units SQ DAILY@0710/07/23 [History] INSULIN LISPRO (HumaLOG) [humaLOG] 45 units SQ DAILY@169910/07/23 [History] INSULIN LISPRO (HumaLOG) [humaLOG] See Protocol SQ ACHS 10/07/23 [History] Insulin Glargine [Lantus Vial] 40 unit SQ HS@2100 10/07/23 [History] Insulin Glargine [Lantus Vial] 65 unit SQ DAILY@0710/07/23 [History] Lactulose 20 gm PO BID@0800,1700 10/07/23 [History] Magnesium Hydroxide [Milk of Magnesia Concentrate] 7,200 mg PO Q48H PRN 10/07/23 [History] Sodium Chloride [Jenkins Coolidge] 1 spray EA NOSTRIL BID PRN 10/07/23 [History] allopurinoL [Zyloprim] 300 mg PO DAILY@0800 10/07/23 [History] levETIRAcetam [Keppra] 750 mg PO BID@0800,1700 10/07/23 [History] Furosemide [Lasix] 40 mg PO DAILY@0800 #0 10/18/23 [Rx] HYDROcodone/APAP 7.5-325MG [[place] 7.5-325] 1 tab PO Q6HR #30 tab 10/18/23 [Rx] Metoprolol Tartrate [Lopressor] 75 mg PO BID@0800,1700 tab 10/18/23 [Rx] amLODIPine [Norvasc] 5 mg PO DAILY tab 10/18/23 [Rx] Follow up Appointment(s)/Referral(s): Kwan Toney MD [Primary Care Provider] - 1-2 days Yanique Marie [NON-STAFF] - As Needed Discharge Disposition: TRANSFER TO SNF/ECF
--- NOTE | 2023-10-18 13:31 | P.PN ---
Subjective patient is seen for follow-up for acute kidney injury. Started on hemodialysis on 10/13/2023. Urine output has improved and hemodialysis is currently on hold. last hemodialysis on 10/14/2023. Serum creatinine at 1.8 mg/dL today. off of IV fluids. Status post IV Lasix yesterday, urine output at 5 L for 24 hours. Alanis catheter was removed and patient currently has an external catheter. Objective - Vital Signs Vital signs: Vital Signs Temp 98.6 F 10/18/23 07:12 Pulse 64 10/18/23 07:12 Resp 16 10/18/23 07:00 BP 140/74 10/18/23 07:12 Pulse Ox 95 10/18/23 07:12 FiO2 Intake & Output 10/17/23 10/18/23 10/18/23 18:59 06:59 18:59 Intake Total 535 Output Total 3590 1500 Balance -3055 -1500 Weight 153.484 kg Intake: Oral 535 Output: Urine 3590 1500 Uretheral (Alanis) 445 600 Other: Voiding Method Indwelling Catheter Indwelling Catheter External Catheter # Bowel Movements 1 1 1 - Exam patient is awake, comfortable, no acute distress. Examination of the heart S1 and S2 Examination of the lungs decreased breath sounds at the bases Abdomen is soft obese nontender Examination of lower extremities shows edema 1+. worse on the left side. Both legs are wrapped. Left hemiparesis. - Labs CBC & Chem 7: 10/18/23 04:57 10/18/23 04:57 Labs: Abnormal Lab Results - Last 24 Hours (Table) 10/17/23 10/17/23 10/18/23 Range/Units 16:54 20:52 04:57 WBC 10.95 H (4.50-10.00) X 10*3/uL RBC 3.23 L (4.40-5.60) X 10*6/uL Hgb 9.1 L (13.0-17.0) g/dL Hct 28.6 L (39.6-50.0) % MCHC 31.8 L (32.0-37.0) g/dL Anion Gap (4.00-12.00) mmol/L Creatinine (0.6-1.5) mg/dL Est GFR (CKD-EPI) (>=60) BUN/Creatinine Ratio (12.00-20.00) Ratio Glucose (70-110) mg/dL POC Glucose (mg/dL) 194 H 170 H (70-110) mg/dL Alkaline Phosphatase (41-126) U/L Total Protein (6.2-8.2) g/dL Albumin (3.8-4.9) g/dL 10/18/23 10/18/23 10/18/23 Range/Units 04:57 05:41 11:42 WBC (4.50-10.00) X 10*3/uL RBC (4.40-5.60) X 10*6/uL Hgb (13.0-17.0) g/dL Hct (39.6-50.0) % MCHC (32.0-37.0) g/dL Anion Gap 12.90 H (4.00-12.00) mmol/L Creatinine 1.8 H (0.6-1.5) mg/dL Est GFR (CKD-EPI) 41 L (>=60) BUN/Creatinine Ratio 8.89 L (12.00-20.00) Ratio Glucose 126 H (70-110) mg/dL POC Glucose (mg/dL) 135 H 213 H (70-110) mg/dL Alkaline Phosphatase 23 L (41-126) U/L Total Protein 5.5 L (6.2-8.2) g/dL Albumin 3.4 L (3.8-4.9) g/dL Assessment and Plan Assessment: 1. Acute kidney injury secondary to ATN secondary to infection, diuresis. Also received IV contrast on October 09, [address] of the abdomen and pelvis. Creatinine 1.08 on admission and up to 4.5 dated October 13, 2023. Has right femoral catheter. Bladder scan showed urine volume of 200 to 300 cc. Alanis catheter now removed.. No proteinuria on UA. No hydronephrosis noted on CAT scan. Nonoliguric. Hemodialysis currently on hold as renal function has improved. 2. Diabetes mellitus. 3. Benign hypertension. Stable. 4. History of aortic valve replacement. 5. Chronic diastolic CHF. 6. Enterococcus UTI on antibiotics. ID following. 7. History of CVA. Plan: continue to encourage increase oral intake. Continue to hold hemodialysis. DC dialysis catheter Repeat labs in a.m. Avoid any nephrotoxic agents. Repeat IV Lasix 1
[2023-10-18] MEDS: FUROSEMIDE 10 MG/ML 2 ML VIAL IV ONE (14:36)
[2023-10-18 14:58] VITALS: BP 138/70; PULSE 62; TEMP 98.9
[2023-10-18 16:41] LABS: Glucose,Whole Blood 218 mg/dL (70-110)
[2023-10-18 20:03] LABS: Glucose,Whole Blood 182 mg/dL (70-110)
--- NOTE | 2023-10-18 22:31 | PCN ---
PROCEDURE NOTE PROCEDURE: Remove dialysis catheter right femoral approach. DESCRIPTION OF PROCEDURE: The patient was seen in his room. Right groin was prepped and drapes applied in a sterile manner. The stitches were removed and then catheter was pulled out and pressure dressing applied the patient tolerated the procedure well. JENNY / CIRA: [id number] /
[2023-10-19] MEDS ORDERED: FUROSEMIDE 40 MG TAB PO SCH (09:00)
== END 2023-10-18 20:39 | DRG 871 ==
LOC: EC 13:27 → 4SSUR 16:23 → OBSVTOIN 16:23 → 4SSUR 20:53
PROVIDERS: ADMIT Internal Medicine Geriatric Medicine; ATTEND Internal Medicine Geriatric Medicine
PROC: 3E0G76Z Introduction of Nutritional Substance into Upper GI, Via Natural or Artificial Opening (ICD-10-PCS; 2023-10-07)
PROC: 5A1D70Z Performance of Urinary Filtration, Intermittent, Less than 6 Hours Per Day (ICD-10-PCS; 2023-10-13)
PROC: 02HV33Z Insertion of Infusion Device into Superior Vena Cava, Percutaneous Approach (ICD-10-PCS; principal; 2023-10-13 17:00)
PROC: 02PY33Z Removal of Infusion Device from Great Vessel, Percutaneous Approach (ICD-10-PCS; 2023-10-18)
DX: A41.81 Sepsis due to Enterococcus (principal); I50.33 Acute on chronic diastolic (congestive) heart failure; N17.0 Acute kidney failure with tubular necrosis; I69.354 Hemiplegia and hemiparesis following cerebral infarction affecting left non-dominant side; N39.0 Urinary tract infection, site not specified; I13.0 Hypertensive heart and chronic kidney disease with heart failure and stage 1 through stage 4 chronic kidney disease, or unspecified chronic kidney disease; E83.42 Hypomagnesemia; G40.909 Epilepsy, unspecified, not intractable, without status epilepticus; M06.9 Rheumatoid arthritis, unspecified; B95.2 Enterococcus as the cause of diseases classified elsewhere; T18.4XXA Foreign body in colon, initial encounter; D69.59 Other secondary thrombocytopenia; E11.65 Type 2 diabetes mellitus with hyperglycemia; E11.22 Type 2 diabetes mellitus with diabetic chronic kidney disease; N18.31 Chronic kidney disease, stage 3a; L89.152 Pressure ulcer of sacral region, stage 2; T36.0X5A Adverse effect of penicillins, initial encounter; I48.0 Paroxysmal atrial fibrillation; E86.0 Dehydration; M19.90 Unspecified osteoarthritis, unspecified site; F32.A Depression, unspecified; Z79.4 Long term (current) use of insulin; Z95.3 Presence of xenogenic heart valve; Z93.1 Gastrostomy status; I69.320 Aphasia following cerebral infarction; T50.8X5A Adverse effect of diagnostic agents, initial encounter; I45.10 Unspecified right bundle-branch block; I87.8 Other specified disorders of veins; I25.5 Ischemic cardiomyopathy; I25.10 Atherosclerotic heart disease of native coronary artery without angina pectoris; T50.2X5A Adverse effect of carbonic-anhydrase inhibitors, benzothiadiazides and other diuretics, initial encounter; E78.5 Hyperlipidemia, unspecified; Z79.899 Other long term (current) drug therapy; Z79.01 Long term (current) use of anticoagulants; Z87.891 Personal history of nicotine dependence
CPT/HCPCS: 36415; 36556; 71045; 71046; 74018; 74019; 74177; 80048; 80053; 81001; 83605; 83735; 83880; 84100; 84484; 85025; 85027; 85610; 85730; 86140; 86706; 87040; 87077; 87086; 87186; 87340; 87636; 90935; 93306; 94760; 96365; 96366; 96375; 99285

== ENCOUNTER 2023-12-24 16:25 | Inpatient (IN) | payer MEDICAID, MEDICARE, OTHER ==
[2023-12-25] MEDS ORDERED: METOPROLOL TARTRATE 25 MG TAB ONE ×3 (01:18→20:21)
[2023-12-25] MEDS ORDERED: INSULIN ASPART (NovoLOG) 100 UNIT/ML VIAL SQ ONE ×5 (01:19→17:10)
[2023-12-25] MEDS ORDERED: APIXABAN 5 MG TAB ONE ×3 (01:20→20:15)
[2023-12-25] MEDS ORDERED: ATORVASTATIN 20 MG TAB ONE ×2 (01:20→20:15)
[2023-12-25] MEDS ORDERED: METOPROLOL TARTRATE 50 MG TAB ONE (09:30)
[2023-12-25] MEDS ORDERED: levETIRAcetam 500 MG TAB ONE ×2 (09:30→20:15)
[2023-12-25] MEDS ORDERED: FAMOTIDINE 20 MG TAB ONE ×2 (09:30→20:15)
[2023-12-25] MEDS ORDERED: HYDROcodone/APAP 7.5-325MG 1 EACH TAB ONE (09:57)
[2023-12-25] MEDS ORDERED: POTASSIUM CHLORIDE ER 20 MEQ TAB.ER PO ONE (17:14)
[2023-12-25] MEDS ORDERED: METOPROLOL SUCCINATE (ER) 25 MG TAB.ER.24H PO ONE (20:15)
--- NOTE | 2024-01-15 15:13 | CT ---
Patient Heriberto Lane ID [id number] Order # EXAMINATION TYPE: CT brain wo con DATE OF EXAM: 12/24/2023 COMPARISON: No comparison available on downtime PACS. INDICATION: Acute mental status changes, known prior stroke DLP: 1243.4 mGycm, Automated exposure control for dose reduction was used. CONTRAST: None CT of the brain is performed utilizing 3 mm thick sections through the posterior fossa and 3 mm thick sections through the remaining calvarium. Study is performed within 24 hours of [facility] to the [facility]. No abnormal hyperdensity is present to suggest an acute intracranial hemorrhage. No mass lesion is evident. No acute infarcts are evident. There is a large old right parietal lobe infarct. Ex vacuo effect is e vident. There are calcifications are within this region. No midline shift is evident. There is some periventricular white matter hypodensity, likely on the basis of chronic white matter i schemic changes. Ventricles and sulci are appropriate for the patient age. Some mucosal thickening within the posterior left ethmoid air cell. Remaining paranasal sinuses and m astoid air cells are clear. IMPRESSION: 1. No acute intracranial process. Follow up MRI can be performed as clinically indicated. 2. Old right parietal lobe infarct. 3. Mild chronic appearing periventricular white matter ischemic changes.
--- NOTE | 2024-01-23 10:58 | XR ---
Patient Heriberto Lane ID [id number] Order # EXAMINATION TYPE: XR chest 1V DATE OF EXAM: 12/24/2023 COMPARISON: No comparison available on downtime PACS. INDICATION: Changes TECHNIQUE: Single frontal view of the chest is obtained. FINDINGS: The heart size is prominent. The pulmonary vasculature is prominent. No suspicious focal consolidation. IMPRESSION: 1. Cardiomegaly with prominent pulmonary vascular markings. Correlate for volume overload.
== END 2023-12-25 20:01 | disposition short-term general hospital (02) | DRG 100 ==
LOC: DISRECOVER 16:25
PROVIDERS: ADMIT Hospitalist; ATTEND Hospitalist
DX: R56.9 Unspecified convulsions (principal); G93.41 Metabolic encephalopathy; I71.02 Dissection of abdominal aorta; G45.9 Transient cerebral ischemic attack, unspecified; I69.354 Hemiplegia and hemiparesis following cerebral infarction affecting left non-dominant side; I48.91 Unspecified atrial fibrillation; H53.462 Homonymous bilateral field defects, left side; R47.81 Slurred speech; I10 Essential (primary) hypertension; E78.5 Hyperlipidemia, unspecified; E66.9 Obesity, unspecified; Z79.01 Long term (current) use of anticoagulants; Z79.899 Other long term (current) drug therapy; Z87.891 Personal history of nicotine dependence; Z74.01 Bed confinement status; Z99.3 Dependence on wheelchair
CPT/HCPCS: 70450; 71045; 80177; 87040; 93005; 99285